=== PATIENT | male | born 1950 | race Caucasian/White ===

== ENCOUNTER 2019-06-09 22:58 | Emergency (ER) | payer MEDICARE, MEDICAID, SELFPAY ==
[2019-06-09 22:59] VITALS: BP 129/70; PULSE 90; RESP 18; TEMP 36.4; O2SAT 96; BMI 24.4
--- NOTE | 2019-06-09 23:25 | ED.VISSUMM ---
- ER Visit Summary Date of Service: 06/09/19 Chief Complaint: Blurred vision and elevated blood pressure History of Present Illness: The patient is a 68 M who presents with blurred vision and elevated blood pressure that began yesterday. Patient states that whenever his blood pressure goes up he gets blurred vision. Patient states he takes an extra dose of enalapril 20 mg whenever he gets this. Patient states he has taken a total of 6 tablets of his enalapril today. Patient states his last dose was approximately 2 hours ago. Patient states nothing seems to make the blood pressure worse. Patient states the medication seems to help his blood pressure. Patient denies any chest pain. Patient does admit to occasional shortness of breath. Patient also admits to some rhinorrhea and recent sinusitis. Physical Examination: Vital signs are stable. Patient is afebrile. Patient is in no acute distress. Oral mucosa is pink and moist. Neck is supple. Trachea is midline. There is no JVD noted. Heart was regular rate and rhythm. Lungs are clear and equal bilateral. Abdomen is soft. Bowel sounds are normal. There is no tenderness. There is no guarding noted. Skin is warm dry. Cranial nerves II through XII are intact. There are no focal motor or sensory deficits noted. The remaining physical exam is within normal limits. Test Results: EKG showed normal sinus rhythm with a rate of 84. There are no acute ST or T wave changes. This was unchanged compared to previous EKG dated 04/26/2016. CBC showed a mild leukocytosis of 12.5. Comprehensive metabolic profile showed a glucose of 64. Troponin was 0.030. PA and lateral chest x-ray does not show any acute cardiopulmonary process. Emergency Department Course and Treatment: Patient feels better on reevaluation. Patient wants to go home. I recommended that the patient stay for a delta troponin since his symptoms were within the last 6 hours. Patient does not want to stay for a delta troponin. Patient was to go home. Patient was instructed to follow-up with his primary care physician in 3 to 5 days. Patient was instructed to return if worse in any way. Patient understood and was agreeable with the plan. All questions were answered. Disposition: Discharge home Impression: Hypertension This note was generated with [employer] dictation software. It may contain incorrect words, spelling, and punctuation that were not noted in review of the chart prior to signing ED Disposition - Plan for ED Patient: Disposition: Home or Assisted Living Diagnosis: Hypertension Instructions: HYPERTENSION, Established, Out of Control Referrals: Reji De Leon MD [Primary Care Provider] - 3-5 Days
--- NOTE | 2019-06-09 23:26 | EKG12_ITS ---
Test Reason : HTN Blood Pressure : / mmHG Vent. Rate : 084 BPM Atrial Rate : 084 BPM P-R Int : 172 ms QRS Dur : 084 ms QT Int : 350 ms P-R-T Axes : 061 046 067 degrees QTc Int : 413 ms Normal sinus rhythm Normal ECG Confirmed by FREDRICK JOY, ESTHELA ([id number]), food expeditor JAYRO NEWMAN ([id number]) on 06/11/2019 1:57:33 PM Referred By: BREANNE Confirmed By:ESTHELA ALCALA MD
--- NOTE | 2019-06-09 23:26 | RAD_ITS ---
HISTORY: HX OF HIGH BLOOD PRESSURE/DIZZINESS AND BURRED VISION TONIGHT/TOOK 4 EXTRA BLOOD PRESSURE MEDICATION PILLS EXAM: XR Chest 2 Views: COMPARISON: April 26, 2016 FINDINGS: # of images incl. paperwork: 2 Atherosclerotic plaque within the aortic arch is similar. 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 No focal airspace disease is perceived Heart is not enlarged. Bones are normal. Pulmonary vascularity is distinct. No effusions. RAD/Chest PA and Lateral IMPRESSION: No acute cardiopulmonary disease perceived. at 2358 Reported and signed by: Efrain Mcmillan MD Electronically Signed: Efrain Mcmillan MD at 23:57 EDT Tel , Service support ,
[2019-06-10 00:22] LABS: ALB/GLOB Ratio 0.9 RATIO (0.9-2.4); AST(SGOT) 18 U/L (15-37); Alanine Aminotransfer ALT/SGPT 23 U/L (16-61); Albumin, Serum 3.7 g/dL (3.2-5.0); Alkaline Phosphatase 79 U/L (45-117); Anion Gap 7 (5-15); BUN 15 mg/dL (7-18); BUN/Creat Ratio 17.8 RATIO (10-20); Calcium,Total 9.1 mg/dL (8.5-10.1); Chloride 105 mmol/L (98-107); Creatinine, Serum 0.84 mg/dL (0.70-1.30); EST Glomerular Filtration Rate 97 mL/min (>60); Est Glom Filt Rate - Afr Amer 117 mL/min (>60); Estimated Creatinine Clearance 92.13 ml/min; Glucose 64 mg/dL (74-106); Potassium 4.7 mmol/L (3.5-5.1); Protein, Total 7.7 g/dL (6.4-8.2); Sodium Level 138 mmol/L (136-145)
[2019-06-10 00:26] LABS: Absolute Lymphocyte Count 2.85 X10^3/ul (0.83-4.51); Absolute Neutrophil Count 7.8 X10^3/uL (2.0-7.7); Basophil# 0.06 X10^3/uL; Basophil% 0.5 % (0-1); Eosinophil# 0.27 X10^3/uL; Eosinophils% 2.2 % (0-5); Hemoglobin 15.7 g/dl (13.0-16.5); Lymphocyte # 2.85 X10^3/ul (4.0); Lymphocyte % 22.8 % (19-41); Mean Corp Hgb Conc 33.4 g/gl (32-36); Mean Corpuscular Hgb 30.3 pg (27.0-32.0); Mean Corpuscular Volume 90.7 fL (80-94); Monocyte# 1.43 X10^3/uL; Monocyte% 11.4 % (0-10); Neutrophil # 7.84 X10^3/uL (2.7-7.7); Neutrophil % 62.7 % (47-70); Platelet Count 342 K/mm3 (150-450); RBC Distribution Width SD 49.3 fl (35.1-43.9); Red Blood Count 5.18 M/mm3 (4.6-6.2); White Blood Count 12.5 K/mm3 (4.4-11.0)
[2019-06-10 00:27] LABS: POSITIVE COUNT NO; POSITIVE DIFFERENTIAL NO; POSITIVE MORPHOLOGY NO
--- NOTE | 2019-06-10 00:36 | ED.RN ---
PT GIVEN A SANDWICH AND COKE TO EAT, SERUM GLUCOSE 64.
[2019-06-10 01:10] VITALS: BP 145/78; PULSE 96; RESP 16; O2SAT 98
== END 2019-06-10 01:11 | disposition home or self-care (01) ==
PROVIDERS: Emergency Provider Emergency Medicine; Family Provider Family Medicine; PCP Family Medicine
DX: I10 Essential (primary) hypertension (principal); E11.9 Type 2 diabetes mellitus without complications; Z86.73 Personal history of transient ischemic attack (TIA), and cerebral infarction without residual deficits; Z72.0 Tobacco use; Z79.84 Long term (current) use of oral hypoglycemic drugs; Z79.899 Other long term (current) drug therapy
CPT/HCPCS: 71046; 80053; 84484; 85025; 93005; 99284; A4216

== ENCOUNTER 2023-09-04 13:58 | Inpatient (IN) | payer MEDICARE, MEDICAID, SELFPAY ==
[2023-09-04] VITALS (7 sets, daily range): BP systolic 124–153; BP diastolic 55–110; PULSE 79–105; RESP 14–18; TEMP 36.4–37.3; O2SAT 93–98; BMI 22.9; BMI 21.5
--- NOTE | 2023-09-04 14:11 | EKG12_ITS ---
Test Reason : CP Blood Pressure : / mmHG Vent. Rate : 104 BPM Atrial Rate : 104 BPM P-R Int : 184 ms QRS Dur : 088 ms QT Int : 322 ms P-R-T Axes : 048 008 048 degrees QTc Int : 423 ms Poor data quality, interpretation may be adversely affected Sinus tachycardia Possible Left atrial enlargement Nonspecific ST abnormality Abnormal ECG Confirmed by FREDRICK JOY, ESTHELA ([id number]), communications editor JAYRO NEWMAN ([id number]) on 09/06/2023 10:43:48 AM Referred By: KYLE/DINA Confirmed By:ESTHELA ALCALA MD
--- NOTE | 2023-09-04 14:13 | EDS_ITS ---
<Statement entered by Samara Whitney MD - 09/04/23 16:59> I have personally performed a face to face assessment of the patient and have reviewed the SANDI Note. Patient presents with substernal chest pressure that started earlier today. He reports some mild shortness of breath. Patient was admitted to [facility] 3 weeks ago with pneumonia. He states the chest pain that he has now is similar to when he had pneumonia. His shortness of breath is not as severe as when he was admitted with pneumonia. Patient sitting upright in bed no acute distress. Head and neck examination unremarkable. Heart is slightly tachycardic and regular. Lung sounds are grossly clear bilaterally. Abdomen is soft and nontender. Lower extremity examination does not reveal significant calf tenderness or edema. EKG is sinus tach with no evidence of acute ischemia. Labwork significant for slightly elevated D-dimer and significant elevation of troponin. Glucose is also elevated to 600. Chest x-ray reveals chronic changes per my interpretation with no focal infiltrate. Radiology interpretation is reviewed and agrees. Patient sent for CTA of the chest which reveals emphysematous changes and no PE. Patient started on heparin drip and given insulin. Case discussed with cardiology as well as hospitalist. HPI History of Present Illness Chief Complaint: Chest Pain Narrative Narrative: Patient is a 72-year-old male with history of hypertension, hyperlipidemia, diabetes, tobacco use, greater than 1 to 1.5 packs a day who presents to the emergency department for midsternal chest pain. Patient states that he was recently admitted to the [facility] for 4 days 3 weeks ago for community-acquired pneumonia. Patient states today he woke up with chest pain and it feels similar however patient has no significant short of breath, no coughing, fever or chills. 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 Patient is no longer on antibiotics. He denies any past history of blood clots in the legs or lungs. PFSH PFSH Home Medications metformin 500 mg tablet 1,000 mg PO BIDCM DIABETES 04/26/16 [History Last Taken 09/04/23] albuterol sulfate 90 mcg/actuation aerosol inhaler 2 inh inhalation Q6H PRN shortness of breath or wheezing 09/04/23 [History Last Taken 09/04/23] diltiazem HCl 180 mg capsule,extended release 24 hr 180 mg PO DAILY BLOOD PRESSURE 09/04/23 [History Last Taken Unknown] fluticasone fur. 100 mcg-umeclid 62.5 mcg-vilant 25 mcg inhalat.powder (Trelegy Ellipta) 1 inh inhalation DAILY SHORTNESS OF BREATH 09/04/23 [History Last Taken 09/04/23] spironolactone 25 mg tablet 25 mg PO DAILY BLOOD PRESSURE 09/04/23 [History Last Taken Unknown] Allergy/AdvReac Type Severity Reaction Status Date / Time No Known Allergies Allergy Verified 06/09/19 23:32 Social History Smoking Status: Current every day smoker tobacco type: cigarettes ROS ROS ED ROS Narrative Constitutional: Negative for fever, chills, weight loss, weakness Eyes: Negative for vision loss, vision change, double vision ENT: Negative for any sore throat, ear pain, congestion Cardiovascular: Negative for any palpitations. Positive for chest pain, tightness Respiratory: Negative for any cough, sputum production, hemoptysis, dyspnea on exertion, orthopnea. Positive for dyspnea Gastrointestinal: Negative for any abdominal pain, nausea, vomiting, diarrhea, constipation, blood in stool, blood in vomit : Negative for any urinary frequency, dysuria, retention, blood in urine Muscle skeletal: Negative for any muscle joint pain, stiffness, myalgias, arthralgias, neck pain, back pain Neurological: Negative for any headache, syncope, numbness or tingling, dizziness Skin: Negative for any rashes, lumps, itching, abrasions, lacerations Psychiatric: Negative for any depression, anxiety, stress, suicidal ideation, homicidal ideation Hematologic: Negative for any easy bruising, excessive bruising, easy bleeding Allergies: Negative for any eczema, hives, rash EXAM Physical Exam Narrative Exam Narrative: Vital signs reviewed. Appears to be in no obvious distress. HEET: Head normocephalic atraumatic, TMs clear bilaterally. Posterior pharynx is clear, moist mucous membranes. Nares clear bilaterally. Neck: Supple with no lymphadenopathy or tenderness. No signs of meningismus, negative jolt sign. Cardiac: Tachycardic rate, systolic murmur, no gallops or rubs, equal peripheral pulses bilaterally. Respiratory: Lungs clear to auscultation bilaterally to bilateral bases. No chest tenderness. Abdomen: Soft, nontender, nondistended. No abdominal bruit or pulsatile masses. No hepatosplenomegaly Extremities: No peripheral edema, no signs of gross trauma or deformity. Active full range of motion of all extremities. Neuro: Cranial nerves II through XII intact, no focal neurological deficits. Skin: Clean dry and intact with no rash, purpura, petechiae, vesicles or pustules. Backs/flank: No CVA tenderness, no midline spinal tenderness, no deformity. Psych: Normal mood and affect. No SI, HI or acute psychosis. Const Vital Signs: 09/04/23 13:59 09/04/23 14:19 09/04/23 14:22 Temperature 97.6 F L Temperature Source Temporal Pulse Rate 105 H Respiratory Rate 14 Respiratory Effort Normal Respiratory Pattern Normal Blood Pressure 153/83 H Blood Pressure Mean 106 Pulse Ox 98 Oxygen Delivery Method Room Air Room Air 09/04/23 15:37 Temperature Temperature Source Pulse Rate 87 Respiratory Rate Respiratory Effort Respiratory Pattern Blood Pressure 124/55 H Blood Pressure Mean Pulse Ox Oxygen Delivery Method Positive well nourished and unkempt General Appearance ED: unkempt Psych Appearance: unkempt MDM MDM Lab Data Labs: Laboratory Results - last 24 hr 09/04/23 14:17 WBC 14.4 H RBC 5.51 Hgb 16.7 H Hct 50.6 MCV 91.8 MCH 30.3 MCHC 33.0 RDW Std Deviation 52.3 H RDW Coeff of Lauri 15.6 H Plt Count 301 MPV 10.5 Immature Gran % (Auto) 0.500 Neut % (Auto) 90.0 H Lymph % (Auto) 3.3 L Hand % (Auto) 5.7 Eos % (Auto) 0.0 Baso % (Auto) 0.5 Absolute Neuts (auto) 13.0 H Absolute Lymphs (auto) 0.48 L Nucleated RBC % 0 D-Dimer Quant (PE/DVT) 0.84 H* Sodium 126 L Potassium 5.0 Chloride 93 L Carbon Dioxide 23.0 Anion Gap 10 BUN 27 H Creatinine 1.45 H Estim Creat Clear Calc 50.06 Est GFR (MDRD) Af Amer 62 Est GFR (MDRD) Non-Af 51 L BUN/Creatinine Ratio 18.6 Glucose 654 H* Calcium 9.1 Troponin I High Sens 2606 H* B-Natriuretic Peptide 32.4 Radiography Diagnostic Testing: Clinical Impression(s) from Imaging Studies Chest X-Ray 09/04/23 14:35 IMPRESSION: No acute pulmonary finding. Electronically Signed: Sonu Fagan MD at 14:58 EDT , Chest CTA 09/04/23 15:28 IMPRESSION: No pulmonary embolism. Moderate emphysema. Partially calcified lesion of the left kidney noted. This could be further evaluated with nonemergent renal ultrasound. Electronically Signed: Sonu Fagan MD at 15:48 EDT , EKG Sinus tach: Attestation: I personally reviewed and interpreted this EKG as follows: Interpretation: Sinus Tachycardia Comments: Sinus tachycardia, rate 104 bpm, AL 184 ms, no acute ST elevation, no acute infarct noted Treatment and Re-Evaluation :: Patient appears generally well, patient peers nontoxic, vital signs are stable. Presenting to the emergency midsternal chest pain that started when he woke up this morning. Patient thinks he might have pneumonia again. Patient is physical examination is not consistent with pneumonia, patient's lung sounds were clear no advantageous lung sounds. Patient will receive a full cardiac work-up and 22 troponins. Patient will receive 324 aspirin patient will receive a D-dimer secondary to tachycardia, being unable to PERC out EKG shows no significant elevation, no signs of acute NV. Patient patient two-view chest x-ray interpreted the ER physician shows no acute pulmonary finding. Patient's laboratory values showed a leukocytosis with a white blood count of 14.4. Patient's sodium was 126, creatinine was 1.45, patient was given 1 L of normal saline. Patient's glucose was elevated at 654. Patient's initial troponin was 2606. Because of this finding, I will reach out to cardiology for cardiology consultation. Patient was given 324 baby aspirin. Patient will receive insulin. Patient remained stable, patient states his pain overall is a 3. Patient was given 1 sublingual nitro. Patient restarted on IV heparin and bolus. Patient received 15 units of subcu insulin. Patient be admitted to the hospitalist. Patient stable for admission CTA of the chest was negative for any pulmonary embolus. Patient stable for admission Discharge Plan Dx/Rx/DC Orders Clinical Impression: Acute hyperglycemia, Acute non-ST elevation myocardial infarction (NSTEMI), Chest pain Disposition Disposition: Acute Care Hospital [facility]
[2023-09-04] MEDS: 0.9% Normal Saline (1000mL) 1,000 ML 1000 ML IV (14:32)
[2023-09-04] MEDS: Aspirin 81 MG TAB.CHEW 324 MG PO (14:32)
[2023-09-04 14:34] LABS: Absolute Lymphocyte Count 0.48 X10^3/uL (0.83-4.51); Basophil# 0.07 X10^3/uL; Basophil% 0.5 % (0-1); Hematocrit 50.6 % (40-54); Hemoglobin 16.7 g/dL (13.0-16.5); Lymphocyte # 0.48 X10^3/ul (0.83-4.51); Lymphocyte % 3.3 % (19-41); Mean Corpuscular Hgb 30.3 pg (27.0-32.0); Mean Corpuscular Volume 91.8 fL (80-94); Mean Platelet Vol. 10.5 fl (6.2-12.0); Monocyte# 0.82 X10^3/uL; Monocyte% 5.7 % (0-10); NRBC Flagged by Analyzer 0 % (0-5); Neutrophil # 12.98 X10^3/uL (2.7-7.7); POSITIVE DIFFERENTIAL YES; Platelet Count 301 K/mm3 (150-450); RBC Distribution Width CV 15.6 % (11.6-14.6); RBC Distribution Width SD 52.3 fl (35.1-43.9); Red Blood Count 5.51 M/mm3 (4.6-6.2); White Blood Count 14.4 K/mm3 (4.4-11.0)
--- NOTE | 2023-09-04 14:35 | RAD_ITS ---
INDICATION: chest pain EXAMINATION/TECHNIQUE: X-RAY - XR Chest 2 Views COMPARISON: Prior study dated: 06/09/2019 FINDINGS: LINES/DEVICES: Cardiac leads overlie the chest. Spinal fusion hardware. LUNGS: The lungs are well expanded. No consolidation, edema or effusion. No pneumothorax. MEDIASTINUM AND CARDIOVASCULAR STRUCTURES: Cardiac silhouette is unchanged with a calcified aorta. Central airways and mediastinal contour are unremarkable. BONES AND SOFT TISSUES: Unremarkable. RAD/Chest PA and Lateral IMPRESSION: No acute pulmonary finding. Electronically Signed: Sonu Fagan MD at 14:58 EDT ,
[2023-09-04 14:39] LABS: Differential Indicated SCAN CRITERIA MET
[2023-09-04 14:55] LABS: Anion Gap 10 (5-15); BNP,B-Type NATRIURETIC PEPTIDE 32.4 pg/mL (0-100); BUN 27 mg/dL (7-18); BUN/Creat Ratio 18.6 RATIO (10-20); Calcium,Total 9.1 mg/dL (8.5-10.1); Chloride 93 mmol/L (98-107); Creatinine, Serum 1.45 mg/dL (0.70-1.30); EST Glomerular Filtration Rate 51 mL/min (>60); Est Glom Filt Rate - Afr Amer 62 mL/min (>60); Estimated Creatinine Clearance 50.06 ml/min; Glucose 654 mg/dL (74-106); Sodium Level 126 mmol/L (136-145); Troponin-I HS (w/2H Reflex) 2606 pg/mL (3.0-78.0)
[2023-09-04 15:08] LABS: D-Dimer Quantitative (DVT/PE) 0.84 FEU/ug/m (0.27-0.49)
--- NOTE | 2023-09-04 15:28 | CT_ITS ---
STUDY: CTA CHEST REASON FOR EXAM: Male, 72 years old. shortness of breath RADIATION DOSAGE (If Supplied By Facility): CTDIvol = ( 9.14 ) mGy, DLP = ( 290.18 ) mGycm TECHNIQUE: The examination was performed with the intravenous administration of IV 100mL Isovue-370. Post-processing of the angiographic images was performed, with multiplanar reformation and 3D reconstruction. Individualized dose optimization techniques were used for this CT. COMPARISON: No relevant prior comparison study available FINDINGS: PULMONARY ARTERIES: Normal enhancement of the main pulmonary artery and right and left pulmonary arteries. Normal enhancement of the bilateral peripheral pulmonary arteries. There is no demonstrated pulmonary embolism. AORTA: Normal thoracic aorta and visualized great vessels. There is no demonstrated aortic dissection. MEDIASTINUM: The heart is enlarged. No pericardial effusion. Diffuse coronary artery calcifications. Normal mediastinum. Normal hilar regions. LUNGS/PLEURA: Normal visualized trachea and bronchi. There is moderate centrilobular and paraseptal emphysema. No consolidation. Right lower lobe calcified granuloma. Bandlike linear scarring/atelectasis in the lingula. Normal pleura. No pneumothorax. CHEST WALL: Normal chest wall structures. UPPER ABDOMEN: No acute abnormality. Calcified granuloma in the liver and spleen. Partially calcified left renal lesion noted at the mid to lower pole. This is not fully imaged. Simple cyst of the right kidney. OSSEOUS STRUCTURES: No acute or suspicious osseous abnormality. Spinal fusion hardware at the lower thoracic spine. This bridges a T9 vertebral body compression deformity. Laminectomy at this level. CT/CTA Chest W/WO Contrast IMPRESSION: No pulmonary embolism. Moderate emphysema. Partially calcified lesion of the left kidney noted. This could be further evaluated with nonemergent renal ultrasound. Electronically Signed: Sonu Fagan MD at 15:48 EDT ,
[2023-09-04] MEDS: Nitroglycerin SL (ED/IMG/CATH) 0.4 MG TABLET SL (15:37)
[2023-09-04] MEDS: Heparin Injection (Vial) 5,000 UNIT/ML VIAL 4000 UNIT IV (16:03)
[2023-09-04] MEDS: HEPARIN/D5w 25,000 UNITS 25,000 UNITS/250 ML IV.SOLN. 9 UNITS CONT INF (16:08)
[2023-09-04 16:24] LABS: Prothrombin Time (Protime)PT. 12.9 SECONDS (11.7-14.9)
[2023-09-04 16:25] LABS: Partial Thromboplast Time 25.8 Seconds (24.1-36.2)
[2023-09-04 16:31] LABS: Reflex Troponin-HS? (from REC) Y
--- NOTE | 2023-09-04 16:41 | HP.PCM.HOS_ITS ---
HPI - General General Date of Admission: 09/04/23 HPI Narrative RAHEL NICHOLS, is a 72 M who presents to the hospital with 1 day of chest pain and shortness of breath. The pain is substernal and does not appear to radiate. He was recently hospitalized a few weeks ago in outside hospital for pneumonia, he does have a leukocytosis but chest x-ray and CTA of the chest appear normal. Initial troponin was 2600 so cardiology was consulted and recommended a heparin drip which will be continued. He states that he was not doing anything exertional today when the chest pain started and it still has not resolved though it feels a little bit better. He states that he is somewhat noncompliant with his medications due to financial reasons. He denies any lightheadedness or dizziness, and has not noticed any palpitations. Of note he is a diabetic and his blood sugars today are elevated to 654 he was given a dose of insulin in the ED. [facility] Medical History (Updated 09/04/23 @ 17:[address] Stew Edwards MD) Hypertension Home Medications metformin 500 mg tablet 1,000 mg PO BIDCM DIABETES 04/26/16 [History Last Taken 09/04/23] albuterol sulfate 90 mcg/actuation aerosol inhaler 2 inh inhalation Q6H PRN shortness of breath or wheezing 09/04/23 [History Last Taken 09/04/23] diltiazem HCl 180 mg capsule,extended release 24 hr 180 mg PO DAILY BLOOD PRESSURE 09/04/23 [History Last Taken Unknown] fluticasone fur. 100 mcg-umeclid 62.5 mcg-vilant 25 mcg inhalat.powder (Trelegy Ellipta) 1 inh inhalation DAILY SHORTNESS OF BREATH 09/04/23 [History Last Taken 09/04/23] spironolactone 25 mg tablet 25 mg PO DAILY BLOOD PRESSURE 09/04/23 [History Last Taken Unknown] Allergy/AdvReac Type Severity Reaction Status Date / Time No Known Allergies Allergy Verified 06/09/19 23:32 Family History Other Diabetes Heart disease Surgical History Status post appendectomy Social History Smoking Status: Current every day smoker tobacco type: cigarettes ROS Constitutional Constitutional: Denies chills, fatigue, fever(s) or malaise Eyes Eyes: Denies blurry vision ENT HEENT: Denies headache(s) or nasal discharge Cardiovascular Cardiovascular: Reports chest pain; Denies dyspnea on exertion or syncope Respiratory/Chest Respiratory/Chest: Reports shortness of breath at rest and shortness of breath with exertion; Denies cough Gastrointestinal Gastrointestinal: Denies constipation, diarrhea, nausea or vomiting Genitourinary Genitourinary: Denies dysuria Neurologic Neurologic: Denies focal weakness, numbness or tremor(s) Psychiatric Psychiatric: Denies anxiety or depression Vital Signs Vital Signs Vital Signs: 09/04/23 13:59 09/04/23 14:19 09/04/23 14:22 Temperature 97.6 F L Temperature Source Temporal Pulse Rate 105 H Respiratory Rate 14 Respiratory Effort Normal Respiratory Pattern Normal Blood Pressure 153/83 H Blood Pressure [BP] Blood Pressure Mean 106 Blood Pressure Mean [BP] Blood Pressure Source [BP] Blood Pressure Position [BP] Blood Pressure Location [BP] Pulse Ox 98 Oxygen Delivery Method Room Air Room Air 09/04/23 15:37 09/04/23 15:59 09/04/23 16:11 Temperature Temperature Source Pulse Rate 87 92 89 Respiratory Rate 16 18 Respiratory Effort Respiratory Pattern Blood Pressure 124/55 H 141/78 H 141/78 H Blood Pressure [BP] Blood Pressure Mean 99 99 Blood Pressure Mean [BP] Blood Pressure Source [BP] Blood Pressure Position [BP] Blood Pressure Location [BP] Pulse Ox 98 98 Oxygen Delivery Method Room Air 09/04/23 16:28 Temperature 98.0 F Temperature Source Oral Pulse Rate 89 Respiratory Rate 18 Respiratory Effort Respiratory Pattern Blood Pressure Blood Pressure [BP] 150/110 H Blood Pressure Mean Blood Pressure Mean [BP] 123 Blood Pressure Source [BP] Monitor Blood Pressure Position [BP] Supine Blood Pressure Location [BP] Left Arm Pulse Ox 94 Oxygen Delivery Method Room Air Weight Weight: 154 lb 6.4 oz Body Mass Index (BMI) 21.5 Physical Exam Narrative General: Alert, Oriented x3, Cooperative, No apparent distress HEENT: Atraumatic, PERRLA, EOMI, Normocephalic Oral: Moist Mucosa Neck: Supple, No JVD Lungs: Diminished, Normal air movement, No rhonchi, No wheeze, No rales Cardiovascular: Regular rate, Regular Rhythm, Normal S1, Normal S2, 1/6 MENDEL Abdomen: Soft, Non Tender, Non-Distended, No Hepato-splenomegaly Extremities: No edema, Capillary Refill Less than 3 Seconds Skin: No rashes, No breakdown Musculoskeletal: No Tenderness to Palpation of Joints or Extremities Neurological: Cranial nerves II-XII grossly intact, Motor Exam 5/5 strength th roughout, Sensory exam intact to light touch and pain Psych/Mental Status: Normal Affect, Appropriate Results Lab / Micro Data 09/04/23 14:17 09/04/23 14:17 Labs: Laboratory Results - last 24 hr 09/04/23 14:17: WBC 14.4 H, RBC 5.51, Hgb 16.7 H, Hct 50.6, MCV 91.8, MCH 30.3, MCHC 33.0, RDW Std Deviation 52.3 H, RDW Coeff of Lauri 15.6 H, Plt Count 301, MPV 10.5, Immature Gran % (Auto) 0.500, Neut % (Auto) 90.0 H, Lymph % (Auto) 3.3 L, Dent % (Auto) 5.7, Eos % (Auto) 0.0, Baso % (Auto) 0.5, Absolute Neuts (auto) 13.0 H, Absolute Lymphs (auto) 0.48 L, Nucleated RBC % 0, PT 12.9, INR 1.0, APTT 25.8, D-Dimer Quant (PE/DVT) 0.84 H*, Sodium 126 L, Potassium 5.0, Chloride 93 L, Carbon Dioxide 23.0, Anion Gap 10, BUN 27 H, Creatinine 1.45 H, Estim Creat Clear Calc 50.06, Est GFR (MDRD) Af Amer 62, Est GFR (MDRD) Non-Af 51 L, BUN/Creatinine Ratio 18.6, Glucose 654 H*, Calcium 9.1, Troponin I High Sens 2606 H*, B-Natriuretic Peptide 32.4 Radiology Impression Chest X-Ray 09/04/23 14:35 IMPRESSION: No acute pulmonary finding. Electronically Signed: Sonu Fagan MD at 14:58 EDT , Chest CTA 09/04/23 15:28 IMPRESSION: No pulmonary embolism. Moderate emphysema. Partially calcified lesion of the left kidney noted. This could be further evaluated with nonemergent renal ultrasound. Electronically Signed: Sonu Fagan MD at 15:48 EDT , Assessment & Plan Assessment/Plan (1) Chest pain: PLAN: Plan 1. Chest pain/HTN ? Unclear as to his other cardiac medical history as I was unable to get into [facility] there is a possible history of heart failure unknown type ? We will obtain echo, and obtain serial troponins ? Consult cardiology ? Continue with heparin drip he did receive a dose of aspirin in the ED ? We will continue with his Cardizem but will hold his Aldactone secondary to his renal function being at 1.45. Unclear as to what his baseline creatinine is at the moment ? Because he received a CTA of the chest and were planning for heart cath tomorrow we will give him IV fluids ? We will obtain a lipid panel in the morning ? If he does need to proceed with a cardiac catheterization and drug-eluting stent given his financial constraints would recommend aspirin/Plavix 2. DM 2 ? Hemoglobin is elevated unclear whether or not he is consistently taking his metformin or following a diabetic diet ? We will place him on sliding scale insulin ? Accu-Cheks ACHS ? We will make adjustments as necessary 3. COPD ? Not in exacerbation ? Can continue with his home albuterol DVT: Heparin drip 78 minutes was spent on direct patient care, including documentation as well as chart review and collaboration with colleagues Charges/Coding Visit Charges Inpatient E&M: 95520 Init Hosp L3
--- NOTE | 2023-09-04 17:05 | ECHOD_ITS ---
Reason For Study: CHF Procedure This was a 2D Doppler, Color Flow transthoracic echocardiogram. Exam performed portable in patient room. Left Ventricle Normal LV size. Moderate concentric left ventricular hypertrophy. Left ventricular systolic function is normal. The estimated ejection fraction is 60 %. Stage 1 diastolic dysfunction. No regional wall motion abnormalities noted. Right Ventricle Normal RV size. Normal systolic function. Atria Normal left atrium. Normal right atrium. Mitral Valve There is mild to moderate mitral annular calcification. Echogenic mobile structure attached to part of the papillary muscle or a possible torn mid cavitary tendon. Cannot completely exclude vegetation though unlikely. Mild-Moderate (1-2+) eccentric mitral valve insufficiency. Tricuspid Valve Normal tricuspid valve. Aortic Valve Trisinus/trileaflet aortic valve. Pulmonic Valve Normal pulmonic valve. Great Vessels Normal aortic root. The pulmonary artery is normal size. Normal inferior vena cava. Pericardium/Pleural No pericardial effusion. MMode/2D Measurements & Calculations LVIDd: 4.3 cm IVSd: 1.4 cm LVOT diam: 2.0 cm LVIDs: 3.3 cm LVPWd: 1.6 cm LVOT area: 3.3 cm2 RVDd: 2.4 cm FS: 22.6 % LAV(MOD-bp): 103.6 ml LVAd ap4: 29.2 cm2 SV(MOD-sp4): 41.6 ml LAV(MOD-bp) Indexed: 54.9 ml/m2 LVLd ap4: 7.5 cm LAV(MOD-sp2): 113.6 ml EDV(MOD-sp4): 94.0 ml LAV(MOD-sp4): 88.8 ml EDV(sp4-el): 97.1 ml LVAs ap4: 20.2 cm2 LVLs ap4: 6.6 cm ESV(MOD-sp4): 52.4 ml ESV(sp4-el): 52.7 ml EF(MOD-sp4): 44.2 % EF(sp4-el): 45.8 % SV(sp4-el): 44.5 ml LA A4 area: 27.0 cm2 LA dimension(2D): 4.4 cm RA A4 area: 15.8 cm2 TAPSE: 1.7 cm Time Measurements MV dec time: 0.38 sec Doppler Measurements & Calculations MV E max landen: 131.8 cm/sec Lat Peak E' Landen: 6.2 cm/sec Med Peak E' Landen: 3.7 cm/sec MV A max landen: 174.6 cm/sec E/E' lat: 21.3 E/E' med: 36.0 MV E/A: 0.75 MV V2 max: 202.3 cm/sec Ao V2 max: 254.3 cm/sec MV max P.4 mmHg MV dec slope: 357.5 cm/sec2 Ao max P.1 mmHg MV V2 mean: 139.8 cm/sec Ao V2 mean: 174.5 cm/sec MV mean P.3 mmHg Ao mean P.2 mmHg MV V2 VTI: 72.8 cm Ao V2 VTI: 46.4 cm AV (velocity ratio): 0.53 MVA(VTI): 1.1 cm2 NEWTON(I,D): 1.7 cm2 NEWTON(V,D): 1.7 cm2 LV V1 max: 131.3 cm/sec SV(LVOT): 79.3 ml PA V2 max: 77.9 cm/sec LV V1 max P.9 mmHg PA V2 mean: 52.7 cm/sec LV V1 mean P.9 mmHg LV V1 mean: 93.7 cm/sec LV V1 VTI: 24.4 cm ECHO/Echo Complete Interpretation Summary Echogenic mobile structure attached to part of the papillary muscle or a possib le torn mid cavitary tendon. Cannot completely exclude vegetation though unlikely. Normal LV size. Left ventricular systolic function is normal. The estimated ejection fraction is 60 %. Moderate concentric left ventricular hypertrophy. Stage 1 diastolic dysfunction. Ordering Physician: Mehran Thomason Referring Physician: ESTEFANÍA STEEN Performed By: Tila Villavicencio RCS
[2023-09-04 17:21] LABS: Troponin-I HS 6425 pg/mL (3.0-78.0)
--- NOTE | 2023-09-04 17:29 | CON.PCM.CA_ITS ---
Assessment & Plan Assessment/Plan (1) Acute non-ST elevation myocardial infarction (NSTEMI): PLAN: Patient presents with chest discomfort and is noted to have a non-ST elevation myocardial infarction. My recommendation is for us to treat him as follows: * Aspirin 81 mg daily * Toprol-XL 50 mg a day * Intravenous heparin * High intensity statin * Consider cardiac catheterization in a.m. (2) HTN (hypertension): PLAN: Patient is noted to have hypertension which is out of control at this time. I will recommend that we discontinue the diltiazem Place him on Toprol XL Add lisinopril 10 mg after hydration Follow-up with an echocardiogram Depending on the results further recommendations will be made. (3) Acute hyperglycemia: PLAN: He does have evidence of hyperglycemia and also dilutional hyponatremia due to the hyper glycemia as well as renal dysfunction. We will treat with appropriate hydration aggressively Further diabetic treatment as per hospitalist. Thank you for allowing me to participate in the care of your patient. Please don't hesitate to call if any issues arise. HPI Consult Data Date of Consult: 09/04/23 HPI Narrative HPI Narrative: RAHEL NICHOLS, is a 72 M who presents to the emergency room with complaints of midsternal chest discomfort. He says that he was recently admitted to [facility] 3 weeks ago with community-acquired pneumonia. He was worked up and also had an echocardiogram done which demonstrated preserved ejection fraction. Since then he has not felt quite well and presents with the above. He does have a history of hypertension, hyperlipidemia, diabetes mellitus but no significant family history of coronary disease. He does not follow with any embroidery assistant. He is somewhat compliant with his medications. In the emergency room he was noted to be in sinus rhythm with premature ventricular complexes and still complaining of mild chest discomfort. He was noted to have an abnormal cardiac enzyme. [facility] Medical History (Updated 09/04/23 @ 17:[address] Stew Edwards MD) Hypertension Home Medications metformin 500 mg tablet 1,000 mg PO BIDCM DIABETES 04/26/16 [History Last Taken 09/04/23] albuterol sulfate 90 mcg/actuation aerosol inhaler 2 inh inhalation Q6H PRN shortness of breath or wheezing 09/04/23 [History Last Taken 09/04/23] diltiazem HCl 180 mg capsule,extended release 24 hr 180 mg PO DAILY BLOOD PRESSURE 09/04/23 [History Last Taken Unknown] fluticasone fur. 100 mcg-umeclid 62.5 mcg-vilant 25 mcg inhalat.powder (Trelegy Ellipta) 1 inh inhalation DAILY SHORTNESS OF BREATH 09/04/23 [History Last Taken 09/04/23] spironolactone 25 mg tablet 25 mg PO DAILY BLOOD PRESSURE 09/04/23 [History Last Taken Unknown] Allergy/AdvReac Type Severity Reaction Status Date / Time No Known Allergies Allergy Verified 06/09/19 23:32 Family History Other Diabetes Heart disease Surgical History Status post appendectomy Social History Smoking Status: Current every day smoker tobacco type: cigarettes ROS Constitutional Constitutional: Denies fever(s) or weight loss Eyes Eyes: Reports systems reviewed and no addt'l complaints, except as documented ENT HEENT: Reports systems reviewed and no addt'l complaints, except as documented Cardiovascular Cardiovascular: Reports chest pain at rest and chest pain with activity; Denies dyspnea at rest, dyspnea on exertion, edema, palpitations or paroxysmal nocturnal dyspnea Respiratory/Chest Respiratory/Chest: Denies dyspnea on exertion, productive cough, shortness of breath at rest or shortness of breath with exertion Gastrointestinal Gastrointestinal: Denies change in bowel habits, nausea, vomiting or weight changes Genitourinary Genitourinary: Denies difficulty urinating Musculoskeletal Musculoskeletal: Denies joint stiffness or muscle weakness Integumentary Integumentary: Denies lesions Neurologic Neurologic: Denies dizziness or syncope Psychiatric Psychiatric: Denies anxiety Endocrine Endocrinology: Denies excessive sweating or fatigue Hematologic/Lymphatic Hematologic/Lymphatic: Denies anemia Allergic/Immunologic Allergic/Immunologic: Denies seasonal rhinorrhea Physical Exam Const alert, oriented x3 and no apparent distress General Appearance: cooperative HEENT hearing grossly normal bilaterally Head and Scalp: atraumatic Eyes EOMs intact bilaterally Neck General: normal visual inspection Chest inspection of chest normal and palpation of chest normal Resp normal respiratory effort Auscultation: clear to auscultation bilaterally Cardio regular rate, regular rhythm, S1 normal heart sound and S2 normal heart sound Jugular Venous Distention: JVD GI normal to inspection, nondistended, normoactive bowel sounds Extremity normal capillary refill and no pedal edema Peripheral Pulses: Yes pulses 2+ throughout and femoral pulses present Skin no rashes or lesions noted Neuro oriented x3 and CN's II-XII intact bilaterally Psych Appearance: grossly normal and appropriate Risk Stratification Risk Stratification Applicable: Yes Age >/= 65: Yes >/= 3 CAD Risk Factors (HTN, HLD, DM, family hx of CAD, or current smoker): Yes Aspirin Use in the Past 7 Days: Yes Severe Angina (>/= episodes in 24 hours): Yes EKG ST Changes >/= 0.5mm: No Positive Cardiac Marker: Yes ROGELIO Risk Stratification Score: 5 ROGELIO % Risk: 25% Risk Objective Data Vital Signs: Vital Signs Temp Pulse Resp BP Pulse Ox O2 Del Method 98.0 F 89 18 150/110 H 94 Room Air 09/04/23 16:28 09/04/23 16:28 09/04/23 16:28 09/04/23 16:28 09/04/23 16:28 09/04/23 16:28 Oxygen Delivery Method Room Air Weight: 154 lb 6.4 oz Body Mass Index (BMI) 21.5 Intake & Output: Intake and Output for Last 24 Hours 09/02/23 09/03/23 09/04/23 23:59 23:59 23:59 Intake Total 1000 / 1000 Balance 1000 / 1000 Lab / Micro Data 09/04/23 14:17 09/04/23 14:17 Labs: Laboratory Results - last 24 hr 09/04/23 14:17: WBC 14.4 H, RBC 5.51, Hgb 16.7 H, Hct 50.6, MCV 91.8, MCH 30.3, MCHC 33.0, RDW Std Deviation 52.3 H, RDW Coeff of Lauri 15.6 H, Plt Count 301, MPV 10.5, Immature Gran % (Auto) 0.500, Neut % (Auto) 90.0 H, Lymph % (Auto) 3.3 L, Barron % (Auto) 5.7, Eos % (Auto) 0.0, Baso % (Auto) 0.5, Absolute Neuts (auto) 13.0 H, Absolute Lymphs (auto) 0.48 L, Nucleated RBC % 0, PT 12.9, INR 1.0, APTT 25.8, D-Dimer Quant (PE/DVT) 0.84 H*, Sodium 126 L, Potassium 5.0, Chloride 93 L , Carbon Dioxide 23.0, Anion Gap 10, BUN 27 H, Creatinine 1.45 H, Estim Creat Clear Calc 50.06, Est GFR (MDRD) Af Amer 62, Est GFR (MDRD) Non-Af 51 L, BUN/Creatinine Ratio 18.6, Glucose 654 H*, Calcium 9.1, Troponin I High Sens 2606 H*, B-Natriuretic Peptide 32.4 09/04/23 16:45: Troponin I High Sens 6425 H* Cardiology Labs/Tests 09/04/23 14:17: WBC 14.4 H, RBC 5.51, Hgb 16.7 H, Hct 50.6, MCV 91.8, MCH 30.3, MCHC 33.0, Plt Count 301, MPV 10.5, Immature Gran % (Auto) 0.500, Neut % (Auto) 90.0 H, Lymph % (Auto) 3.3 L, Barron % (Auto) 5.7, Eos % (Auto) 0.0, Baso % (Auto) 0.5, Absolute Neuts (auto) 13.0 H, Nucleated RBC % 0, PT 12.9, INR 1.0, APTT 25. 8, D-Dimer Quant (PE/DVT) 0.84 H*, Sodium 126 L, Potassium 5.0, Chloride 93 L, Carbon Dioxide 23.0, Anion Gap 10, BUN 27 H, Creatinine 1.45 H, Est GFR (MDRD) Af Amer 62, Est GFR (MDRD) Non-Af 51 L, BUN/Creatinine Ratio 18.6, Glucose 654 H*, Calcium 9.1, B-Natriuretic Peptide 32.4 Rhythm: EKG: Normal sinus rhythm with premature ventricular complexes present. ECHO: Stress Test: Cardiac Cath: PCI: CT Surgery: Holter monitor: EPS: PPM: CXR: Chest CT Scan: Radiography Diagnostic Testing: Radiology Impression Chest X-Ray 09/04/23 14:35 IMPRESSION: No acute pulmonary finding. Electronically Signed: Snou Fagan MD at 14:58 EDT , Chest CTA 09/04/23 15:28 IMPRESSION: No pulmonary embolism. Moderate emphysema. Partially calcified lesion of the left kidney noted. This could be further evaluated with nonemergent renal ultrasound. Electronically Signed: Sonu Fagan MD at 15:48 EDT ,
[2023-09-04 17:36] LABS: Bedside Glucose 333 mg/dL (74-106)
[2023-09-04] MEDS: 0.9% Normal Saline (1000mL) 1,000 ML 75 ML IV (18:02)
[2023-09-04] MEDS: Metoprolol(XL)Succ 50 MG Tablet PO (18:41)
[2023-09-04 20:56] LABS: Troponin-I HS 12666 pg/mL (3.0-78.0)
[2023-09-04 22:41] LABS: Partial Thromboplast Time 56.2 Seconds (24.1-36.2)
[2023-09-04] MEDS: Atorvastatin Calcium 40 MG Tablet PO (22:43)
[2023-09-04] MEDS: Insulin Lispro 100 UNIT/ML INSULN.PEN SC (22:52)
[2023-09-04 23:02] LABS: Bedside Glucose 293 mg/dL (74-106)
[2023-09-05] VITALS (12 sets, daily range): BP systolic 101–148; BP diastolic 58–94; PULSE 68–84; RESP 15–18; TEMP 36.4–36.7; O2SAT 93–100
--- NOTE | 2023-09-05 01:47 | NURSING ---
pt complained of 5/10 chest pain, pt refused medication, asked for EKG
[2023-09-05 04:08] LABS: Absolute Lymphocyte Count 1.04 X10^3/uL (0.83-4.51); Basophil# 0.09 X10^3/uL; Basophil% 0.6 % (0-1); Eosinophil# 0.08 X10^3/uL; Eosinophils% 0.6 % (0-5); Hematocrit 46.5 % (40-54); Hemoglobin 15.2 g/dL (13.0-16.5); Lymphocyte # 1.04 X10^3/ul (0.83-4.51); Lymphocyte % 7.2 % (19-41); Mean Corp Hgb Conc 32.7 g/dL (32-36); Mean Corpuscular Volume 91.7 fL (80-94); Mean Platelet Vol. 10.4 fl (6.2-12.0); Monocyte# 1.18 X10^3/uL; Monocyte% 8.1 % (0-10); NRBC Flagged by Analyzer 0 % (0-5); Neutrophil # 12.02 X10^3/uL (2.7-7.7); Platelet Count 275 K/mm3 (150-450); RBC Distribution Width CV 15.6 % (11.6-14.6); RBC Distribution Width SD 52.7 fl (35.1-43.9); Red Blood Count 5.07 M/mm3 (4.6-6.2); White Blood Count 14.5 K/mm3 (4.4-11.0)
[2023-09-05 04:20] LABS: Partial Thromboplast Time 47.2 Seconds (24.1-36.2)
[2023-09-05 04:32] LABS: Anion Gap 6 (5-15); BUN 19 mg/dL (7-18); BUN/Creat Ratio 26.9 RATIO (10-20); Calcium,Total 8.8 mg/dL (8.5-10.1); Chloride 103 mmol/L (98-107); Cholesterol 210 mg/dL (200); Creatinine, Serum 0.71 mg/dL (0.70-1.30); EST Glomerular Filtration Rate 117 mL/min (>60); Est Glom Filt Rate - Afr Amer 141 mL/min (>60); Estimated Creatinine Clearance 68.09 ml/min; Glucose 225 mg/dL (74-106); High Density Lipoprotein 44 mg/dL; Potassium 4.4 mmol/L (3.5-5.1); Sodium Level 133 mmol/L (136-145); Triglycerides 192 mg/dL; Very Low Density Lipoprotein 38 mg/dL (5-40)
--- NOTE | 2023-09-05 05:55 | EKG12_ITS ---
Test Reason : CP Blood Pressure : / mmHG Vent. Rate : 073 BPM Atrial Rate : 073 BPM P-R Int : 186 ms QRS Dur : 102 ms QT Int : 376 ms P-R-T Axes : 055 017 042 degrees QTc Int : 414 ms Sinus rhythm with Premature atrial complexes Possible Left atrial enlargement Septal infarct , age undetermined Abnormal ECG Confirmed by GREG JOY, CASSIUS ([id number]), writer editor ANGELITO CORRALES ([id number]) on 10/09/2023 10:52:43 AM Referred By: DR CHA Confirmed By:VIANEY GARZA MD
[2023-09-05] MEDS: Lisinopril 10 MG Tablet PO (06:36)
[2023-09-05] MEDS: 0.9% Normal Saline (1000mL) 1,000 ML 75 ML IV (06:42)
[2023-09-05 07:25] LABS: Bedside Glucose 239 mg/dL (74-106)
--- NOTE | 2023-09-05 08:47 | CASEMGMT ---
Insurance review for hospitals In-network with [facility] insurance if transfer is recommended is as follows:. [facility], [facility], [facility], [facility], [facility], [facility], [facility] ([facility]), and . Erin Gonzales, Discharge Planning Asst.
--- NOTE | 2023-09-05 10:30 | PN.CARD_ITS ---
Subjective Subjective Patient seen and evaluated. Appears to be doing well. Underwent cardiac catheterization today. Objective Data Vital Signs: Vital Signs Temp Pulse Resp BP Pulse Ox O2 Del Method O2 Flow Rate 98.0 F 69 15 138/80 H 95 Nasal Cannula 2 09/05/23 06:30 09/05/23 06:30 09/05/23 06:30 09/05/23 06:30 09/05/23 07:04 09/05/23 09:00 09/05/23 09:00 Oxygen Flow Rate (L/min) 2 Oxygen Delivery Method Nasal Cannula Weight: 154 lb 6.4 oz Body Mass Index (BMI) 21.5 Intake & Output: Intake and Output for Last 24 Hours 09/03/23 09/04/23 09/05/23 23:59 23:59 23:59 Intake Total 1240 / 1390 1242.2 / 1242.2 Output Total 600 / 600 Balance 1240 / 1240 642.2 / 642.2 Lab / Micro Data 09/05/23 03:58 09/05/23 03:58 Labs: Laboratory Results - last 24 hr 09/04/23 14:17: WBC 14.4 H, RBC 5.51, Hgb 16.7 H, Hct 50.6, MCV 91.8, MCH 30.3, MCHC 33.0, RDW Std Deviation 52.3 H, RDW Coeff of Lauri 15.6 H, Plt Count 301, MPV 10.5, Immature Gran % (Auto) 0.500, Neut % (Auto) 90.0 H, Lymph % (Auto) 3.3 L, Armstrong % (Auto) 5.7, Eos % (Auto) 0.0, Baso % (Auto) 0.5, Absolute Neuts (auto) 13.0 H, Absolute Lymphs (auto) 0.48 L, Nucleated RBC % 0, PT 12.9, INR 1.0, APTT 25.8, D-Dimer Quant (PE/DVT) 0.84 H*, Sodium 126 L, Potassium 5.0, Chloride 93 L , Carbon Dioxide 23.0, Anion Gap 10, BUN 27 H, Creatinine 1.45 H, Estim Creat Clear Calc 50.06, Est GFR (MDRD) Af Amer 62, Est GFR (MDRD) Non-Af 51 L, BUN/Creatinine Ratio 18.6, Glucose 654 H*, Calcium 9.1, Troponin I High Sens 2606 H*, B-Natriuretic Peptide 32.4 09/04/23 16:45: Troponin I High Sens 6425 H* 09/04/23 17:18: POC Glucose 333 H 09/04/23 20:17: Troponin I High Sens 98289 H* 09/04/23 22:11: APTT 56.2 H 09/04/23 22:40: POC Glucose 293 H 09/05/23 03:58: WBC 14.5 H, RBC 5.07, Hgb 15.2, Hct 46.5, MCV 91.7, MCH 30.0, MCHC 32.7, RDW Std Deviation 52.7 H, RDW Coeff of Lauri 15.6 H, Plt Count 275, MPV 10.4, Immature Gran % (Auto) 0.500, Neut % (Auto) 83.0 H, Lymph % (Auto) 7.2 L, Armstrong % (Auto) 8.1, Eos % (Auto) 0.6, Baso % (Auto) 0.6, Absolute Neuts (auto) 12.0 H, Absolute Lymphs (auto) 1.04, Nucleated RBC % 0, APTT 47.2 H, Sodium 133 L, Potassium 4.4, Chloride 103, Carbon Dioxide 24.0, Anion Gap 6, BUN 19 H, Creatinine 0.71, Estim Creat Clear Calc 68.09, Est GFR (MDRD) Af Amer 141, Est GFR (MDRD) Non-Af 117, BUN/Creatinine Ratio 26.9 H, Glucose 225 H, Calcium 8.8, Triglycerides 192, Cholesterol 210 H, LDL Cholesterol 128, VLDL Cholesterol 38, HDL Cholesterol 44 09/05/23 06:41: POC Glucose 239 H Cardiology Labs/Tests 09/04/23 14:17: WBC 14.4 H, RBC 5.51, Hgb 16.7 H, Hct 50.6, MCV 91.8, MCH 30.3, MCHC 33.0, Plt Count 301, MPV 10.5, Immature Gran % (Auto) 0.500, Neut % (Auto) 90.0 H, Lymph % (Auto) 3.3 L, Armstrong % (Auto) 5.7, Eos % (Auto) 0.0, Baso % (Auto) 0.5, Absolute Neuts (auto) 13.0 H, Nucleated RBC % 0, PT 12.9, INR 1.0, APTT 25.8, D-Dimer Quant (PE/DVT) 0.84 H*, Sodium 126 L, Potassium 5.0, Chloride 93 L , Carbon Dioxide 23.0, Anion Gap 10, BUN 27 H, Creatinine 1.45 H, Est GFR (MDRD) Af Amer 62, Est GFR (MDRD) Non-Af 51 L, BUN/Creatinine Ratio 18.6, Glucose 654 H*, Calcium 9.1, B-Natriuretic Peptide 32.4 09/04/23 22:11: APTT 56.2 H 09/05/23 03:58: WBC 14.5 H, RBC 5.07, Hgb 15.2, Hct 46.5, MCV 91.7, MCH 30.0, MCHC 32.7, Plt Count 275, MPV 10.4, Immature Gran % (Auto) 0.500, Neut % (Auto) 83.0 H, Lymph % (Auto) 7.2 L, Armstrong % (Auto) 8.1, Eos % (Auto) 0.6, Baso % (Auto) 0.6, Absolute Neuts (auto) 12.0 H, Nucleated RBC % 0, APTT 47.2 H, Sodium 133 L, Potassium 4.4, Chloride 103, Carbon Dioxide 24.0, Anion Gap 6, BUN 19 H, Creatinine 0.71, Est GFR (MDRD) Af Amer 141, Est GFR (MDRD) Non-Af 117, BUN/Creatinine Ratio 26.9 H, Glucose 225 H, Calcium 8.8, Triglycerides 192, Cholesterol 210 H, LDL Cholesterol 128, VLDL Cholesterol 38, HDL Cholesterol 44 Rhythm: EKG: ECHO: Stress Test: Cardiac Cath: PCI: CT Surgery: Holter monitor: EPS: PPM: CXR: Chest CT Scan: Radiography Diagnostic Testing: Radiology Impression Chest X-Ray 09/04/23 14:35 IMPRESSION: No acute pulmonary finding. Electronically Signed: Sonu Fagan MD at 14:58 EDT Reading Location ID and State: [facility] / [place] Tel , Service support , Chest CTA 09/04/23 15:28 IMPRESSION: No pulmonary embolism. Moderate emphysema. Partially calcified lesion of the left kidney noted. This could be further evaluated with nonemergent renal ultrasound. Electronically Signed: Sonu Fagan MD at 15:48 EDT , Physical Exam Const alert, oriented x3 and no apparent distress General Appearance: cooperative HEENT hearing grossly normal bilaterally Head and Scalp: atraumatic Eyes EOMs intact bilaterally Neck General: normal visual inspection Chest inspection of chest normal and palpation of chest normal Resp normal respiratory effort Auscultation: clear to auscultation bilaterally Cardio regular rate, regular rhythm, S1 normal heart sound and S2 normal heart sound Jugular Venous Distention: JVD GI normal to inspection, nondistended, normoactive bowel sounds Extremity normal capillary refill and no pedal edema Peripheral Pulses: Yes pulses 2+ throughout and femoral pulses present Skin no rashes or lesions noted Neuro oriented x3 and CN's II-XII intact bilaterally Psych Appearance: grossly normal and appropriate Assessment & Plan Assessment/Plan (1) Acute non-ST elevation myocardial infarction (NSTEMI): PLAN: Patient presents with chest discomfort and is noted to have a non-ST elevation myocardial infarction. My recommendation is for us to treat him as follows: * Aspirin 81 mg daily * Toprol-XL 50 mg a day * * High intensity statin * Cardiac catheterization demonstrated no high-grade obstructive coronary disease. The plan to be to continue to manage him with aggressive medical therapy. (2) HTN (hypertension): PLAN: Patient is noted to have hypertension which is out of control at this ti me. I will recommend that we discontinue the diltiazem Place him on Toprol XL Add lisinopril 10 mg after hydration Cardiogram demonstrated preserved ejection fraction with mitral annular calcification. (3) Acute hyperglycemia: PLAN: He does have evidence of hyperglycemia and also dilutional hyponatremia due to the hyper glycemia as well as renal dysfunction. We will treat with appropriate hydration aggressively Further diabetic treatment as per hospitalist. Thank you for allowing me to participate in the care of your patient. Please don't hesitate to call if any issues arise.
[2023-09-05] MEDS: Insulin Lispro 100 UNIT/ML INSULN.PEN SC (10:51)
--- NOTE | 2023-09-05 11:00 | CASEMGMT ---
RN?CM?SINGLE POINTED OPERATOR?CM?to room to meet with patient for initial transition planning/care coordination?assessment.?RN?CM?introduced self and role at [facility].? Pt voices understanding and consents to?assessment?at this time.? Pt resting in bed in no distress at this time.? Pt is A/O at this time and answers all questions, but very vague in a lot of responses and HANSEL LINK had to ask very detailed questions to gather information. Care providers, pharmacy, and demographics verified/updated at this time. PCP: Dr Reji De Leon Specialists: denies Preferred Pharmacy: [facility] Retail pharmacy Insurance: [facility] Dual Prescription Benefit:?Yes Living Will/HPOA:? Pt does not currently have LW/HCPOA and interested in completing. He states he would like his son, Bay, to be his HCPOA, his dtr, Nicky, to be 1st alternative, and dtr, Natalie, to be 2nd alternative. FIELD AUDITOR CM, Becca, made aware and states she will let SW know. Pt was made aware, if SW unable to meet w/him to complete POA, that this can be done w/SW after discharge and instructed on who to call to make appt. He voices understanding. LNOK: Pt states he legally still but is . His lives in [place] and he has not seen her for about a year. He has 3 adult children: Bay, Nicky, & Natalie Living Arrangements: Lives w/his 2 dtr's in 2-story home w/2 steps to enter. FFSU. Denies difficulty with stairs. Independent w/ADL's and states he manages his medications, although he states, It does get a little confusing at times. HANSEL LINK saw documentation by physician that is somewhat compliant with his medications d/t financial reasons. HANSEL LINK inquired if he has all his medications at home, He states he does have all of his medications needed and denies having issues w/affording to buy them, stating, My insurance takes care of it. His dtr's do home mgnt tasks. CCN: Discussed CCN w/pt for assistance w/med mgnt and DM education/assistance. Pt states he is interested in this and agreeable to a referral. Order placed. Transportation:?Pt states drives self and states no transportation concerns at this time.? DME: States he has the following DME:? Pt states he has a glucometer but states it has been a couple months since checking his BS's. He states he doesn't know why he stopped, stating, I just gave up. He states he is not sure if the machine is still working since it has been a couple months since using it and he does not know if he has all the supplies needed for it. He was instructed to call his PCP if when he returns home, if he has any issues w/the glucometer or if he needs any supplies. He voices understanding. Pt states he also has oxygen at home that [facility] set up for him @ discharge a few weeks ago and states he wears it @ 2 L/M in the afternoon and then upon further questioning, pt states does use it as needed and often feels SOB in the afternoon, so that why he wears it then.. He does not remember name of DME co he gets it from. Pt states he does have a pulse ox. Pt states no need for further DME at this time.? HHC/SNF: No hx of SNF. He states he had HHC months ago but does not remember who set it up or what HHC agency it was. Pt wishes to return home and states has no concerns with going home at time of discharge.? Pt states smokes 2 PPD, does not drink ETOH, and does not use illicit drugs. CM?to follow for any increase in home oxygen needs and any further discharge planning/needs.? Pt voices no further concerns/needs at this time.? Advised pt to ask for?CM?if any further questions/concerns/needs arise.? Voices understanding. PLAN:??Home w/family support and referral to [facility] for education and medication management, Garcia BSN?RN?CM
[2023-09-05 11:11] LABS: Bedside Glucose 226 mg/dL (74-106)
--- NOTE | 2023-09-05 11:33 | DCINST_ITS ---
Discharge Instructions Diet Discharge Diet: 1800 Calorie Control Diet Activity Discharge Activity: Return to Normal Activity Weight Bearing Status: Full weight bearing Follow Up Care Test Results: Test results from this visit will be discussed in further detail at your follow- up appointment, if applicable. Discharge Plan Admission Admit Date/Time: 09/04/23 16:00 Primary Reason for Your Visit: non ST [place] Attending Provider: Manny Russ Primary Care Provider: Reji De Leon Consulting Providers: Stew Edwards; Mehran Thomason Instructions Additional Instructions / Restrictions: do not smoke Discharge Orders/Prescriptions Prescriptions: New atorvastatin 40 mg Tablet 40 mg PO QHS Qty: 30 0RF aspirin 81 mg Tablet,Delayed Release (Dr/Ec) 81 mg PO BREAKFAST Qty: 0 0RF lisinopril 10 mg Tablet 10 mg PO DAILY Qty: 30 0RF nicotine 21 mg/24 hr Patch 24 Hour 21 mg transdermal DAILY Qty: 30 0RF metoprolol succinate 50 mg capsule,sprinkle,ER 24hr 50 mg PO DAILY Qty: 30 0RF Continued metformin 500 MG tablet 1,000 mg PO BIDCM albuterol sulfate 90 mcg/actuation HFA aerosol inhaler 2 inh INHALATION Q6H PRN (Reason: shortness of breath or wheezing) Trelegy Ellipta 100-62.5-25 mcg blister with device 1 inh INHALATION DAILY spironolactone 25 mg tablet 25 mg PO DAILY Discontinued diltiazem HCl 180 mg capsule,extended release 24hr 180 mg PO DAILY Referrals / Follow Up: Stew Edwards MD [Med Staff - Active Staff] - Reji De Leon MD [Primary Care Provider] - Rd Rivers DO [Non-Staff] - Within 2 Weeks Disposition Disposition (needs filled in before D/C Order can be placed): Home, Self Care
--- NOTE | 2023-09-05 11:55 | DS.PCM_ITS ---
Providers Date of Admission: 09/04/23 Date of Discharge: 09/05/23 Primary Care Physician: Dr. Reji De Leon MD Consultations 09/04/23 17:05 Consult: Cardiology Routine Consulting Provider: Stew Edwards Reason for Consult: NSTEMI EMERGENT Consult: No MD Notified: Yes Date Notified: 09/04/23 Time Notified: 16:27 Method of Notification: ED Physician Initiated Reason For Visit: NSTEMI, HYPERGLYCEMIA, NONCOMPLIANCE Diagnosis Discharge Diagnosis (1) Acute non-ST elevation myocardial infarction (NSTEMI): Status: Acute Code(s): I21.4 - Non-ST elevation (NSTEMI) myocardial infarction (2) HTN (hypertension): Status: Chronic Code(s): I10 - Essential (primary) hypertension (3) Acute hyperglycemia: Status: Acute Code(s): R73.9 - Hyperglycemia, unspecified Plan 1. Non-STEMI #2 uncontrolled type 2 diabetes #3 essential hypertension #4 cerebrovascular disease #5 nonocclusive coronary artery disease #6 hyperlipidemia #7 chronic obstructive pulmonary disease Medications at Discharge Home Medications metformin 500 mg tablet 1,000 mg PO BIDCM DIABETES 04/26/16 albuterol sulfate 90 mcg/actuation aerosol inhaler 2 inh inhalation Q6H PRN shortness of breath or wheezing 09/04/23 fluticasone fur. 100 mcg-umeclid 62.5 mcg-vilant 25 mcg inhalat.powder (Trelegy Ellipta) 1 inh inhalation DAILY SHORTNESS OF BREATH 09/04/23 spironolactone 25 mg tablet 25 mg PO DAILY BLOOD PRESSURE 09/04/23 aspirin 81 mg tablet,delayed release 81 mg PO BREAKFAST #0 tabs 09/05/23 atorvastatin 40 mg tablet 40 mg PO QHS #30 tabs 09/05/23 lisinopril 10 mg tablet 10 mg PO DAILY #30 tabs 09/05/23 metoprolol succinate 50 mg capsule sprinkle, ext. release 24 hr 50 mg PO DAILY #30 ea 09/05/23 nicotine 21 mg/24 hr daily transdermal patch 21 mg transdermal DAILY #30 ea 09/05/23 Hospital Course Operations None Procedures 2-D Echocardiogram and Cardiac catheterization Summary of Care Provided Minutes Spent on Discharge: 32 Hospital Course: This 72-year-old white male was seen in the emergency room at [facility] with complaints of chest pain which he described as pressure-like in nature along with some mild shortness of breath that occurred earlier in the day. Patient stated he was admitted to [facility] in [facility] 3 weeks ago with a diagnosis of pneumonia. EKG was obtained that showed sinus tachycardia without evidence of acute ischemia, D-dimer was drawn and was slightly elevated, there was an elevation in the patient's glucose at 654, troponin was elevated at 2606. CTA of the chest showed no pulmonary embolism, there is moderate emphysema noted to be present. Cardiology was contacted and the patient was placed on a heparin drip, he was admitted to PCU and serial cardiac enzymes revealed elevated troponin. Patient had no chest pain however. Patient underwent a cardiac catheterization on 09/05/2023 which showed no evidence of occlusive coronary disease, patient's ejection fraction was preserved, he also had an echocardiogram which showed a preserved EF at 60%. I talked with the patient's primary care doctor( Dr. Rivers) by phone before he was discharged today and made him aware of the patient's medical course. I contacted him after the patient was discharged because I noted on the patient's medical record that he had an incompletely visualized left renal lesion that was partially calcified visualized on the patient's chest CTA during his admission here, he said he would follow-up with this, he was not sure the patient was actually seeing him any longer as he noted that the patient had seen Dr. Reji De Leon recently, but Dr. Bowman said that he would follow-up with the patient concerning this. On 09/05/2023, patient was seen and examined: On examination he appeared in good health and spirits. Vital signs as documented. Skin warm and dry and without overt rashes. Neck without JVD, neck was supple, trachea midline, thyroid was normal. Lungs clear bilaterally, normal air movement was noted. Heart exam notable for regular rhythm, normal sounds and absence of murmurs, rubs or gallops. Abdomen unremarkable and without evidence of organomegaly, masses, or abdominal aortic enlargement. Bowel sounds are present, abdomen is not distended. Extremities nonedematous, no cyanosis was noted, no clubbing was noted. Neuro: Cranial nerves II through XII are grossly intact, no focal motor deficits were noted, sensation to light touch and pinprick intact, motor exam 5/5 throughout. Psych: Patient is alert and oriented x3, he does not appear anxious or depressed, he does not appear agitated. Patient was discharged in stable condition on 09/05/2023 Weight / BMI Weight Weight: 70.035 kg Body Mass Index (BMI) 21.5 ABG / Lab / Microbiology Data 09/05/23 03:58 09/05/23 03:58 Laboratory: Laboratory Results - last 24 hr 09/04/23 14:17: WBC 14.4 H, RBC 5.51, Hgb 16.7 H, Hct 50.6, MCV 91.8, MCH 30.3, MCHC 33.0, RDW Std Deviation 52.3 H, RDW Coeff of Lauri 15.6 H, Plt Count 301, MPV 10.5, Immature Gran % (Auto) 0.500, Neut % (Auto) 90.0 H, Lymph % (Auto) 3.3 L, [place] % (Auto) 5.7, Eos % (Auto) 0.0, Baso % (Auto) 0.5, Absolute Neuts (auto) 13.0 H, Absolute Lymphs (auto) 0.48 L, Nucleated RBC % 0, PT 12.9, INR 1.0, APTT 25.8, D-Dimer Quant (PE/DVT) 0.84 H*, Sodium 126 L, Potassium 5.0, Chloride 93 L , Carbon Dioxide 23.0, Anion Gap 10, BUN 27 H, Creatinine 1.45 H, Estim Creat Clear Calc 50.06, Est GFR (MDRD) Af Amer 62, Est GFR (MDRD) Non-Af 51 L, BUN/Creatinine Ratio 18.6, Glucose 654 H*, Calcium 9.1, Troponin I High Sens 2606 H*, B-Natriuretic Peptide 32.4 09/04/23 16:45: Troponin I High Sens 6425 H* 09/04/23 17:18: POC Glucose 333 H 09/04/23 20:17: Troponin I High Sens 51697 H* 09/04/23 22:11: APTT 56.2 H 09/04/23 22:40: POC Glucose 293 H 09/05/23 03:58: WBC 14.5 H, RBC 5.07, Hgb 15.2, Hct 46.5, MCV 91.7, MCH 30.0, MCHC 32.7, RDW Std Deviation 52.7 H, RDW Coeff of Lauri 15.6 H, Plt Count 275, MPV 10.4, Immature Gran % (Auto) 0.500, Neut % (Auto) 83.0 H, Lymph % (Auto) 7.2 L, [place] % (Auto) 8.1, Eos % (Auto) 0.6, Baso % (Auto) 0.6, Absolute Neuts (auto) 12.0 H, Absolute Lymphs (auto) 1.04, Nucleated RBC % 0, APTT 47.2 H, Sodium 133 L, Potassium 4.4, Chloride 103, Carbon Dioxide 24.0, Anion Gap 6, BUN 19 H, Creatinine 0.71, Estim Creat Clear Calc 68.09, Est GFR (MDRD) Af Amer 141, Est GFR (MDRD) Non-Af 117, BUN/Creatinine Ratio 26.9 H, Glucose 225 H, Calcium 8.8, Triglycerides 192, Cholesterol 210 H, LDL Cholesterol 128, VLDL Cholesterol 38, HDL Cholesterol 44 09/05/23 06:41: POC Glucose 239 H 09/05/23 10:47: POC Glucose 226 H Radiography Diagnostic Testing: Radiology Impression Chest X-Ray 09/04/23 14:35 IMPRESSION: No acute pulmonary finding. Electronically Signed: Sonu Fagan MD at 14:58 EDT Reading Location ID and State: [address] [place] [address] Tel , Service support , Chest CTA 09/04/23 15:28 IMPRESSION: No pulmonary embolism. Moderate emphysema. Partially calcified lesion of the left kidney noted. This could be further evaluated with nonemergent renal ultrasound. Electronically Signed: Sonu Fagan MD at 15:48 EDT Reading Location ID and State: [facility] / [place] Tel , Service support , D/C Instructions Discharge Diet: 1800 Calorie Control Diet Weight Bearing Status: Full weight bearing Meaningful Use Info Meaningful Use Diagnoses (Choose all that apply): AMI AMI/Post PCI/Angioplasty Aspirin given w/in 24hrs of arrival?: Yes ASA at discharge?: Yes Antiplatelet Therapy at Discharge:: Yes Statins at discharge?: Yes Timo/ARB at discharge?: Yes Beta Katlyn at discharge?: Yes Done w/ Acute IL measure.: Yes Documented LVEF (%): 60 Discharge Plan Admission Admit Date/Time: 09/04/23 16:00 Primary Reason for Your Visit: non ST [place] Attending Provider: Manny Russ Primary Care Provider: Reji De Leon Consulting Providers: Stwe Edwards; Mehran Thomason Instructions Additional Instructions / Restrictions: do not smoke Discharge Orders/Prescriptions Prescriptions: New atorvastatin 40 mg Tablet 40 mg PO QHS Qty: 30 0RF aspirin 81 mg Tablet,Delayed Release (Dr/Ec) 81 mg PO BREAKFAST Qty: 0 0RF lisinopril 10 mg Tablet 10 mg PO DAILY Qty: 30 0RF nicotine 21 mg/24 hr Patch 24 Hour 21 mg transdermal DAILY Qty: 30 0RF metoprolol succinate 50 mg capsule,sprinkle,ER 24hr 50 mg PO DAILY Qty: 30 0RF Continued metformin 500 MG tablet 1,000 mg PO BIDCM albuterol sulfate 90 mcg/actuation HFA aerosol inhaler 2 inh INHALATION Q6H PRN (Reason: shortness of breath or wheezing) Trelegy Ellipta 100-62.5-25 mcg blister with device 1 inh INHALATION DAILY spironolactone 25 mg tablet 25 mg PO DAILY Discontinued diltiazem HCl 180 mg capsule,extended release 24hr 180 mg PO DAILY Referrals / Follow Up: Stew Edwards MD [Med Staff - Active Staff] - Reji De Leon MD [Primary Care Provider] - Rd Rivers DO [Non-Staff] - Within 2 Weeks Disposition Disposition (needs filled in before D/C Order can be placed): Home, Self Care Charges/Coding Visit Charges Inpatient E&M: 54692 Disch Hosp >30min
--- NOTE | 2023-09-05 14:06 | CCN.REFER ---
AGREEABLE TO CCN AND PATIENT LINK DEVICE. CONSENTS SIGNED.
--- NOTE | 2023-09-05 14:40 | CASEMGMT ---
Patient was discharged before SW could complete advance directives with patient. SW was also going to give patient some information on food pantries as he told the process mold technician he sometimes worries about running out of food. Graciela MAHAJAN
--- NOTE | 2023-09-05 16:41 | CL.D_ITS ---
Patient Name: RAHEL NICHOLS Study Date: 09/05/2023 Performing: Stew Edwards MD Ht: 71 inches 180.34 cm : 1950 Wt: 154.6 lbs 70.03 kg Age: 72 Gender: male BSA: 1.89 PROCEDURE(S) PERFORMED [id number])[facility] CLINICAL PROFILE AND INDICATIONS Indications: Suspected CAD Heart Failure: None Stress/Imaging Stress/Image Study Performed: No CAD Presentations: Unstable angina. CONCLUSIONS Mild diffuse CAD with no high-grade obstructive lesions noted and preserved left ventricular systolic function. RECOMMENDATIONS Medical therapy DESCRIPTION OF PROCEDURE The patient arrived to the procedure lab. The risks and benefits of the procedure as well as a full description of our services here and current unavailability of surgical backup were fully explained to the patient and/or their significant other prior to the catheterization. The Timeout was completed, verifying the correct patient and procedure. The patient's procedural site was prepped and draped in the usual fashion. Local anesthetic was given subcutaneously to right radial region with Lidocaine 2%. Using a modified Seldinger technique, arterial access was obtained via the right radial artery, a 6Fr sheath was inserted. Left Coronary Artery selective angiography was performed in multiple views using a 5 Fr. 4.0 Vina catheter. Right Coronary Artery selective angiography was then performed in multiple views using a 5 Fr. 4.0 Vina catheter.The arterial sheath was pulled and a TR Band was applied for hemostasis CORONARY ANGIOGRAPHY DOMINANCE: Right Dominant LEFT HEART ASSESSMENT Left Ventricular Ejection Fraction: by LV Gram 60 % Normal LV wall motion Normal Left Ventricular systolic function LEFT MAIN: Angiographically normal LEFT ANTERIOR DESCENDING ARTERY: Mild luminal irregularities less than 30% CIRCUMFLEX ARTERY: Mild luminal irregularities less than 30% RIGHT CORONARY ARTERY: Moderate luminal irregularities up to 50% COMPLICATIONS No Complications PROCEDURE MEDICATIONS Fentanyl 50 mcg IV Versed 1 mg IV Oxygen: 2 L/min via nasal cannula Aspirin (325mg) 1 Tabs PO @ 09/05/2023 09:45:57 Heparin given IA 09/05/2023 09:55:42 Verapamil 2.5mg, Ntg 100mcgs, 3000 units of Heparin given IA 09/05/2023 09:55:42 SUMMARY OF HEMODYNAMIC DATA Time AIR REST ECG 09:47:34 Art 107/52 (68) 10:04:45 AO 105/59 (78) SA 10:12:57 Signed By Stew Edwards MD On 09/05/2023 16:41:42 Signed By Stew Edwarsd MD On 09/05/2023 16:40:21 Stew Edwards MD
== END 2023-09-05 14:42 | disposition home or self-care (01) | DRG 282 ==
LOC: ED 15:47 → PCU 16:52
PROVIDERS: Nurse Practitioner; Admitting Provider Family Medicine; Emergency Provider Emergency Medicine; PCP Family Medicine; Visit Provider Internal Medicine
DX: I21.4 Non-ST elevation (NSTEMI) myocardial infarction (principal); E11.65 Type 2 diabetes mellitus with hyperglycemia; J43.9 Emphysema, unspecified; I25.110 Atherosclerotic heart disease of native coronary artery with unstable angina pectoris; I10 Essential (primary) hypertension; E78.5 Hyperlipidemia, unspecified; F17.210 Nicotine dependence, cigarettes, uncomplicated; I34.81 Nonrheumatic mitral (valve) annulus calcification; N28.9 Disorder of kidney and ureter, unspecified; Z91.141 Patient's other noncompliance with medication regimen due to financial hardship; Z79.51 Long term (current) use of inhaled steroids; I49.3 Ventricular premature depolarization; Z79.84 Long term (current) use of oral hypoglycemic drugs; Z79.899 Other long term (current) drug therapy
CPT/HCPCS: 36415; 71046; 71275; 80048; 80061; 82962; 83880; 84484; 85025; 85379; 85610; 85730; 93005; 93306; 93454; 99152; 99153; 99283; J7030; Q9967; A4216; C1769; C1894

== ENCOUNTER 2023-09-09 21:18 | Emergency (ER) | payer MEDICARE, MEDICAID, SELFPAY ==
[2023-09-09 21:23] VITALS: BP 147/115; PULSE 121; RESP 29; TEMP 37.1; O2SAT 95; BMI 22.2
--- NOTE | 2023-09-09 21:28 | EKG12_ITS ---
Test Reason : REPEAT Blood Pressure : / mmHG Vent. Rate : 111 BPM Atrial Rate : 111 BPM P-R Int : 156 ms QRS Dur : 084 ms QT Int : 324 ms P-R-T Axes : 057 052 027 degrees QTc Int : 440 ms Sinus tachycardia with Premature supraventricular complexes Septal infarct , age undetermined Abnormal ECG Confirmed by FREDRICK JOY, ESTHELA ([id number]), fashion editor JAYRO NEWMAN ([id number]) on 09/12/2023 7:37:26 AM Referred By: Confirmed By:ESTHELA ALCALA MD
--- NOTE | 2023-09-09 21:35 | RAD_ITS ---
INDICATION: chest pain EXAMINATION/TECHNIQUE: X-RAY - XR Chest 1 View COMPARISON: September 04, 2023. FINDINGS: Spinal fusion hardware. Cardiac silhouette stable. Interstitial markings are stable. No acute airspace disease. No pleural effusion. No pneumothorax. Degenerative changes of the shoulders are present. RAD/Chest 1 View (Portable) IMPRESSION: No acute cardiopulmonary disease identified radiographically. Electronically Signed: Terrance Tapia MD at 22:13 EDT ,
[2023-09-09 21:37] VITALS: BP 146/108; PULSE 85; RESP 21; TEMP 36.8; O2SAT 95; O2SAT 98
[2023-09-09 21:40] LABS: Absolute Lymphocyte Count 1.34 X10^3/uL (0.83-4.51); Absolute Neutrophil Count 9.9 X10^3/uL (2.0-7.7); Basophil# 0.08 X10^3/uL; Basophil% 0.6 % (0-1); Eosinophil# 0.11 X10^3/uL; Eosinophils% 0.9 % (0-5); Hematocrit 45.2 % (40-54); Hemoglobin 14.8 g/dL (13.0-16.5); Lymphocyte # 1.34 X10^3/ul (0.83-4.51); Lymphocyte % 10.7 % (19-41); Mean Corp Hgb Conc 32.7 g/dL (32-36); Mean Corpuscular Hgb 30.1 pg (27.0-32.0); Mean Corpuscular Volume 91.9 fL (80-94); Mean Platelet Vol. 10.3 fl (6.2-12.0); Monocyte% 8.8 % (0-10); NRBC Flagged by Analyzer 0 % (0-5); Neutrophil # 9.87 X10^3/uL (2.7-7.7); Neutrophil % 78.4 % (47-70); Platelet Count 299 K/mm3 (150-450); RBC Distribution Width CV 15.5 % (11.6-14.6); RBC Distribution Width SD 52.5 fl (35.1-43.9); Red Blood Count 4.92 M/mm3 (4.6-6.2); White Blood Count 12.6 K/mm3 (4.4-11.0)
[2023-09-09 22:08] LABS: Anion Gap 7 (5-15); BUN 18 mg/dL (7-18); BUN/Creat Ratio 19.8 RATIO (10-20); Calcium,Total 9.3 mg/dL (8.5-10.1); Chloride 100 mmol/L (98-107); Creatinine, Serum 0.91 mg/dL (0.70-1.30); EST Glomerular Filtration Rate 87 mL/min (>60); Est Glom Filt Rate - Afr Amer 106 mL/min (>60); Estimated Creatinine Clearance 77.35 ml/min; Glucose 303 mg/dL (74-106); Potassium 4.5 mmol/L (3.5-5.1); Sodium Level 133 mmol/L (136-145); Troponin-I HS (w/2H Reflex) 3448 pg/mL (3.0-78.0)
[2023-09-09 22:47] VITALS: BP 142/92; PULSE 110; RESP 26; O2SAT 96
--- NOTE | 2023-09-09 22:56 | EKG12_ITS ---
Test Reason : CP Blood Pressure : / mmHG Vent. Rate : 125 BPM Atrial Rate : 125 BPM P-R Int : 164 ms QRS Dur : 084 ms QT Int : 292 ms P-R-T Axes : 061 051 026 degrees QTc Int : 421 ms Sinus tachycardia with Premature atrial complexes Possible Left atrial enlargement Cannot rule out Anteroseptal infarct , age undetermined Abnormal ECG Confirmed by FREDRICK JOY, ESTHELA ([id number]), newspaper editor JAYRO NEWMAN ([id number]) on 09/12/2023 7:37:54 AM Referred By: Confirmed By:ESTHELA ALCALA MD
--- NOTE | 2023-09-09 23:11 | EX.ED.DYSGE1 ---
HPI History of Present Illness Chief Complaint: Chest Pain Informant: patient and family Narrative Narrative: Patient is a 72-year-old male with past medical history of non-STEMI and hypertension and CAD as well as smoking and history of COPD. He was seen and admitted to the hospital approximately 5 days ago secondary to chest discomfort and found to have a non-STEMI. At time he underwent a cardiac echo and heart cath. The echo displayed mild mitral valve dysfunction as well as coronary artery disease without high-grade stenosis and treatment was recommended to be medical in nature. Patient reportedly had eaten today and then had a short period where he felt short of breath. He was concerned this could be cardiac based on his recent symptoms and therefore return to the hospital for repeat evaluation. On sensation of the hospital the patient does report spontaneous improvement of symptoms [facility] Medical History (Updated 09/10/23 @ 02:[address] Maximo Steward, DO) Hypertension Home Medications metformin 500 mg tablet 1,000 mg PO BIDCM DIABETES 04/26/16 [History Last Taken 09/04/23] albuterol sulfate 90 mcg/actuation aerosol inhaler 2 inh inhalation Q6H PRN shortness of breath or wheezing 09/04/23 [History Last Taken 09/04/23] fluticasone fur. 100 mcg-umeclid 62.5 mcg-vilant 25 mcg inhalat.powder (Trelegy Ellipta) 1 inh inhalation DAILY SHORTNESS OF BREATH 09/04/23 [History Last Taken 09/04/23] spironolactone 25 mg tablet 25 mg PO DAILY BLOOD PRESSURE 09/04/23 [History Last Taken Unknown] aspirin 81 mg tablet,delayed release 81 mg PO BREAKFAST #0 tabs 09/05/23 [Rx Last Taken Unknown] atorvastatin 40 mg tablet 40 mg PO QHS #30 tabs 09/05/23 [Rx Last Taken Unknown] lisinopril 10 mg tablet 10 mg PO DAILY #30 tabs 09/05/23 [Rx Last Taken Unknown] metoprolol succinate 50 mg capsule sprinkle, ext. release 24 hr 50 mg PO DAILY #30 ea 09/05/23 [Rx Last Taken Unknown] nicotine 21 mg/24 hr daily transdermal patch 21 mg transdermal DAILY #30 ea 09/05/23 [Rx Last Taken Unknown] Allergy/AdvReac Type Severity Reaction Status Date / Time No Known Allergies Allergy Verified 06/09/19 23:32 Family History Other Diabetes Heart disease Surgical History Status post appendectomy Social History Smoking Status: Current every day smoker tobacco type: cigarettes ROS ROS ED Constitutional Constitutional ED: Denies chills or fever(s) Eyes Eyes: Denies change in vision ENT ENT ED: Denies sore throat Cardiovascular Cardiovascular: Denies chest pain Respiratory/Chest Respiratory/Chest: Reports dyspnea; Denies cough Gastrointestinal Gastrointestinal: Denies abdominal pain, diarrhea, nausea or vomiting Genitourinary Genitourinary ED: Denies dysuria Musculoskeletal Musculoskeletal: Denies myalgias Integumentary Denies rash Neurologic Neurologic: Denies headache(s) Hematologic/Lymphatic Hematologic/Lymphatic: Denies easy bleeding or easy bruising EXAM Physical Exam Const Vital Signs: 09/09/23 21:23 09/09/23 21:37 09/09/23 21:37 Temperature 98.7 F 98.3 F Temperature Source Oral Temporal Pulse Rate 121 H 85 Respiratory Rate 29 H 21 H Blood Pressure 147/115 H 146/108 H Blood Pressure Mean 125 120 Pulse Ox 95 98 95 Oxygen Delivery Method Room Air Room Air Room Air 09/09/23 22:47 09/09/23 23:17 Temperature Temperature Source Pulse Rate 110 H 110 H Respiratory Rate 26 H 16 Blood Pressure 142/92 H 142/92 H Blood Pressure Mean 108 108 Pulse Ox 96 99 Oxygen Delivery Method Room Air Positive well nourished and well developed General Appearance ED: well developed HEENT HEENT Narrative: Normocephalic atraumatic No tongue or lip swelling no oral lesions no airway edema or compromise Eyes PERRL and EOMs intact bilaterally General Eye ED: Negative for scleral icterus Neck supple and no JVD Chest Wall palpation of chest normal Resp normal respiratory effort Resp Narrative: Breath sounds are diminished throughout with scattered rhonchi and wheezes consistent with history of COPD but no signs of respiratory distress Cardio regular rhythm Rate: tachycardic and other Other Details: Tachycardic rate with regular rhythm. Occasional ectopic beat noted Radial and carotid pulses are equal and symmetric. No findings to suggest pseudoaneurysm GI normal to inspection, nondistended, normoactive bowel sounds, non-tender, non-distended and no masses GI Narrative: No voluntary guarding or rigidity. Pulsatile mass or fluid wave. Auscultation: normoactive bowel sounds Palpation: soft Extremity normal to inspection Extremity Narrative: No asymmetric edema no pitting edema negative Homans' sign bilaterally Neuro oriented x3 and CN's II-XII intact bilaterally Sensorium / Orientation: alert Psych mental status grossly normal Skin no rashes or lesions noted MDM MDM MDM Narrative Medical decision making narrative: Patient presented to the ER slightly hypertensive but has a past medical history of this as well as mildly tachycardic. He reported shortness of breath that occurred after eating and now has spontaneously resolved. Differential diagnosis is for COPD exacerbation versus bronchospasm versus pneumonia versus pneumothorax versus pleural effusion versus acute coronary syndrome versus acute blood loss anemia versus electrolyte abnormality. Basic blood work was obtained and shows a stable H&H and the patient's electrolytes revealed no clinically significant findings. Troponin is elevated approximately 3500 chart review reveals this is down from approximately 13,000 at his recent hospitalization. This indicates no active or recurrent cardiac event. The patient's echo and heart catheterization reports were reviewed indicating he has mitral insufficiency and CAD without high-grade stenosis requiring further intervention other than medical management. At this time the patient is not in a cardiac dysrhythmia vitals are stable he is not hypoxic or in respiratory distress and work-up shows that his values are downtrending distant with improvement of symptoms. Therefore at this time as the patient has had continuous resolution of symptoms laboratory studies indicate that his disease process is improving and chest x-ray reveals no acute lung pathology he is otherwise safe for discharge History & Record Review Discussion w/independent historian: Patient and Family Lab Data Attestation: I reviewed the patient's lab results. Labs: Laboratory Results - last 24 hr 09/09/23 21:30 WBC 12.6 H RBC 4.92 Hgb 14.8 Hct 45.2 MCV 91.9 MCH 30.1 MCHC 32.7 RDW Std Deviation 52.5 H RDW Coeff of Lauri 15.5 H Plt Count 299 MPV 10.3 Immature Gran % (Auto) 0.600 Neut % (Auto) 78.4 H Lymph % (Auto) 10.7 L [place] % (Auto) 8.8 Eos % (Auto) 0.9 Baso % (Auto) 0.6 Absolute Neuts (auto) 9.9 H Absolute Lymphs (auto) 1.34 Nucleated RBC % 0 Sodium 133 L Potassium 4.5 Chloride 100 Carbon Dioxide 26.0 Anion Gap 7 BUN 18 Creatinine 0.91 Estim Creat Clear Calc 77.35 Est GFR (MDRD) Af Amer 106 Est GFR (MDRD) Non-Af 87 BUN/Creatinine Ratio 19.8 Glucose 303 H Calcium 9.3 Troponin I High Sens 3448 H* Radiography Diagnostic Testing: Clinical Impression(s) from Imaging Studies Chest X-Ray 09/09/23 21:35 IMPRESSION: No acute cardiopulmonary disease identified radiographically. Electronically Signed: Terrance Tapia MD at 22:13 EDT , Chest x-ray as interpreted by the emergency medicine physician reveals no acute infiltrate pneumothorax or pleural effusion Discharge Plan Triage Chief Complaint: Chest Pain ED Provider: Maximo Steward Dx/Rx/DC Orders Clinical Impression: Nonspecific chest pain, Mitral valve insufficiency, History of CAD (coronary artery disease), HTN (hypertension) Instructions: Mitral Insufficiency, ED Heart Disease Risk Factors Prescriptions: No Action metformin 500 MG tablet 1,000 mg PO BIDCM albuterol sulfate 90 mcg/actuation HFA aerosol inhaler 2 inh INHALATION Q6H PRN (Reason: shortness of breath or wheezing) Trelegy Ellipta 100-62.5-25 mcg blister with device 1 inh INHALATION DAILY spironolactone 25 mg tablet 25 mg PO DAILY atorvastatin 40 mg Tablet 40 mg PO QHS Qty: 30 0RF aspirin 81 mg Tablet,Delayed Release (Dr/Ec) 81 mg PO BREAKFAST Qty: 0 0RF lisinopril 10 mg Tablet 10 mg PO DAILY Qty: 30 0RF nicotine 21 mg/24 hr Patch 24 Hour 21 mg transdermal DAILY Qty: 30 0RF metoprolol succinate 50 mg capsule,sprinkle,ER 24hr 50 mg PO DAILY Qty: 30 0RF Primary Care Provider: Reji De Leon Referrals: Reji De Leon MD [Primary Care Provider] - Activity Restrictions/Additional Instructions: Please continue all of your medications as directed by your doctor and return to the ER should you have any further concerns Disposition Disposition: Home, Self Care Discharge Date/Time: 09/09/23 23:19
[2023-09-09 23:17] VITALS: BP 142/92; PULSE 110; RESP 16; O2SAT 99
[2023-09-09 23:37] LABS: Reflex Troponin-HS? (from REC) Y
== END 2023-09-09 23:19 | disposition home or self-care (01) ==
PROVIDERS: Emergency Provider Emergency Medicine; PCP Family Medicine; Visit Provider Emergency Medicine
DX: R07.9 Chest pain, unspecified (principal); J44.9 Chronic obstructive pulmonary disease, unspecified; I34.0 Nonrheumatic mitral (valve) insufficiency; I10 Essential (primary) hypertension; F17.210 Nicotine dependence, cigarettes, uncomplicated; I25.10 Atherosclerotic heart disease of native coronary artery without angina pectoris
CPT/HCPCS: 71045; 80048; 84484; 85025; 93005; 99284; A4216

== ENCOUNTER 2023-10-15 17:56 | Emergency (ER) | payer MEDICARE, MEDICAID, SELFPAY ==
[2023-10-15 17:59] VITALS: BP 155/91; PULSE 118; RESP 22; TEMP 37; O2SAT 91; BMI 23.0
[2023-10-15 18:06] VITALS: BP 155/91; PULSE 116; RESP 18; TEMP 37; O2SAT 88; O2SAT 90
--- NOTE | 2023-10-15 18:19 | ED.RN ---
per patient request, attempted to call daughter, Eva, but was unable to reach at this time.
--- NOTE | 2023-10-15 18:22 | ED.VIS.DYS ---
HPI History of Present Illness Chief Complaint: Shortness of Breath Informant: patient Onset/Context/Timing Onset: Today and Hours Context: gradual Timing: Continuous Current Severity: Mild Maximum Severity: Moderate Worsened by: Nothing Relieved by: Albuterol Associated Symptoms Negative for cough Chest Pain: Positive for None Narrative Narrative: 73-year-old male history of COPD, CAD, ND, hypertension. States that today he was using the restroom when he became short of breath. Denies any significant recent cough. No chest pain. No hemoptysis. No leg pain or swelling. No pleuritic chest pain. No prior history of DVT or PE. He is not on oxygen at home. Used his inhaler and now is feeling improved but still mildly short of breath. PE Risk Factors: Negative for Cancer, OCP + Smoking + > 35, Prior DVT or PE, Recent immobilization, Recent surgery or Recent travel Prior similar symptoms: Yes Recent Illness/Hospitalization: Yes PFSH PFSH Medical History BPH (benign prostatic hyperplasia) COPD (chronic obstructive pulmonary disease) Diabetes mellitus, type 2 Hyperlipidemia Hypertension Iron deficiency Mitral valve insufficiency Nonobstructive atherosclerosis of coronary artery Tobacco use Home Medications metformin 500 mg tablet 1,000 mg PO BIDCM DIABETES 04/26/16 [History Last Taken 09/04/23] albuterol sulfate 90 mcg/actuation aerosol inhaler 2 inh inhalation Q6H PRN shortness of breath or wheezing 09/04/23 [History Last Taken 09/04/23] fluticasone fur. 100 mcg-umeclid 62.5 mcg-vilant 25 mcg inhalat.powder (Trelegy Ellipta) 1 inh inhalation DAILY SHORTNESS OF BREATH 09/04/23 [History Last Taken 09/04/23] spironolactone 25 mg tablet 25 mg PO DAILY BLOOD PRESSURE 09/04/23 [History Last Taken Unknown] aspirin 81 mg tablet,delayed release 81 mg PO BREAKFAST #0 tabs 09/05/23 [Rx Last Taken Unknown] atorvastatin 40 mg tablet 40 mg PO QHS #30 tabs 09/05/23 [Rx Last Taken Unknown] lisinopril 10 mg tablet 10 mg PO DAILY #30 tabs 09/05/23 [Rx Last Taken Unknown] metoprolol succinate 50 mg capsule sprinkle, ext. release 24 hr 50 mg PO DAILY #30 ea 09/05/23 [Rx Last Taken Unknown] nicotine 21 mg/24 hr daily transdermal patch 21 mg transdermal DAILY #30 ea 09/05/23 [Rx Last Taken Unknown] dapagliflozin propanediol 10 mg tablet (Farxiga) 10 mg PO DAILY 09/18/23 [History Last Taken Unknown] ferrous sulfate 325 mg (65 mg iron) tablet (FeroSul) 325 mg PO DAILY 09/18/23 [History Last Taken Unknown] tamsulosin 0.4 mg capsule 0.4 mg PO DAILY 09/18/23 [History Last Taken Unknown] prednisone 20 mg tablet 40 mg (2 x 20 mg) PO DAILY 7 days #14 tabs 10/15/23 [Rx Last Taken Unknown] Allergy/AdvReac Type Severity Reaction Status Date / Time No Known Allergies Allergy Verified 09/28/23 13:31 Family History Other Diabetes Heart disease Surgical History Status post appendectomy Social History Smoking Status: Current every day smoker tobacco type: cigarettes ROS ROS ED ROS Narrative Shortness of breath. No cough. No fever. No chest pain. No hemoptysis. Review of Systems ROS Unobtainable: Denies due to encephalopathy Constitutional Constitutional ED: Denies chills or fever(s) Eyes Eyes: Denies blurry vision ENT ENT ED: Denies ear pain Cardiovascular Cardiovascular: Denies chest pain or palpitations Respiratory/Chest Respiratory/Chest: Reports dyspnea; Denies cough or sputum Gastrointestinal Gastrointestinal: Denies abdominal pain Genitourinary Genitourinary ED: Denies dysuria or hematuria Musculoskeletal Musculoskeletal: Denies arthralgias, back pain or myalgias Integumentary Denies abscess or Abrasions Neurologic Neurologic: Denies headache(s) Psychiatric Psychiatric: Denies anxiety or depression Endocrine Endocrinology: Denies cold intolerance Hematologic/Lymphatic Hematologic/Lymphatic: Denies easy bleeding, easy bruising or lymphadenopathy Allergic/Immunologic Allergic/Immunologic ED: Denies mouth swelling, tongue swelling or urticaria EXAM Physical Exam Narrative Exam Narrative: 73-year-old male vital signs are stable. Pulse ox on room air is 91%. He does not look septic or toxic. No distress. HEENT exam unremarkable. Neck nontender no JVD. Lungs coarse breath sounds. Limited expiratory wheezes. No rales or rhonchi. Equal and symmetrical. Heart tachycardic rate about 150 no murmur. Chest wall nontender. No subcu air. Abdomen soft nontender. Moving all 4 extremities. Calves are nontender without edema or cords. He is awake and alert. No focal motor deficits. Const Vital Signs: 10/15/23 17:59 10/15/23 18:06 10/15/23 18:06 Temperature 98.6 F 98.6 F Temperature Source Oral Oral Pulse Rate 118 H 116 H Respiratory Rate 22 H 18 Respiratory Effort Short of Breath Respiratory Depth Normal Respiratory Pattern Normal Blood Pressure 155/91 H 155/91 H Blood Pressure Mean 112 112 Pulse Ox 91 90 Oxygen Delivery Method Room Air Room Air Room Air 10/15/23 18:23 10/15/23 18:36 Temperature Temperature Source Pulse Rate 124 H Respiratory Rate 24 H Respiratory Effort Respiratory Depth Respiratory Pattern Tachypnea Blood Pressure Blood Pressure Mean Pulse Ox 92 Oxygen Delivery Method Room Air Positive well nourished and well developed; Negative for obese, cachectic, contractures or unkempt General Appearance ED: well developed and NAD; Negative for unkempt, cachectic, contractures or pallor Nutritional Appearance: Negative for cachectic or obese HEENT Reports moist mucous membranes; Denies dry mucous membranes atraumatic; Negative for trauma or tenderness Mouth ED: No dry mucous membranes Mouth: No dry mucous membranes Eyes PERRL and EOMs intact bilaterally General Eye ED: Negative for pale conjunctiva, scleral icterus or other Neck no lymphadenopathy, supple, no meningeal signs and no JVD General: Negative for tenderness Lymph Lymphatic: Negative for other Chest Wall Chest: Negative for other Resp normal respiratory effort and clear to auscultation bilaterally Effort and Inspection: Negative for pain with movement Auscultation: Negative for rales, rhonchi or wheezes Cardio regular rhythm, S1 normal heart sound, S2 normal heart sound and no murmurs; Negative for regular rate Rate: tachycardic Rhythm: Negative for abnormal rhythm GI non-tender, non-distended and no masses Inspection: Negative for other Auscultation: normoactive bowel sounds Palpation: soft; Negative for tender or guarding Back/Spine no CVA tenderness and normal to inspection General Back: Negative for CVA tenderness or tenderness Extremity normal to inspection General Extremety ED: Negative for edema or tenderness General Extremity: Negative for edema Neuro oriented x3 and CN's II-XII intact bilaterally Sensorium / Orientation: alert, oriented to person, oriented to place and oriented to time; Negative for orientation impaired, confused, lethargic or stuporous Speech: speech normal Motor Exam: strength 5/5 throughout Psych mental status grossly normal Appearance: Negative for unkempt Attitude: No agitated Mood & Affect: Negative for depressed, anxious or tearful Thought Process: normal thought process Skin no wounds and skin turgor normal General Skin Exam: Negative for jaundice or pallor Lesions: no lesions Rashes: no rashes Trauma: Negative for abrasion or laceration MDM MDM MDM Narrative Medical decision making narrative: 73-year-old male with shortness of breath history of COPD. Clinically does not sound like pneumonia. Unlikely to be cardiac. He is never had a DVT or PE or any symptoms of that. Hounding her cardiac work-up. Being given IV Solu-Medrol and breathing treatments and reassess. Repeat exam at 7:27 PM doing well. Resting comfortably. Pulse ox 92% on room air. No distress. Wheezing resolved. Clinically states he feels much better. He is no longer short of breath. He is comfortable being discharged home. We placed on prednisone 40 mg a day for 1 week. Use his inhaler as needed. Return if worse. Follow-up with his doctor as needed. History & Record Review Discussion w/independent historian: Patient Additional record(s) reviewed:: Prior inpatient record, Prior outpatient record, Prior ED visit and Prior labs Lab Data Attestation: I reviewed the patient's lab results. Lab results narrative: CBC shows a white count 10.8. H&H 14 and 48. Platelets 294. BMP shows gap of 8. Normal BUN of 7 creatinine 0.7. Glucose 180. Troponin normal at 26. Labs: Laboratory Results - last 24 hr 10/15/23 18:10 WBC 10.8 RBC 4.99 Hgb 14.8 Hct 48.3 MCV 96.8 H MCH 29.7 MCHC 30.6 L RDW Std Deviation 57.2 H RDW Coeff of Lauri 16.1 H Plt Count 294 MPV 10.4 Immature Gran % (Auto) 0.400 Neut % (Auto) 74.2 H Lymph % (Auto) 13.0 L [place] % (Auto) 8.6 Eos % (Auto) 2.2 Baso % (Auto) 1.6 H Absolute Neuts (auto) 8.0 H Absolute Lymphs (auto) 1.40 Nucleated RBC % 0 Sodium 141 Potassium 3.9 Chloride 105 Carbon Dioxide 28.0 Anion Gap 8 BUN 7 Creatinine 0.78 Estim Creat Clear Calc 71.78 Est GFR (MDRD) Af Amer 126 Est GFR (MDRD) Non-Af 104 BUN/Creatinine Ratio 9.0 L Glucose 180 H Calcium 8.8 Troponin I High Sens 26 Radiography Chest X-Ray - ED: 1 View, Read by ED Physician, Read by Radiologist, Heart, Lungs, Mediastinum, Bony Structures, No Acute Disease and Chronic Changes Diagnostic Testing: Clinical Impression(s) from Imaging Studies Chest X-Ray 10/15/23 18:35 IMPRESSION: Poor inspiration with some bibasilar atelectasis. Electronically Signed: Willie Greenwood MD at 19:12 EST Reading Location ID and State: [facility] / [place] Tel , Service support , X-ray, portable, single view, interpreted by myself shows normal cardiac silhouette. Orthopedic thoracic spine rods. Chronic changes in his lungs. No acute pneumonia. No effusions. Normal mediastinum. Rhythm Strip Rhythm Strip: Sinus Tach Rate: 116 Ectopy: None EKG Initial EKG: Attestation: I personally reviewed and interpreted this EKG as follows: Interpretation: No Acute Injury Pattern and Sinus Tachycardia Comments: Sinus tachycardia rate of 116. No acute signs of ND or ischemia. Unchanged from prior EKG from August. Prior EKG tracings: available for review Prior: Unchanged Discharge Plan Triage Chief Complaint: Shortness of Breath ED Provider: Jean Pierre Borja Dx/Rx/DC Orders Clinical Impression: History of ND (myocardial infarction), COPD with acute exacerbation, Acute dyspnea Instructions: ED COPD Flare Prescriptions: New prednisone 20 mg tablet 40 mg PO DAILY 7 Days Qty: 14 0RF No Action metformin 500 MG tablet 1,000 mg PO BIDCM albuterol sulfate 90 mcg/actuation HFA aerosol inhaler 2 inh INHALATION Q6H PRN (Reason: shortness of breath or wheezing) Trelegy Ellipta 100-62.5-25 mcg blister with device 1 inh INHALATION DAILY spironolactone 25 mg tablet 25 mg PO DAILY atorvastatin 40 mg Tablet 40 mg PO QHS Qty: 30 0RF aspirin 81 mg Tablet,Delayed Release (Dr/Ec) 81 mg PO BREAKFAST Qty: 0 0RF lisinopril 10 mg Tablet 10 mg PO DAILY Qty: 30 0RF nicotine 21 mg/24 hr Patch 24 Hour 21 mg transdermal DAILY Qty: 30 0RF metoprolol succinate 50 mg capsule,sprinkle,ER 24hr 50 mg PO DAILY Qty: 30 0RF Farxiga 10 mg tablet 10 mg PO DAILY Patient Comments: take 1 tablet by mouth every morning tamsulosin 0.4 mg capsule 0.4 mg PO DAILY Patient Comments: take 1 capsule by mouth every morning ferrous sulfate [FeroSul] 325 mg (65 mg iron) tablet 325 mg PO DAILY Patient Comments: take 1 tablet by mouth every morning with breakfast Primary Care Provider: Reji De Leon Referrals: Reji De Leon MD [Primary Care Provider] - 3-5 Days if not improving Activity Restrictions/Additional Instructions: Use your inhaler as needed. Prednisone 40 mg a day which will help decrease your wheezing and shortness of breath. Start tomorrow. You were given a dose of steroid through the IV today. Follow-up with your doctor as needed. Return if feeling worse. Disposition Disposition: Home, Self Care
[2023-10-15 18:23] VITALS: O2SAT 92
[2023-10-15] MEDS: MethylPREDNISolone 125 MG/2 ML Vial IV (18:28)
[2023-10-15 18:30] LABS: Basophil# 0.17 X10^3/uL; Basophil% 1.6 % (0-1); Eosinophil# 0.24 X10^3/uL; Eosinophils% 2.2 % (0-5); Hematocrit 48.3 % (40-54); Hemoglobin 14.8 g/dL (13.0-16.5); Mean Corp Hgb Conc 30.6 g/dL (32-36); Mean Corpuscular Hgb 29.7 pg (27.0-32.0); Mean Corpuscular Volume 96.8 fL (80-94); Mean Platelet Vol. 10.4 fl (6.2-12.0); Monocyte# 0.93 X10^3/uL; Monocyte% 8.6 % (0-10); NRBC Flagged by Analyzer 0 % (0-5); Neutrophil # 7.99 X10^3/uL (2.7-7.7); Neutrophil % 74.2 % (47-70); Platelet Count 294 K/mm3 (150-450); RBC Distribution Width CV 16.1 % (11.6-14.6); RBC Distribution Width SD 57.2 fl (35.1-43.9); Red Blood Count 4.99 M/mm3 (4.6-6.2); White Blood Count 10.8 K/mm3 (4.4-11.0)
--- NOTE | 2023-10-15 18:35 | RAD_ITS ---
STUDY: X-RAY CHEST REASON FOR EXAM: Male, 73 years old. chest pain TECHNIQUE: Single AP portable view of the chest. COMPARISON: 09/09/2023 FINDINGS: Poor inspiration with some bibasilar atelectasis. There is no demonstrated pleural abnormality. Normal size heart. Normal mediastinum and aureliano. Normal visualized pulmonary arteries. Normal visualized aortic arch and descending thoracic aorta. Spinal rods in the lower thoracic spine. Normal visualized ribs, clavicles, and shoulders. There is no demonstrated abnormality of the visualized soft tissue structures of the upper abdomen. RAD/Chest 1 View (Portable) IMPRESSION: Poor inspiration with some bibasilar atelectasis. Electronically Signed: Willie Greenwood MD at 19:12 [facility] ,
[2023-10-15 18:36] VITALS: PULSE 124; RESP 24
[2023-10-15] MEDS: Ipratropium/Albuterol Sulfate 3 ML AMPUL.NEB INHALATION (18:36)
[2023-10-15] MEDS: Albuterol 2.5 MG/3 ML VIAL.NEB. INHALATION (18:36)
[2023-10-15 18:58] LABS: Anion Gap 8 (5-15); BUN 7 mg/dL (7-18); Calcium,Total 8.8 mg/dL (8.5-10.1); Chloride 105 mmol/L (98-107); Creatinine, Serum 0.78 mg/dL (0.70-1.30); EST Glomerular Filtration Rate 104 mL/min (>60); Est Glom Filt Rate - Afr Amer 126 mL/min (>60); Estimated Creatinine Clearance 71.78 ml/min; Glucose 180 mg/dL (74-106); Potassium 3.9 mmol/L (3.5-5.1); Sodium Level 141 mmol/L (136-145); Troponin-I HS 26 pg/mL (3.0-78.0)
--- NOTE | 2023-10-15 19:00 | CPS ---
x1 Albuterol given to pt. in ER as well
[2023-10-15 20:02] VITALS: BP 141/87; PULSE 113; RESP 22
[2023-10-15 20:03] VITALS: BP 141/87; PULSE 113; RESP 22
== END 2023-10-15 20:04 | disposition home or self-care (01) ==
PROVIDERS: Emergency Provider Emergency Medicine; PCP Family Medicine; Visit Provider Emergency Medicine
DX: J44.1 Chronic obstructive pulmonary disease with (acute) exacerbation (principal); E11.9 Type 2 diabetes mellitus without complications; F17.210 Nicotine dependence, cigarettes, uncomplicated; I10 Essential (primary) hypertension; E78.5 Hyperlipidemia, unspecified; I25.10 Atherosclerotic heart disease of native coronary artery without angina pectoris; I25.2 Old myocardial infarction
CPT/HCPCS: 71045; 80048; 84484; 85025; 93005; 94640; 96374; 99285; A4216

== ENCOUNTER 2023-10-24 00:36 | Observation (INO) | payer MEDICARE, MEDICAID, SELFPAY ==
[2023-10-24] VITALS (14 sets, daily range): BP systolic 95–141; BP diastolic 61–100; PULSE 82–133; RESP 16–33; TEMP 36.3–38.6; O2SAT 86–99; BMI 20.7
--- NOTE | 2023-10-24 00:41 | EKG12_ITS ---
Test Reason : DYSRHYTHMIA Blood Pressure : / mmHG Vent. Rate : 132 BPM Atrial Rate : 132 BPM P-R Int : 140 ms QRS Dur : 080 ms QT Int : 300 ms P-R-T Axes : 021 022 084 degrees QTc Int : 444 ms Sinus tachycardia with frequent Premature ventricular complexes Septal infarct , age undetermined Abnormal ECG Confirmed by FREDRICK JOY, ESTHELA ([id number]), publishing editor ANGELITO CORRALES ([id number]) on 10/25/2023 11:01:50 AM Referred By: Confirmed By:ESTHELA ALCALA MD
[2023-10-24] MEDS: Ipratropium/Albuterol Sulfate 3 ML AMPUL.NEB INHALATION ×3 (00:48→10:40)
[2023-10-24] MEDS: Acetaminophen 500 MG Tablet 1000 MG PO (00:53)
--- NOTE | 2023-10-24 01:07 | EDS_ITS ---
HPI History of Present Illness Chief Complaint: Shortness of Breath Informant: patient Onset/Context/Timing Onset: Days Context: gradual Narrative Narrative: Patient presents via EMS secondary to shortness of breath. Patient states he was just recently hospitalized at [facility] with pneumonia. He states he was not discharged with steroids or antibiotics. He has had progressive sh ortness of breath since discharge that worsened tonight. EMS initially noted his O2 sat was 90% on room air. After breathing treatments they did put him on 4 L nasal cannula and his O2 sat was 88%. Patient denies having any pain. PFSH PFSH Medical History BPH (benign prostatic hyperplasia) COPD (chronic obstructive pulmonary disease) Diabetes mellitus, type 2 Hyperlipidemia Hypertension Iron deficiency Mitral valve insufficiency Nonobstructive atherosclerosis of coronary artery Tobacco use Home Medications metformin 500 mg tablet 1,000 mg PO BIDCM DIABETES 04/26/16 [History Last Taken 09/04/23] albuterol sulfate 90 mcg/actuation aerosol inhaler 2 inh inhalation Q6H PRN shortness of breath or wheezing 09/04/23 [History Last Taken 09/04/23] fluticasone fur. 100 mcg-umeclid 62.5 mcg-vilant 25 mcg inhalat.powder (Trelegy Ellipta) 1 inh inhalation DAILY SHORTNESS OF BREATH 09/04/23 [History Last Taken 09/04/23] spironolactone 25 mg tablet 25 mg PO DAILY BLOOD PRESSURE 09/04/23 [History Last Taken Unknown] aspirin 81 mg tablet,delayed release 81 mg PO BREAKFAST #0 tabs 09/05/23 [Rx Last Taken Unknown] atorvastatin 40 mg tablet 40 mg PO QHS #30 tabs 09/05/23 [Rx Last Taken Unknown] lisinopril 10 mg tablet 10 mg PO DAILY #30 tabs 09/05/23 [Rx Last Taken Unknown] metoprolol succinate 50 mg capsule sprinkle, ext. release 24 hr 50 mg PO DAILY #30 ea 09/05/23 [Rx Last Taken Unknown] nicotine 21 mg/24 hr daily transdermal patch 21 mg transdermal DAILY #30 ea 09/05/23 [Rx Last Taken Unknown] dapagliflozin propanediol 10 mg tablet (Farxiga) 10 mg PO DAILY 09/18/23 [History Last Taken Unknown] ferrous sulfate 325 mg (65 mg iron) tablet (FeroSul) 325 mg PO DAILY 09/18/23 [History Last Taken Unknown] tamsulosin 0.4 mg capsule 0.4 mg PO DAILY 09/18/23 [History Last Taken Unknown] prednisone 20 mg tablet 40 mg (2 x 20 mg) PO DAILY 7 days #14 tabs 10/15/23 [Rx Last Taken Unknown] Allergy/AdvReac Type Severity Reaction Status Date / Time No Known Allergies Allergy Verified 09/28/23 13:31 Family History Other Diabetes Heart disease Surgical History Status post appendectomy Social History Smoking Status: Current every day smoker tobacco type: cigarettes ROS ROS ED Constitutional Constitutional ED: Reports chills Eyes Eyes: Denies change in vision ENT ENT ED: Denies ear pain or sore throat Cardiovascular Cardiovascular: Denies chest pain Respiratory/Chest Respiratory/Chest: Reports dyspnea Gastrointestinal Gastrointestinal: Denies abdominal pain, diarrhea or vomiting Genitourinary Genitourinary ED: Denies dysuria Musculoskeletal Musculoskeletal: Denies back pain or neck pain Neurologic Neurologic: Denies headache(s) Psychiatric Psychiatric: Denies anxiety or depression Allergic/Immunologic Allergic/Immunologic ED: Denies mouth swelling or tongue swelling EXAM Physical Exam Const Vital Signs: 10/24/23 00:39 10/24/23 00:58 10/24/23 00:48 Temperature 101.5 F H Temperature Source Oral Pulse Rate 125 H 128 H Respiratory Rate 30 H 26 H Respiratory Effort Short of Breath Respiratory Pattern Tachypnea Tachypnea Blood Pressure 137/97 H Blood Pressure Mean 110 Pulse Ox 88 Oxygen Delivery Method Room Air Room Air Positive well nourished and well developed General Appearance ED: well developed HEENT Reports moist mucous membranes Eyes EOMs intact bilaterally Resp Resp Narrative: Tachypnea with diminished air movement bilaterally. No wheezing appreciated at this time. Cardio Rate: tachycardic GI non-tender Palpation: soft Extremity Extremity Narrative: No significant lower extremity edema. Neuro oriented x3 Neuro Narrative: No focal neurologic deficits. 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 Patient was noted to be febrile here at 101.5. He is given Tylenol. Labwork obtained to evaluate for leukocytosis, anemia, and electrolyte derangement. Blood cultures obtained. Swab for COVID and influenza ordered. Chest x-ray obtained to evaluate for acute lung pathology, cardiac size, or mediastinal abnormality. EKG obtained to evaluate for cardiac arrhythmia/ischemia. I did review patient's records and [facility]. It appears he was admitted to [facility] October 17 through for pneumonia, COPD exacerbation, pulmonary edema. There is not a discharge summary available to review. History & Record Review Discussion w/independent historian: Patient Additional record(s) reviewed:: Prior inpatient record, Prior ED visit and Prior labs Lab Data Attestation: I reviewed the patient's lab results. Labs: Laboratory Results - last 24 hr 10/24/23 00:45 WBC 15.7 H RBC 5.34 Hgb 15.8 Hct 51.2 MCV 95.9 H MCH 29.6 MCHC 30.9 L RDW Std Deviation 55.4 H RDW Coeff of Lauri 15.8 H Plt Count 287 MPV 11.3 Immature Gran % (Auto) 1.500 H Neut % (Auto) 87.8 H Lymph % (Auto) 4.1 L [place] % (Auto) 5.4 Eos % (Auto) 0.9 Baso % (Auto) 0.3 Absolute Neuts (auto) 13.8 H Absolute Lymphs (auto) 0.64 L Nucleated RBC % 0 D-Dimer Quant (PE/DVT) < 0.27 L Sodium 138 Potassium 3.8 Chloride 102 Carbon Dioxide 32.0 Anion Gap 4 L BUN 20 H Creatinine 0.89 Est GFR (MDRD) Af Amer 108 Est GFR (MDRD) Non-Af 89 BUN/Creatinine Ratio 22.4 H Glucose 178 H Lactic Acid 1.8 Calcium 9.3 Troponin I High Sens 41 B-Natriuretic Peptide 200.0 H Radiography Chest X-Ray - ED: 1 View, Read by ED Physician, Chronic Changes and CHF Diagnostic Testing: Clinical Impression(s) from Imaging Studies Chest X-Ray 10/24/23 01:12 IMPRESSION: Mild subsegmental atelectasis left lower lobe. Electronically Signed: Moris Devine MD at 1:55 EST , EKG Initial EKG: Interpretation: Sinus Tachycardia (Sinus tachycardia at 132. PVCs are noted. No significant ST change.) Treatment and Re-Evaluation :: Nursing staff did review the patient's medications with him. He now states that he is taking antibiotic that was prescribed at discharge from the hospital. He does not know what the medication is. In review of outpatient pharmacy records it appears the patient had cefdinir, azithromycin, and a prednisone taper filled. CBC reveals an elevated white count of 15.7 with 87% neutrophils. Hemoglobin is normal at 15.8. Chemistry studies are unremarkable with normal renal function. His glucose is 178. His troponin is 41. His D-dimer is less than 0.27. Lactic acid is 1.8. His BNP is 200. Patient's COVID test does return positive. Influenza test is negative. EKG per my interpretation is sinus tachycardia rate of 132. PVCs are noted. No evidence of ischemia. Portable chest x-ray per my interpretation reveals some evidence of CHF and chronic changes. Radiology interpretation is reviewed and feels that he has some atelectasis. No obvious infiltrate. Patient had been given Solu-Medrol along with a DuoNeb on arrival. He was given a DuoNeb with EMS. He was given Tylenol for his fever. Patient's heart rate is currently in the 1-teens. Nursing staff did have to place him on nasal cannula for O2 sats of 86% on room air. His O2 sat is 94% on 2 L nasal cannula. He states he was not sent home on oxygen and does not have oxygen at home. I will speak with hospitalist regarding admission. Discharge Plan Triage Chief Complaint: Shortness of Breath ED Provider: Samara Whitney Dx/Rx/DC Orders Clinical Impression: COVID-19, CHF (congestive heart failure), Hypoxia, COPD (chronic obstructive pulmonary disease) Prescriptions: No Action metformin 500 MG tablet 1,000 mg PO BIDCM albuterol sulfate 90 mcg/actuation HFA aerosol inhaler 2 inh INHALATION Q6H PRN (Reason: shortness of breath or wheezing) Trelegy Ellipta 100-62.5-25 mcg blister with device 1 inh INHALATION DAILY spironolactone 25 mg tablet 25 mg PO DAILY atorvastatin 40 mg Tablet 40 mg PO QHS Qty: 30 0RF aspirin 81 mg Tablet,Delayed Release (Dr/Ec) 81 mg PO BREAKFAST Qty: 0 0RF lisinopril 10 mg Tablet 10 mg PO DAILY Qty: 30 0RF nicotine 21 mg/24 hr Patch 24 Hour 21 mg transdermal DAILY Qty: 30 0RF metoprolol succinate 50 mg capsule,sprinkle,ER 24hr 50 mg PO DAILY Qty: 30 0RF Farxiga 10 mg tablet 10 mg PO DAILY Patient Comments: take 1 tablet by mouth every morning tamsulosin 0.4 mg capsule 0.4 mg PO DAILY Patient Comments: take 1 capsule by mouth every morning ferrous sulfate [FeroSul] 325 mg (65 mg iron) tablet 325 mg PO DAILY Patient Comments: take 1 tablet by mouth every morning with breakfast prednisone 20 mg tablet 40 mg PO DAILY 7 Days Qty: 14 0RF Primary Care Provider: Reji De Leon Referrals: Reji De Leon MD [Primary Care Provider] - Disposition Disposition: Acute Care Hospital [facility]
[2023-10-24] MEDS: MethylPREDNISolone 125 MG/2 ML Vial IV (01:12)
--- NOTE | 2023-10-24 01:12 | RAD_ITS ---
EXAM: XR CHEST, 1 VIEW CLINICAL INDICATION: Dyspnea. TECHNIQUE: Frontal view of the chest. COMPARISON: 10/15/2023. FINDINGS: LUNGS AND PLEURAL SPACES: Mild subsegmental atelectasis left lower lobe. No pneumothorax. No effusion. HEART: Unremarkable. Cardiac silhouette not enlarged. MEDIASTINUM: Central airways and mediastinal contour are unremarkable. BONES/JOINTS: Posterior fusion lower thoracic spine with pedicle screw and kwasi hardware. No acute fracture. SOFT TISSUES: Unremarkable. RAD/Chest 1 View (Portable) IMPRESSION: Mild subsegmental atelectasis left lower lobe. Electronically Signed: Moris Devine MD at 1:55 EST ,
[2023-10-24 01:16] LABS: Absolute Lymphocyte Count 0.64 X10^3/uL (0.83-4.51); Absolute Neutrophil Count 13.8 X10^3/uL (2.0-7.7); Basophil# 0.05 X10^3/uL; Basophil% 0.3 % (0-1); Eosinophil# 0.14 X10^3/uL; Eosinophils% 0.9 % (0-5); Hematocrit 51.2 % (40-54); Hemoglobin 15.8 g/dL (13.0-16.5); Lymphocyte # 0.64 X10^3/ul (0.83-4.51); Lymphocyte % 4.1 % (19-41); Mean Corp Hgb Conc 30.9 g/dL (32-36); Mean Corpuscular Hgb 29.6 pg (27.0-32.0); Mean Corpuscular Volume 95.9 fL (80-94); Mean Platelet Vol. 11.3 fl (6.2-12.0); Monocyte# 0.85 X10^3/uL; Monocyte% 5.4 % (0-10); NRBC Flagged by Analyzer 0 % (0-5); Neutrophil % 87.8 % (47-70); Platelet Count 287 K/mm3 (150-450); RBC Distribution Width CV 15.8 % (11.6-14.6); RBC Distribution Width SD 55.4 fl (35.1-43.9); Red Blood Count 5.34 M/mm3 (4.6-6.2); White Blood Count 15.7 K/mm3 (4.4-11.0)
[2023-10-24 01:24] LABS: Anion Gap 4 (5-15); BUN 20 mg/dL (7-18); BUN/Creat Ratio 22.4 RATIO (10-20); Calcium,Total 9.3 mg/dL (8.5-10.1); Chloride 102 mmol/L (98-107); Creatinine, Serum 0.89 mg/dL (0.70-1.30); EST Glomerular Filtration Rate 89 mL/min (>60); Est Glom Filt Rate - Afr Amer 108 mL/min (>60); Glucose 178 mg/dL (74-106); Potassium 3.8 mmol/L (3.5-5.1); Sodium Level 138 mmol/L (136-145); Troponin-I HS 41 pg/mL (3.0-78.0)
[2023-10-24 01:25] LABS: Lactic Acid 1.8 mmol/L (0.4-1.9)
[2023-10-24 01:26] LABS: D-Dimer Quantitative (DVT/PE) < 0.27 FEU/ug/m (0.27-0.49)
--- NOTE | 2023-10-24 02:45 | PCM.HP.STD ---
[facility] - General General Date of Service: 10/24/23 Chief Complaint: Shortness of breath HPI Narrative RAHEL NICHOLS, is a 73 M who presents who became acutely ill yesterday with shortness of breath and malaise. Patient was recently discharged from [facility] with diagnosis of pneumonia and COPD exacerbation. Patient had apparently been doing well up until last evening. He presented to the hospital here and was hypoxic around 86% with respiratory rate of 33 breaths/min. Patient was placed on oxygen at 2 L/min and his respiratory status did improve. In the emergency room, his white count was elevated at 15.7 thousand, D-dimer was negative. And COVID-19 antigen was positive. Patient received DuoNebs and methylprednisolone in the emergency room. [facility] Medical History BPH (benign prostatic hyperplasia) COPD (chronic obstructive pulmonary disease) Diabetes mellitus, type 2 Hyperlipidemia Hypertension Iron deficiency Mitral valve insufficiency Nonobstructive atherosclerosis of coronary artery Tobacco use Home Medications metformin 500 mg tablet 1,000 mg PO BIDCM DIABETES 04/26/16 [History Last Taken 09/04/23] albuterol sulfate 90 mcg/actuation aerosol inhaler 2 inh inhalation Q6H PRN shortness of breath or wheezing 09/04/23 [History Last Taken 09/04/23] fluticasone fur. 100 mcg-umeclid 62.5 mcg-vilant 25 mcg inhalat.powder (Trelegy Ellipta) 1 inh inhalation DAILY SHORTNESS OF BREATH 09/04/23 [History Last Taken 09/04/23] spironolactone 25 mg tablet 25 mg PO DAILY BLOOD PRESSURE 09/04/23 [History Last Taken Unknown] aspirin 81 mg tablet,delayed release 81 mg PO BREAKFAST #0 tabs 09/05/23 [Rx Last Taken 10/23/23] atorvastatin 40 mg tablet 40 mg PO QHS #30 tabs 09/05/23 [Rx Last Taken Unknown] lisinopril 10 mg tablet 10 mg PO DAILY #30 tabs 09/05/23 [Rx Last Taken Unknown] metoprolol succinate 50 mg capsule sprinkle, ext. release 24 hr 50 mg PO DAILY #30 ea 09/05/23 [Rx Last Taken Unknown] nicotine 21 mg/24 hr daily transdermal patch 21 mg transdermal DAILY #30 ea 09/05/23 [Rx Last Taken Unknown] dapagliflozin propanediol 10 mg tablet (Farxiga) 10 mg PO DAILY 09/18/23 [History Last Taken Unknown] tamsulosin 0.4 mg capsule 0.4 mg PO DAILY 09/18/23 [History Last Taken Unknown] prednisone 20 mg tablet 40 mg (2 x 20 mg) PO DAILY 7 days #14 tabs 10/15/23 [Rx Last Taken Unknown] Allergy/AdvReac Type Severity Reaction Status Date / Time No Known Allergies Allergy Verified 09/28/23 13:31 Family History Other Diabetes Heart disease Surgical History Status post appendectomy Social History Smoking Status: Current every day smoker tobacco type: cigarettes ROS ROS Narrative Denies any sore throat or rhinitis, denies any fever or chills, no chest pain, no abdominal pain, no lower extremity edema. All review of systems were negative except as mentioned above in the history of present illness and the other review of systems. Vital Signs Vital Signs Vital Signs: 10/24/23 00:39 10/24/23 00:58 10/24/23 00:48 Temperature 38.6 C H Temperature Source Oral Pulse Rate 125 H 128 H Respiratory Rate 30 H 26 H Respiratory Effort Short of Breath Respiratory Pattern Tachypnea Tachypnea Blood Pressure 137/97 H Blood Pressure Mean 110 Pulse Ox 88 Oxygen Delivery Method Room Air Room Air Oxygen Flow Rate (L/min) 10/24/23 01:30 10/24/23 00:45 10/24/23 01:31 Temperature Temperature Source Pulse Rate 125 H 133 H Respiratory Rate 30 H 33 H Respiratory Effort Respiratory Pattern Blood Pressure 123/79 H 137/97 H Blood Pressure Mean 93 110 Pulse Ox 86 86 Oxygen Delivery Method Room Air Room Air Nasal Cannula Oxygen Flow Rate (L/min) 2 10/24/23 02:31 Temperature 36.8 C Temperature Source Oral Pulse Rate 109 H Respiratory Rate 21 H Respiratory Effort Respiratory Pattern Blood Pressure 114/80 Blood Pressure Mean 91 Pulse Ox 92 Oxygen Delivery Method Nasal Cannula Oxygen Flow Rate (L/min) 2 Physical Exam Const alert and no apparent distress Constitutional Narrative: Disgruntled when I first walked through the door saying yeah? in a confrontational manner. When patient was informed that as a physician time to take care of him and did not care for his attitude upon my arrival into the room without even saying anything to him. His demeanor did change and was more receptive to further questioning. HEENT normocephalic and head/scalp atraumatic Resp normal respiratory effort and no retractions Resp Narrative: Diminished breath sounds bilaterally. Cardio regular rate, regular rhythm, S1 normal heart sound and S2 normal heart sound Extremity normal to inspection and no clubbing, cyanosis or edema Skin Skin Narrative: No rashes or lesions Neuro oriented x3 and moves all extremities Sensorium / Orientation: awake and alert Results Lab / Micro Data Attestation: I reviewed the patient's lab results. Lab results narrative: Chest x-ray personally reviewed and shows some left lower lobe atelectasis. No other acute process identified 10/24/23 00:45 10/24/23 00:45 Labs: Laboratory Results - last 24 hr 10/24/23 00:45: WBC 15.7 H, RBC 5.34, Hgb 15.8, Hct 51.2, MCV 95.9 H, MCH 29.6, MCHC 30.9 L, RDW Std Deviation 55.4 H, RDW Coeff of Lauri 15.8 H, Plt Count 287, MPV 11.3, Immature Gran % (Auto) 1.500 H, Neut % (Auto) 87.8 H, Lymph % (Auto) 4.1 L, [place] % (Auto) 5.4, Eos % (Auto) 0.9, Baso % (Auto) 0.3, Absolute Neuts (auto) 13.8 H, Absolute Lymphs (auto) 0.64 L, Nucleated RBC % 0, D-Dimer Quant (PE/DVT) < 0.27 L, Sodium 138, Potassium 3.8, Chloride 102, Carbon Dioxide 32.0, Anion Gap 4 L, BUN 20 H, Creatinine 0.89, Est GFR (MDRD) Af Amer 108, Est GFR (MDRD) Non-Af 89, BUN/Creatinine Ratio 22.4 H, Glucose 178 H, Lactic Acid 1.8, Calcium 9.3, Troponin I High Sens 41, B-Natriuretic Peptide 200.0 H Micro: Microbiology 10/24/23 01:01 Nasal Secretion SARS-CoV-2 & FLU Antigen (Rapid) - Final SARS-CoV-2 (COVID 19) Imagaing Radiology Impression Chest X-Ray 10/24/23 01:12 IMPRESSION: Mild subsegmental atelectasis left lower lobe. Electronically Signed: Moris Devine MD at 1:55 EST , Assessment & Plan Assessment/Plan (1) Acute hypoxic respiratory failure: [facility]. Rival with a respiratory rate to the 33 breaths/min while hypoxic at 86%. I did not evaluate the patient on admission so I was not able to visualize for any respiratory distress nor any use of accessory muscles. Currently he is resting comfortably on 2 L nasal cannula. Wean oxygen as tolerated (2) COPD exacerbation: PLAN: Secondary to COVID-19 Continue with bronchodilators. Patient did receive a dose of methylprednisolone in the emergency room. Will start the patient on 6 mg of dexamethasone daily for the next 10 days starting later this morning. (3) COVID-19: PLAN: Date of onset was , which will be day 0. Patient will need to quarantine for 10 days starting the through November 02. Patient also need to quarantine during that time as well. Did discuss with the patient about using remdesivir as well as steroids to help with the COVID-19. Patient was agreeable to its usage. PLAN: Plan Renal mass: This was identified during previous hospitalization here back in August. Dr. Russ had reached out to the patient's PCP at that time for outpatient follow-up. Recent non-STEMI: Patient underwent a cardiac catheterization in August that showed nonobstructive disease with preserved ejection fraction. Patient did follow-up with cardiology on September 28. Continue with aspirin and atorvastatin Hypertension: Continue with lisinopril, spironolactone BPH: Continue tamsulosin Diabetes mellitus type 2: Continue with metformin. Add sliding scale insulin. VTE prophylaxis with low molecular weight heparin CODE STATUS: Addressed with the patient. Patient wished to be full code. Charges/Coding Visit Charges Inpatient E&M: 34775 Init Hosp L3
[2023-10-24] MEDS: Remdesivir 200 MG in 0.9% Normal Saline (250mL Bag) 210 ML 250 MG IV (04:31)
[2023-10-24] MEDS: 0.9% Normal Saline (250mL Bag) 250 ML 15 ML IV (04:32)
[2023-10-24] MEDS: Insulin Lispro 100 UNIT/ML INSULN.PEN SC (06:45)
[2023-10-24 07:05] LABS: Bedside Glucose 278 mg/dL (74-106)
[2023-10-24 07:50] LABS: Absolute Lymphocyte Count 0.26 X10^3/uL (0.83-4.51); Absolute Neutrophil Count 14.8 X10^3/uL (2.0-7.7); Basophil# 0.04 X10^3/uL; Basophil% 0.3 % (0-1); Eosinophil# 0.01 X10^3/uL; Eosinophils% 0.1 % (0-5); Hematocrit 46.2 % (40-54); Hemoglobin 14.4 g/dL (13.0-16.5); Lymphocyte # 0.26 X10^3/ul (0.83-4.51); Lymphocyte % 1.6 % (19-41); Mean Corp Hgb Conc 31.2 g/dL (32-36); Mean Corpuscular Hgb 29.6 pg (27.0-32.0); Mean Corpuscular Volume 94.9 fL (80-94); Mean Platelet Vol. 11.4 fl (6.2-12.0); Monocyte# 0.53 X10^3/uL; Monocyte% 3.3 % (0-10); NRBC Flagged by Analyzer 0 % (0-5); Neutrophil # 14.82 X10^3/uL (2.7-7.7); Neutrophil % 93.5 % (47-70); POSITIVE DIFFERENTIAL YES; Platelet Count 261 K/mm3 (150-450); RBC Distribution Width CV 15.7 % (11.6-14.6); RBC Distribution Width SD 54.8 fl (35.1-43.9); Red Blood Count 4.87 M/mm3 (4.6-6.2); White Blood Count 15.9 K/mm3 (4.4-11.0)
[2023-10-24 07:51] LABS: Differential Indicated SCAN CRITERIA MET
[2023-10-24 08:17] LABS: ALB/GLOB Ratio 0.9 RATIO (0.9-2.4); AST(SGOT) 9 U/L (15-37); Alanine Aminotransfer ALT/SGPT 23 U/L (16-61); Alkaline Phosphatase 70 U/L (45-117); Anion Gap 6 (5-15); BUN 21 mg/dL (7-18); BUN/Creat Ratio 28.1 RATIO (10-20); Calcium,Total 8.8 mg/dL (8.5-10.1); Chloride 103 mmol/L (98-107); Creatinine, Serum 0.75 mg/dL (0.70-1.30); EST Glomerular Filtration Rate 109 mL/min (>60); Est Glom Filt Rate - Afr Amer 132 mL/min (>60); Estimated Creatinine Clearance 64.59 ml/min; Globulin 3.2 g/dL (2.2-4.2); Glucose 311 mg/dL (74-106); Potassium 4.4 mmol/L (3.5-5.1); Protein, Total 6.2 g/dL (6.4-8.2); Sodium Level 136 mmol/L (136-145)
[2023-10-24 08:57] LABS: Differential Comment SCANNED
[2023-10-24] MEDS: Spironolactone 25 MG Tablet PO (09:24)
[2023-10-24] MEDS: Enoxaparin 40 MG/0.4 ML Syringe SC (09:24)
[2023-10-24] MEDS: Tamsulosin HCl 0.4 MG Capsule PO (09:25)
[2023-10-24] MEDS: Empagliflozin 25 MG Tablet PO (09:25)
[2023-10-24] MEDS: Metoprolol(XL)Succ 50 MG Tablet PO (09:25)
[2023-10-24] MEDS: Aspirin E.C. 81 MG Tablet PO (09:25)
[2023-10-24] MEDS: dexAMETHasone 4 MG Tablet 6 MG PO (09:25)
[2023-10-24] MEDS: metFORMIN HCl 1,000 MG Tablet 1000 MG PO (09:25)
[2023-10-24] MEDS: Ferrous Sulfate 325 MG Tablet PO (09:25)
[2023-10-24] MEDS: Lisinopril 10 MG Tablet PO (09:25)
[2023-10-24] MEDS: Insulin Lispro 100 UNIT/ML INSULN.PEN 20 UNIT SC (11:38)
[2023-10-24 11:56] LABS: Bedside Glucose > 500 mg/dL (74-106)
--- NOTE | 2023-10-24 13:01 | CASEMGMT ---
Inpatient order reviewed against Medicare medical necessity requirements. Current documentation does not support an inpatient status. Case submitted to physician advisor for review who states observation is appropriate. Dr. Aguilera notified of patient being appropriate for outpatient status and is agreeable.
--- NOTE | 2023-10-24 13:05 | PCM.HOSP.N ---
Hospitalist Note Additional note: After reviewing the case with our UM committee and at the recommendation of our physician advisor I agree that the patient met criteria for outpatient status for the procedure performed.
--- NOTE | 2023-10-24 13:06 | PCM.DC ---
Discharge Instructions Diet Discharge Diet: 1800 Calorie Control Diet Activity Discharge Activity: Return to Normal Activity Weight Bearing Status: Full weight bearing Follow Up Care Test Results: Test results from this visit will be discussed in further detail at your follow-up appointment, if applicable. Discharge Plan Admission Admit Date/Time: 10/24/23 02:38 Primary Reason for Your Visit: covid 19 infection Attending Provider: Manny Russ Primary Care Provider: Reji De Leon Consulting Providers: Avelino Capps Instructions Additional Instructions / Restrictions: Do not smoke Use your albuterol inhaler 2 puffs 4 times a day for the next 5 days, then you may use it 2 puffs every 6 hours as needed afterwards Quarantine for 7 days total from 10/23/23 Discharge Orders/Prescriptions Prescriptions: New ferrous sulfate [FeroSul] 325 mg (65 mg iron) Tablet 325 mg PO DAILYCM Qty: 0 0RF Continued metformin 500 MG tablet 1,000 mg PO BIDCM albuterol sulfate 90 mcg/actuation HFA aerosol inhaler 2 inh INHALATION Q6H PRN (Reason: shortness of breath or wheezing) Trelegy Ellipta 100-62.5-25 mcg blister with device 1 inh INHALATION DAILY spironolactone 25 mg tablet 25 mg PO DAILY atorvastatin 40 mg Tablet 40 mg PO QHS Qty: 30 0RF Patient Comments: not taking; noncompliance aspirin 81 mg Tablet,Delayed Release (Dr/Ec) 81 mg PO BREAKFAST Qty: 0 0RF Patient Comments: not taking lisinopril 10 mg Tablet 10 mg PO DAILY Qty: 30 0RF nicotine 21 mg/24 hr Patch 24 Hour 21 mg transdermal DAILY Qty: 30 0RF metoprolol succinate 50 mg capsule,sprinkle,ER 24hr 50 mg PO DAILY Qty: 30 0RF Farxiga 10 mg tablet 10 mg PO DAILY Patient Comments: take 1 tablet by mouth every morning tamsulosin 0.4 mg capsule 0.4 mg PO DAILY Patient Comments: take 1 capsule by mouth every morning Discontinued prednisone 20 mg tablet 40 mg PO DAILY 7 Days Qty: 14 0RF Referrals / Follow Up: Reji De Leon MD [Primary Care Provider] - Disposition Disposition (needs filled in before D/C Order can be placed): Home Health Service
--- NOTE | 2023-10-24 13:21 | PCM.DC.SUM ---
Providers Date of Admission: 10/24/23 Date of Discharge: 10/24/23 Primary Care Physician: Dr. Reji De Leon MD Reason For Visit: RESPIRATORY FAILURE. COPD. COVID 19 Diagnosis Discharge Diagnosis (1) Acute hypoxic respiratory failure: Status: Acute Code(s): J96.01 - Acute respiratory failure with hypoxia (2) COPD exacerbation: Status: Chronic Code(s): J44.1 - Chronic obstructive pulmonary disease with (acute) exacerbation (3) COVID-19: Status: Acute Code(s): U07.1 - COVID-19 Plan 1. COVID-19 infection without pneumonia #2 hypoxia secondary to COPD #3 acute debility secondary to COVID-19 infection with hypoxia #4 chronic obstructive pulmonary disease Patient was not felt to have had an exacerbation of COPD Medications at Discharge Home Medications metformin 500 mg tablet 1,000 mg PO BIDCM DIABETES 04/26/16 albuterol sulfate 90 mcg/actuation aerosol inhaler 2 inh inhalation Q6H PRN shortness of breath or wheezing 09/04/23 fluticasone fur. 100 mcg-umeclid 62.5 mcg-vilant 25 mcg inhalat.powder (Trelegy Ellipta) 1 inh inhalation DAILY SHORTNESS OF BREATH 09/04/23 spironolactone 25 mg tablet 25 mg PO DAILY BLOOD PRESSURE 09/04/23 aspirin 81 mg tablet,delayed release 81 mg PO BREAKFAST #0 tabs 09/05/23 atorvastatin 40 mg tablet 40 mg PO QHS #30 tabs 09/05/23 lisinopril 10 mg tablet 10 mg PO DAILY #30 tabs 09/05/23 metoprolol succinate 50 mg capsule sprinkle, ext. release 24 hr 50 mg PO DAILY #30 ea 09/05/23 nicotine 21 mg/24 hr daily transdermal patch 21 mg transdermal DAILY #30 ea 09/05/23 dapagliflozin propanediol 10 mg tablet (Farxiga) 10 mg PO DAILY HEART FAILURE 09/18/23 tamsulosin 0.4 mg capsule 0.4 mg PO DAILY 09/18/23 ferrous sulfate 325 mg (65 mg iron) tablet (FeroSul) 325 mg PO DAILYCM #0 tabs 10/24/23 Hospital Course Operations None Procedures None Summary of Care Provided Minutes Spent on Discharge: 70 Hospital Course: 73-year-old white male was seen in the emergency room at [facility] after being transported in by EMS secondary to shortness of breath, patient related to recent hospitalization of [facility] in [facility] for pneumonia, he stated he had progressive shortness of breath since discharge from the hospital that worsened the night he was brought to the emergency room here. EMS initially noted his oxygen saturation was 90% on room air. Work-up in the emergency room included labs which showed an elevated white blood cell count at 15.7, chemistry profile was remarkable for a glucose of 178, beta natruretic peptide was elevated at 200. Chest x-ray showed an area of atelectasis at the left lower lobe, there is no evidence of pneumonia. Patient's COVID 19 test was positive, patient was given Solu-Medrol and DuoNeb in the ER, his O2 saturation was noted to be 86% on room air in the ER. Patient was initially admitted to PCU, placed on corticosteroids and aerosol treatments, given IV remdesivir, and then reevaluated later that day. At approximately 11:30 AM, patient requested discharge home if possible, at that time he had minimal wheezing in the right lung, his blood sugars had elevated due to corticosteroid administration, and the patient was taken off oxygen and he did not require oxygen either at rest or during ambulation. I talked with him about the use of prednisone at home and stated that I would rather the patient stay on his home inhalers which were Trelegy and albuterol and not use oral steroids-the patient was okay with this due to his elevated blood sugars. On 10/24/2023, patient was seen and examined: On examination he appeared in good health and spirits. Vital signs as documented. Skin warm and dry and without overt rashes. Neck without JVD, neck was supple, trachea midline, thyroid was normal. Lungs scattered expiratory wheezes were noted over the right lung field, normal air movement was noted. Heart exam notable for regular rhythm, normal sounds and absence of murmurs, rubs or gallops. Abdomen unremarkable and without evidence of organomegaly, masses, or abdominal aortic enlargement. Bowel sounds are present, abdomen is not distended. Extremities nonedematous, no cyanosis was noted, no clubbing was noted. Neuro: Cranial nerves II through XII are grossly intact, no focal motor deficits were noted, sensation to light touch and pinprick intact, motor exam 5/5 throughout. Psych: Patient is alert and oriented x3, he does not appear anxious or depressed, he does not appear agitated. Patient was felt to be stable for discharge home on 10/24/2023 Weight / BMI Weight Weight: 67.4 kg Body Mass Index (BMI) 20.7 ABG / Lab / Microbiology Data 10/24/23 07:35 10/24/23 07:35 Laboratory: Laboratory Results - last 24 hr 10/24/23 00:45: WBC 15.7 H, RBC 5.34, Hgb 15.8, Hct 51.2, MCV 95.9 H, MCH 29.6, MCHC 30.9 L, RDW Std Deviation 55.4 H, RDW Coeff of Lauri 15.8 H, Plt Count 287, MPV 11.3, Immature Gran % (Auto) 1.500 H, Neut % (Auto) 87.8 H, Lymph % (Auto) 4.1 L, [place] % (Auto) 5.4, Eos % (Auto) 0.9, Baso % (Auto) 0.3, Absolute Neuts (auto) 13.8 H, Absolute Lymphs (auto) 0.64 L, Nucleated RBC % 0, D-Dimer Quant (PE/DVT) < 0.27 L, Sodium 138, Potassium 3.8, Chloride 102, Carbon Dioxide 32.0, Anion Gap 4 L, BUN 20 H, Creatinine 0.89, Est GFR (MDRD) Af Amer 108, Est GFR (MDRD) Non-Af 89, BUN/Creatinine Ratio 22.4 H, Glucose 178 H, Lactic Acid 1.8, Calcium 9.3, Troponin I High Sens 41, B-Natriuretic Peptide 200.0 H 10/24/23 06:43: POC Glucose 278 H 10/24/23 07:35: WBC 15.9 H, RBC 4.87, Hgb 14.4, Hct 46.2, MCV 94.9 H, MCH 29.6, MCHC 31.2 L, RDW Std Deviation 54.8 H, RDW Coeff of Lauri 15.7 H, Plt Count 261, MPV 11.4, Immature Gran % (Auto) 1.200 H, Neut % (Auto) 93.5 H, Lymph % (Auto) 1.6 L, [place] % (Auto) 3.3, Eos % (Auto) 0.1, Baso % (Auto) 0.3, Absolute Neuts (auto) 14.8 H, Absolute Lymphs (auto) 0.26 L, Nucleated RBC % 0, Differential Comment SCANNED, Sodium 136, Potassium 4.4, Chloride 103, Carbon Dioxide 27.0, Anion Gap 6, BUN 21 H, Creatinine 0.75, Estim Creat Clear Calc 64.59, Est GFR (MDRD) Af Amer 132, Est GFR (MDRD) Non-Af 109, BUN/Creatinine Ratio 28.1 H, Glucose 311 H, Calcium 8.8, Total Bilirubin 0.40, AST 9 L, ALT 23, Alkaline Phosphatase Cancelled 10/24/23 07:35: Alkaline Phosphatase 70, Total Protein 6.2 L, Albumin 3.0 L, Globulin 3.2, Albumin/Globulin Ratio 0.9 10/24/23 11:22: POC Glucose > 500 H* Microbiology: Microbiology 10/24/23 01:01 Nasal Secretion SARS-CoV-2 & FLU Antigen (Rapid) - Final SARS-CoV-2 (COVID 19) Radiography Diagnostic Testing: Radiology Impression Chest X-Ray 10/24/23 01:12 IMPRESSION: Mild subsegmental atelectasis left lower lobe. Electronically Signed: Moris Devine MD at 1:55 EST , D/C Instructions Discharge Diet: 1800 Calorie Control Diet Weight Bearing Status: Full weight bearing Meaningful Use Info Meaningful Use Diagnoses (Choose all that apply): None applicable Discharge Plan Admission Admit Date/Time: 10/24/23 02:38 Primary Reason for Your Visit: covid 19 infection Attending Provider: Manny Russ Primary Care Provider: Reji De Leon Consulting Providers: Avelino Capps Instructions Additional Instructions / Restrictions: Do not smoke Use your albuterol inhaler 2 puffs 4 times a day for the next 5 days, then you may use it 2 puffs every 6 hours as needed afterwards Quarantine for 7 days total from 10/23/23 Discharge Orders/Prescriptions Prescriptions: New ferrous sulfate [FeroSul] 325 mg (65 mg iron) Tablet 325 mg PO DAILYCM Qty: 0 0RF Continued metformin 500 MG tablet 1,000 mg PO BIDCM albuterol sulfate 90 mcg/actuation HFA aerosol inhaler 2 inh INHALATION Q6H PRN (Reason: shortness of breath or wheezing) Trelegy Ellipta 100-62.5-25 mcg blister with device 1 inh INHALATION DAILY spironolactone 25 mg tablet 25 mg PO DAILY atorvastatin 40 mg Tablet 40 mg PO QHS Qty: 30 0RF Patient Comments: not taking; noncompliance aspirin 81 mg Tablet,Delayed Release (Dr/Ec) 81 mg PO BREAKFAST Qty: 0 0RF Patient Comments: not taking lisinopril 10 mg Tablet 10 mg PO DAILY Qty: 30 0RF nicotine 21 mg/24 hr Patch 24 Hour 21 mg transdermal DAILY Qty: 30 0RF metoprolol succinate 50 mg capsule,sprinkle,ER 24hr 50 mg PO DAILY Qty: 30 0RF Farxiga 10 mg tablet 10 mg PO DAILY Patient Comments: take 1 tablet by mouth every morning tamsulosin 0.4 mg capsule 0.4 mg PO DAILY Patient Comments: take 1 capsule by mouth every morning Discontinued prednisone 20 mg tablet 40 mg PO DAILY 7 Days Qty: 14 0RF Referrals / Follow Up: Reji De Leon MD [Primary Care Provider] - Disposition Disposition (needs filled in before D/C Order can be placed): Home Health Service Charges/Coding Visit Charges OBSV E&M: 06515 Observ/hosp same date L2
--- NOTE | 2023-10-24 13:32 | PHA.DC.MR.R ---
Pharmacy MD Med Reconciliation Pharmacy Service has performed discharge medication reconciliation for this patient. The patient's discharge medication list was reviewed for discrepancies and discrepancies were resolved. Medications at Discharge Home Medications metformin 500 mg tablet 1,000 mg PO BIDCM DIABETES 04/26/16 albuterol sulfate 90 mcg/actuation aerosol inhaler 2 inh inhalation Q6H PRN shortness of breath or wheezing 09/04/23 fluticasone fur. 100 mcg-umeclid 62.5 mcg-vilant 25 mcg inhalat.powder (Trelegy Ellipta) 1 inh inhalation DAILY SHORTNESS OF BREATH 09/04/23 spironolactone 25 mg tablet 25 mg PO DAILY BLOOD PRESSURE 09/04/23 aspirin 81 mg tablet,delayed release 81 mg PO BREAKFAST #0 tabs 09/05/23 atorvastatin 40 mg tablet 40 mg PO QHS #30 tabs 09/05/23 lisinopril 10 mg tablet 10 mg PO DAILY #30 tabs 09/05/23 metoprolol succinate 50 mg capsule sprinkle, ext. release 24 hr 50 mg PO DAILY #30 ea 09/05/23 nicotine 21 mg/24 hr daily transdermal patch 21 mg transdermal DAILY #30 ea 09/05/23 dapagliflozin propanediol 10 mg tablet (Farxiga) 10 mg PO DAILY HEART FAILURE 09/18/23 tamsulosin 0.4 mg capsule 0.4 mg PO DAILY 09/18/23 ferrous sulfate 325 mg (65 mg iron) tablet (FeroSul) 325 mg PO DAILYCM #0 tabs 10/24/23
--- NOTE | 2023-10-24 14:05 | CASEMGMT ---
Discharge Planning A list of HH providers including quality and resource use data and consistent with the patient's preferred geographic region, medical needs, and insurance network was created in [employer] Guide.? This list was provided to the RN FARIBA. Erin Gonzales, Discharge Planning Asst.
--- NOTE | 2023-10-24 14:13 | CASEMGMT ---
Addendum entered by Jess Graf 10/24/23 15:51: Call placed to pt's daughter, Nicky, and she was notified that [facility] has accepted him. She asks that [facility] contact her to schedule appts, as pt does not answer his phone often. Call back to Jaden and he was made aware of above and verified that he has correct contact # for Nicky. Addendum entered by Jess Graf 10/24/23 15:47: Pt accepted by [facility] per message in [email or web address]. Call placed to [facility] and spoke w/Jaden. He was made aware pt was active w/CCN, but they are on hold until pt out of COVID precautions. He states he will pass this information along for them to contact [facility] once [facility] discharges pt. Addendum entered by Jess Graf 10/24/23 14:49: Pt and daughter, Nicky, notified of status change from inpatient to outpatient. CHRISTIAN form provided and signed by daughter and patient aware. They were provided a copy and copy also placed in pt?s chart. Original Note: RN?CM?RESEARCH ENVIRONMENTAL SCIENTIST?CM?to room to meet with patient for initial transition planning/care coordination?assessment.?RN?CM?introduced self and role at [facility].? Pt voices understanding and consents to?assessment?at this time.? Pt sitting up in chair in room in no distress at this time.? Dtr, Nicky, @ bedside and pt agreeable to her being present during assessment. Pt is A/O at this time and answers all questions appropriately. Care providers, pharmacy, and demographics verified/updated at this time. PCP: Dr Reji De Leon Specialists: dedra Preferred Pharmacy: [facility] Retail pharmacy Insurance: [facility] Dual Prescription Benefit:?Yes Living Will/HPOA:? Pt states he has completed POA and that Nicky is his HCPOA. LNOK: Pt is legally still but is . His lives in [place] and he has not seen her for about a year. He has 3 adult children: Bay, Nicky, & Natalie. As stated above, pt states he has completed HCPOA, and his dtr, Nicky, is POA Living Arrangements: Lives w/his 2 dtr's in 2-story home w/2 steps to enter. FFSU. Independent w/ADL's. His dtr's do home mgnt tasks. CCN/HHC: Pt IS active w/CCN and per Nick she has been setting up pt's weekly medications and pt has been 100% compliant w/them. Nick aware of pt's admission to [facility] and +COVID. She states [facility] will not be able to see pt until he is out of COVID precautions. Pt and Nicky made aware. Discussed HHC and they both would like HH for SN. They were provided w/HHC list that was prepared by retail associate manager bilingualErin. They state they do not have a preference of HHC agency and state to send out referrals and they will be okay w/whatever agency is able to accept him. Pt is ready for discharge. Nicky asked for RN FARIBA to call her cell # for f/u on what [facility] is able to accept him. Medications: Pt states he does have all of his medications needed. Transportation:?Pt states drives self and states no transportation concerns at this time.? DME: Pt has the following DME:?functioning glucometer w/supplies, pulse ox, BP machine. Pt did have an O2 concentrator in the home, but he states the company just picked it up this past week. Pt states no need for further DME at this time.? HHC/SNF: No hx of SNF. Pt has had HHC in the past. Pt wishes to return home and states has no concerns with going home at time of discharge.? Pt and dtr voice no further concerns/needs at this time.? PLAN:??Home w/family support and HHC, pending acceptance. [facility]N to follow with pt once he is out of COVID precautions. Garcia BSN?RN?CM
--- NOTE | 2023-10-24 14:16 | CASEMGMT ---
Discharge Planning HH referral sent via [facility] to Anirudh , Abiel Menon, [facility], Jonathan , DEXTER, Morena/Patrick, Silvio, [facility], [facility], [facility], [facility], [facility], and [facility] . Erin Gonzalse, Discharge Planning Asst.
== END 2023-10-24 13:20 | disposition home health service (06) ==
LOC: ED 02:28 → PCU 06:55
PROVIDERS: Emergency Provider Emergency Medicine; PCP Family Medicine; Visit Provider Internal Medicine
DX: U07.1 COVID-19 (principal); J44.1 Chronic obstructive pulmonary disease with (acute) exacerbation; I11.0 Hypertensive heart disease with heart failure; I50.9 Heart failure, unspecified; J96.01 Acute respiratory failure with hypoxia; E11.9 Type 2 diabetes mellitus without complications; E78.5 Hyperlipidemia, unspecified; I25.10 Atherosclerotic heart disease of native coronary artery without angina pectoris; F17.210 Nicotine dependence, cigarettes, uncomplicated; J98.11 Atelectasis; Z79.899 Other long term (current) drug therapy; Z79.82 Long term (current) use of aspirin; Z79.84 Long term (current) use of oral hypoglycemic drugs; N40.0 Benign prostatic hyperplasia without lower urinary tract symptoms; N28.89 Other specified disorders of kidney and ureter
CPT/HCPCS: 71045; 80048; 80053; 82962; 83605; 83880; 84484; 85025; 85379; 87040; 87428; 93005; 94640; 96372; 96374; 99221; 99285; J7050; A4216; G0378; J0248

== ENCOUNTER 2023-10-25 09:10 | Observation (INO) | payer MEDICARE, MEDICAID, SELFPAY ==
[2023-10-25] VITALS (13 sets, daily range): BP systolic 107–123; BP diastolic 63–84; PULSE 66–117; RESP 16–22; TEMP 36.1–36.6; O2SAT 86–97; BMI 20.9
--- NOTE | 2023-10-25 09:28 | EKG12_ITS ---
Test Reason : COVID POS Blood Pressure : / mmHG Vent. Rate : 111 BPM Atrial Rate : 111 BPM P-R Int : 148 ms QRS Dur : 080 ms QT Int : 328 ms P-R-T Axes : 034 013 084 degrees QTc Int : 446 ms Sinus tachycardia with Premature atrial complexes Possible Left atrial enlargement Septal infarct , age undetermined Abnormal ECG Confirmed by FREDRICK JOY, ESTHELA ([id number]), assignment desk editor ANGELITO CORRALES ([id number]) on 10/26/2023 10:46:27 AM Referred By: PRIYA Confirmed By:ESTHELA ALCALA MD
--- NOTE | 2023-10-25 09:28 | EX.ED.DYSGE1 ---
HPI History of Present Illness Chief Complaint: Weakness Informant: patient Narrative Narrative: Presents by EMS from home due to weakness and fall. No injuries. Patient very poor historian. He states recent diagnosis of COVID he states he was hospitalized here discharged yesterday. He states he is going to the bathroom he felt weak going to the ground. Was on the ground for 20 minutes. Could not get up his daughter called EMS. He does not walk with a cane or a walker. He states mild cough that is improving. No headache. No vomiting or diarrhea. No urinary symptoms. Reports decreased p.o. intake. Denies being on oxygen. PFSH PFS Medical History BPH (benign prostatic hyperplasia) COPD (chronic obstructive pulmonary disease) Diabetes mellitus, type 2 Hyperlipidemia Hypertension Iron deficiency Mitral valve insufficiency Nonobstructive atherosclerosis of coronary artery Tobacco use Home Medications metformin 500 mg tablet 1,000 mg PO BIDCM DIABETES 04/26/16 [History Last Taken 09/04/23] albuterol sulfate 90 mcg/actuation aerosol inhaler 2 inh inhalation Q6H PRN shortness of breath or wheezing 09/04/23 [History Last Taken 09/04/23] fluticasone fur. 100 mcg-umeclid 62.5 mcg-vilant 25 mcg inhalat.powder (Trelegy Ellipta) 1 inh inhalation DAILY SHORTNESS OF BREATH 09/04/23 [History Last Taken 09/04/23] spironolactone 25 mg tablet 25 mg PO DAILY BLOOD PRESSURE 09/04/23 [History Last Taken Unknown] aspirin 81 mg tablet,delayed release 81 mg PO BREAKFAST #0 tabs 09/05/23 [Rx Last Taken 10/23/23] atorvastatin 40 mg tablet 40 mg PO QHS #30 tabs 09/05/23 [Rx Last Taken Unknown] lisinopril 10 mg tablet 10 mg PO DAILY #30 tabs 09/05/23 [Rx Last Taken Unknown] metoprolol succinate 50 mg capsule sprinkle, ext. release 24 hr 50 mg PO DAILY #30 ea 09/05/23 [Rx Last Taken Unknown] nicotine 21 mg/24 hr daily transdermal patch 21 mg transdermal DAILY #30 ea 09/05/23 [Rx Last Taken Unknown] dapagliflozin propanediol 10 mg tablet (Farxiga) 10 mg PO DAILY HEART FAILURE 09/18/23 [History Last Taken Unknown] tamsulosin 0.4 mg capsule 0.4 mg PO DAILY 09/18/23 [History Last Taken Unknown] ferrous sulfate 325 mg (65 mg iron) tablet (FeroSul) 325 mg PO DAILYCM #0 tabs 10/24/23 [Rx Last Taken Unknown] azithromycin 500 mg tablet mg 10/25/23 [History Last Taken Unknown] cefdinir 300 mg capsule mg 10/25/23 [History Last Taken Unknown] prednisone 10 mg tablet mg 10/25/23 [History Last Taken Unknown] Allergy/AdvReac Type Severity Reaction Status Date / Time No Known Allergies Allergy Verified 10/25/23 09:19 Family History Other Diabetes Heart disease Surgical History Status post appendectomy Social History Smoking Status: Current every day smoker tobacco type: cigarettes ROS ROS ED Constitutional Constitutional ED: Denies chills, fever(s) or sweats Eyes Eyes: Denies change in vision ENT ENT ED: Denies dysphagia or sore throat Cardiovascular Cardiovascular: Denies chest pain, leg edema, palpitations or racing heartbeat Respiratory/Chest Respiratory/Chest: Reports cough; Denies dyspnea or dyspnea on exertion Gastrointestinal Gastrointestinal: Denies abdominal pain, diarrhea, nausea or vomiting Genitourinary Genitourinary ED: Denies dysuria, hematuria or urinary frequency Musculoskeletal Musculoskeletal: Denies back pain, extremity pain or neck pain Integumentary Denies rash or wounds Neurologic Neurologic: Reports weakness; Denies headache(s) or paresthesias EXAM Physical Exam Const Vital Signs: 10/25/23 09:14 10/25/23 09:21 10/25/23 09:19 Temperature 97.9 F 97.9 F Temperature Source Temporal Temporal Pulse Rate 117 H 117 H Respiratory Rate 22 H 22 H Respiratory Effort Short of Breath Respiratory Pattern Tachypnea Blood Pressure 107/66 107/66 Blood Pressure Mean 79 79 Pulse Ox 97 97 Oxygen Delivery Method Room Air Room Air Oxygen Flow Rate (L/min) 10/25/23 09:51 10/25/23 10:38 10/25/23 10:35 Temperature 97.7 F L Temperature Source Temporal Pulse Rate 100 Respiratory Rate 19 H Respiratory Effort Respiratory Pattern Blood Pressure 114/68 Blood Pressure Mean 83 Pulse Ox 86 96 96 Oxygen Delivery Method Room Air Nasal Cannula Nasal Cannula Oxygen Flow Rate (L/min) 1.5 10/25/23 10:35 10/25/23 12:00 10/25/23 13:48 Temperature 97.7 F L 98 F Temperature Source Temporal Temporal Pulse Rate 91 89 82 Respiratory Rate 20 H 21 H 16 Respiratory Effort Respiratory Pattern Tachypnea Blood Pressure 111/72 113/75 Blood Pressure Mean 85 87 Pulse Ox 93 95 Oxygen Delivery Method Room Air Oxygen Flow Rate (L/min) Positive well nourished and well developed General Appearance ED: well developed and NAD HEENT Reports dry mucous membranes normocephalic and atraumatic Mouth ED: Yes dry mucous membranes Mouth: dry mucous membranes Eyes PERRL, EOMs intact bilaterally and conjunctivae normal General Eye ED: Yes normal appearance of both eyes Neck no lymphadenopathy and supple General: Negative for tenderness Chest Wall Chest: Negative for tenderness Resp normal respiratory effort and normal air movement Effort and Inspection: symmetric chest movement; Negative for respiratory distress Cardio regular rhythm and no murmurs Rate: tachycardic Peripheral Pulses: pulses 2+ throughout GI normal to inspection, nondistended, normoactive bowel sounds and non-tender Palpation: Negative for guarding or rebound tenderness present Back/Spine no CVA tenderness and no thoracic nor lumbar tenderness Extremity normal to inspection General Extremety ED: Negative for edema or tenderness General Extremity: Negative for edema Neuro oriented x3 and no sensory deficits noted Sensorium / Orientation: awake and alert Skin no rashes or lesions noted and no wounds MDM MDM MDM Narrative Medical decision making narrative: Interventions / MDM: Differential diagnosis: COVID-19 infection, COPD. Diagnosis considered but do not suspect: Pneumonia however x-ray negative. My EKG interpretation: Sinus rate of 111, no ST changes, isolated T wave version aVL. Imaging independently reviewed and interpreted by myself: 2 view chest x-ray: Atelectasis lower lobes also read by radiology. Patient External documents reviewed: Reviewing records COVID diagnosis evening of the with admitted early childhood associate on the . He was 86% on room air requiring oxygen at that time. Inpatient notes reviewed he requested to go home and did not require oxygen with ambulation. Discharged yesterday afternoon. Test considered but not ordered:N/A ED course: Patient very poor historian on his recent hospitalization. He states COVID-positive however not on oxygen. Afebrile he had dry mucosal membranes and tachycardic. IV will be established for IV fluids. Will check basic labs chest x-ray and urine. EKG ordered. EKG normal labs slight leukocytosis 14 recently on steroids. Yesterday white count 15. Chest x-ray and urine negative. Per nursing attempted ambulation he needed 2 person assist to stand bedside. Due to weakness, discussed with hospitalist Dr. Russ who knows the patient well for admission. He was ordered for aerosol treatments and steroids in the ED for his COPD history. Re-evaluation: stable Disposition discussed with patient/family/significant other: Patient Case discussed with consulting clinician: Hospitalist This note was generated with [employer] dictation software. It may contain incorrect words, spelling, and punctuation that were not noted in checking the note before signing. Lab Data Attestation: I reviewed the patient's lab results. Labs: Laboratory Results - last 24 hr 10/25/23 10/25/23 09:35 10:43 WBC 14.2 H RBC 5.19 Hgb 15.2 Hct 48.4 MCV 93.3 MCH 29.3 MCHC 31.4 L RDW Std Deviation 54.1 H RDW Coeff of Lauri 15.8 H Plt Count 263 MPV 11.5 Immature Gran % (Auto) 1.000 H Neut % (Auto) 88.9 H Lymph % (Auto) 3.9 L Elliott % (Auto) 6.0 Eos % (Auto) 0.1 Baso % (Auto) 0.1 Absolute Neuts (auto) 12.6 H Absolute Lymphs (auto) 0.55 L Nucleated RBC % 0 Differential Comment SCANNED Sodium 134 L Potassium 4.0 Chloride 101 Carbon Dioxide 28.0 Anion Gap 5 BUN 27 H Creatinine 0.90 Estim Creat Clear Calc 72.73 Est GFR (MDRD) Af Amer 107 Est GFR (MDRD) Non-Af 88 BUN/Creatinine Ratio 29.9 H Glucose 195 H Calcium 9.1 Urine Color Yellow Urine Clarity Sl. Cloudy Urine pH 6.0 Ur Specific [place] 1.015 Urine Protein 100 H Urine Glucose (UA) 1000 H Urine Ketones Negative Urine Occult Blood 10 H Urine Nitrite Negative Urine Bilirubin Negative Urine Urobilinogen Normal Ur Leukocyte Esterase Negative Urine RBC 0-5 SEEN Urine WBC 0 SEEN Ur Squamous Epith Cells 0 SEEN Urine Bacteria 0 SEEN Urine Mucus 0 SEEN Radiography Diagnostic Testing: Clinical Impression(s) from Imaging Studies Chest X-Ray 10/25/23 10:05 IMPRESSION: Mild residual increased linear markings at the left lung base suggestive of atelectasis. This has improved. Electronically Signed: Trent Cannon MD at 10:19 EST , Discharge Plan Dx/Rx/DC Orders Clinical Impression: COVID-19, Hypoxia, COPD (chronic obstructive pulmonary disease), Weakness Disposition Disposition: Acute Care Hospital [facility]
--- NOTE | 2023-10-25 09:30 | ED.RN ---
THIS RN SPOKE WITH DAUGHTER BLANCA TO NOTIFY HER THAT PT IS IN THE ED. DAUGHTER STATES SHE IS THE ONE THAT CALLED THE [facility]. PT FELL TWICE AT HOME. AFTER THE SECOND TIME HER AND HER SISTER WERE UNABLE TO GET THE PT BACK UP
[2023-10-25] MEDS: 0.9% Normal Saline (500mL Bag) 500 ML 1000 ML IV (09:49)
[2023-10-25 10:02] LABS: Anion Gap 5 (5-15); BUN 27 mg/dL (7-18); BUN/Creat Ratio 29.9 RATIO (10-20); Calcium,Total 9.1 mg/dL (8.5-10.1); Chloride 101 mmol/L (98-107); EST Glomerular Filtration Rate 88 mL/min (>60); Est Glom Filt Rate - Afr Amer 107 mL/min (>60); Estimated Creatinine Clearance 72.73 ml/min; Glucose 195 mg/dL (74-106); Sodium Level 134 mmol/L (136-145)
--- NOTE | 2023-10-25 10:05 | RAD_ITS ---
STUDY: X-RAY CHEST REASON FOR EXAM: Male, 73 years old. Cough TECHNIQUE: Single AP portable view of the chest. COMPARISON: Comparison is made with prior study dated October 24, 2023. FINDINGS: EKG electrodes are seen. Mild persistent increased linear markings at the left lung base suggestive of atelectasis. This has improved. There is no demonstrated pleural abnormality. Normal size heart. Normal mediastinum and aureliano. Normal visualized pulmonary arteries. There is atherosclerotic calcification of the aortic arch with tortuosity. Prior fusion of the mid and lower dorsal spine. Normal visualized ribs, clavicles, and shoulders. There is no demonstrated abnormality of the visualized soft tissue structures of the upper abdomen. RAD/Chest 1 View (Portable) IMPRESSION: Mild residual increased linear markings at the left lung base suggestive of atelectasis. This has improved. Electronically Signed: Trent Cannon MD at 10:19 [facility] ,
[2023-10-25 10:09] LABS: Absolute Lymphocyte Count 0.55 X10^3/uL (0.83-4.51); Absolute Neutrophil Count 12.6 X10^3/uL (2.0-7.7); Basophil# 0.02 X10^3/uL; Basophil% 0.1 % (0-1); Eosinophil# 0.01 X10^3/uL; Eosinophils% 0.1 % (0-5); Hematocrit 48.4 % (40-54); Hemoglobin 15.2 g/dL (13.0-16.5); Lymphocyte # 0.55 X10^3/ul (0.83-4.51); Lymphocyte % 3.9 % (19-41); Mean Corp Hgb Conc 31.4 g/dL (32-36); Mean Corpuscular Hgb 29.3 pg (27.0-32.0); Mean Corpuscular Volume 93.3 fL (80-94); Mean Platelet Vol. 11.5 fl (6.2-12.0); Monocyte# 0.85 X10^3/uL; NRBC Flagged by Analyzer 0 % (0-5); Neutrophil # 12.58 X10^3/uL (2.7-7.7); Neutrophil % 88.9 % (47-70); POSITIVE DIFFERENTIAL YES; Platelet Count 263 K/mm3 (150-450); RBC Distribution Width CV 15.8 % (11.6-14.6); RBC Distribution Width SD 54.1 fl (35.1-43.9); Red Blood Count 5.19 M/mm3 (4.6-6.2); White Blood Count 14.2 K/mm3 (4.4-11.0)
[2023-10-25 10:13] LABS: Differential Indicated SCAN CRITERIA MET
[2023-10-25] MEDS: Ipratropium/Albuterol Sulfate 3 ML AMPUL.NEB INHALATION ×2 (10:34→20:33)
[2023-10-25] MEDS: dexAMETHasone 10 MG/ML Vial 6 MG IV (10:37)
[2023-10-25 10:47] LABS: Bacteria 0 SEEN /hpf (None Seen); Mucous, Urine 0 SEEN /hpf (<or=2+); Squamous Epithelial Cells - UA 0 SEEN /hpf (0-5); White Blood Cells 0 SEEN /hpf (0-5)
[2023-10-25 10:47] LABS: Differential Comment SCANNED
[2023-10-25 10:50] LABS: Color, Urine Yellow (Yellow); Glucose, Dipstick 1000 mg/dl (Normal); Ketone-Dipstick Negative (Negative); Leukocyte Esterase-Dipstick Negative /ul (Negative); Nitrite-Dipstick Negative (Negative); Occult Blood-Urine 10 /ul (Negative); Protein-Dipstick 100 mg/dl (Negative); Specific Gravity, Urine 1.015 (1.002-1.030); Urine Bilirubin Dipstick Negative (Negative); Urine Clarity Sl. Cloudy (Clear); Urine Urobilinogen Normal (Normal)
[2023-10-25 11:09] LABS: Red Blood Cells-Urine 0-5 SEEN /hpf (0-5)
--- NOTE | 2023-10-25 11:49 | NURSING ---
MED SURG TERELETSKY COPD,
--- NOTE | 2023-10-25 13:06 | NURSING ---
MED SURG OBS TERELETSKY COPD, WEAKNESS
--- NOTE | 2023-10-25 18:29 | PCM.HP.STD ---
HPI - General General Date of Admission: 10/25/23 Date of Service: 10/25/23 Chief Complaint: Generalized weakness HPI Narrative RAHEL NICHOLS, is a 73 M who presents to the emergency room at [facility] with generalized weakness, he had been discharged from the hospital yesterday at his request, at the time he was discharged he required no supplemental oxygen and was able to ambulate. Work-up in the emergency room today revealed a white blood cell count of 14.2, hemoglobin was normal, urinalysis was unremarkable, chemistry profile was abnormal for a BUN of 27 and sodium of 134. Patient's chest x-ray was unremarkable except for linear markings at the left base suggestive of atelectasis. It had improved over the patient's prior x-ray done 2 days ago. Patient required 2 L of oxygen to maintain his pulse ox above 90%, his pulse ox on room air was 86%. Nursing attempted to ambulate the patient in the emergency room but he required assistance of 2 nurses to ambulate him. Patient will be placed in observation status for generalized debility, the etiology of the stability is not recognized at this time. I have made the decision to treat the patient with IV remdesivir and corticosteroids due to his positive COVID test 2 days ago, I am unable to determine when the patient first had symptoms of COVID, it was stated in his medical record during the last admission that he had been at [facility] for several days for treatment of pneumonia, I talked with his daughter by phone today and she states she does not feel they did a COVID test on him during that hospital stay. I have requested records from [facility] concerning his hospital stay but as of the time of this dictation I have not received the records. PFSH Medical History Anxiety BPH (benign prostatic hyperplasia) COPD (chronic obstructive pulmonary disease) Depression Diabetes Diabetes mellitus, type 2 Hyperlipidemia Hypertension Iron deficiency Kidney disease Kidney stones Mitral valve insufficiency Nonobstructive atherosclerosis of coronary artery Smoker Stroke/cerebrovascular accident Tobacco use Home Medications metformin 500 mg tablet 1,000 mg PO BIDCM DIABETES 04/26/16 [History Last Taken 09/04/23] albuterol sulfate 90 mcg/actuation aerosol inhaler 2 inh inhalation Q6H PRN shortness of breath or wheezing 09/04/23 [History Last Taken 09/04/23] fluticasone fur. 100 mcg-umeclid 62.5 mcg-vilant 25 mcg inhalat.powder (Trelegy Ellipta) 1 inh inhalation DAILY SHORTNESS OF BREATH 09/04/23 [History Last Taken 09/04/23] spironolactone 25 mg tablet 25 mg PO DAILY BLOOD PRESSURE 09/04/23 [History Last Taken Unknown] aspirin 81 mg tablet,delayed release 81 mg PO BREAKFAST #0 tabs 09/05/23 [Rx Last Taken 10/23/23] atorvastatin 40 mg tablet 40 mg PO QHS #30 tabs 09/05/23 [Rx Last Taken Unknown] lisinopril 10 mg tablet 10 mg PO DAILY #30 tabs 09/05/23 [Rx Last Taken Unknown] metoprolol succinate 50 mg capsule sprinkle, ext. release 24 hr 50 mg PO DAILY #30 ea 09/05/23 [Rx Last Taken Unknown] nicotine 21 mg/24 hr daily transdermal patch 21 mg transdermal DAILY #30 ea 09/05/23 [Rx Last Taken Unknown] dapagliflozin propanediol 10 mg tablet (Farxiga) 10 mg PO DAILY HEART FAILURE 09/18/23 [History Last Taken Unknown] tamsulosin 0.4 mg capsule 0.4 mg PO DAILY 09/18/23 [History Last Taken Unknown] ferrous sulfate 325 mg (65 mg iron) tablet (FeroSul) 325 mg PO DAILYCM #0 tabs 10/24/23 [Rx Last Taken Unknown] azithromycin 500 mg tablet mg 10/25/23 [History Last Taken Unknown] cefdinir 300 mg capsule mg 10/25/23 [History Last Taken Unknown] prednisone 10 mg tablet mg 10/25/23 [History Last Taken Unknown] Allergy/AdvReac Type Severity Reaction Status Date / Time No Known Allergies Allergy Verified 10/25/23 09:19 Family History Other Diabetes Heart disease Surgical History (Updated 10/25/23 @ 17:21 by Estefany Goodman) History of appendectomy Status post appendectomy Social History Smoking Status: Current every day smoker tobacco type: cigarettes ROS Constitutional Constitutional: Reports fatigue and weakness; Denies anorexia, change in weight, fever(s) or night sweats Eyes Eyes: Denies blurry vision, change in vision, discharge from eye(s) or eye pain Cardiovascular Cardiovascular: Denies chest pain, claudication, dyspnea on exertion, edema, lightheadedness or palpitations Respiratory/Chest Respiratory/Chest: Reports cough; Denies hemoptysis, shortness of breath at rest or shortness of breath with exertion Gastrointestinal Gastrointestinal: Denies abdominal pain, constipation, diarrhea, hematemesis, hematochezia, melena, nausea or vomiting Genitourinary Genitourinary: Denies dysuria, hematuria, urinary frequency, urinary hesitancy, urinary incontinence or urinary urgency Musculoskeletal Musculoskeletal: Denies back pain, joint pain, joint stiffness, joint swelling, myalgias or neck pain Neurologic Neurologic: Denies abnormal gait, abnormal speech, dizziness, focal weakness, headache(s), loss of vision, numbness, other visual disturbances, paresthesias, syncope or tingling Psychiatric Psychiatric: Denies anxiety, cognitive impairment, depression, irritability, mood swings or suicidal ideation Endocrine Endocrinology: Denies change in body appearance, cold intolerance, excessive sweating, heat intolerance, polydipsia or polyuria Hematologic/Lymphatic Hematologic/Lymphatic: Denies none, anemia, easy bleeding, easy bruising or lymphadenopathy Allergic/Immunologic Allergic/Immunologic: Denies rhinitis, urticaria, eczemia or asthma Vital Signs Vital Signs Vital Signs: 10/25/23 09:14 10/25/23 09:21 10/25/23 09:19 Temperature 97.9 F 97.9 F Temperature Source Temporal Temporal Pulse Rate 117 H 117 H Respiratory Rate 22 H 22 H Respiratory Effort Short of Breath Respiratory Pattern Tachypnea Blood Pressure 107/66 107/66 Blood Pressure Mean 79 79 Pulse Ox 97 97 Oxygen Delivery Method Room Air Room Air Oxygen Flow Rate (L/min) 10/25/23 09:51 10/25/23 10:38 10/25/23 10:35 Temperature 97.7 F L Temperature Source Temporal Pulse Rate 100 Respiratory Rate 19 H Respiratory Effort Respiratory Pattern Blood Pressure 114/68 Blood Pressure Mean 83 Pulse Ox 86 96 96 Oxygen Delivery Method Room Air Nasal Cannula Nasal Cannula Oxygen Flow Rate (L/min) 1.5 10/25/23 10:35 10/25/23 12:00 10/25/23 13:48 Temperature 97.7 F L 98 F Temperature Source Temporal Temporal Pulse Rate 91 89 82 Respiratory Rate 20 H 21 H 16 Respiratory Effort Respiratory Pattern Tachypnea Blood Pressure 111/72 113/75 Blood Pressure Mean 85 87 Pulse Ox 93 95 Oxygen Delivery Method Room Air Oxygen Flow Rate (L/min) 10/25/23 16:38 Temperature Temperature Source Pulse Rate 68 Respiratory Rate 18 Respiratory Effort Respiratory Pattern Blood Pressure 123/84 H Blood Pressure Mean 97 Pulse Ox 93 Oxygen Delivery Method Oxygen Flow Rate (L/min) Weight Weight: 67.9 kg Body Mass Index (BMI) 6.0 Physical Exam Const alert, oriented x3 and no apparent distress General Appearance: cooperative, well kempt and well developed Orientation / Consciousness: awake, oriented to person and oriented to place HEENT normocephalic, head/scalp atraumatic, hearing grossly normal bilaterally and moist oral mucous membranes Eyes PERRL, EOMs intact bilaterally and conjunctivae normal Neck supple, no JVD, thyroid normal and no carotid bruits General: trachea midline Resp normal respiratory effort, no retractions, no use of accessory muscles and clear to auscultation bilaterally Auscultation: Negative for rales, rhonchi or wheezes Cardio regular rate, regular rhythm, S1 normal heart sound, S2 normal heart sound, no murmurs, no rub and no gallops GI normal to inspection, nondistended, normoactive bowel sounds, soft to palpation, non-tender and non-distended Extremity no clubbing, cyanosis or edema Skin no rashes or lesions noted General Skin Exam: no breakdown Neuro CN's II-XII intact bilaterally, moves all extremities, no focal motor deficits and no sensory deficits noted Sensorium / Orientation: awake, alert, oriented to person and oriented to place Speech: speech normal Psych affect normal Results Lab / Micro Data 10/25/23 09:35 10/25/23 09:35 Labs: Laboratory Results - last 24 hr 10/25/23 09:35: WBC 14.2 H, RBC 5.19, Hgb 15.2, Hct 48.4, MCV 93.3, MCH 29.3, MCHC 31.4 L, RDW Std Deviation 54.1 H, RDW Coeff of Lauri 15.8 H, Plt Count 263, MPV 11.5, Immature Gran % (Auto) 1.000 H, Neut % (Auto) 88.9 H, Lymph % (Auto) 3.9 L, Ross % (Auto) 6.0, Eos % (Auto) 0.1, Baso % (Auto) 0.1, Absolute Neuts (auto) 12.6 H, Absolute Lymphs (auto) 0.55 L, Nucleated RBC % 0, Differential Comment SCANNED, Sodium 134 L, Potassium 4.0, Chloride 101, Carbon Dioxide 28.0, Anion Gap 5, BUN 27 H, Creatinine 0.90, Estim Creat Clear Calc 72.73, Est GFR (MDRD) Af Amer 107, Est GFR (MDRD) Non-Af 88, BUN/Creatinine Ratio 29.9 H, Glucose 195 H, Calcium 9.1 10/25/23 10:43: Urine Color Yellow, Urine Clarity Sl. Cloudy, Urine pH 6.0, Ur Specific [place] 1.015, Urine Protein 100 H, Urine Glucose (UA) 1000 H, Urine Ketones Negative, Urine Occult Blood 10 H, Urine Nitrite Negative, Urine Bilirubin Negative, Urine Urobilinogen Normal, Ur Leukocyte Esterase Negative, Urine RBC 0-5 SEEN, Urine WBC 0 SEEN, Ur Squamous Epith Cells 0 SEEN, Urine Bacteria 0 SEEN, Urine Mucus 0 SEEN Imagaing Radiology Impression Chest X-Ray 10/25/23 10:05 IMPRESSION: Mild residual increased linear markings at the left lung base suggestive of atelectasis. This has improved. Electronically Signed: Trent Cannon MD at 10:19 EST , Assessment & Plan Assessment/Plan (1) Weakness: PLAN: Plan 1. Generalized debility-etiology unclear, patient will be placed in observation status on [facility], he will be seen by PT and OT, he may need temporary placement in a care home facility if his strength is not improved. #2 hypoxia-I think this is secondary to his underlying COPD, patient will be given aerosol treatments, he was placed on dexamethasone due to his positive COVID test, pulse ox will be monitored #3 COVID-19 infection without pneumonia-patient will be given remdesivir and dexamethasone #4 Central hypertension-patient will remain on his present medications, blood pressure will be monitored #5 chronic obstructive pulmonary disease-patient will be given aerosol treatments, he will receive dexamethasone Total clinical time spent by myself addressing the patient's medical issues, reviewing all of his data, and collaborating with patient's care team: 55 minutes Charges/Coding Visit Charges Inpatient E&M: 04034 Init Hosp L2
[2023-10-25] MEDS: 0.9% Normal Saline (1000mL) 1,000 ML 100 ML IV (18:34)
[2023-10-25] MEDS: Remdesivir 100 MG in 0.9% Normal Saline (250mL Bag) 230 ML 250 MG IV (18:35)
[2023-10-25] MEDS: dexAMETHasone 4 MG Tablet 6 MG PO (18:36)
[2023-10-25] MEDS: Insulin Lispro 100 UNIT/ML INSULN.PEN SC ×2 (18:47→22:16)
[2023-10-25] MEDS: Heparin Injection (Vial) 5,000 UNIT/ML VIAL 5000 UNIT SC (22:12)
[2023-10-25] MEDS: Atorvastatin Calcium 40 MG Tablet PO (22:12)
[2023-10-25 22:41] LABS: Bedside Glucose 288 mg/dL (74-106)
[2023-10-25 22:41] LABS: Bedside Glucose 206 mg/dL (74-106)
[2023-10-26] VITALS (9 sets, daily range): BP systolic 105–118; BP diastolic 63–68; PULSE 65–84; RESP 16–18; TEMP 36.4–37.1; O2SAT 91–96; BMI 20.8
[2023-10-26] MEDS: 0.9% Normal Saline (1000mL) 1,000 ML 100 ML IV ×2 (04:24→15:27)
[2023-10-26] MEDS: Heparin Injection (Vial) 5,000 UNIT/ML VIAL 5000 UNIT SC ×3 (05:58→22:40)
[2023-10-26 06:27] LABS: Bedside Glucose 144 mg/dL (74-106)
[2023-10-26 06:57] LABS: ALB/GLOB Ratio 0.7 RATIO (0.9-2.4); AST(SGOT) 14 U/L (15-37); Alanine Aminotransfer ALT/SGPT 23 U/L (16-61); Albumin, Serum 2.6 g/dL (3.2-5.0); Alkaline Phosphatase 60 U/L (45-117); Anion Gap 6 (5-15); BUN 34 mg/dL (7-18); BUN/Creat Ratio 43.8 RATIO (10-20); Calcium,Total 8.3 mg/dL (8.5-10.1); Chloride 106 mmol/L (98-107); Creatinine, Serum 0.78 mg/dL (0.70-1.30); EST Glomerular Filtration Rate 105 mL/min (>60); Est Glom Filt Rate - Afr Amer 127 mL/min (>60); Estimated Creatinine Clearance 65.07 ml/min; Globulin 3.5 g/dL (2.2-4.2); Glucose 163 mg/dL (74-106); Potassium 4.8 mmol/L (3.5-5.1); Protein, Total 6.1 g/dL (6.4-8.2); Sodium Level 137 mmol/L (136-145)
[2023-10-26] MEDS: Remdesivir 100 MG in 0.9% Normal Saline (250mL Bag) 230 ML 250 MG IV (10:21)
[2023-10-26] MEDS: Lisinopril 10 MG Tablet PO (10:30)
[2023-10-26] MEDS: Metoprolol(XL)Succ 50 MG Tablet PO (10:30)
[2023-10-26] MEDS: Aspirin E.C. 81 MG Tablet PO (10:30)
[2023-10-26] MEDS: Tamsulosin HCl 0.4 MG Capsule PO (10:30)
[2023-10-26] MEDS: Spironolactone 25 MG Tablet PO (10:32)
[2023-10-26] MEDS: dexAMETHasone 4 MG Tablet 6 MG PO (12:10)
--- NOTE | 2023-10-26 13:23 | PCM.PN.HOSP ---
Reason for Visit Reason for Visit: Diagnoses Weakness (10/25/23) Subjective Subjective Patient was seen and examined today, he still requires supplemental oxygen at 2 to 3 L. I talked him briefly about going to an extended care facility for short-term inpatient skilled services, he acted as though I had not mentioned it to him before-I talked with him about this yesterday in the emergency room. Patient denies any fevers or chills, he denies any dyspnea at rest. Objective Data Objective Data Vital Signs: Vital Signs Temp Pulse Resp BP Pulse Ox O2 Del Method O2 Flow Rate 97.8 F 77 18 106/63 95 Nasal Cannula 3 10/26/23 10:25 10/26/23 10:30 10/26/23 10:25 10/26/23 10:30 10/26/23 10:25 10/26/23 10:25 10/26/23 12:02 Oxygen Flow Rate (L/min) 3 Oxygen Delivery Method Nasal Cannula Weight: 67.9 kg Body Mass Index (BMI) 6.0 Intake & Output: Intake and Output for Last 24 Hours 10/24/23 10/25/23 10/26/23 23:59 23:59 23:59 Intake Total 850 / 850 1203.33 / 1203.33 Output Total 200 / 200 500 / 500 Balance 650 / 650 703.33 / 703.33 Lab / Micro Data 10/25/23 09:35 10/26/23 06:15 Labs: Laboratory Results - last 24 hr 10/25/23 18:22: POC Glucose 288 H 10/25/23 22:15: POC Glucose 206 H 10/26/23 05:51: POC Glucose 144 H 10/26/23 06:15: Sodium 137, Potassium 4.8, Chloride 106, Carbon Dioxide 25.0, Anion Gap 6, BUN 34 H, Creatinine 0.78, Estim Creat Clear Calc 65.07, Est GFR (MDRD) Af Amer 127, Est GFR (MDRD) Non-Af 105, BUN/Creatinine Ratio 43.8 H, Glucose 163 H, Calcium 8.3 L, Total Bilirubin 0.50, AST 14 L, ALT 23, Alkaline Phosphatase 60, Total Protein 6.1 L, Albumin 2.6 L, Globulin 3.5, Albumin/Globulin Ratio 0.7 L Physical Exam Const alert, no apparent distress, average body habitus and healthy appearing General Appearance: cooperative, well kempt and well developed Orientation / Consciousness: awake, oriented to person and oriented to place HEENT normocephalic, head/scalp atraumatic and moist oral mucous membranes Eyes PERRL, EOMs intact bilaterally and conjunctivae normal Neck supple, no JVD, thyroid normal and no carotid bruits General: trachea midline Resp normal respiratory effort, no retractions, no use of accessory muscles and clear to auscultation bilaterally Auscultation: Negative for rales, rhonchi or wheezes Cardio regular rate, regular rhythm, S1 normal heart sound, S2 normal heart sound, no murmurs, no rub and no gallops GI normal to inspection, nondistended, normoactive bowel sounds, soft to palpation, non-tender and non-distended Extremity no clubbing, cyanosis or edema Skin no rashes or lesions noted General Skin Exam: no breakdown Neuro CN's II-XII intact bilaterally, no focal motor deficits and no sensory deficits noted Sensorium / Orientation: awake, alert, oriented to person and oriented to place Speech: speech normal Psych affect normal Assessment & Plan Assessment/Plan (1) Weakness: PLAN: Plan 1. Generalized debility-etiology unclear, patient will continue to see PT and OT, he tells this examiner he does not want to go to a skilled care facility. #2 hypoxia-I think this is secondary to his underlying COPD, patient will be given aerosol treatments, he was placed on dexamethasone due to his positive COVID test, pulse ox will be monitored #3 COVID-19 infection without pneumonia-patient will be given remdesivir and dexamethasone #4 Central hypertension-patient will remain on his present medications, blood pressure will be monitored #5 chronic obstructive pulmonary disease-patient will be given aerosol treatments as needed, he has been refusing to take aerosol treatments from respiratory therapy and they requested that I make the aerosol treatments as needed Total clinical time spent by myself addressing the patient's medical issues, reviewing all of his data, and collaborating with patient's care team: 35 minutes Charges/Coding Visit Charges Inpatient E&M: 60625 Subs Hosp L2
--- NOTE | 2023-10-26 15:21 | CASEMGMT ---
Discharge Planning Referral sent to [facility] via [facility]. Erin Gonzales, Discharge Planning Asst.
--- NOTE | 2023-10-26 15:22 | CASEMGMT ---
Met with patient to complete CHRISTIAN form. CHRISTIAN form explained to patient who voiced understanding and signed form. Original form placed in pt?s chart and copy provided to?patient. Erin Gonzales, Discharge Planning Asst
[2023-10-26] MEDS: Insulin Lispro 100 UNIT/ML INSULN.PEN SC ×2 (17:20→22:36)
[2023-10-26] MEDS: Atorvastatin Calcium 40 MG Tablet PO (22:43)
[2023-10-27] VITALS (7 sets, daily range): BP systolic 109–128; BP diastolic 59–62; PULSE 65–95; RESP 16–24; TEMP 36.5–36.8; O2SAT 93–95
[2023-10-27 00:37] LABS: Bedside Glucose 300 mg/dL (74-106)
[2023-10-27 00:37] LABS: Bedside Glucose 199 mg/dL (74-106)
[2023-10-27 00:37] LABS: Bedside Glucose 184 mg/dL (74-106)
[2023-10-27] MEDS: 0.9% Normal Saline (1000mL) 1,000 ML 100 ML IV (02:10)
[2023-10-27] MEDS: Albuterol 2.5 MG/3 ML VIAL.NEB. INHALATION ×2 (03:35→07:41)
[2023-10-27] MEDS: Heparin Injection (Vial) 5,000 UNIT/ML VIAL 5000 UNIT SC (06:38)
[2023-10-27 07:05] LABS: Bedside Glucose 81 mg/dL (74-106)
[2023-10-27] MEDS: Lisinopril 10 MG Tablet PO (09:12)
[2023-10-27] MEDS: Metoprolol(XL)Succ 50 MG Tablet PO (09:12)
[2023-10-27] MEDS: Tamsulosin HCl 0.4 MG Capsule PO (09:12)
[2023-10-27] MEDS: Aspirin E.C. 81 MG Tablet PO (09:12)
[2023-10-27] MEDS: Spironolactone 25 MG Tablet PO (09:12)
[2023-10-27] MEDS: Remdesivir 100 MG in 0.9% Normal Saline (250mL Bag) 230 ML 250 MG IV (09:13)
[2023-10-27] MEDS: dexAMETHasone 4 MG Tablet 6 MG PO (09:13)
[2023-10-27] MEDS: Insulin Lispro 100 UNIT/ML INSULN.PEN SC (11:14)
[2023-10-27 11:35] LABS: Bedside Glucose 191 mg/dL (74-106)
--- NOTE | 2023-10-27 11:37 | DS.PCM_ITS ---
Providers Date of Admission: 10/25/23 Date of Discharge: 10/27/23 Primary Care Physician: Dr. Reji De Leon MD Reason For Visit: HYPOXIA, WEAKNESS Diagnosis Discharge Diagnosis (1) Weakness: Status: Acute Code(s): R53.1 - Weakness Medications at Discharge Home Medications metformin 500 mg tablet 1,000 mg PO BIDCM DIABETES 04/26/16 albuterol sulfate 90 mcg/actuation aerosol inhaler 2 inh inhalation Q6H PRN shortness of breath or wheezing 09/04/23 fluticasone fur. 100 mcg-umeclid 62.5 mcg-vilant 25 mcg inhalat.powder (Trelegy Ellipta) 1 inh inhalation DAILY SHORTNESS OF BREATH 09/04/23 spironolactone 25 mg tablet 25 mg PO DAILY BLOOD PRESSURE 09/04/23 aspirin 81 mg tablet,delayed release 81 mg PO BREAKFAST #0 tabs 09/05/23 atorvastatin 40 mg tablet 40 mg PO QHS #30 tabs 09/05/23 lisinopril 10 mg tablet 10 mg PO DAILY #30 tabs 09/05/23 metoprolol succinate 50 mg capsule sprinkle, ext. release 24 hr 50 mg PO DAILY #30 ea 09/05/23 nicotine 21 mg/24 hr daily transdermal patch 21 mg transdermal DAILY #30 ea 09/05/23 dapagliflozin propanediol 10 mg tablet (Farxiga) 10 mg PO DAILY HEART FAILURE 09/18/23 tamsulosin 0.4 mg capsule 0.4 mg PO DAILY 09/18/23 ferrous sulfate 325 mg (65 mg iron) tablet (FeroSul) 325 mg PO DAILYCM #0 tabs 10/24/23 dexamethasone 4 mg tablet 6 mg (1.5 x 4 mg) PO DAILY #9 tabs 10/27/23 Hospital Course Operations None Procedures EKG and - (Chest x-ray) Summary of Care Provided Minutes Spent on Discharge: 36 Hospital Course: Mr. Velasquez is a 73-year-old white male who presents emergency department at [facility] on 10/25/2023 complaining of generalized weakness. He had been discharged from the hospital the day prior after having a 24-hour hospitalization at which time he was diagnosed with COVID-19 infection. His hospitalization was overall unremarkable and his chest x-ray at the time of representation actually looked improved from what it did 2 days prior. He was hypoxic on room air with an oxygen saturation of 86% and required 2 L of supplemental oxygen. He evidently attempted to ambulate in the emergency department and required the assistance of 2 nurses. He was admitted under observation status for generalized debility and started on IV remdesivir on and restarted Decadron. He was not discharged on this the day prior. Clinically he did very well during his hospitalization. By the a.m. of 10/27/2023 the patient was anxious to go home and stated he was feeling much better and close to his baseline. Home health was already set up at discharge and he was adamant that he was not going to a fdc facility at the time of discharge. Ambulatory pulse ox was performed and patient walked 150 feet without requiring any supplemental oxygen maintaining oxygen saturations at 95%. On exam his wheezing had resolved. I did discharge him with Decadron for 6 more days. He is to continue this and I did make him aware that his blood sugars would run a little bit higher during this time. And should return back to normal once his steroids have been discontinued. I have asked him to seclude himself through tomorrow which will be 5 days from symptom onset and then utilize a mask for 5 days following this in order to achieve the 10 days postinfection to avoid spread of the disease. Patient voiced understanding. He will be discharged home in stable condition with a prescription for Decadron. He has follow-up ointment with his primary care physician on 11/07/2023. Discharge diagnoses: Acute hypoxia secondary to acute exacerbation of COPD Acute COVID-19 infection Tobacco abuse CAD HTN HPL DM-2 BPH History of iron deficiency History of mitral valve insufficiency History of stroke Depression Physical Exam Narrative Patient states he is feeling much better. Was able to walk 120 feet without any difficulty. Oxygen saturations are stable on room air. Const alert, oriented x3, no apparent distress, average body habitus, no limitations, healthy appearing and well nourished Constitutional Narrative: Very pleasant, older, white male, sitting up in bed watching television and appears comfortable, nontoxic General Appearance: cooperative, comfortable, well kempt and well developed HEENT normocephalic, head/scalp atraumatic and moist oral mucous membranes; Negative for hearing grossly normal bilaterally HEENT Narrative: Marked hearing loss, Mallampati 2, no thrush Eyes PERRL, EOMs intact bilaterally and conjunctivae normal Eyes Narrative: No scleral icterus Neck no lymphadenopathy and supple Neck Narrative: Trachea midline, no thyroid enlargement Resp normal respiratory effort, no retractions, no use of accessory muscles and clear to auscultation bilaterally Resp Narrative: Diffusely diminished but clear with resolution of wheezing Auscultation: Negative for rales, rhonchi or wheezes Cardio regular rate, regular rhythm, S1 normal heart sound, S2 normal heart sound, no murmurs, no rub, no gallops and no clicks GI normal to inspection, nondistended, normoactive bowel sounds, soft to palpation and non-tender Extremity no clubbing, cyanosis or edema Extremity Narrative: Pedal pulses are 2+ Skin no rashes or lesions noted, no wounds, skin turgor normal and no jaundice Neuro oriented x3, moves all extremities and no focal motor deficits Neuro Narrative: Mild generalized weakness noted Speech: speech normal Psych affect normal Psych Narrative: Very pleasant, interacts appropriately Weight / BMI Weight Weight: 67.9 kg Body Mass Index (BMI) 20.8 ABG / Lab / Microbiology Data 10/25/23 09:35 10/26/23 06:15 Laboratory: Laboratory Results - last 24 hr 10/26/23 12:08: POC Glucose 199 H 10/26/23 17:19: POC Glucose 300 H 10/26/23 22:35: POC Glucose 184 H 10/27/23 06:35: POC Glucose 81 10/27/23 11:13: POC Glucose 191 H D/C Instructions Discharge Diet: Low fat / Low cholesterol and 1800 Calorie Control Diet Discharge Activity: Return to Normal Activity Return to work on: 11/02/23 Meaningful Use Info Meaningful Use Diagnoses (Choose all that apply): None applicable Discharge Plan Admission Admit Date/Time: 10/25/23 12:44 Primary Reason for Your Visit: Generalized weakness Attending Provider: Thao Jauregui Primary Care Provider: Reji De Leon Consulting Providers: Manny Russ Additional Instructions / Restrictions: 1. Please avoid contact with people and isolate yourself through 10/28/2023 and then after that date please wear a mask in public setting for 5 days until 11/02/2023. 2. Your blood sugars will run high while on Decadron. Please keep hydrated and expect increased thirst and urination during that time. Sugars should return back to normal once you stop your Decadron Discharge Orders/Prescriptions Prescriptions: New dexamethasone 4 mg Tablet 6 mg PO DAILY Qty: 9 0RF Continued metformin 500 MG tablet 1,000 mg PO BIDCM albuterol sulfate 90 mcg/actuation HFA aerosol inhaler 2 inh INHALATION Q6H PRN (Reason: shortness of breath or wheezing) Trelegy Ellipta 100-62.5-25 mcg blister with device 1 inh INHALATION DAILY spironolactone 25 mg tablet 25 mg PO DAILY atorvastatin 40 mg Tablet 40 mg PO QHS Qty: 30 0RF Patient Comments: not taking; noncompliance aspirin 81 mg Tablet,Delayed Release (Dr/Ec) 81 mg PO BREAKFAST Qty: 0 0RF Patient Comments: not taking lisinopril 10 mg Tablet 10 mg PO DAILY Qty: 30 0RF nicotine 21 mg/24 hr Patch 24 Hour 21 mg transdermal DAILY Qty: 30 0RF metoprolol succinate 50 mg capsule,sprinkle,ER 24hr 50 mg PO DAILY Qty: 30 0RF Farxiga 10 mg tablet 10 mg PO DAILY Patient Comments: take 1 tablet by mouth every morning tamsulosin 0.4 mg capsule 0.4 mg PO DAILY Patient Comments: take 1 capsule by mouth every morning ferrous sulfate [FeroSul] 325 mg (65 mg iron) Tablet 325 mg PO DAILYCM Qty: 0 0RF Referrals / Follow Up: Reji De Leon MD [Primary Care Provider] - 11/07/23 10:40 am Disposition Disposition (needs filled in before D/C Order can be placed): Home Health Servi ce Charges/Coding Visit Charges Inpatient E&M: 87061 Disch Hosp >30min
--- NOTE | 2023-10-27 11:50 | PHA.DC_ITS ---
Pharmacy [facility] has performed discharge medication reconciliation and counseling for this patient. The patient's discharge medication list was reviewed for discrepancies and discrepancies were resolved. The patient was counseled on the following discharge medications and changes in medications for homegoing were reviewed. The Reason for Use, instructions for use, and potential side effects were reviewed for all new medications. The patient's questions regarding all of their medications were answered. 1. Dexamethasone 6 mg PO daily x 6 days. The patient was able to verbally demonstrate an understanding of their discharge medications. Medications at Discharge Home Medications metformin 500 mg tablet 1,000 mg PO BIDCM DIABETES 04/26/16 albuterol sulfate 90 mcg/actuation aerosol inhaler 2 inh inhalation Q6H PRN shortness of breath or wheezing 09/04/23 fluticasone fur. 100 mcg-umeclid 62.5 mcg-vilant 25 mcg inhalat.powder (Trelegy Ellipta) 1 inh inhalation DAILY SHORTNESS OF BREATH 09/04/23 spironolactone 25 mg tablet 25 mg PO DAILY BLOOD PRESSURE 09/04/23 aspirin 81 mg tablet,delayed release 81 mg PO BREAKFAST #0 tabs 09/05/23 atorvastatin 40 mg tablet 40 mg PO QHS #30 tabs 09/05/23 lisinopril 10 mg tablet 10 mg PO DAILY #30 tabs 09/05/23 metoprolol succinate 50 mg capsule sprinkle, ext. release 24 hr 50 mg PO DAILY #30 ea 09/05/23 nicotine 21 mg/24 hr daily transdermal patch 21 mg transdermal DAILY #30 ea 09/05/23 dapagliflozin propanediol 10 mg tablet (Farxiga) 10 mg PO DAILY HEART FAILURE 09/18/23 tamsulosin 0.4 mg capsule 0.4 mg PO DAILY 09/18/23 ferrous sulfate 325 mg (65 mg iron) tablet (FeroSul) 325 mg PO DAILYCM #0 tabs 10/24/23 dexamethasone 4 mg tablet 6 mg (1.5 x 4 mg) PO DAILY #9 tabs 10/27/23
--- NOTE | 2023-10-27 11:57 | CASEMGMT ---
Patient has order for discharge and did not qualify for home oxygen. HANSEL LINK spoke with patient regarding needs at discharge. Patient states he would like to return home with [facility] as setup at prior admission. Patient states he will use his walker at home. Patient denied further questions or concerns. HANSEL LINK called daughter to confirm discharge plan. Daughter had no further questions or concerns. Discharge senior planning manager to send updated to [facility].
--- NOTE | 2023-10-27 12:35 | CASEMGMT ---
Discharge Planning order and discharge summary sent to [facility] via [facility]. Erin Gonzales, Discharge Planning Asst.
--- NOTE | 2023-10-27 15:59 | CASEMGMT ---
Discharge Planning Updated HH order sent to [facility] via [facility]. Erin Gonzales, Discharge Planning Asst.
== END 2023-10-27 11:43 | disposition home health service (06) ==
LOC: ED 12:23 → PCU 16:38
PROVIDERS: Admitting Provider Internal Medicine; Emergency Provider Emergency Medicine; PCP Family Medicine; Visit Provider Internal Medicine
DX: U07.1 COVID-19 (principal); J44.1 Chronic obstructive pulmonary disease with (acute) exacerbation; E11.9 Type 2 diabetes mellitus without complications; F17.210 Nicotine dependence, cigarettes, uncomplicated; E78.5 Hyperlipidemia, unspecified; N40.0 Benign prostatic hyperplasia without lower urinary tract symptoms; I25.10 Atherosclerotic heart disease of native coronary artery without angina pectoris; I10 Essential (primary) hypertension; Z79.899 Other long term (current) drug therapy; Z79.84 Long term (current) use of oral hypoglycemic drugs; Z79.82 Long term (current) use of aspirin
CPT/HCPCS: 36415; 71045; 80048; 80053; 81001; 82962; 85025; 93005; 94640; 96361; 96372; 96374; 97162; 97166; 99221; 99252; 99285; J7030; J7040; J7050; A4216; G0378; G0463; J0248

== ENCOUNTER 2023-11-14 23:02 | Emergency (ER) | payer MEDICARE, MEDICAID, SELFPAY ==
[2023-11-14 23:06] VITALS: BP 123/77; PULSE 102; RESP 19; TEMP 36.3; O2SAT 93
--- NOTE | 2023-11-14 23:17 | EKG12_ITS ---
Test Reason : Blood Pressure : / mmHG Vent. Rate : 096 BPM Atrial Rate : 096 BPM P-R Int : 158 ms QRS Dur : 080 ms QT Int : 342 ms P-R-T Axes : 065 049 080 degrees QTc Int : 432 ms Normal sinus rhythm Possible Left atrial enlargement Septal infarct (cited on or before 05-SEP-2023) Abnormal ECG Confirmed by FREDRICK JOY, ESTHELA ([id number]), field map editor ROSALIO ALVAREZ ([id number]) on 11/16/2023 10:30:33 AM Referred By: Confirmed By:ESTHELA ALCALA MD
--- NOTE | 2023-11-14 23:17 | CT_ITS ---
EXAM: CT HEAD WITHOUT INTRAVENOUS CONTRAST CLINICAL INDICATION: Trauma TECHNIQUE: Multiple axial images were obtained of the head without intravenous contrast. This CT exam was performed using one or more of the following dose reduction techniques: automated exposure control, adjustment of the mA and/or kV according to patient size, and/or use of iterative reconstruction technique. RADIATION DOSE: Total DLP: 880.47 mGy-cm. COMPARISON: No relevant prior studies available. FINDINGS: BRAIN AND EXTRA-AXIAL SPACES: Mild/moderate atrophy is present prominence of the cortical sulci, basal cisterns, sylvian fissures and ventricles. Extensive patchy chronic small vessel ischemic changes are noted within the deep white matter tracts. Old lacunar infarctions noted within the inferior right cerebellum. Encephalomalacia from old infarctions noted within the left occipital lobe, inferior left frontal lobe, left frazier radiata and right caudate head. No intra- or extra-axial hemorrhage. BONES/JOINTS: Unremarkable. No discrete lytic or blastic abnormalities. No linear or depressed skull fracture. SOFT TISSUES: Unremarkable. No scalp hematoma. VASCULATURE: Atherosclerotic vascular calcification is present. The middle cerebral arteries are not hyperdense. SINUSES: Moderate mucosal thickening and retained secretions noted within the right maxillary antrum; there is associated thickening and sclerosis of the sinus wall indicating chronic sinusitis. No paranasal sinus air-fluid levels. MASTOID AIR CELLS: Unremarkable. Clear. ORBITS: Previous cataract surgery. CT/Brain/Head without Contrast IMPRESSION: No skull fracture or acute intracranial hemorrhage. Atrophy with chronic small vessel ischemic changes. 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 Electronically Signed: Eric Martinez MD at 23:58 EST ,
--- NOTE | 2023-11-14 23:17 | CT_ITS ---
EXAM: CT CERVICAL SPINE WITHOUT INTRAVENOUS CONTRAST CLINICAL INDICATION: Trauma fell and hit head. TECHNIQUE: Helically acquired images were obtained of the cervical spine without intravenous contrast. 2D reformatted images were reviewed. This CT exam was performed using one or more of the following dose reduction techniques: automated exposure control, adjustment of the mA and/or kV according to patient size, and/or use of iterative reconstruction technique. RADIATION DOSE: Total DLP: 410.36 mGy-cm. COMPARISON: No relevant prior studies available. FINDINGS: VERTEBRAE: Cervical vertebrae demonstrate normal curvature and alignment except for slight degenerative posterior subluxation of C5 on C6. No compression fracture, posterior element fracture or facet dislocation. The odontoid is intact. DISCS/SPINAL CANAL/NEURAL FORAMINA: Moderately severe degenerative disc space narrowing noted at the C5/6 and C6/7 levels with endplate sclerosis, marginal osteophytes and uncinate hypertrophy. Cervical facet arthritis is present, greater on the left at C2/3. Uncinate hypertrophy causes minimal left-sided neural foraminal encroachment at C6/7. No thecal sac stenosis. SOFT TISSUES: No prevertebral soft tissue swelling. VASCULATURE: Atherosclerotic vascular calcification is present within the neck including bilateral carotid calcified plaques. LUNG APICES: Pulmonary emphysema noted at the lung apices. No apical pneumothorax. Visualized upper ribs are intact. OTHER: Visualized mastoid air cells are clear. Mucosal thickening again noted within the right maxillary antrum. CT/Spine Cervical without Contras IMPRESSION: Lower cervical degenerative disc disease. No acute fracture identified. Electronically Signed: Eric Martinez MD at 0:03 EST ,
--- NOTE | 2023-11-14 23:19 | EDS_ITS ---
HPI HPI - Fall History of Present Illness Chief Complaint: Fall Informant: patient and EMS Narrative Narrative: Patient presents after a fall at home with head injury. Patient states he had been watching TV. He got up. He tripped on a board causing him to fall hit the back of his head. He thinks it was on the edge of the fireplace. He states he either lost consciousness or was just a little bit dazed for a moment. But the problem is he could not get up afterwards. He does have generalized weakness. He states this would not be that uncommon for him. He was also just in the hospital had pneumonia and COVID. He states he has been doing well at home for about 2 to 3 weeks and is getting stronger but it is slow. He is eating and drinking okay. His breathing is okay. He states the only thing that hurts is the back of his head. He is on aspirin but no other blood thinners. His fall was not syncope. It was evidently a mechanical trip and fall. PFSH PFSH Medical History Acute hypoxic respiratory failure Anxiety BPH (benign prostatic hyperplasia) CHF (congestive heart failure) COPD (chronic obstructive pulmonary disease) COVID-19 Depression Diabetes mellitus, type 2 Hyperlipidemia Hypertension Iron deficiency Kidney disease Kidney stones Mitral valve insufficiency Nonobstructive atherosclerosis of coronary artery Smoker Stroke/cerebrovascular accident Tobacco use Home Medications metformin 500 mg tablet 1,000 mg PO BIDCM DIABETES 04/26/16 [History Last Taken 09/04/23] albuterol sulfate 90 mcg/actuation aerosol inhaler 2 inh inhalation Q6H PRN shortness of breath or wheezing 09/04/23 [History Last Taken 09/04/23] fluticasone fur. 100 mcg-umeclid 62.5 mcg-vilant 25 mcg inhalat.powder (Trelegy Ellipta) 1 inh inhalation DAILY SHORTNESS OF BREATH 09/04/23 [History Last Taken 09/04/23] spironolactone 25 mg tablet 25 mg PO DAILY BLOOD PRESSURE 09/04/23 [History Last Taken Unknown] aspirin 81 mg tablet,delayed release 81 mg PO BREAKFAST #0 tabs 09/05/23 [Rx Last Taken 10/23/23] atorvastatin 40 mg tablet 40 mg PO QHS #30 tabs 09/05/23 [Rx Last Taken Unknown] lisinopril 10 mg tablet 10 mg PO DAILY #30 tabs 09/05/23 [Rx Last Taken Unknown] metoprolol succinate 50 mg capsule sprinkle, ext. release 24 hr 50 mg PO DAILY #30 ea 09/05/23 [Rx Last Taken Unknown] nicotine 21 mg/24 hr daily transdermal patch 21 mg transdermal DAILY #30 ea 09/05/23 [Rx Last Taken Unknown] dapagliflozin propanediol 10 mg tablet (Farxiga) 10 mg PO DAILY HEART FAILURE 09/18/23 [History Last Taken Unknown] tamsulosin 0.4 mg capsule 0.4 mg PO DAILY 09/18/23 [History Last Taken Unknown] ferrous sulfate 325 mg (65 mg iron) tablet (FeroSul) 325 mg PO DAILYCM #0 tabs 10/24/23 [Rx Last Taken Unknown] dexamethasone 4 mg tablet 6 mg (1.5 x 4 mg) PO DAILY #9 tabs 10/27/23 [Rx Last Taken Unknown] Allergy/AdvReac Type Severity Reaction Status Date / Time No Known Allergies Allergy Verified 11/14/23 23:05 Family History Other Diabetes Heart disease Surgical History History of appendectomy Status post appendectomy Social History Smoking Status: Current every day smoker tobacco type: cigarettes ROS ROS ED Constitutional Constitutional ED: Denies chills, fever(s) or weight loss Eyes Eyes: Denies change in vision ENT ENT ED: Denies rhinorrhea Cardiovascular Cardiovascular: Denies chest pain, palpitations or racing heartbeat Respiratory/Chest Respiratory/Chest: Denies cough or dyspnea Gastrointestinal Gastrointestinal: Denies abdominal pain, diarrhea, nausea or vomiting Genitourinary Genitourinary ED: Denies hematuria Musculoskeletal Musculoskeletal: Denies arthralgias, back pain or neck pain Integumentary Reports other Details: Presume laceration back of. Neurologic Neurologic: Reports headache(s) Hematologic/Lymphatic Hematologic/Lymphatic: Denies easy bleeding, easy bruising or lymphadenopathy Allergic/Immunologic Allergic/Immunologic ED: Denies urticaria EXAM Physical Exam Narrative Exam Narrative: General: Patient is actually awake alert very responsive. Pretty good informant for recent and current events. He is very consistent in his story. HEENT: No facial tenderness upfront. He does have a gauze wrapping on his scalp. It is not bleeding through and no bleeding at this time. Per reports, he evidently has a laceration posterior scalp though. This was not unwrapped as I would like to get a CAT scan before putting julia in this area if that is needed. Neck: C-collar is on. He was explained the need to keep this on. There is no obvious tenderness though. Chest is clear. He does have an increased AP diameter which is chronic. But no tenderness crepitance subcu air. His saturations are normal at 93% on room air showing no hypoxia even while he is laying flat on his back. Heart is regular. Rate about 90. Peripheral pulses are equal. Abdomen is soft and nontender. No back tenderness. Extremities show no tenderness around the pelvis. I can move his hips and press and move all the joints of his upper and lower extremities without any pain or discomfort. I see no deformities. Neurologically he is awake alert responsive oriented x 3. Const Vital Signs: 11/14/23 23:06 11/14/23 23:18 Temperature 97.4 F L Temperature Source Temporal Pulse Rate 102 H Respiratory Rate 19 H Respiratory Effort Normal Respiratory Depth Normal Respiratory Pattern Normal Blood Pressure 123/77 H Blood Pressure Mean 92 Pulse Ox 93 Oxygen Delivery Method Room Air Room Air MDM MDM MDM Narrative Medical decision making narrative: My independent interpretation of the patient's CT scan of the head shows prior infarcts but no acute bleeding. I see no fracture. There is soft tissue changes in the posterior left aspect. Final reading is similar. My independent interpretation of the patient's CT scan of the cervical spine shows no acute fracture. Final reading is pending. Patient's basic metabolic panel shows elevated glucose but this is not uncommon. Otherwise normal. Patient CBC shows nonspecific elevation of white count but normal hemoglobin and platelet Procedure: Staple of laceration on scalp. We looked through the posterior scalp. Did find a laceration with a slight Y shaped laceration. Total length was 3 cm. The area was scrubbed and cleaned. Is irrigated. Pulled the hair to the side. It was anesthetized with 2 cc of 1% lidocaine with epinephrine locally. Good anesthesia was achieved. It was closed with 4 julia with good cosmesis hemostasis and he tolerated it well. We then started to clean and scrub the rest of the area looking for signs of any other lacerations. None were found. We will get the patient up moving. As long as he feels stable comfortable and can walk well we will get him home. Certainly if there are further issues that develop, new areas of pain, those will be addressed. Lab Data Attestation: I reviewed the patient's lab results. Labs: Laboratory Results - last 24 hr 11/14/23 23:45 WBC 11.8 H RBC 4.85 Hgb 14.7 Hct 45.9 MCV 94.6 H MCH 30.3 MCHC 32.0 RDW Std Deviation 56.3 H RDW Coeff of Lauri 16.3 H Plt Count 294 MPV 10.4 Immature Gran % (Auto) 3.900 H Neut % (Auto) 80.8 H Lymph % (Auto) 6.9 L [place] % (Auto) 6.8 Eos % (Auto) 1.0 Baso % (Auto) 0.6 Absolute Neuts (auto) 9.5 H Absolute Lymphs (auto) 0.81 L Nucleated RBC % 0.2 Sodium 139 Potassium 4.2 Chloride 105 Carbon Dioxide 30.0 Anion Gap 4 L BUN 21 H Creatinine 0.86 Estim Creat Clear Calc 78.85 Est GFR (MDRD) Af Amer 113 Est GFR (MDRD) Non-Af 93 BUN/Creatinine Ratio 24.4 H Glucose 270 H Calcium 9.0 Radiography Diagnostic Testing: Clinical Impression(s) from Imaging Studies Brain CT 11/14/23 23:17 IMPRESSION: No skull fracture or acute intracranial hemorrhage. Atrophy with chronic small vessel ischemic changes. 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 Electronically Signed: Eric Martinez MD at 23:58 EST , Cervical Spine CT 11/14/23 23:17 IMPRESSION: Lower cervical degenerative disc disease. No acute fracture identified. Electronically Signed: Eric Martinez MD at 0:03 EST , EKG Initial EKG: Comments: My independent interpretation of the patient's EKG shows a sinus rhythm with overall rate of 96. No ectopy. No indication of acute infarct. CA interval, QRS duration and QTc are normal. Procedures Lacerations Posterior left scalp: Depth: Sub Q Shape: Stellate Prep: Shure-Clens Laceration repair: Irrigated, Lidocaine with epi and Wound explored Number of Sutures/Julia: 4 Suture Information: - (Julia) Comment: See MDM. Discharge Plan Triage Chief Complaint: Fall Other Complaint: Head Injury ED Provider: Julio C Marie Dx/Rx/DC Orders Clinical Impression: Stapled skin wound, Fall at home, Closed head injury, Hyperglycemia, Laceration of occipital scalp Instructions: ED Head Injury (Adult), ED Laceration Scalp Stitches or Julia Prescriptions: No Action metformin 500 MG tablet 1,000 mg PO BIDCM albuterol sulfate 90 mcg/actuation HFA aerosol inhaler 2 inh INHALATION Q6H PRN (Reason: shortness of breath or wheezing) Trelegy Ellipta 100-62.5-25 mcg blister with device 1 inh INHALATION DAILY spironolactone 25 mg tablet 25 mg PO DAILY atorvastatin 40 mg Tablet 40 mg PO QHS Qty: 30 0RF Patient Comments: not taking; noncompliance aspirin 81 mg Tablet,Delayed Release (Dr/Ec) 81 mg PO BREAKFAST Qty: 0 0RF Patient Comments: not taking lisinopril 10 mg Tablet 10 mg PO DAILY Qty: 30 0RF nicotine 21 mg/24 hr Patch 24 Hour 21 mg transdermal DAILY Qty: 30 0RF metoprolol succinate 50 mg capsule,sprinkle,ER 24hr 50 mg PO DAILY Qty: 30 0RF Farxiga 10 mg tablet 10 mg PO DAILY Patient Comments: take 1 tablet by mouth every morning tamsulosin 0.4 mg capsule 0.4 mg PO DAILY Patient Comments: take 1 capsule by mouth every morning ferrous sulfate [FeroSul] 325 mg (65 mg iron) Tablet 325 mg PO DAILYCM Qty: 0 0RF dexamethasone 4 mg Tablet 6 mg PO DAILY Qty: 9 0RF Primary Care Provider: Ishaan Higuera Referrals: Reji De Leon MD [Non-Staff] - 5 Days for suture removal Disposition Disposition: Home, Self Care
[2023-11-14 23:52] VITALS: BMI 21.7
[2023-11-15 00:07] LABS: Anion Gap 4 (5-15); BUN 21 mg/dL (7-18); BUN/Creat Ratio 24.4 RATIO (10-20); Chloride 105 mmol/L (98-107); Creatinine, Serum 0.86 mg/dL (0.70-1.30); EST Glomerular Filtration Rate 93 mL/min (>60); Est Glom Filt Rate - Afr Amer 113 mL/min (>60); Estimated Creatinine Clearance 78.85 ml/min; Glucose 270 mg/dL (74-106); Potassium 4.2 mmol/L (3.5-5.1); Sodium Level 139 mmol/L (136-145)
[2023-11-15 00:10] LABS: Absolute Lymphocyte Count 0.81 X10^3/uL (0.83-4.51); Absolute Neutrophil Count 9.5 X10^3/uL (2.0-7.7); Basophil# 0.07 X10^3/uL; Basophil% 0.6 % (0-1); Eosinophil# 0.12 X10^3/uL; Hematocrit 45.9 % (40-54); Hemoglobin 14.7 g/dL (13.0-16.5); Lymphocyte # 0.81 X10^3/ul (0.83-4.51); Lymphocyte % 6.9 % (19-41); Mean Corpuscular Hgb 30.3 pg (27.0-32.0); Mean Corpuscular Volume 94.6 fL (80-94); Mean Platelet Vol. 10.4 fl (6.2-12.0); Monocyte% 6.8 % (0-10); NRBC Flagged by Analyzer 0.2 % (0-5); Neutrophil # 9.51 X10^3/uL (2.7-7.7); Neutrophil % 80.8 % (47-70); Platelet Count 294 K/mm3 (150-450); RBC Distribution Width CV 16.3 % (11.6-14.6); RBC Distribution Width SD 56.3 fl (35.1-43.9); Red Blood Count 4.85 M/mm3 (4.6-6.2); White Blood Count 11.8 K/mm3 (4.4-11.0)
[2023-11-15] MEDS: Lidocaine 1% /Epi 1:100 (20ml) 20 ML Vial INFILT (01:00)
[2023-11-15 01:26] VITALS: BP 120/83; PULSE 104; RESP 22; O2SAT 95
[2023-11-15 01:27] VITALS: BP 143/76; PULSE 101; RESP 24; O2SAT 95
== END 2023-11-15 02:10 | disposition home or self-care (01) ==
PROVIDERS: Emergency Provider Emergency Medicine; Visit Provider Emergency Medicine
DX: S01.01XA Laceration without foreign body of scalp, initial encounter (principal); J44.9 Chronic obstructive pulmonary disease, unspecified; I50.9 Heart failure, unspecified; I11.0 Hypertensive heart disease with heart failure; E11.65 Type 2 diabetes mellitus with hyperglycemia; F17.210 Nicotine dependence, cigarettes, uncomplicated; E78.5 Hyperlipidemia, unspecified; I25.10 Atherosclerotic heart disease of native coronary artery without angina pectoris; Z79.82 Long term (current) use of aspirin; R51.9 Headache, unspecified; W01.198A Fall on same level from slipping, tripping and stumbling with subsequent striking against other object, initial encounter
CPT/HCPCS: 12002; 70450; 72125; 80048; 85025; 93005; 99284; J7030; A4216

== ENCOUNTER 2023-12-30 01:03 | Inpatient (IN) | payer MEDICARE, MEDICAID, SELFPAY ==
[2023-12-30] VITALS (14 sets, daily range): BP systolic 115–133; BP diastolic 73–84; PULSE 80–129; RESP 14–25; TEMP 36.1–36.9; O2SAT 88–99; BMI 21.9; BMI 21.4
--- NOTE | 2023-12-30 01:42 | RAD_ITS ---
STUDY: X-RAY CHEST REASON FOR EXAM: Male, 73 years old. dyspnea TECHNIQUE: Single AP portable view of the chest. COMPARISON: 10/25/2023. FINDINGS: Fullness of the central vascularity suggestive of mild vascular congestion. Focal opacity within the right lower lobe suggestive of superimposed pneumonia. There is no demonstrated pleural abnormality. There is mild cardiac enlargement. Normal mediastinum and aureliano. There is atherosclerotic calcification of the aortic arch with tortuosity. Status post posterior fusion of the mid lower thoracic spine. There is degenerative osteoarthritis of the bilateral shoulders. There is no demonstrated abnormality of the visualized soft tissue structures of the upper abdomen. RAD/Chest 1 View (Portable) IMPRESSION: Possible mild vascular congestion with superimposed right lower lobe pneumonia. Clinical correlation recommended. Electronically Signed: Bobbi Persaud MD at 1:52 EST ,
[2023-12-30 01:46] LABS: Absolute Lymphocyte Count 0.84 X10^3/uL (0.83-4.51); Absolute Neutrophil Count 14.7 X10^3/uL (2.0-7.7); Basophil# 0.18 X10^3/uL; Eosinophil# 0.15 X10^3/uL; Eosinophils% 0.9 % (0-5); Hematocrit 45.8 % (40-54); Hemoglobin 14.2 g/dL (13.0-16.5); Lymphocyte # 0.84 X10^3/ul (0.83-4.51); Lymphocyte % 4.9 % (19-41); Mean Corpuscular Hgb 30.5 pg (27.0-32.0); Mean Corpuscular Volume 98.3 fL (80-94); Mean Platelet Vol. 10.6 fl (6.2-12.0); Monocyte# 1.27 X10^3/uL; Monocyte% 7.4 % (0-10); NRBC Flagged by Analyzer 0 % (0-5); Neutrophil # 14.66 X10^3/uL (2.7-7.7); Neutrophil % 85.2 % (47-70); Platelet Count 328 K/mm3 (150-450); RBC Distribution Width CV 15.9 % (11.6-14.6); RBC Distribution Width SD 57.5 fl (35.1-43.9); Red Blood Count 4.66 M/mm3 (4.6-6.2); White Blood Count 17.2 K/mm3 (4.4-11.0)
[2023-12-30 02:03] LABS: D-Dimer Quantitative (DVT/PE) 1.36 FEU/ug/m (0.27-0.49)
[2023-12-30 02:18] LABS: Anion Gap 3 (5-15); BUN 13 mg/dL (7-18); BUN/Creat Ratio 13.7 RATIO (10-20); Chloride 109 mmol/L (98-107); Creatinine, Serum 0.95 mg/dL (0.70-1.30); EST Glomerular Filtration Rate 83 mL/min (>60); Est Glom Filt Rate - Afr Amer 100 mL/min (>60); Estimated Creatinine Clearance 72.13 ml/min; Glucose 237 mg/dL (74-106); Potassium 4.1 mmol/L (3.5-5.1); Sodium Level 141 mmol/L (136-145); Thyroid Stim Hormone (TSH) 2.63 uIU/mL (0.358-3.74); Troponin-I HS 156 pg/mL (3.0-78.0)
[2023-12-30] MEDS: Ceftriaxone 1 GM/50 ML BAG IV (02:25)
--- NOTE | 2023-12-30 02:25 | CT_ITS ---
EXAM: CT ANGIOGRAPHY CHEST WITHOUT AND WITH INTRAVENOUS CONTRAST CLINICAL INDICATION: pulmonary embolism TECHNIQUE: Helically acquired angiography images were obtained of the chest as per pulmonary angiogram protocol without and with intravenous contrast. This CT exam was performed using one or more of the following dose reduction techniques: automated exposure control, adjustment of the mA and/or kV according to patient size, and/or use of iterative reconstruction technique. MIP reconstructed images were created and reviewed. CONTRAST: IV 100mL [id number] RADIATION DOSE: Total DLP: 459.90 mGy-cm. COMPARISON: Chest radiograph of this same date. CTA chest of 09/04/2023. FINDINGS: PULMONARY ARTERIES: Right main pulmonary artery measures 3.2 cm in diameter while the left measures 3.3 cm in transverse diameter; this slight pulmonary artery dilatation suggests minimal pulmonary arterial hypertension secondary to the pulmonary emphysema. No pulmonary embolism. AORTA: The thoracic aorta is calcific and is normal in caliber. No aneurysm or intimal flap. GREAT VESSELS OF AORTIC ARCH: Unremarkable. Normal in caliber. No evidence of dissection. LUNGS AND PLEURAL SPACES: Pulmonary emphysema is present. Peribronchial cuffing is present indicating bronchial wall inflammation/bronchitis. 3 mm circumscribed noncalcified subpleural nodule noted anteriorly within the left upper lobe, consistent with a noncalcified granuloma which requires no follow-up. Minimal groundglass opacities noted within the right middle lobe. More extensive groundglass opacities noted within the right lower lobe, with patchy peripheral airspace disease within the RLL, and with a minimal right pleural effusion. Left lower lobe shows minimal dependent atelectasis and a trace of pleural fluid. Dependent atelectasis also noted within the left upper lobe. Within the medial aspect of the right upper lobe at the level of the azygous vein is a lobulated noncalcified pleural-based density which shows slightly irregular margins, unchanged as compared with CT of 09/04/2023, and most likely due to pleural-parenchymal scarring but continued follow-up may be of benefit. HEART: Heavy coronary artery calcification is present. No significant pericardial effusion. Left ventricular hypertrophy is noted. MEDIASTINUM: Scattered normal-sized mediastinal lymph nodes. No adenopathy. Esophagus is unremarkable. No hiatal hernia. THYROID: Unremarkable. No thyroid lesions. BONES/JOINTS: No acute osseous abnormality. Old compression fracture at T9 with longitudinal rods and screws extending from T7 to T11. Upper lumbar degenerative disc disease is present. No suspicious lytic or blastic abnormality. LIVER: Visualized portions of the liver, pancreas, spleen, adrenal glands are unremarkable. Renal vascular calcification is present. 2.5 mm nonobstructing stone noted within the left renal lower pole collecting system. Punctate parenchymal calcifications are seen within the left kidney. A curvilinear capsular calcification is seen along the posterior aspect of left kidney. KIDNEYS AND URETERS: A benign 6 mm hyperdense nodule is seen within the upper pole cortex of the left kidney, consistent with hemorrhagic/proteinaceous cyst, demonstrating CT attenuation of 100. Benign simple cyst noted within the cortex of the right kidney laterally. INTRAPERITONEAL SPACE: Gallbladder is normal in size. A solitary calcified stone is seen within the gallbladder neck. No wall thickening or pericholecystic stranding. No biliary ductal dilatation is seen. No pneumoperitoneum. Scattered diverticula project from the colon. No findings of diverticulitis are seen affecting the visualized portions of the colon. CT/CTA Chest W/WO Contrast IMPRESSION: Negative for PE. Findings of pulmonary emphysema. Peribronchial cuffing indicating bronchial wall inflammation/bronchitis, most severe in the right lower lobe. Asymmetric groundglass opacities in the right middle lobe and right lower lobe; interstitial thickening and patchy airspace disease within the periphery of the right lower lobe. These asymmetric infiltrates on the right are most likely due to pneumonia, with asymmetric pulmonary edema felt less likely. Minimal associated right pleural effusion. Electronically Signed: Eric Martinez MD at 3:47 EST ,
[2023-12-30 02:40] LABS: Lactic Acid 1.6 mmol/L (0.4-1.9)
[2023-12-30] MEDS: Azithromycin 500 MG in Dextrose 5%-Water (250mL Bag) 250 ML 250 MG IV ×2 (03:10→22:09)
[2023-12-30] MEDS: Aspirin 325 MG Tablet PO (04:10)
--- NOTE | 2023-12-30 04:16 | ED.VIS.DYS ---
HPI History of Present Illness Chief Complaint: Shortness of Breath Informant: patient and EMS Narrative Narrative: 73-year-old male presenting to the emergency room with shortness of breath. Patient states that he was sleeping and woke suddenly feeling short of breath. He states it is improved now but still not back to normal. The patient provides very minimal information. He states he does not know anything about his health. He tells me that he has had this before about a month ago. I asked him if he went to the hospital for it he tells me now. He then tells me what to go read about his last hospitalization a month ago for shortness of breath. I asked him why he told me that he did go to the hospital a month ago and he tells me that I should know that information because it is in the computer. Patient is upset that I asked him if he smokes. He is upset that I asked him if he wears home oxygen. As I continue to ask questions to get a better understanding of what is going on he eventually closes his eyes and stops talking. Therefore the history is very unclear and potentially inaccurate. PFSH PFSH Medical History Acute hypoxic respiratory failure Anxiety BPH (benign prostatic hyperplasia) CHF (congestive heart failure) COPD (chronic obstructive pulmonary disease) COVID-19 Depression Diabetes mellitus, type 2 Hyperlipidemia Hypertension Iron deficiency Kidney disease Kidney stones Mitral valve insufficiency Nonobstructive atherosclerosis of coronary artery Smoker Stroke/cerebrovascular accident Tobacco use Home Medications metformin 500 mg tablet 1,000 mg PO BIDCM DIABETES 04/26/16 [History Last Taken 09/04/23] albuterol sulfate 90 mcg/actuation aerosol inhaler 2 inh inhalation Q6H PRN shortness of breath or wheezing 09/04/23 [History Last Taken 09/04/23] fluticasone fur. 100 mcg-umeclid 62.5 mcg-vilant 25 mcg inhalat.powder (Trelegy Ellipta) 1 inh inhalation DAILY SHORTNESS OF BREATH 09/04/23 [History Last Taken 09/04/23] spironolactone 25 mg tablet 25 mg PO DAILY BLOOD PRESSURE 09/04/23 [History Last Taken Unknown] aspirin 81 mg tablet,delayed release 81 mg PO BREAKFAST #0 tabs 09/05/23 [Rx Last Taken 10/23/23] atorvastatin 40 mg tablet 40 mg PO QHS #30 tabs 09/05/23 [Rx Last Taken Unknown] lisinopril 10 mg tablet 10 mg PO DAILY #30 tabs 09/05/23 [Rx Last Taken Unknown] metoprolol succinate 50 mg capsule sprinkle, ext. release 24 hr 50 mg PO DAILY #30 ea 09/05/23 [Rx Last Taken Unknown] nicotine 21 mg/24 hr daily transdermal patch 21 mg transdermal DAILY #30 ea 09/05/23 [Rx Last Taken Unknown] dapagliflozin propanediol 10 mg tablet (Farxiga) 10 mg PO DAILY HEART FAILURE 09/18/23 [History Last Taken Unknown] ferrous sulfate 325 mg (65 mg iron) tablet (FeroSul) 325 mg PO DAILYCM #0 tabs 10/24/23 [Rx Last Taken Unknown] pantoprazole 40 mg tablet,delayed release 40 mg PO DAILY 12/30/23 [History Last Taken Unknown] Allergy/AdvReac Type Severity Reaction Status Date / Time No Known Allergies Allergy Verified 12/30/23 01:11 Family History Other Diabetes Heart disease Surgical History History of appendectomy Status post appendectomy Social History Smoking Status: Current every day smoker tobacco type: cigarettes ROS ROS ED Review of Systems ROS Unobtainable: due to mental condition Constitutional Constitutional ED: Denies chills, fever(s) or sweats Cardiovascular Cardiovascular: Reports racing heartbeat; Denies chest pain Respiratory/Chest Respiratory/Chest: Reports cough, dyspnea and dyspnea on exertion Gastrointestinal Gastrointestinal: Denies diarrhea, nausea or vomiting Integumentary Denies rash Neurologic Neurologic: Denies headache(s) EXAM Physical Exam Const Vital Signs: 12/30/23 01:04 12/30/23 01:09 12/30/23 01:09 Temperature 98.5 F 98.5 F Temperature Source Oral Oral Pulse Rate 129 H 115 H Respiratory Rate 24 H 25 H Respiratory Effort Short of Breath Respiratory Depth Normal Respiratory Pattern Tachypnea Blood Pressure 128/73 H 127/77 H Blood Pressure Mean 91 93 Pulse Ox 91 89 Oxygen Delivery Method Room Air Room Air Nasal Cannula Oxygen Flow Rate (L/min) 2 12/30/23 01:40 12/30/23 02:28 12/30/23 03:21 Temperature 97.7 F L 96.9 F L Temperature Source Oral Temporal Pulse Rate 103 H 111 H Respiratory Rate 18 14 Respiratory Effort Respiratory Depth Respiratory Pattern Blood Pressure 121/76 H 115/79 Blood Pressure Mean 91 91 Pulse Ox 91 96 Oxygen Delivery Method Nasal Cannula Nasal Cannula Nasal Cannula Oxygen Flow Rate (L/min) 2 2 2 12/30/23 03:21 12/30/23 04:11 Temperature 96.9 F L 97.7 F L Temperature Source Temporal Oral Pulse Rate 106 H 107 H Respiratory Rate 20 H 24 H Respiratory Effort Respiratory Depth Respiratory Pattern Blood Pressure 115/79 123/84 H Blood Pressure Mean 91 97 Pulse Ox 96 97 Oxygen Delivery Method Nasal Cannula Nasal Cannula Oxygen Flow Rate (L/min) 2 2 Positive well nourished and well developed General Appearance ED: well developed HEENT Reports normocephalic, head/scalp atraumatic and moist mucous membranes Eyes PERRL and EOMs intact bilaterally Neck no lymphadenopathy, supple and no JVD Resp normal respiratory effort Auscultation: rhonchi and wheezes expiratory wheezes (Faint) Cardio regular rate, regular rhythm and no murmurs Rate: tachycardic GI normal to inspection, nondistended, normoactive bowel sounds and non-tender Palpation: soft Back/Spine no CVA tenderness and normal ROM Extremity normal to inspection General Extremety ED: Negative for edema General Extremity: Negative for edema Neuro CN's II-XII intact bilaterally Sensorium / Orientation: alert Motor Exam: strength 5/5 throughout Psych Psych Narrative: Patient with a very angry disposition Mood & Affect: Negative for depressed or tearful Skin no rashes or lesions noted and no wounds MDM MDM MDM Narrative Medical decision making narrative: Patient placed on the monitor shows tachycardia with frequent PACs. White count elevated 17.2 D-dimer elevated 1.36. Lactic acid 1.6 glucose 237 TSH 2.63 magnesium 2 troponin 156. Given the nonischemic EKG elevation in the troponin I think this is most likely type II demand ischemia. My independent interpretation of the chest x-ray is right lower lobe infiltrate. Because of the tachycardia the reported dyspnea the chest x-ray findings and the elevated D-dimer a CTA of the chest was obtained. Negative for pulmonary embolism. Please see the radiologist read for their details but in short I believe this represents a pneumonia. This would make sense with his dyspnea cough chronic respiratory problems chest x-ray findings and a 17,000 leukocytosis. Patient received Rocephin azithromycin as well as aspirin. I will speak with the hospitalist regarding admission History & Record Review Discussion w/independent historian: Patient Additional record(s) reviewed:: Prior outpatient record and Prior labs Lab Data Attestation: I reviewed the patient's lab results. Labs: Laboratory Results - last 24 hr 12/30/23 12/30/23 01:30 02:09 WBC 17.2 H RBC 4.66 Hgb 14.2 Hct 45.8 MCV 98.3 H MCH 30.5 MCHC 31.0 L RDW Std Deviation 57.5 H RDW Coeff of Lauri 15.9 H Plt Count 328 MPV 10.6 Immature Gran % (Auto) 0.600 Neut % (Auto) 85.2 H Lymph % (Auto) 4.9 L [place] % (Auto) 7.4 Eos % (Auto) 0.9 Baso % (Auto) 1.0 Absolute Neuts (auto) 14.7 H Absolute Lymphs (auto) 0.84 Nucleated RBC % 0 D-Dimer Quant (PE/DVT) 1.36 H* Sodium 141 Potassium 4.1 Chloride 109 H Carbon Dioxide 29.0 Anion Gap 3 L BUN 13 Creatinine 0.95 Estim Creat Clear Calc 72.13 Est GFR (MDRD) Af Amer 100 Est GFR (MDRD) Non-Af 83 BUN/Creatinine Ratio 13.7 Glucose 237 H Lactic Acid 1.6 Calcium 9.0 Magnesium 2.0 Troponin I High Sens 156 H* TSH 2.63 Radiography Diagnostic Testing: Clinical Impression(s) from Imaging Studies Chest X-Ray 12/30/23 01:42 IMPRESSION: Possible mild vascular congestion with superimposed right lower lobe pneumonia. Clinical correlation recommended. Electronically Signed: Bobbi Persaud MD at 1:52 EST , Chest CTA 12/30/23 02:25 IMPRESSION: Negative for PE. Findings of pulmonary emphysema. Peribronchial cuffing indicating bronchial wall inflammation/bronchitis, most severe in the right lower lobe. Asymmetric groundglass opacities in the right middle lobe and right lower lobe; interstitial thickening and patchy airspace disease within the periphery of the right lower lobe. These asymmetric infiltrates on the right are most likely due to pneumonia, with asymmetric pulmonary edema felt less likely. Minimal associated right pleural effusion. Electronically Signed: Eric Martinez MD at 3:47 EST Reading Location ID and State: [facility] / [place] Tel , Service support , EKG Initial EKG: Attestation: I personally reviewed and interpreted this EKG as follows: Comments: Sinus tachycardia ventricular rate of 126 bpm. PACs noted. Differential Diagnosis Chest pain/SOB: pulmonary embolism, ACS, pneumothorax, pneumonia, aortic dissection, CHF and COPD Discharge Plan Triage Chief Complaint: Shortness of Breath ED Provider: Jonathan Mendenhall Dx/Rx/DC Orders Prescriptions: No Action metformin 500 MG tablet 1,000 mg PO BIDCM albuterol sulfate 90 mcg/actuation HFA aerosol inhaler 2 inh INHALATION Q6H PRN (Reason: shortness of breath or wheezing) Trelegy Ellipta 100-62.5-25 mcg blister with device 1 inh INHALATION DAILY spironolactone 25 mg tablet 25 mg PO DAILY atorvastatin 40 mg Tablet 40 mg PO QHS Qty: 30 0RF Patient Comments: not taking; noncompliance aspirin 81 mg Tablet,Delayed Release (Dr/Ec) 81 mg PO BREAKFAST Qty: 0 0RF Patient Comments: not taking lisinopril 10 mg Tablet 10 mg PO DAILY Qty: 30 0RF nicotine 21 mg/24 hr Patch 24 Hour 21 mg transdermal DAILY Qty: 30 0RF metoprolol succinate 50 mg capsule,sprinkle,ER 24hr 50 mg PO DAILY Qty: 30 0RF dapagliflozin propanediol [Farxiga] 10 mg tablet 10 mg PO DAILY Patient Comments: take 1 tablet by mouth every morning ferrous sulfate [FeroSul] 325 mg (65 mg iron) Tablet 325 mg PO DAILYCM Qty: 0 0RF pantoprazole 40 mg tablet,delayed release (DR/EC) 40 mg PO DAILY Patient Comments: TAKE 1 TABLET BY MOUTH TWICE DAILY Primary Care Provider: Rd Rivers Referrals: Rd Rivers DO [Primary Care Provider] -
--- NOTE | 2023-12-30 04:42 | HP.PCM.HOS_ITS ---
HPI - General General Date of Admission: 12/30/23 Date of Service: 12/30/23 Chief Complaint: Shortness of breath HPI Narrative RAHEL NICHOLS, is a 73 M who presented to the emergency department at [facility] on 12/30/2023 complaining of shortness of breath. The patient has known COPD but is not oxygen dependent at baseline. Patient states he awoke suddenly and was feeling short of breath but reported he was back to normal at the time of presentation. His oxygen saturations were noted to be in the 80s on room air and he was placed on 2 L supplemental nasal cannula. The patient was not all that willing to participate in giving me a good history but did deny any fever or chills or cough however he was coughing at the time of my evaluation. Denies any sputum production. Denied any nausea, vomiting, or abdominal pain. Denies any chest pain. Vital signs on presentation showed temperature of 98.5, heart rate was 129, blood pressure was 120/73, respiratory rate was 24 and oxygen saturations were 91% on room air and dropped to 89%. CBC shows a marked leukocytosis with a white count of 17.2 and a left shift showing an 85.2% neutrophilia but was otherwise unremarkable. Chemistry panel was overall unremarkable other than an elevated glucose at 237. His lactic acid was normal at 1.6. Troponin was noted to be elevated at 156. A D-dimer was obtained and was 1.36. Chest x-ray showed a right lower lobe infiltrate and given his D-dimer elevation a CTA of the chest was performed and was negative for PE or dissection but showed finding consistent with pulmonary emphysema, chronic bronchitis and right lower lobe bronchitis and infiltrate. There is minimal effusion on the right. EKG showed sinus tachycardia with intermittent PACs and no ST-T wave changes concerning for acute ischemia. He was given breathing treatment prior to arrival into the emergency department, 125 mg of methylprednisolone, aspirin 325 mg x 1 dose and started on ceftriaxone and azithromycin Blood cultures were obtained prior to antibiotics being initiated. [facility] Medical History Acute hypoxic respiratory failure Anxiety BPH (benign prostatic hyperplasia) CHF (congestive heart failure) COPD (chronic obstructive pulmonary disease) COVID-19 Depression Diabetes mellitus, type 2 Hyperlipidemia Hypertension Iron deficiency Kidney disease Kidney stones Mitral valve insufficiency Nonobstructive atherosclerosis of coronary artery Smoker Stroke/cerebrovascular accident Tobacco use Home Medications metformin 500 mg tablet 1,000 mg PO BIDCM DIABETES 04/26/16 [History Last Taken 09/04/23] albuterol sulfate 90 mcg/actuation aerosol inhaler 2 inh inhalation Q6H PRN shortness of breath or wheezing 09/04/23 [History Last Taken 09/04/23] fluticasone fur. 100 mcg-umeclid 62.5 mcg-vilant 25 mcg inhalat.powder (Trelegy Ellipta) 1 inh inhalation DAILY SHORTNESS OF BREATH 09/04/23 [History Last Taken 09/04/23] spironolactone 25 mg tablet 25 mg PO DAILY BLOOD PRESSURE 09/04/23 [History Last Taken Unknown] aspirin 81 mg tablet,delayed release 81 mg PO BREAKFAST #0 tabs 09/05/23 [Rx Last Taken 10/23/23] atorvastatin 40 mg tablet 40 mg PO QHS #30 tabs 09/05/23 [Rx Last Taken Unknown] lisinopril 10 mg tablet 10 mg PO DAILY #30 tabs 09/05/23 [Rx Last Taken Unknown] metoprolol succinate 50 mg capsule sprinkle, ext. release 24 hr 50 mg PO DAILY #30 ea 09/05/23 [Rx Last Taken Unknown] nicotine 21 mg/24 hr daily transdermal patch 21 mg transdermal DAILY #30 ea 09/05/23 [Rx Last Taken Unknown] dapagliflozin propanediol 10 mg tablet (Farxiga) 10 mg PO DAILY HEART FAILURE 09/18/23 [History Last Taken Unknown] ferrous sulfate 325 mg (65 mg iron) tablet (FeroSul) 325 mg PO DAILYCM #0 tabs 10/24/23 [Rx Last Taken Unknown] pantoprazole 40 mg tablet,delayed release 40 mg PO DAILY 12/30/23 [History Last Taken Unknown] Allergy/AdvReac Type Severity Reaction Status Date / Time No Known Allergies Allergy Verified 12/30/23 01:11 Family History Other Diabetes Heart disease Surgical History History of appendectomy Status post appendectomy Social History (Updated 12/30/23 @ 05:[address] Thao Jauregui DO) Smoking Status: Current every day smoker tobacco type: cigarettes alcohol intake: current alcohol intake frequency: holidays/special occasions only substance use type: does not use ROS Constitutional Constitutional: Reports fatigue, malaise and weakness; Denies anorexia, change in weight, chills, fever(s), night sweats or other Eyes Eyes: Denies blurry vision, change in eye color, change in vision, discharge from eye(s), double vision, erythema, eye pain, loss of vision or other ENT HEENT: Reports abnormal hearing and hearing loss; Denies dysphagia, ear pain, ep istaxis, headache(s), nasal congestion, nasal discharge, post nasal drip, sinus pressure, sore throat or other Cardiovascular Cardiovascular: Denies chest pain, claudication, dyspnea on exertion, edema, lightheadedness, orthopnea, palpitations, paroxysmal nocturnal dyspnea, rapid heart rate, syncope or other Respiratory/Chest Respiratory/Chest: Reports dyspnea, shortness of breath at rest, shortness of breath with exertion and wheezing; Denies cough, excessive phlegm production, hemoptysis, productive cough or other Gastrointestinal Gastrointestinal: Denies abdominal pain, coffee ground emesis, constipation, diarrhea, dyspepsia, hematemesis, hematochezia, loose stools, melena, nausea, vomiting or other Genitourinary Genitourinary: Reports difficulty urinating, urinary frequency and urinary hes itancy; Denies burning urination, dysuria, hematuria, nocturia, urinary incontinence, urinary urgency or other Musculoskeletal Musculoskeletal: Denies arthralgias, back pain, joint pain, joint stiffness, joint swelling, myalgias, neck pain or other Neurologic Neurologic: Denies abnormal gait, abnormal speech, confusion, disequilibrium, dizziness, focal weakness, headache(s), numbness, paresthesias, seizure-like activity, seizures, syncope, tingling, tremor(s) or other Psychiatric Psychiatric: Denies anxiety, depression, homicidal ideation, suicidal ideation or other Endocrine Endocrinology: Denies change in body appearance, cold intolerance, excessive sweating, heat intolerance, polydipsia, polyuria or other Hematologic/Lymphatic Hematologic/Lymphatic: Denies anemia, easy bleeding, easy bruising, lymphadenopathy or other Allergic/Immunologic Allergic/Immunologic: Denies rhinitis, hives, eczemia, asthma or other Vital Signs Vital Signs Vital Signs: 12/30/23 01:04 12/30/23 01:09 12/30/23 01:09 Temperature 98.5 F 98.5 F Temperature Source Oral Oral Pulse Rate 129 H 115 H Respiratory Rate 24 H 25 H Respiratory Effort Short of Breath Respiratory Depth Normal Respiratory Pattern Tachypnea Blood Pressure 128/73 H 127/77 H Blood Pressure Mean 91 93 Pulse Ox 91 89 Oxygen Delivery Method Room Air Room Air Nasal Cannula Oxygen Flow Rate (L/min) 2 12/30/23 01:40 12/30/23 02:28 12/30/23 03:21 Temperature 97.7 F L 96.9 F L Temperature Source Oral Temporal Pulse Rate 103 H 111 H Respiratory Rate 18 14 Respiratory Effort Respiratory Depth Respiratory Pattern Blood Pressure 121/76 H 115/79 Blood Pressure Mean 91 91 Pulse Ox 91 96 Oxygen Delivery Method Nasal Cannula Nasal Cannula Nasal Cannula Oxygen Flow Rate (L/min) 2 2 2 12/30/23 03:21 12/30/23 04:11 12/30/23 04:14 Temperature 96.9 F L 97.7 F L 97.7 F L Temperature Source Temporal Oral Pulse Rate 106 H 107 H 109 H Respiratory Rate 20 H 24 H 20 H Respiratory Effort Respiratory Depth Respiratory Pattern Blood Pressure 115/79 123/84 H 120/80 Blood Pressure Mean 91 97 93 Pulse Ox 96 97 96 Oxygen Delivery Method Nasal Cannula Nasal Cannula Oxygen Flow Rate (L/min) 2 2 Weight Weight: 71.5 kg Body Mass Index (BMI) 21.9 Physical Exam Const alert, oriented x3, no apparent distress, average body habitus and well nourished; Negative for healthy appearing Constitutional Narrative: Older, white male, lying in bed sleeping, awakens easily but fairly tired and falls back to sleep quickly, appropriate when awake, appears ill but not toxic, currently comfortable, patient is somewhat cooperative with interview but reluctant to talk HEENT normocephalic, head/scalp atraumatic and moist oral mucous membranes HEENT Narrative: Mild to moderate hearing loss, Mallampati is 2, no thrush, dentition is fair for age Eyes PERRL, EOMs intact bilaterally and conjunctivae normal Eyes Narrative: No scleral icterus Neck no lymphadenopathy and supple Neck Narrative: Trachea midline, no thyroid enlargement Resp normal respiratory effort, no retractions, no use of accessory muscles and No clear to auscultation bilaterally Resp Narrative: Scattered bilateral rhonchi, scattered end expiratory wheeze, no rales, oxygen stable on 2 L with no signs of respiratory distress Auscultation: rhonchi and wheezes; Negative for rales Cardio regular rhythm, S1 normal heart sound, S2 normal heart sound, no murmurs, no rub, no gallops and no clicks Cardio Narrative: Sinus tachycardia, intermittent ectopy GI normal to inspection, nondistended, normoactive bowel sounds, soft to palpation and non-tender Extremity no clubbing, cyanosis or edema Extremity Narrative: Pedal pulses are 2+ Skin No no rashes or lesions noted, no wounds, skin turgor normal, no jaundice, no petechiae and no mottling Skin Narrative: Scattered ecchymosis Neuro oriented x3, moves all extremities and no focal motor deficits Neuro Narrative: Appears weak Speech: speech normal Psych Psych Narrative: Patient is somewhat agitated Results Lab / Micro Data Attestation: I reviewed the patient's lab results. 12/30/23 01:30 12/30/23 01:30 Labs: Laboratory Results - last 24 hr 12/30/23 01:30: WBC 17.2 H, RBC 4.66, Hgb 14.2, Hct 45.8, MCV 98.3 H, MCH 30.5, MCHC 31.0 L, RDW Std Deviation 57.5 H, RDW Coeff of Lauri 15.9 H, Plt Count 328, MPV 10.6, Immature Gran % (Auto) 0.600, Neut % (Auto) 85.2 H, Lymph % (Auto) 4.9 L, [place] % (Auto) 7.4, Eos % (Auto) 0.9, Baso % (Auto) 1.0, Absolute Neuts (auto) 14.7 H, Absolute Lymphs (auto) 0.84, Nucleated RBC % 0, D-Dimer Quant (PE/DVT) 1.36 H*, Sodium 141, Potassium 4.1, Chloride 109 H, Carbon Dioxide 29.0, Anion Gap 3 L, BUN 13, Creatinine 0.95, Estim Creat Clear Calc 72.13, Est GFR (MDRD) Af Amer 100, Est GFR (MDRD) Non-Af 83, BUN/Creatinine Ratio 13.7, Glucose 237 H, Calcium 9.0, Magnesium 2.0, Troponin I High Sens 156 H*, TSH 2.63 12/30/23 02:09: Lactic Acid 1.6 Imaging Radiology Impression Chest X-Ray 12/30/23 01:42 IMPRESSION: Possible mild vascular congestion with superimposed right lower lobe pneumonia. Clinical correlation recommended. Electronically Signed: Bobbi Persaud MD at 1:52 EST , Chest CTA 12/30/23 02:25 IMPRESSION: Negative for PE. Findings of pulmonary emphysema. Peribronchial cuffing indicating bronchial wall inflammation/bronchitis, most severe in the right lower lobe. Asymmetric groundglass opacities in the right middle lobe and right lower lobe; interstitial thickening and patchy airspace disease within the periphery of the right lower lobe. These asymmetric infiltrates on the right are most likely due to pneumonia, with asymmetric pulmonary edema felt less likely. Minimal associated right pleural effusion. Electronically Signed: Eric Martinez MD at 3:47 EST , Assessment & Plan Assessment/Plan (1) Elevated troponin: (2) Tachycardia: (3) Pneumonia: (4) Weakness: (5) Leukocytosis: (6) D-dimer, elevated: (7) Hyperglycemia: (8) Hypoxemia: PLAN: Plan Acute hypoxemia secondary to CAP and acute exacerbation of COPD -Chest x-ray and CT show right lower lobe infiltrate -As needed Tessalon Perles -Ceftriaxone azithromycin to continue -Check strep pneumo and Legionella antigens -Check respiratory viral panel -Check sputum culture patient able to produce -Mucinex 1200 twice daily -Scheduled DuoNebs -As needed albuterol -Prednisone 40 mg every 8 -I-S -Acapella 10 times every 2 hours while awake -Continue supplemental oxygen at 2 L and wean as able Troponin elevation -Suspect demand ischemia related to hypoxia and pneumonia -Check echocardiogram -Cycle cardiac enzymes -Continue home aspirin -Had cardiac catheterization on 09/05/2023 that showed mild diffuse CAD with no high-grade obstructive lesions -Most recent echocardiogram was 09/05/2023 and showed an EF of 60% with moderate concentric LVH and stage I diastolic dysfunction with a possible torn papillary muscle or torn mild cavitary tendon Leukocytosis -As noted above -Blood cultures are pending -Obtain sputum culture if able -Antibiotics Elevated D-dimer -CT of the chest was done and was unremarkable Tachycardia -Suspect reactive -Is sinus tach with PACs -Continue home metoprolol Generalized weakness -Likely related to acute infection -PT/OT consultation -Case management/social work consultation DM-2 -Patient hyperglycemic on presentation and likely related to acute infection -Hold home metformin -Continue home Farxiga -SSI -Carb controlled diet -Accu-Cheks as ordered CAD/mitral valve insufficiency/HTN/HPL/HFpEF secondary to diastolic dysfunction -Continue aspirin 81 mg daily -Continue atorvastatin 40 mg nightly -Continue lisinopril 10 mg daily -Continue metoprolol 50 mg daily -Patient was on Aldactone previously however it is noted it is currently on hold GERD -Continue home PPI History of stroke -Continue ongoing risk factor modification -Continue home aspirin History of nephrolithiasis -No current issues Tobacco abuse -Patient has ongoing tobacco abuse and smokes about 1 pack of cigarettes per day -Nicotine patch available -Recommend cessation BPH -Patient is not on any medication for obstruction DVT prophylaxis -Lovenox subcu daily CODE STATUS -Full code Charges/Coding Visit Charges Inpatient E&M: 79920 Init Hosp L2
[2023-12-30] MEDS: Ipratropium/Albuterol Sulfate 3 ML AMPUL.NEB INHALATION (05:42)
[2023-12-30] MEDS: MethylPREDNISolone 125 MG/2 ML Vial IV (05:46)
[2023-12-30] MEDS: Insulin Lispro 100 UNIT/ML INSULN.PEN SC ×4 (06:45→23:31)
[2023-12-30 06:57] LABS: Bedside Glucose 171 mg/dL (74-106)
--- NOTE | 2023-12-30 07:39 | NURSING ---
Pt. arrived on floor and refused to answer admission questions- only able to obtain minimal information d/t pt. refusing to answer questions/ falling asleep.
--- NOTE | 2023-12-30 07:58 | PN.HOSP_ITS ---
Subjective Subjective Still feels short of breath. Objective Data Objective Data Vital Signs: Vital Signs Temp Pulse Resp BP Pulse Ox O2 Del Method O2 Flow Rate 36.1 C L 87 18 123/78 H 97 Nasal Cannula 2 12/30/23 06:40 12/30/23 06:40 12/30/23 06:40 12/30/23 06:40 12/30/23 06:40 12/30/23 06:40 12/30/23 06:40 Oxygen Flow Rate (L/min) 2 Oxygen Delivery Method Nasal Cannula Weight: 69.8 kg Body Mass Index (BMI) 21.4 Intake & Output: Intake and Output for Last 24 Hours 12/28/23 12/29/23 12/30/23 23:59 23:59 23:59 Intake Total 605 / 605 Balance 605 / 605 Lab / Micro Data 12/30/23 01:30 12/30/23 01:30 Labs: Laboratory Results - last 24 hr 12/30/23 01:30: WBC 17.2 H, RBC 4.66, Hgb 14.2, Hct 45.8, MCV 98.3 H, MCH 30.5, MCHC 31.0 L, RDW Std Deviation 57.5 H, RDW Coeff of Lauri 15.9 H, Plt Count 328, MPV 10.6, Immature Gran % (Auto) 0.600, Neut % (Auto) 85.2 H, Lymph % (Auto) 4.9 L, Pershing % (Auto) 7.4, Eos % (Auto) 0.9, Baso % (Auto) 1.0, Absolute Neuts (auto) 14.7 H, Absolute Lymphs (auto) 0.84, Nucleated RBC % 0, D-Dimer Quant (PE/DVT) 1.36 H*, Sodium 141, Potassium 4.1, Chloride 109 H, Carbon Dioxide 29.0, Anion Gap 3 L, BUN 13, Creatinine 0.95, Estim Creat Clear Calc 72.13, Est GFR (MDRD) Af Amer 100, Est GFR (MDRD) Non-Af 83, BUN/Creatinine Ratio 13.7, Glucose 237 H, Calcium 9.0, Magnesium 2.0, Troponin I High Sens 156 H*, TSH 2.63 12/30/23 02:09: Lactic Acid 1.6 12/30/23 06:35: POC Glucose 171 H Radiography Diagnostic Testing: Radiology Impression Chest X-Ray 12/30/23 01:42 IMPRESSION: Possible mild vascular congestion with superimposed right lower lobe pneumonia. Clinical correlation recommended. Electronically Signed: Bobbi Persaud MD at 1:52 EST , Chest CTA 12/30/23 02:25 IMPRESSION: Negative for PE. Findings of pulmonary emphysema. Peribronchial cuffing indicating bronchial wall inflammation/bronchitis, most severe in the right lower lobe. Asymmetric groundglass opacities in the right middle lobe and right lower lobe; interstitial thickening and patchy airspace disease within the periphery of the right lower lobe. These asymmetric infiltrates on the right are most likely due to pneumonia, with asymmetric pulmonary edema felt less likely. Minimal associated right pleural effusion. Electronically Signed: Eric Martinez MD at 3:47 EST , Physical Exam Const Constitutional Narrative: Awake. Alert. Flat affect. Resp Resp Narrative: Bilateral crackles. Cardio regular rate, regular rhythm and S1 normal heart sound Neuro Sensorium / Orientation: awake and alert Assessment & Plan Assessment/Plan (1) Elevated troponin: PLAN: Plan Pneumonia * unclear type * consolidation in RLL, however, GGO noted throughout * Abx for bacterial pneumonia * Given GGO, check for COVID, influenza, RSV and resp panel * Check strep and legionella antigen. Elevated troponin * 156 * suspect NSTEMI type II (demand ischemia) given pneumonia/pneumonitis and hypoxia * Had cardiac catheterization on 09/05/2023 that showed mild diffuse CAD with no high-grade obstructive lesions * Most recent echocardiogram was 09/05/2023 and showed an EF of 60% with moderate concentric LVH and stage I diastolic dysfunction with a possible torn papillary muscle or torn mild cavitary tendon * Patient declined echocardiogram * continue ASA, atorvastatin, lisinopril, metoprolol Generalized weakness * Likely related to acute infection * PT/OT consultation * Case management/social work consultation Chronic conditions: * RD-3-Dywmhid hyperglycemic on presentation and likely related to acute infection-Hold home metformin-Continue home Farxiga-SSI * CAD/mitral valve insufficiency/HTN/HPL/HFpEF secondary to diastolic dysfunction-Continue aspirin 81 mg daily-Continue atorvastatin 40 mg nightly- Continue lisinopril 10 mg daily-Continue metoprolol 50 mg daily-Patient was on Aldactone previously however it is noted it is currently on hold * GERD-Continue home PPI * History of stroke-Continue ongoing risk factor modification-Continue home aspirin * History of nephrolithiasis-No current issues * Tobacco abuse-Patient has ongoing tobacco abuse and smokes about 1 pack of cigarettes per day-Nicotine patch available-Recommend cessation * BPH-Patient is not on any medication for obstruction DVT prophylaxis-Lovenox subcu daily CODE STATUS -Full code Charges/Coding Visit Charges Inpatient E&M: 37952 Subs Hosp L2
[2023-12-30 09:02] LABS: Troponin-I HS 290 pg/mL (3.0-78.0)
--- NOTE | 2023-12-30 09:27 | CASEMGMT ---
HANSEL LINK Assessment: Face to Face with pt for initial transition planning/care coordination assessment. RN FARIBA introduced self and role at [facility], pt voices understanding and consents to assessment. Pt is A&O x4 and answers all questions appropriately at this time. Pt sitting up on edge of bed with oxygen on in no distress. Care providers, pharmacy, and demographics verified/updated. Admitting Dx: RLL pna/troponin elevation PCP:Tita Specialists:Denies Preferred Pharmacy:[facility] Insurance: [facility] Dual Complete/LETI Prescription Benefit: yes LNOK: Bay Velasquez, son; Nicky Velasquez, dtr Living Arrangements: Pt lives in home with dtr, he lives downstairs and she lives upstairs. Pt reports two steps to enter the home. Pt reports he is I in ADL's and denies concerns at home. Transportation: Pt drives self and denies concerns with transportation. DME:[facility] HHC/SNF: Pt has had [facility] before. He states he would like a nurse to come back and see him from there. He denies need for list of other options of agencies. Pt states also he was seen by [facility] but states they are not visiting any longer. Pt denies hx of SNF. Pt states no concerns with going home at time of dc. Pt states no further concerns/needs. CM to follow. Advised pt to ask CM if any further question/concerns/needs arise, voices understanding. Pt Goal: Home with [facility] for SN Plan: Home, referral sent to [facility] for SN via careport at this time; follow oxygen
[2023-12-30 09:49] LABS: Troponin-I HS 268 pg/mL (3.0-78.0)
[2023-12-30] MEDS: Lisinopril 10 MG Tablet PO (09:53)
[2023-12-30] MEDS: Pantoprazole Sodium 40 MG Tablet PO (09:54)
[2023-12-30] MEDS: guaiFENesin 1,200 MG Tablet 1200 MG PO ×2 (09:54→20:50)
[2023-12-30] MEDS: Empagliflozin 25 MG Tablet PO (09:54)
[2023-12-30] MEDS: Metoprolol(XL)Succ 50 MG Tablet PO (09:54)
[2023-12-30] MEDS: Ferrous Sulfate 325 MG Tablet PO (09:54)
[2023-12-30] MEDS: Aspirin E.C. 81 MG Tablet PO (09:54)
[2023-12-30] MEDS: Enoxaparin 40 MG/0.4 ML Syringe SC (09:56)
--- NOTE | 2023-12-30 12:17 | CPS ---
p{T WAS INSTRUCTED TO USE SMI AND PEP ON OWN POST EATING LUNCH
[2023-12-30 12:35] LABS: Glucose 300 mg/dL (74-106)
[2023-12-30 13:47] LABS: Troponin-I HS 211 pg/mL (3.0-78.0)
[2023-12-30] MEDS: 0.9% Saline Lock 10 ML Syringe IV (14:46)
[2023-12-30] MEDS: Glucerna Shake 120 ML LIQUID PO (16:34)
[2023-12-30 16:55] LABS: Bedside Glucose 298 mg/dL (74-106)
[2023-12-30 17:11] LABS: Bedside Glucose 467 mg/dL (74-106)
[2023-12-30 17:11] LABS: Bedside Glucose 296 mg/dL (74-106)
[2023-12-30] MEDS: Ceftriaxone 2 GM in 0.9% Normal Saline (50mL MB+) 50 ML IV (20:48)
[2023-12-30] MEDS: Acetaminophen 325 MG Tablet 650 MG PO (20:49)
[2023-12-30] MEDS: Atorvastatin Calcium 40 MG Tablet PO (20:50)
[2023-12-30] MEDS: MELATONIN 3 MG TABLET PO (20:51)
[2023-12-30] MEDS: Potassium Chloride Oral Tablet 20 MEQ PO (23:22)
[2023-12-30] MEDS: Morphine 2 MG/ML Syringe IV (23:22)
[2023-12-30] MEDS: Insulin Glargine-YFGN 100 UNIT/ML Pen 20 UNIT SC (23:30)
[2023-12-31 00:06] LABS: Bedside Glucose 401 mg/dL (74-106)
[2023-12-31 00:07] LABS: Bedside Glucose 370 mg/dL (74-106)
[2023-12-31 03:40] VITALS: BP 94/52; PULSE 74; RESP 18; TEMP 36.3; O2SAT 93
[2023-12-31 06:20] VITALS: BP 118/84; PULSE 79; RESP 18; TEMP 36.2; O2SAT 93
[2023-12-31] MEDS: Insulin Lispro 100 UNIT/ML INSULN.PEN SC ×2 (06:21→11:05)
[2023-12-31 06:42] LABS: Bedside Glucose 156 mg/dL (74-106)
[2023-12-31 06:45] LABS: Absolute Lymphocyte Count 0.61 X10^3/uL (0.83-4.51); Absolute Neutrophil Count 12.2 X10^3/uL (2.0-7.7); Basophil# 0.03 X10^3/uL; Basophil% 0.2 % (0-1); Hematocrit 38.8 % (40-54); Hemoglobin 12.2 g/dL (13.0-16.5); Lymphocyte # 0.61 X10^3/ul (0.83-4.51); Lymphocyte % 4.4 % (19-41); Mean Corp Hgb Conc 31.4 g/dL (32-36); Mean Corpuscular Hgb 30.4 pg (27.0-32.0); Mean Corpuscular Volume 96.8 fL (80-94); Mean Platelet Vol. 10.8 fl (6.2-12.0); Monocyte# 0.83 X10^3/uL; NRBC Flagged by Analyzer 0 % (0-5); Neutrophil # 12.24 X10^3/uL (2.7-7.7); Neutrophil % 88.8 % (47-70); Platelet Count 336 K/mm3 (150-450); RBC Distribution Width CV 15.8 % (11.6-14.6); RBC Distribution Width SD 56.4 fl (35.1-43.9); Red Blood Count 4.01 M/mm3 (4.6-6.2); White Blood Count 13.8 K/mm3 (4.4-11.0)
--- NOTE | 2023-12-31 07:25 | PN.HOSP_ITS ---
Subjective Subjective Breathing well. Anxious to go home. Objective Data Objective Data Vital Signs: Vital Signs Temp Pulse Resp BP Pulse Ox O2 Del Method O2 Flow Rate 36.2 C L 79 18 118/84 H 93 Room Air 2 12/31/23 06:20 12/31/23 06:20 12/31/23 06:20 12/31/23 06:20 12/31/23 06:20 12/31/23 06:20 12/30/23 15:49 Oxygen Flow Rate (L/min) 2 Oxygen Delivery Method Room Air Weight: 69.8 kg Body Mass Index (BMI) 21.4 Intake & Output: Intake and Output for Last 24 Hours 12/29/23 12/30/23 12/31/23 23:59 23:59 23:59 Intake Total 1710 / 1710 Output Total 1300 / 1300 400 / 400 Balance 410 / 410 -400 / -400 Lab / Micro Data 12/31/23 05:39 12/31/23 05:39 Labs: Laboratory Results - last 24 hr 12/30/23 07:38: Troponin I High Sens 290 H* 12/30/23 09:13: Troponin I High Sens 268 H* 12/30/23 11:37: POC Glucose 467 H* 12/30/23 11:41: POC Glucose 296 H 12/30/23 11:54: Glucose 300 H 12/30/23 13:09: Troponin I High Sens 211 H* 12/30/23 16:33: POC Glucose 298 H 12/30/23 20:58: POC Glucose 370 H 12/30/23 23:28: POC Glucose 401 H 12/31/23 05:39: WBC 13.8 H, RBC 4.01 L, Hgb 12.2 L, Hct 38.8 L, MCV 96.8 H, MCH 30.4, MCHC 31.4 L, RDW Std Deviation 56.4 H, RDW Coeff of Lauri 15.8 H, Plt Count 336, MPV 10.8, Immature Gran % (Auto) 0.600, Neut % (Auto) 88.8 H, Lymph % (Auto) 4.4 L, Collier % (Auto) 6.0, Eos % (Auto) 0.0, Baso % (Auto) 0.2, Absolute Neuts (auto) 12.2 H, Absolute Lymphs (auto) 0.61 L, Nucleated RBC % 0 12/31/23 06:16: POC Glucose 156 H Micro: Microbiology 12/30/23 12:50 Mucosa - Nasopharyngeal SARS-CoV-2, Influenza & RSV (PCR) - Final 12/30/23 08:09 Mucosa - Nose Respiratory Panel (PCR) - Final 12/30/23 09:51 Urine, Clean Catch Legionella Antigen - Final 12/30/23 09:51 Urine, Clean Catch Streptococcus pneumoniae Antigen (M - Final Physical Exam Const alert HEENT head/scalp atraumatic and moist oral mucous membranes Resp normal respiratory effort, no retractions, no use of accessory muscles and clear to auscultation bilaterally Cardio regular rate, regular rhythm, S1 normal heart sound and S2 normal heart sound GI normal to inspection, nondistended, normoactive bowel sounds and soft to palpation Assessment & Plan Assessment/Plan (1) Elevated troponin: PLAN: Plan Pneumonia * unclear type * consolidation in RLL, however, GGO noted throughout * Abx for bacterial pneumonia * COVID, influenza, RSV and resp panel negative. * Strep and legionella antigen negative. * Patient with hypoxia secondary to pneumonia. Patient was 90% on room air at rest but drops down to 86% on room air with activity and, with 2 L, went up to 91%. Patient require oxygen with activity. Patient is ambulatory in home and in the community and requires home oxygen with portability. * Patient has been treated with azithromycin and ceftriaxone in the emergency r oom. Will discharge with 5 more days of levofloxacin. Elevated troponin * Feel chronic elevation possibly slightly bumped with his hypoxia and pneumonia. Given his negative prior workup, I do not feel any additional workup is necessary at this time. * suspect NSTEMI type II (demand ischemia) given pneumonia/pneumonitis and hypoxia * Had cardiac catheterization on 09/05/2023 that showed mild diffuse CAD with no high-grade obstructive lesions * Most recent echocardiogram was 09/05/2023 and showed an EF of 60% with moderate concentric LVH and stage I diastolic dysfunction with a possible torn papillary muscle or torn mild cavitary tendon * Patient declined echocardiogram * continue ASA, atorvastatin, lisinopril, metoprolol Generalized weakness * Likely related to acute infection * PT/OT consultation * Case management/social work consultation saw pt and he declined needs. Chronic conditions: * FF-5-Shotcsq hyperglycemic on presentation and likely related to acute infection-Hold home metformin-Continue home Farxiga-SSI * CAD/mitral valve insufficiency/HTN/HPL/HFpEF secondary to diastolic dysf unction-Continue aspirin 81 mg daily-Continue atorvastatin 40 mg nightly- Continue lisinopril 10 mg daily-Continue metoprolol 50 mg daily-Patient was on Aldactone previously however it is noted it is currently on hold * GERD-Continue home PPI * History of stroke-Continue ongoing risk factor modification-Continue home aspirin * History of nephrolithiasis-No current issues * Tobacco abuse-Patient has ongoing tobacco abuse and smokes about 1 pack of cigarettes per day-Nicotine patch available-Recommend cessation * BPH-Patient is not on any medication for obstruction DVT prophylaxis-Lovenox subcu daily CODE STATUS-Full code
[2023-12-31 07:49] LABS: AST(SGOT) 10 U/L (15-37); Alanine Aminotransfer ALT/SGPT 17 U/L (16-61); Alkaline Phosphatase 71 U/L (45-117); Anion Gap 2 (5-15); BUN 26 mg/dL (7-18); BUN/Creat Ratio 40.5 RATIO (10-20); Calcium,Total 9.3 mg/dL (8.5-10.1); Chloride 111 mmol/L (98-107); Creatinine, Serum 0.64 mg/dL (0.70-1.30); EST Glomerular Filtration Rate 131 mL/min (>60); Est Glom Filt Rate - Afr Amer 158 mL/min (>60); Estimated Creatinine Clearance 83.61 ml/min; Globulin 3.1 g/dL (2.2-4.2); Glucose 159 mg/dL (74-106); Magnesium 2.4 mg/dL (1.6-2.6); Potassium 4.2 mmol/L (3.5-5.1); Protein, Total 6.1 g/dL (6.4-8.2); Sodium Level 141 mmol/L (136-145)
[2023-12-31 08:30] VITALS: O2SAT 86; O2SAT 90; O2SAT 91
[2023-12-31 08:31] VITALS: O2SAT 93
[2023-12-31 09:20] VITALS: BP 136/80; PULSE 75; RESP 18; TEMP 36.2; O2SAT 93
[2023-12-31 09:22] VITALS: PULSE 79
[2023-12-31] MEDS: Lisinopril 10 MG Tablet PO (09:22)
[2023-12-31] MEDS: Pantoprazole Sodium 40 MG Tablet PO (09:22)
[2023-12-31] MEDS: Glucerna Shake 120 ML LIQUID PO ×2 (09:22→11:05)
[2023-12-31] MEDS: Metoprolol(XL)Succ 50 MG Tablet PO (09:22)
[2023-12-31] MEDS: Ferrous Sulfate 325 MG Tablet PO (09:22)
[2023-12-31] MEDS: guaiFENesin 1,200 MG Tablet 1200 MG PO (09:22)
[2023-12-31] MEDS: Empagliflozin 25 MG Tablet PO (09:23)
[2023-12-31] MEDS: Aspirin E.C. 81 MG Tablet PO (09:23)
--- NOTE | 2023-12-31 10:54 | CPS ---
D/C IS due to patient refusing multiple times
--- NOTE | 2023-12-31 11:18 | DS.PCM_ITS ---
Providers Date of Admission: 12/30/23 Primary Care Physician: Dr. Rd Rivers, DO Reason For Visit: RLL PNA/TROPONIN ELEVATION Diagnosis Discharge Diagnosis (1) Elevated troponin: Status: Acute Code(s): R79.89 - Other specified abnormal findings of blood chemistry Plan Pneumonia * unclear type * consolidation in RLL, however, GGO noted throughout * Abx for bacterial pneumonia * COVID, influenza, RSV and resp panel negative. * Strep and legionella antigen negative. * Patient with hypoxia secondary to pneumonia. Patient was 90% on room air at rest but drops down to 86% on room air with activity and, with 2 L, went up to 91%. Patient require oxygen with activity. Patient is ambulatory in home and in the community and requires home oxygen with portability. * Patient has been treated with azithromycin and ceftriaxone in the emergency room. Will discharge with 5 more days of levofloxacin. Elevated troponin * Feel chronic elevation possibly slightly bumped with his hypoxia and pneumonia. Given his negative prior workup, I do not feel any additional workup is necessary at this time. * suspect NSTEMI type II (demand ischemia) given pneumonia/pneumonitis and hypoxia * Had cardiac catheterization on 09/05/2023 that showed mild diffuse CAD with no high-grade obstructive lesions * Most recent echocardiogram was 09/05/2023 and showed an EF of 60% with moderate concentric LVH and stage I diastolic dysfunction with a possible torn papillary muscle or torn mild cavitary tendon * Patient declined echocardiogram * continue ASA, atorvastatin, lisinopril, metoprolol Generalized weakness * Likely related to acute infection * PT/OT consultation * Case management/social work consultation saw pt and he declined needs. Chronic conditions: * LW-1-Waryuaq hyperglycemic on presentation and likely related to acute infection-Hold home metformin-Continue home Farxiga-SSI * CAD/mitral valve insufficiency/HTN/HPL/HFpEF secondary to diastolic dysfunction-Continue aspirin 81 mg daily-Continue atorvastatin 40 mg nightly- Continue lisinopril 10 mg daily-Continue metoprolol 50 mg daily-Patient was on Aldactone previously however it is noted it is currently on hold * GERD-Continue home PPI * History of stroke-Continue ongoing risk factor modification-Continue home aspirin * History of nephrolithiasis-No current issues * Tobacco abuse-Patient has ongoing tobacco abuse and smokes about 1 pack of cigarettes per day-Nicotine patch available-Recommend cessation * BPH-Patient is not on any medication for obstruction DVT prophylaxis-Lovenox subcu daily CODE STATUS-Full code Medications at Discharge Home Medications metformin 500 mg tablet 1,000 mg PO BIDCM DIABETES 04/26/16 albuterol sulfate 90 mcg/actuation aerosol inhaler 2 inh inhalation Q6H PRN shortness of breath or wheezing 09/04/23 fluticasone fur. 100 mcg-umeclid 62.5 mcg-vilant 25 mcg inhalat.powder (Trelegy Ellipta) 1 inh inhalation DAILY SHORTNESS OF BREATH 09/04/23 spironolactone 25 mg tablet 25 mg PO DAILY BLOOD PRESSURE 09/04/23 aspirin 81 mg tablet,delayed release 81 mg PO BREAKFAST #0 tabs 09/05/23 atorvastatin 40 mg tablet 40 mg PO QHS #30 tabs 09/05/23 lisinopril 10 mg tablet 10 mg PO DAILY #30 tabs 09/05/23 metoprolol succinate 50 mg capsule sprinkle, ext. release 24 hr 50 mg PO DAILY #30 ea 09/05/23 nicotine 21 mg/24 hr daily transdermal patch 21 mg transdermal DAILY #30 ea dapagliflozin propanediol 10 mg tablet (Farxiga) 10 mg PO DAILY HEART FAILURE 09/18/23 ferrous sulfate 325 mg (65 mg iron) tablet (FeroSul) 325 mg PO DAILYCM #0 tabs 10/24/23 pantoprazole 40 mg tablet,delayed release 40 mg PO DAILY 12/30/23 guaifenesin 600 mg tablet, extended release 12 hr 600 mg PO BID #10 tabs 12/31/23 levofloxacin 750 mg tablet 750 mg PO DAILY #5 tabs 12/31/23 Hospital Course Operations None Procedures None Summary of Care Provided Minutes Spent on Discharge: 32 Hospital Course: Patient presents with shortness of breath hypoxia. Patient was found to have pneumonia. CAT scan was more like pneumonitis but respiratory panel, including COVID-19, influenza and RSV were all negative. Patient did previously have COVID-19 back in September but did improve after that. Also patient was treated with for bacterial pneumonia with ceftriaxone azithromycin. Patient did not improve. Patient will require oxygen at home, however. Patient required a 2 L nasal cannula with activity. Patient is ambulatory in home and in the community and requires home oxygen with portability. Patient will be discharged in stable condition with levofloxacin. Weight / BMI Weight Weight: 69.8 kg Body Mass Index (BMI) 21.4 ABG / Lab / Microbiology Data 12/31/23 05:39 12/31/23 05:39 Laboratory: Laboratory Results - last 24 hr 12/30/23 11:37: POC Glucose 467 H* 12/30/23 11:41: POC Glucose 296 H 12/30/23 11:54: Glucose 300 H 12/30/23 13:09: Troponin I High Sens 211 H* 12/30/23 16:33: POC Glucose 298 H 12/30/23 20:58: POC Glucose 370 H 12/30/23 23:28: POC Glucose 401 H 12/31/23 05:39: WBC 13.8 H, RBC 4.01 L, Hgb 12.2 L, Hct 38.8 L, MCV 96.8 H, MCH 30.4, MCHC 31.4 L, RDW Std Deviation 56.4 H, RDW Coeff of Lauri 15.8 H, Plt Count 336, MPV 10.8, Immature Gran % (Auto) 0.600, Neut % (Auto) 88.8 H, Lymph % (Auto) 4.4 L, Wheeler % (Auto) 6.0, Eos % (Auto) 0.0, Baso % (Auto) 0.2, Absolute Neuts (auto) 12.2 H, Absolute Lymphs (auto) 0.61 L, Nucleated RBC % 0, Sodium 141, Potassium 4.2, Chloride 111 H, Carbon Dioxide 28.0, Anion Gap 2 L, BUN 26 H , Creatinine 0.64 L, Estim Creat Clear Calc 83.61, Est GFR (MDRD) Af Amer 158, Est GFR (MDRD) Non-Af 131, BUN/Creatinine Ratio 40.5 H, Glucose 159 H, Calcium 9.3, Phosphorus 4.0, Magnesium 2.4, Total Bilirubin 0.30, AST 10 L, ALT 17, Mehnaz line Phosphatase 71, Total Protein 6.1 L, Albumin 3.0 L, Globulin 3.1, Albumin/Globulin Ratio 1.0 12/31/23 06:16: POC Glucose 156 H Microbiology: Microbiology 12/30/23 12:50 Mucosa - Nasopharyngeal SARS-CoV-2, Influenza & RSV (PCR) - Final 02/03/24 08:09 Mucosa - Nose Respiratory Panel (PCR) - Final 12/30/23 09:51 Urine, Clean Catch Legionella Antigen - Final 12/30/23 09:51 Urine, Clean Catch Streptococcus pneumoniae Antigen (M - Final D/C Instructions Discharge Diet: Low fat / Low cholesterol Meaningful Use Info Meaningful Use Diagnoses (Choose all that apply): None applicable Discharge Plan Admission Admit Date/Time: 12/30/23 04:34 Primary Reason for Your Visit: Pneumonia Attending Provider: Avelino Capps Primary Care Provider: Rd Rivers Consulting Providers: Thao Jauregui Instructions Additional Instructions / Restrictions: You had pneumonia. She responded well with antibiotics. You have antibiotics for discharge. Please take antibiotics as instructed. You do require oxygen with activity. Anticipate that to improve as your pneumonia improves. It was determined how long he will need to remain on oxygen with activity. Please follow your primary care doctor, in about a month a month and a half, he should have a follow-up chest x-ray to see if the changes from the pneumonia resolved. Discharge Orders/Prescriptions Prescriptions: New guaifenesin 600 mg tablet extended release 12hr 600 mg PO BID Qty: 10 0RF levofloxacin 750 mg tablet 750 mg PO DAILY Qty: 5 0RF Continued albuterol sulfate 90 mcg/actuation HFA aerosol inhaler 2 inh INHALATION Q6H PRN (Reason: shortness of breath or wheezing) Trelegy Ellipta 100-62.5-25 mcg blister with device 1 inh INHALATION DAILY spironolactone 25 mg tablet 25 mg PO DAILY atorvastatin 40 mg Tablet 40 mg PO QHS Qty: 30 0RF Patient Comments: not taking; noncompliance aspirin 81 mg Tablet,Delayed Release (Dr/Ec) 81 mg PO BREAKFAST Qty: 0 0RF Patient Comments: not taking lisinopril 10 mg Tablet 10 mg PO DAILY Qty: 30 0RF nicotine 21 mg/24 hr Patch 24 Hour 21 mg transdermal DAILY Qty: 30 0RF metoprolol succinate 50 mg capsule,sprinkle,ER 24hr 50 mg PO DAILY Qty: 30 0RF dapagliflozin propanediol [Farxiga] 10 mg tablet 10 mg PO DAILY Patient Comments: take 1 tablet by mouth every morning ferrous sulfate [FeroSul] 325 mg (65 mg iron) Tablet 325 mg PO DAILYCM Qty: 0 0RF pantoprazole 40 mg tablet,delayed release (DR/EC) 40 mg PO DAILY Patient Comments: TAKE 1 TABLET BY MOUTH TWICE DAILY Held metformin 500 MG tablet 1,000 mg PO BIDCM Hold Instructions: Resume on 01/03/24. Referrals / Follow Up: Rd Rivers DO [Primary Care Provider] - Within 2 Weeks Disposition Disposition (needs filled in before D/C Order can be placed): Home, Self Care Charges/Coding Visit Charges Inpatient E&M: 44433 Disch Hosp >30min
[2023-12-31 11:43] LABS: Bedside Glucose 312 mg/dL (74-106)
== END 2023-12-31 14:37 | disposition home or self-care (01) | DRG 193 ==
LOC: ED 04:22 → PCU 05:21
PROVIDERS: Admitting Provider Internal Medicine; Emergency Provider Emergency Medicine; PCP Family Medicine
DX: J15.9 Unspecified bacterial pneumonia (principal); I21.A1 Myocardial infarction type 2; I50.32 Chronic diastolic (congestive) heart failure; I11.0 Hypertensive heart disease with heart failure; E11.65 Type 2 diabetes mellitus with hyperglycemia; J43.9 Emphysema, unspecified; I34.0 Nonrheumatic mitral (valve) insufficiency; I25.10 Atherosclerotic heart disease of native coronary artery without angina pectoris; K21.9 Gastro-esophageal reflux disease without esophagitis; E78.5 Hyperlipidemia, unspecified; F17.210 Nicotine dependence, cigarettes, uncomplicated; N40.0 Benign prostatic hyperplasia without lower urinary tract symptoms; Z11.52 Encounter for screening for COVID-19; R09.02 Hypoxemia; Z79.82 Long term (current) use of aspirin; Z79.84 Long term (current) use of oral hypoglycemic drugs; Z79.899 Other long term (current) drug therapy; Z86.73 Personal history of transient ischemic attack (TIA), and cerebral infarction without residual deficits; R00.0 Tachycardia, unspecified
CPT/HCPCS: 36415; 71045; 71275; 80048; 80053; 82947; 82962; 83605; 83735; 84100; 84443; 84484; 85025; 85379; 87040; 87449; 87631; 87633; 93005; 94640; 94668; 97161; 97165; 99252; 99285; J7040; J7050; Q9967; A4216; G0463

== ENCOUNTER 2023-12-31 17:56 | Inpatient (IN) | payer MEDICARE, MEDICAID, SELFPAY ==
[2023-12-31] VITALS (21 sets, daily range): BP systolic 83–151; BP diastolic 60–99; PULSE 70–135; RESP 14–33; TEMP 36.1–37.4; O2SAT 85–100; BMI 23.6; BMI 22.8
[2023-12-31] MEDS: Etomidate 20 MG/10 ML Vial 30 MG IV (18:04)
[2023-12-31] MEDS: Succinylcholine Chloride 200 MG/10 ML SYRINGE 100 MG IV (18:04)
[2023-12-31] MEDS: Propofol 10MG/Ml 1,000 MG/100 ML Bottle 4.59999999999999964 MG CONT INF (18:09)
--- NOTE | 2023-12-31 18:10 | CT_ITS ---
STUDY: CT BRAIN WITHOUT CONTRAST REASON FOR EXAM: Male, 73 years old. AMS, found down Individualized dose optimization techniques were used for this CT. TECHNIQUE: Transaxial CT imaging of the brain was performed without administration of intravenous contrast material. COMPARISON: CT head 11/14/2023 images are not available FINDINGS: There are calcifications noted in the distal vertebral arteries. There are calcifications noted in the cavernous carotid arteries. This is consistent for atherosclerotic disease. Normal calvarium. Normal soft tissues. Old left temporal lobe infarct. Old left frontal lobe infarct. There is mild cerebral atrophy with widening of the extra-axial spaces and ventricular dilatation. There are areas of decreased attenuation within the white matter tracts of the supratentorial brain, consistent with microvascular disease changes. Normal basal ganglia and thalami. Normal brainstem. There is mild cerebellar atrophy. There is no intracranial hemorrhage. There are no findings of an acute ischemic infarction. There is sinus disease. ASPECTS Score for Acute Strokes: 09/05 CT/Brain/Head without Contrast IMPRESSION: There are no acute findings. Electronically Signed: Killian Louis MD at 20:45 EST ,
--- NOTE | 2023-12-31 18:11 | CT_ITS ---
EXAM: CT SPINE - CERVICAL WITHOUT IV REASON FOR EXAM: Male, 73 years old. NECK PAIN fall, found down HISTORY: NECK PAIN fall, found down Individualized dose optimization techniques were used for this CT. TECHNIQUE: Multiplanar images were obtained of the cervical spine. IV contrast was not utilized. COMPARISON: None. FINDINGS: The vertebral bodies do maintain their height. The odontoid process is intact. No pre-vertebral soft tissue swelling is seen. The intravertebral disc height is lost. There are scattered lymph nodes in the neck. There are degenerative changes of the osseous structures. There is bilateral facet arthropathy. There are scattered levels of foraminal stenosis. There are vascular calcifications. ET tube and NG tube in place. There are scattered blebs and bullae. This can be seen in pulmonary emphysema. CT/Spine Cervical without Contras IMPRESSION: Degenerative changes of the cervical spine. There are no acute findings. Electronically Signed: Killian Louis MD at 20:46 EST ,
--- NOTE | 2023-12-31 18:14 | EDS_ITS ---
HPI History of Present Illness Chief Complaint: Shortness of Breath PFSH PFSH Medical History Acute hypoxic respiratory failure Anxiety BPH (benign prostatic hyperplasia) CHF (congestive heart failure) COPD (chronic obstructive pulmonary disease) COVID-19 Depression Diabetes mellitus, type 2 Hyperlipidemia Hypertension Iron deficiency Kidney disease Kidney stones Mitral valve insufficiency Nonobstructive atherosclerosis of coronary artery Smoker Stroke/cerebrovascular accident Tobacco use Home Medications metformin 500 mg tablet 1,000 mg PO BIDCM DIABETES 04/26/16 [History Last Taken 09/04/23] albuterol sulfate 90 mcg/actuation aerosol inhaler 2 inh inhalation Q6H PRN shortness of breath or wheezing 09/04/23 [History Last Taken 09/04/23] fluticasone fur. 100 mcg-umeclid 62.5 mcg-vilant 25 mcg inhalat.powder (Trelegy Ellipta) 1 inh inhalation DAILY SHORTNESS OF BREATH 09/04/23 [History Last Taken 09/04/23] spironolactone 25 mg tablet 25 mg PO DAILY BLOOD PRESSURE 09/04/23 [History Last Taken Unknown] aspirin 81 mg tablet,delayed release 81 mg PO BREAKFAST #0 tabs 09/05/23 [Rx Last Taken 10/23/23] atorvastatin 40 mg tablet 40 mg PO QHS #30 tabs 09/05/23 [Rx Last Taken Unknown] lisinopril 10 mg tablet 10 mg PO DAILY #30 tabs 09/05/23 [Rx Last Taken Unknown] metoprolol succinate 50 mg capsule sprinkle, ext. release 24 hr 50 mg PO DAILY #30 ea 09/05/23 [Rx Last Taken Unknown] nicotine 21 mg/24 hr daily transdermal patch 21 mg transdermal DAILY #30 ea 09/05/23 [Rx Last Taken Unknown] dapagliflozin propanediol 10 mg tablet (Farxiga) 10 mg PO DAILY HEART FAILURE 09/18/23 [History Last Taken Unknown] ferrous sulfate 325 mg (65 mg iron) tablet (FeroSul) 325 mg PO DAILYCM #0 tabs 10/24/23 [Rx Last Taken Unknown] pantoprazole 40 mg tablet,delayed release 40 mg PO DAILY 12/30/23 [History Last Taken Unknown] guaifenesin 600 mg tablet, extended release 12 hr 600 mg PO BID #10 tabs 12/31/23 [Rx Last Taken Unknown] levofloxacin 750 mg tablet 750 mg PO DAILY #5 tabs 12/31/23 [Rx Last Taken Unknown] Allergy/AdvReac Type Severity Reaction Status Date / Time No Known Allergies Allergy Verified 12/31/23 17:57 Family History Other Diabetes Heart disease Surgical History History of appendectomy Status post appendectomy Social History (Updated 12/30/23 @ 05:[address] Thao Jauregui DO) Smoking Status: Current every day smoker tobacco type: cigarettes alcohol intake: current alcohol intake frequency: holidays/special occasions only substance use type: does not use EXAM Physical Exam Const Vital Signs: 12/31/23 17:58 12/31/23 18:04 12/31/23 18:08 Temperature 99.4 F H Temperature Source Temporal Pulse Rate 135 H 122 H Respiratory Rate 33 H 15 Respiratory Effort Short of Breath Labored Accessory Muscle Use Retracting Respiratory Depth Respiratory Pattern Blood Pressure 151/99 H Blood Pressure Mean 116 Blood Pressure Source Blood Pressure Position Blood Pressure Location Pulse Ox 85 94 98 Oxygen Delivery Method CPAP CPAP Mechanical Ventilator Fraction of Inspired Oxygen (FIO2) 12/31/23 18:05 12/31/23 18:28 12/31/23 18:30 Temperature Temperature Source Pulse Rate 122 H 117 H Respiratory Rate 14 23 H Respiratory Effort Respiratory Depth Respiratory Pattern Blood Pressure 124/90 H Blood Pressure Mean 101 Blood Pressure Source Blood Pressure Position Blood Pressure Location Pulse Ox 100 98 Oxygen Delivery Method Room Air Mechanical Ventilator Fraction of Inspired Oxygen (FIO2) 100 12/31/23 18:35 12/31/23 19:02 12/31/23 19:30 Temperature 98.1 F Temperature Source Core Pulse Rate 115 H 108 H Respiratory Rate 20 H Respiratory Effort Labored Accessory Muscle Use Respiratory Depth Shallow Respiratory Pattern Irregular Blood Pressure 140/97 H 96/65 Blood Pressure Mean 111 75 Blood Pressure Source Blood Pressure Position Blood Pressure Location Pulse Ox 99 Oxygen Delivery Method Mechanical Ventilator Nasal Cannula Fraction of Inspired Oxygen (FIO2) 12/31/23 19:05 12/31/23 19:20 12/31/23 19:30 Temperature Temperature Source Pulse Rate 115 H 115 H 115 H Respiratory Rate 24 H 24 H 23 H Respiratory Effort Respiratory Depth Respiratory Pattern Normal Blood Pressure 94/72 Blood Pressure Mean 79 Blood Pressure Source Blood Pressure Position Blood Pressure Location Pulse Ox 99 94 Oxygen Delivery Method Mechanical Ventilator Fraction of Inspired Oxygen (FIO2) 40 12/31/23 19:59 12/31/23 20:00 12/31/23 20:06 Temperature Temperature Source Pulse Rate 101 H 99 Respiratory Rate 21 H Respiratory Effort Respiratory Depth Respiratory Pattern Blood Pressure 102/65 92/62 83/60 L Blood Pressure Mean 77 72 67 Blood Pressure Source Monitor Monitor Blood Pressure Position Supine Supine Blood Pressure Location Right Arm Right Arm Pulse Ox 96 Oxygen Delivery Method Mechanical Ventilator Fraction of Inspired Oxygen (FIO2) [facility] [place] MDM MDM Narrative Medical decision making narrative: HISTORY OF PRESENT ILLNESS: 73-year-old male presents with being found down at home. Per EMS patient has a long history of COPD and is a frequent visitor to multiple area ED's for frequent COPD exacerbations. They are unable to get initial set of vitals secondary to extremis of condition however they did start him on CPAP. Patient is unable to provide reliable history review of systems given extremis of condi tion. Per EMS patient did receive Narcan prior to arrival. REVIEW OF SYSTEMS: Unable to obtain review of systems secondary to acuity of condition PHYSICAL EXAM: Nursing triage notes reviewed, Vital signs reviewed Constitutional: please see mdm HENT: MMM, dentures in place Eyes: 3 mm equal reactive pupils bilaterally Neck: Positive JVD Lungs: Tight minimal air movement, bilateral crackles/rales/wheezes, increased work of breathing, belly breathing, severe respiratory distress Heart: Fast rate, 2+ distal pulses (radial, femoral, posterior tibial) in all extremities Abdomen: Soft, : Normal appearing genitalia Extremities: No edema Neuro: somnolent, minimally responsive, responds to painful stimuli,. To move all 4 extremities, appear to have sensation all 4 extremities Skin: No rash or lesions noted MEDICAL DECISION MAKING: Chief Complaint: Shortness of breath, altered mental status External records reviewed: Patient discharged today for right lower lobe pneumonia and elevated troponin. CTA chest from 12/30 negative for PE. Factors affecting care: COPD, BPH, CAD, CHF, CVA Social determinants of health: Tobacco abuse History obtained from others: EMS Consults: Hospitalist (Dr. Aguilar) discussed, critical care (Dr. Blanchard) MDM Narrative: Patient was initially an extremis, severe respiratory distress, had increased work of breathing, he was minimally responsive to painful stimuli but appeared to move all 4 extremities. Given severe respiratory distress the decision was made to intubate the patient immediately. He is kept on CPAP for preoxygenation. IVs were established. Etomidate and socks were given. He was intubated without issue. Please see below procedure note. After this a broad lab and imaging workup was obtained to further elucidate the etiology of the patient complaint specifically ruling out signs of CHF, signs of respiratory acidosis, signs of pneumonia, signs of COVID RSV or flu signs of PE. I will lower specimen for acute PE as patient had a negative CTA of the chest in the last 24 hours. ALL IMAGES (IF OBTAINED) HAVE BEEN PERSONALLY REVIEWED AND INTERPRETED BY MYSELF. ABG with respiratory acidosis, CO2 85, this appears acute is consistent with likely COPD exacerbation CBC with leukocytosis suggestive of systemic remission, no anemia, no thrombocytopenia BMP with hyperkalemia, noted hyperglycemia, no anion gap, Initial troponin elevated consistent myocardial ischemia Initial BNP elevated consistent with volume overload Chest x-ray read reviewed myself shows evidence of right lower lobe infiltrate EKG with sinus tachycardia, normal axis, no intervals, no STEMI THe Synthesis of the patient's history, physical exam, labs images suggest this COPD exacerbation secondary to bacterial pneumonia. Given signs of systemic inflammation, elevated lactate patient was given 1 L of LR and broad-spectrum antibiotics. Given his respiratory failure and ventilatory state patient will need admission to the intensive care unit. Discussed with our hospitalist Dr. Hackett. Discussed with critical care doctor as well. Discussed bicarb drip with the hospitalist. He agreed with [facility]b [facility] The patient and/or family, caregivers express understanding. The patient and/or family, caregivers agrees with the plan. Shared decision making: I will have a discussion with the patient and or visitors regarding risk/benefits of further testing or admission. They will be made aware of of the risk/benefits inherent in this decision they will be given the opportunity to voice understanding. Total critical care time today provided was at least 60 minutes. This excludes separately billable procedures. Critical care time (if documented) is secondary to the patient having high probability of clinically significant/life threatening deterioration in the patient's condition which required my urgent intervention. Impression: 1. Acute hypercapnic, hypoxic respiratory failure 2. COPD exacerbation 3. Hyperkalemia 4. CAP Dispo: admit to ICU This note was generated with [employer] software. It may contain incorrect words, spelling, and punctuation that were not noted in review of the chart prior to signing. Lab Data Labs: Laboratory Results - last 24 hr 12/31/23 18:10 WBC 25.8 H RBC 4.63 Hgb 14.1 Hct 46.6 MCV 100.6 H MCH 30.5 MCHC 30.3 L RDW Std Deviation 61.0 H RDW Coeff of Lauri 16.2 H Plt Count 436 MPV 10.9 Immature Gran % (Auto) 0.800 Neut % (Auto) 87.5 H Lymph % (Auto) 5.5 L Gooding % (Auto) 6.0 Eos % (Auto) 0.0 Baso % (Auto) 0.2 Absolute Neuts (auto) 22.6 H Absolute Lymphs (auto) 1.43 Nucleated RBC % 0 Differential Comment SCANNED Diff Path Review May foll Sodium 141 Potassium 5.2 H Chloride 107 Carbon Dioxide 28.0 Anion Gap 6 BUN 34 H Creatinine 0.97 Estim Creat Clear Calc 74.39 Est GFR (MDRD) Af Amer 98 Est GFR (MDRD) Non-Af 81 BUN/Creatinine Ratio 35.1 H Glucose 338 H Lactic Acid 3.5 H* Calcium 9.4 Total Creatine Kinase 86 Troponin I High Sens 121 H* B-Natriuretic Peptide 914.6 H Triglycerides 135 ABG Data ABG results: ABG 12/31/23 18:52 Specimen Type ART Sample Site R Radial pH 7.07 L* Bicarbonate Actual 25.0 Total CO2 28 Base Excess -5 L O2 Saturation 100 H O2 % 100.0 ABG pCO2 85.7 H* ABG pO2 427 H* Tito Test Positive Respiration Rate 14 O2 Delivery Device ET Tube Vent Mode AC Tidal Volume 450.0 POC PEEP 5 Crit Call To/Read Back Yes Blood Gas Notified Time 18:53:56 Radiography Diagnostic Testing: Clinical Impression(s) from Imaging Studies Chest X-Ray 12/31/23 18:15 IMPRESSION: There has been no change in the appearance of the chest since the prior study. Electronically Signed: Killian Louis MD at 18:43 EST Reading Location ID and State: [facility] / [place] , Service support , Discharge Plan Triage Chief Complaint: Shortness of Breath ED Provider: Pablo Munoz Dx/Rx/DC Orders Prescriptions: No Action metformin 500 MG tablet 1,000 mg PO BIDCM Hold Instructions: Resume on 01/03/24. albuterol sulfate 90 mcg/actuation HFA aerosol inhaler 2 inh INHALATION Q6H PRN (Reason: shortness of breath or wheezing) Trelegy Ellipta 100-62.5-25 mcg blister with device 1 inh INHALATION DAILY spironolactone 25 mg tablet 25 mg PO DAILY atorvastatin 40 mg Tablet 40 mg PO QHS Qty: 30 0RF Patient Comments: not taking; noncompliance aspirin 81 mg Tablet,Delayed Release (Dr/Ec) 81 mg PO BREAKFAST Qty: 0 0RF Patient Comments: not taking lisinopril 10 mg Tablet 10 mg PO DAILY Qty: 30 0RF nicotine 21 mg/24 hr Patch 24 Hour 21 mg transdermal DAILY Qty: 30 0RF metoprolol succinate 50 mg capsule,sprinkle,ER 24hr 50 mg PO DAILY Qty: 30 0RF dapagliflozin propanediol [Farxiga] 10 mg tablet 10 mg PO DAILY Patient Comments: take 1 tablet by mouth every morning ferrous sulfate [FeroSul] 325 mg (65 mg iron) Tablet 325 mg PO DAILYCM Qty: 0 0RF pantoprazole 40 mg tablet,delayed release (DR/EC) 40 mg PO DAILY Patient Comments: TAKE 1 TABLET BY MOUTH TWICE DAILY guaifenesin 600 mg tablet extended release 12hr 600 mg PO BID Qty: 10 0RF levofloxacin 750 mg tablet 750 mg PO DAILY Qty: 5 0RF Primary Care Provider: Rd Rivers Referrals: Rd Rivers DO [Primary Care Provider] -
--- NOTE | 2023-12-31 18:15 | RAD_ITS ---
STUDY: XR Chest 1 View 12/31/2023 6:14 PM REASON FOR EXAM: Male, 73 years old. SOB COMPARISON: Study done yesterday TECHNIQUE: XR Chest 1 View FINDINGS: Spinal fixation hardware noted. ET tube in good position. There is a feeding tube/ nasogastric tube noted. The tip is in the region of the stomach. Diffuse stable patchy bilateral infiltrates. Normal heart size. Normal mediastinum. Normal aureliano. Prominent appearing increased interstitial lung markings. Normal visualized pulmonary arteries. There is atherosclerotic calcification of the aortic arch with tortuosity. There are diffuse degenerative changes of the visualized thoracic spine. There is degenerative osteoarthritis of the bilateral shoulders. There are no acute findings of the upper abdomen. RAD/Chest 1 View (Portable) IMPRESSION: There has been no change in the appearance of the chest since the prior study. Electronically Signed: Killian Louis MD at 18:43 EST ,
[2023-12-31 18:25] LABS: Absolute Lymphocyte Count 1.43 X10^3/uL (0.83-4.51); Absolute Neutrophil Count 22.6 X10^3/uL (2.0-7.7); Basophil# 0.04 X10^3/uL; Basophil% 0.2 % (0-1); Hematocrit 46.6 % (40-54); Hemoglobin 14.1 g/dL (13.0-16.5); Lymphocyte # 1.43 X10^3/ul (0.83-4.51); Lymphocyte % 5.5 % (19-41); Mean Corp Hgb Conc 30.3 g/dL (32-36); Mean Corpuscular Hgb 30.5 pg (27.0-32.0); Mean Corpuscular Volume 100.6 fL (80-94); Mean Platelet Vol. 10.9 fl (6.2-12.0); Monocyte# 1.54 X10^3/uL; NRBC Flagged by Analyzer 0 % (0-5); Neutrophil # 22.55 X10^3/uL (2.7-7.7); Neutrophil % 87.5 % (47-70); POSITIVE DIFFERENTIAL YES; Platelet Count 436 K/mm3 (150-450); RBC Distribution Width CV 16.2 % (11.6-14.6); Red Blood Count 4.63 M/mm3 (4.6-6.2); White Blood Count 25.8 K/mm3 (4.4-11.0)
[2023-12-31 18:33] LABS: Differential Indicated SCAN CRITERIA MET
[2023-12-31] MEDS: MethylPREDNISolone 125 MG/2 ML Vial IV (18:34)
[2023-12-31] MEDS: fentaNYL 100 MCG/2 ML Ampul IV (18:34)
[2023-12-31 18:38] LABS: CPK Total, Creatine Kinase 86 U/L (39-308); Triglycerides 135 mg/dL
[2023-12-31 18:48] LABS: BNP,B-Type NATRIURETIC PEPTIDE 914.6 pg/mL (0-100)
--- NOTE | 2023-12-31 18:56 | CPS ---
Critical ABG values, Dr. Tammy delgado.
[2023-12-31 18:57] LABS: Allen Test Positive; Base Excess -5 mmol/L (-2 to +2); Blood Gas Specimen Type ART; Mode AC; O2 Delivery Device ET Tube; PEEP 5; PO2 427 mmHG (75-100); RR 14; SITE R Radial; SO2 100 % (95-99); Time Given 18:53:56; Total Carbon Dioxide 28 mmol/L; pCO2 85.7 mmHg (35-45); pH 7.07 (7.35-7.45)
[2023-12-31 19:08] LABS: Differential Comment SCANNED
[2023-12-31 19:13] LABS: Anion Gap 6 (5-15); BUN 34 mg/dL (7-18); BUN/Creat Ratio 35.1 RATIO (10-20); Calcium,Total 9.4 mg/dL (8.5-10.1); Chloride 107 mmol/L (98-107); Creatinine, Serum 0.97 mg/dL (0.70-1.30); EST Glomerular Filtration Rate 81 mL/min (>60); Est Glom Filt Rate - Afr Amer 98 mL/min (>60); Estimated Creatinine Clearance 74.39 ml/min; Glucose 338 mg/dL (74-106); Lactic Acid 3.5 mmol/L (0.4-1.9); Potassium 5.2 mmol/L (3.5-5.1); Sodium Level 141 mmol/L (136-145); Troponin-I HS 121 pg/mL (3.0-78.0)
[2023-12-31] MEDS: Ipratropium/Albuterol Sulfate 3 ML AMPUL.NEB INHALATION (19:20)
[2023-12-31] MEDS: Cefepime HCl 1 GM in 0.9% Normal Saline (50mL MB+) 50 ML IV (19:38)
[2023-12-31] MEDS: Lactated Ringers 1,000 ML 999 ML IV ×2 (19:42→22:15)
[2023-12-31] MEDS: fentaNYL drip 100 ML 5 MCG CONT INF (19:52)
--- NOTE | 2023-12-31 20:03 | HP.PCM.HOS_ITS ---
[facility] - General General Date of Admission: 12/31/23 Date of Service: 12/31/23 Chief Complaint: AMS and SOB. [facility] Narrative RAHEL NICHOLS, is a 73 M with a past medical history of essential hypertension, hyperlipidemia, DM-2; of unknown control, history of tobacco abuse; with subsequent COPD, CAD; s/p NSTEMI, history of mitral valve insuffi ciency, history of chronic diastolic CHF; with preserved LVEF with a possible torn papillary muscle or turn cavitary tendon, history of CVA, history of COVID- 19, history of appendectomy, history of renal calculi, LEIGH ANN, GERD, OA and recent admission here from December 30, 2023 to December 31, 2023 for treatment of RLL Pneumonia; treated with IV Rocephin and IV Azithromycin, AE COPD and NSTEMI type-II attributed to demand ischemia along with clinical evidence of acute hypoxic respiratory insufficiency who presents to [facility] ER complaining of altered mental status and SOB. Mr. Nichols was intubated shortly after arrival to the ER so information was gathered from chart, medical staff and computer. According to the records the patient was discharged from here earlier this morning around 11:00 AM on oral Levaquin after declining and echocardiogram. He apparently went home and became increasingly confused, somnolent and SOB with patient then found down at home causing EMS to be called who then treated him with Narcan without improvement. In the ER he was diagnosed with CXR evidence of Bibasilar (likely nosocomial/HCAP) Pneumonia with clinical evidence of AE COPD complicated by severe acute hypoxic/hypercapnic respiratory requiring emergent intubation with leukocytosis of 25.8 with Lactic Acidosis of 3.5 mmol/L present on admission and a pH of 7.07/ PCO2 85.7/ PO2 427/ HCO3 25 on vent AC / RR-14 / TV-450 mL / 5 PEEP compounded by Hyperkalemia of 5.2 mmol/L present on admission concerning for sepsis and he was then admitted to the ICU for ongoing care for a stay that ius expected to be greater than 48 hours. PFSH Medical History Acute hypoxic respiratory failure Anxiety BPH (benign prostatic hyperplasia) CHF (congestive heart failure) COPD (chronic obstructive pulmonary disease) COVID-19 Depression Diabetes mellitus, type 2 Hyperlipidemia Hypertension Iron deficiency Kidney disease Kidney stones Mitral valve insufficiency Nonobstructive atherosclerosis of coronary artery Smoker Stroke/cerebrovascular accident Tobacco use Home Medications metformin 500 mg tablet 1,000 mg PO BIDCM DIABETES 04/26/16 [History Last Taken 09/04/23] albuterol sulfate 90 mcg/actuation aerosol inhaler 2 inh inhalation Q6H PRN shortness of breath or wheezing 09/04/23 [History Last Taken 09/04/23] fluticasone fur. 100 mcg-umeclid 62.5 mcg-vilant 25 mcg inhalat.powder (Trelegy Ellipta) 1 inh inhalation DAILY SHORTNESS OF BREATH 09/04/23 [History Last Taken 09/04/23] spironolactone 25 mg tablet 25 mg PO DAILY BLOOD PRESSURE 09/04/23 [History Last Taken Unknown] aspirin 81 mg tablet,delayed release 81 mg PO BREAKFAST #0 tabs 09/05/23 [Rx Last Taken 10/23/23] atorvastatin 40 mg tablet 40 mg PO QHS #30 tabs 09/05/23 [Rx Last Taken Unknown] lisinopril 10 mg tablet 10 mg PO DAILY #30 tabs 09/05/23 [Rx Last Taken Unknown] metoprolol succinate 50 mg capsule sprinkle, ext. release 24 hr 50 mg PO DAILY #30 ea 09/05/23 [Rx Last Taken Unknown] nicotine 21 mg/24 hr daily transdermal patch 21 mg transdermal DAILY #30 ea 09/05/23 [Rx Last Taken Unknown] dapagliflozin propanediol 10 mg tablet (Farxiga) 10 mg PO DAILY HEART FAILURE 09/18/23 [History Last Taken Unknown] ferrous sulfate 325 mg (65 mg iron) tablet (FeroSul) 325 mg PO DAILYCM #0 tabs 10/24/23 [Rx Last Taken Unknown] pantoprazole 40 mg tablet,delayed release 40 mg PO DAILY 12/30/23 [History Last Taken Unknown] guaifenesin 600 mg tablet, extended release 12 hr 600 mg PO BID #10 tabs 12/31/23 [Rx Last Taken Unknown] levofloxacin 750 mg tablet 750 mg PO DAILY #5 tabs 12/31/23 [Rx Last Taken Unknown] Allergy/AdvReac Type Severity Reaction Status Date / Time No Known Allergies Allergy Verified 12/31/23 17:57 Family History Other Diabetes Heart disease Surgical History History of appendectomy Status post appendectomy Social History Smoking Status: Current every day smoker tobacco type: cigarettes alcohol intake: current alcohol intake frequency: holidays/special occasions only substance use type: does not use ROS ROS Narrative Patient is intubated and sedated and cannot complete a review of systems at this time. Review of Systems ROS Unobtainable: due to encephalopathy Vital Signs Vital Signs Vital Signs: 12/31/23 17:58 12/31/23 18:04 12/31/23 18:08 Temperature 99.4 F H Temperature Source Temporal Pulse Rate 135 H 122 H Respiratory Rate 33 H 15 Respiratory Effort Short of Breath Labored Accessory Muscle Use Retracting Respiratory Depth Respiratory Pattern Blood Pressure 151/99 H Blood Pressure Mean 116 Blood Pressure Source Blood Pressure Position Blood Pressure Location Pulse Ox 85 94 98 Oxygen Delivery Method CPAP CPAP Mechanical Ventilator Fraction of Inspired Oxygen (FIO2) 12/31/23 18:05 12/31/23 18:28 12/31/23 18:30 Temperature Temperature Source Pulse Rate 122 H 117 H Respiratory Rate 14 23 H Respiratory Effort Respiratory Depth Respiratory Pattern Blood Pressure 124/90 H Blood Pressure Mean 101 Blood Pressure Source Blood Pressure Position Blood Pressure Location Pulse Ox 100 98 Oxygen Delivery Method Room Air Mechanical Ventilator Fraction of Inspired Oxygen (FIO2) 100 12/31/23 18:35 12/31/23 19:02 12/31/23 19:30 Temperature 98.1 F Temperature Source Core Pulse Rate 115 H 108 H Respiratory Rate 20 H Respiratory Effort Labored Accessory Muscle Use Respiratory Depth Shallow Respiratory Pattern Irregular Blood Pressure 140/97 H 96/65 Blood Pressure Mean 111 75 Blood Pressure Source Blood Pressure Position Blood Pressure Location Pulse Ox 99 Oxygen Delivery Method Mechanical Ventilator Nasal Cannula Fraction of Inspired Oxygen (FIO2) 12/31/23 19:05 12/31/23 19:20 12/31/23 19:30 Temperature Temperature Source Pulse Rate 115 H 115 H 115 H Respiratory Rate 24 H 24 H 23 H Respiratory Effort Respiratory Depth Respiratory Pattern Normal Blood Pressure 94/72 Blood Pressure Mean 79 Blood Pressure Source Blood Pressure Position Blood Pressure Location Pulse Ox 99 94 Oxygen Delivery Method Mechanical Ventilator Fraction of Inspired Oxygen (FIO2) 40 12/31/23 19:59 12/31/23 20:00 Temperature Temperature Source Pulse Rate 101 H 99 Respiratory Rate 21 H Respiratory Effort Respiratory Depth Respiratory Pattern Blood Pressure 102/65 92/62 Blood Pressure Mean 77 72 Blood Pressure Source Monitor Blood Pressure Position Supine Blood Pressure Location Right Arm Pulse Ox 96 Oxygen Delivery Method Mechanical Ventilator Fraction of Inspired Oxygen (FIO2) Weight Weight: 169 lb 1.513 oz Body Mass Index (BMI) 23.6 Physical Exam Const Constitutional Narrative: Patient is intubated and sedated on ventilator. HEENT normocephalic and head/scalp atraumatic Eyes conjunctivae normal Neck no lymphadenopathy and supple Resp Resp Narrative: Diminished breath sounds throughout. Cardio Cardio Narrative: Tachycardia at approximately 110 bpm noted. GI normal to inspection, nondistended, normoactive bowel sounds, soft to palpation, non-tender and non-distended Extremity normal to inspection Skin Skin Narrative: Patient has no evidence of rash at this time. Neuro Neuro Narrative: Patient is intubated and sedated on ventilator. Psych Psych Narrative: Patient is intubated and sedated on ventilator. Results Medical Records Data Attestation: I reviewed the patient's medical records Lab / Micro Data Attestation: I reviewed the patient's lab results. 01/01/24 04:07 01/01/24 04:07 Labs: Laboratory Results - last 24 hr 12/31/23 18:10: WBC 25.8 H, RBC 4.63, Hgb 14.1, Hct 46.6, MCV 100.6 H, MCH 30.5, MCHC 30.3 L, RDW Std Deviation 61.0 H, RDW Coeff of Lauri 16.2 H, Plt Count 436, MPV 10.9, Immature Gran % (Auto) 0.800, Neut % (Auto) 87.5 H, Lymph % (Auto) 5.5 L, O'Brien % (Auto) 6.0, Eos % (Auto) 0.0, Baso % (Auto) 0.2, Absolute Neuts (auto) 22.6 H, Absolute Lymphs (auto) 1.43, Nucleated RBC % 0, Differential Comment SCANNED, Diff Path Review March, Sodium 141, Potassium 5.2 H, Chloride 107, Carbon Dioxide 28.0, Anion Gap 6, BUN 34 H, Creatinine 0.97, Estim Creat Clear C alc 74.39, Est GFR (MDRD) Af Amer 98, Est GFR (MDRD) Non-Af 81, BUN/Creatinine Ratio 35.1 H, Glucose 338 H, Lactic Acid 3.5 H*, Calcium 9.4, Total Creatine Kinase 86, Troponin I High Sens 121 H*, B-Natriuretic Peptide 914.6 H, Triglycerides 135 ABG Data ABG results: ABG 12/31/23 18:52 Specimen Type ART Sample Site R Radial pH 7.07 L* Bicarbonate Actual 25.0 Total CO2 28 Base Excess -5 L O2 Saturation 100 H O2 % 100.0 ABG pCO2 85.7 H* ABG pO2 427 H* Tito Test Positive Respiration Rate 14 O2 Delivery Device ET Tube Vent Mode AC Tidal Volume 450.0 POC PEEP 5 Crit Call To/Read Back Yes Blood Gas Notified Time 18:53:56 Attestation: I personally reviewed and interpreted this ABG as follows: Interpretation: Patient has severe respiratory acidosis with acute hypoxic and hypercapnic respiratory failure. Imaging Radiology Impression Chest X-Ray 12/31/23 18:15 IMPRESSION: There has been no change in the appearance of the chest since the prior study. Electronically Signed: Killian Louis MD at 18:43 EST Reading Location ID and State: [facility] [place] / [place] , Service support , [facility] Imaging Services [address] [place] [address] Chest 1 View (Portable) MR#: [id number] Acct: [id number] Name: RAHEL NICHOLS Rep #: [id number] : 1950 M 73 From: Killian Louis MD PCP: Dr. Rd Rivers DO Status: REG ER Study: Chest 1 View (Portable) Date of Exam: 12/31/23 Exam# [id number] Ordering Dr: Pablo Munoz DO STUDY: XR Chest 1 View 12/31/2023 6:14 PM REASON FOR EXAM: Male, 73 years old. SOB COMPARISON: Study done yesterday TECHNIQUE: XR Chest 1 View FINDINGS: Spinal fixation hardware noted. ET tube in good position. There is a feeding tube/ nasogastric tube noted. The tip is in the region of the stomach. Diffuse stable patchy bilateral infiltrates. Normal heart size. Normal mediastinum. Normal aureliano. Prominent appearing increased interstitial lung markings. Normal visualized pulmonary arteries. There is atherosclerotic calcification of the aortic arch with tortuosity. There are diffuse degenerative changes of the visualized thoracic spine. There is degenerative osteoarthritis of the bilateral shoulders. There are no acute findings of the upper abdomen. RAD/Chest 1 View (Portable) IMPRESSION: There has been no change in the appearance of the chest since the prior study. Electronically Signed: Killian Louis MD at 18:43 EST Reading Location ID and State: [facility] / [place] , Service support , CC: Dr. Rd Rivers, DO; Dr. Pablo Munoz DO ~ Pipe Testing Technician: Signed Assessment & Plan Assessment/Plan (1) Pneumonia: QUALIFIERS: Laterality: bilateral Lung location: unspecified part of lung Pneumonia type: due to unspecified organism Qualified Code(s): J18.9 - Pneumonia, unspecified organism (2) COPD (chronic obstructive pulmonary disease): QUALIFIERS: COPD type: unspecified COPD Qualified Code(s): J44.9 - Chronic obstructive pulmonary disease, unspecified (3) Elevated troponin: (4) Hyperkalemia: PLAN: Plan 1. Bibasilar (likely nosocomial/HCAP) Pneumonia with leukocytosis of 25.8 with Lactic Acidosis of 3.5 mmol/L present on admission concerning for sepsis - Admit to ICU for treatment under the sepsis protocol. Serialize lactates and check daily CBC to ensure positive response to treatment. Give Tylenol prn for pain or fever. Finally, we will consult the loss prevention/safety district manager on-call to see this patient on-rounds in the AM for further recommendations with help appreciated in advance. 2. AE COPD complicated by severe acute hypoxic/hypercapnic respiratory failure with severe CO2 narcosis of 85.7 present on admission requiring emergent intubation arising from #1 - Continue antibiotics, steroids, nebulizers and wean ventilator as tolerated. 3. Elevated troponin of 121 pg/mL present on admission due to suspected NSTEMI- II with elevated BNP of 916 pg/mL present on admission due to #1 & #2 in the setting of known CAD; s/p NSTEMI, history of mitral valve insufficiency, history of chronic diastolic CHF; with preserved LVEF with elevated BNP of 914.6 pg/mL present on admission with a possible torn papillary muscle or turn cavitary tendon - Noted. We will obtain echocardiogram and consult cardiology to see this patient this admission given his recent discharge and readmission with help appreciated in advance. 4. Hyperkalemia of 5.2 mmol/L present on admission - Give IVF's and then rechec k BMP in the AM to ensure normalization. 5. Recent admission here from December 30, 2023 to December 31, 2023 for treatment of RLL Pneumonia; treated with IV Rocephin and IV Azithromycin, AE COPD and NSTEMI type-II attributed to demand ischemia along with clinical evidence of acute hypoxic respiratory insufficiency - Noted with patient documented having refused echocardiogram and without evidence of formal cardiology input last admission. 6. Essential hypertension - Hold scheduled antihypertensives in light of #1. 7. Hyperlipidemia - Resume statin and check lipid profile in light of #3. 8. DM-2; of unknown control - NPO. FSBS q. 6 hours plus lowest intensity SSI. 9. History of CVA - Noted. Head CT done on admission. 10. History of COVID-19 - Noted. 11. History of appendectomy - Noted. 12. History of renal calculi - Noted with no evidence of recurrence. 13. LEIGH ANN - Stable. 14. GERD - Continue PPI IV. 15. OA - Stable. 16. DVT prophylaxis - Patient on IV Heparin for #3. Total time: Approximately 95 minutes. Update: Patient was rechecked approximately 4 hours after admission was noted to have an improving lactate that dropped from 3.5 mmol/L present on admission down to 0.7 mmol/L now. Also his follow-up ABG revealed pH 7.26/pCO2 52.7/pO2 89/bicarbonate 23.4 at 95% saturation on ventilator mode AC/respiratory rate 16/tidal volume 500 mL/5 of PEEP. His vital signs have improved and there are no new issues noted at this time. DIET TECHNICIAN REGISTERED was updated with plan. Sepsis Attestation Sepsis Alert: Yes Sepsis Attestation: Agree w/Sepsis Date exam was performed: 12/31/23 Time exam was performed: 21:00 Possible Source of Sepsis: Pulmonary Sepsis Organ Dysfunction Criteria Present: Acute Respiratory Failure (New need for BiPAP/CPAP or MV), Lactic Acid > 2 mmol/L and New/Unexplained change in mental status Fluid Resuscitation Fluid resuscitation indicated?: Yes Fluid Resuscitation ordered: 30 ml/kg fluid bolus ordered Amount of fluid ordered: 3 Sepsis Note Date exam was performed: 01/01/24 Time exam was performed: 01:00 Sepsis Attestation: Sepsis re-evaluation was performed Response to fluids: Fluid responsive hypotension Charges/Coding Visit Charges Inpatient E&M: 94954 Init Hosp L3
[2023-12-31] MEDS: Sodium Bicarbonate 150 MEQ in Dextrose 5%-Water (1000mL Bag) 1,000 ML IV (20:38)
[2023-12-31] MEDS: Vancomycin HCl 1,250 MG in 0.9% Normal Saline (250mL Bag) 250 ML 167 MG IV (20:39)
[2023-12-31 20:49] LABS: Allen Test Positive; Base Excess -4 mmol/L (-2 to +2); Bicarbonate 23.4 mmol/L (22-26); Blood Gas Specimen Type ART; Mode AC; O2 Delivery Device ET Tube; PEEP 5; PO2 89 mmHG (75-100); RR 16; SITE R Radial; SO2 95 % (95-99); Total Carbon Dioxide 25 mmol/L; pCO2 52.7 mmHg (35-45); pH 7.26 (7.35-7.45)
[2023-12-31] MEDS: Ketamine HCl 500 MG/5 ML Vial 100 MG IV (21:40)
--- NOTE | 2023-12-31 21:45 | ED.RN ---
VERIFIED W/ DR. SAUCEDO DOSING OF KETAMINE IS HIGH FOR SEDATION VS INDUCTION. CONFIRMED W/ [facility] IN PHARMACY DOSING IS W/IN PARAMETERS.
[2023-12-31 22:18] LABS: Reflex Lactate? Y
--- NOTE | 2023-12-31 22:31 | ED.RN ---
bilat wrist restraints applied at 2100 for tube line security. pt was attempting to pull at [place] and ET tube. order obtained from dr rudd. daughter Nicky made aware of need for bilat soft wrist restraints. voiced no concerns at this time.
[2023-12-31 22:58] LABS: Lactic Acid 0.7 mmol/L (0.4-1.9)
[2023-12-31] MEDS: Propofol 10MG/Ml 1,000 MG/100 ML Bottle 9.19999999999999929 MG CONT INF (23:20)
--- NOTE | 2023-12-31 23:22 | PCMCONS.TICU ---
HPI Consult Data Date of Consult: 01/01/24 HPI Narrative HPI Narrative: This is a 73-year-old male admitted to the ICU for acute respiratory failure requiring intubation in the ER. He has past medical history of COPD on 2 L nasal cannula, CHF, diabetes, hypertension, stroke. He was admitted December 30 at which time he was treated for pneumonia and COPD exacerbation. He was discharged earlier today with 5 days of Levaquin this evening he came back to the ED via EMS with respiratory distress requiring NIV support on arrival he was somnolent with acute respiratory acidosis and was intubated. Labs significant for WBC 25 (13 earlier today) initial ABG 7.07/85/427, potassium 5.2, lactate 3.5-> 0.7, troponin 121, BNP 914. Chest x-ray with right lower lobe infiltrate. PFSH Medical History Acute hypoxic respiratory failure Anxiety BPH (benign prostatic hyperplasia) CHF (congestive heart failure) COPD (chronic obstructive pulmonary disease) COVID-19 Depression Diabetes mellitus, type 2 Hyperlipidemia Hypertension Iron deficiency Kidney disease Kidney stones Mitral valve insufficiency Nonobstructive atherosclerosis of coronary artery Smoker Stroke/cerebrovascular accident Tobacco use Home Medications metformin 500 mg tablet 1,000 mg PO BIDCM DIABETES 04/26/16 [History Last Taken 09/04/23] albuterol sulfate 90 mcg/actuation aerosol inhaler 2 inh inhalation Q6H PRN shortness of breath or wheezing 09/04/23 [History Last Taken 09/04/23] fluticasone fur. 100 mcg-umeclid 62.5 mcg-vilant 25 mcg inhalat.powder (Trelegy Ellipta) 1 inh inhalation DAILY SHORTNESS OF BREATH 09/04/23 [History Last Taken 09/04/23] spironolactone 25 mg tablet 25 mg PO DAILY BLOOD PRESSURE 09/04/23 [History Last Taken Unknown] aspirin 81 mg tablet,delayed release 81 mg PO BREAKFAST #0 tabs 09/05/23 [Rx Last Taken 10/23/23] atorvastatin 40 mg tablet 40 mg PO QHS #30 tabs 09/05/23 [Rx Last Taken Unknown] lisinopril 10 mg tablet 10 mg PO DAILY #30 tabs 09/05/23 [Rx Last Taken Unknown] metoprolol succinate 50 mg capsule sprinkle, ext. release 24 hr 50 mg PO DAILY #30 ea 09/05/23 [Rx Last Taken Unknown] nicotine 21 mg/24 hr daily transdermal patch 21 mg transdermal DAILY #30 ea 09/05/23 [Rx Last Taken Unknown] dapagliflozin propanediol 10 mg tablet (Farxiga) 10 mg PO DAILY HEART FAILURE 09/18/23 [History Last Taken Unknown] ferrous sulfate 325 mg (65 mg iron) tablet (FeroSul) 325 mg PO DAILYCM #0 tabs 10/24/23 [Rx Last Taken Unknown] pantoprazole 40 mg tablet,delayed release 40 mg PO DAILY 12/30/23 [History Last Taken Unknown] guaifenesin 600 mg tablet, extended release 12 hr 600 mg PO BID #10 tabs 12/31/23 [Rx Last Taken Unknown] levofloxacin 750 mg tablet 750 mg PO DAILY #5 tabs 12/31/23 [Rx Last Taken Unknown] Allergy/AdvReac Type Severity Reaction Status Date / Time No Known Allergies Allergy Verified 12/31/23 17:57 Family History Other Diabetes Heart disease Surgical History History of appendectomy Status post appendectomy Social History Smoking Status: Current every day smoker tobacco type: cigarettes alcohol intake: current alcohol intake frequency: holidays/special occasions only substance use type: does not use ROS Review of Systems ROS Unobtainable: due to endotracheal tube and other Objective Data Objective Data Vital Signs: Vital Signs Last response Temperature 36.2 C L 12/31/23 22:21 Temperature Source Core 12/31/23 22:20 Pulse Rate 89 12/31/23 22:21 Respiratory Rate 16 12/31/23 22:21 Respiratory Effort Labored, Accessory Muscle Use 12/31/23 18:35 Respiratory Depth Shallow 12/31/23 18:35 Respiratory Pattern Normal 12/31/23 19:20 Blood Pressure 104/62 12/31/23 22:21 Blood Pressure Mean 76 12/31/23 22:21 Blood Pressure Source Monitor 12/31/23 21:45 Blood Pressure Position Supine 12/31/23 21:45 Blood Pressure Location Right Arm 12/31/23 21:45 Pulse Ox 98 12/31/23 22:21 Oxygen Delivery Method Mechanical Ventilator 12/31/23 22:20 Fraction of Inspired Oxygen (FIO2) 40 12/31/23 19:05 I&O: I&O Last 24 Hours 12/30/23 12/31/23 12/31/23 23:59 11:59 23:59 Intake Total 1142.51 / 1142.51 Balance 1142.51 / 1142.51 I&O: Total Stay 12/31/23 17:56 thru 12/31/23 22:16 Intake Total 1142.51 Balance 1142.51 Current Meds Ordered / Administered: Current meds ordered / Administered Generic Name Dose Route Start Last Admin Trade Name Freq PRN Reason Stop Dose Admin Aspirin 81 mg 01/01/24 08:00 Aspirin E.C. 81 Mg Tablet PO BREAKFAST [facility] Atorvastatin Calcium 40 mg 12/31/23 23:16 Atorvastatin Calcium 40 Mg Tablet PO QHS [facility] Clopidogrel Bisulfate 75 mg 12/31/23 23:16 Clopidogrel Bisulfate 75 Mg Tablet PO DAILY [facility] Guaifenesin 600 mg 12/31/23 23:16 Guaifenesin 600 Mg Tablet PO BID [facility] Propofol 1,000 mg in 100 mls @ 4.602 mls/hr 12/31/23 18:10 12/31/23 21:45 Diprivan CONT INF Infused .Q12H [facility] Titration Protocol 10 MCG/KG/MIN Fentanyl 100 mls @ 5 mls/hr 12/31/23 19:10 12/31/23 22:16 CONT INF 200 mcg/hr UD MISHA 20 mls/hr Titration Protocol 50 MCG/HR Sodium Bicarbonate 150 meq/ 1,150 mls @ 150 mls/hr 12/31/23 20:10 12/31/23 20:38 Dextrose IV 150 mls/hr .Q7H40M MISHA Administration Sodium Chloride 1,000 mls @ 999 mls/hr 12/31/23 23:16 IV 01/01/24 01:16 .Q1H1M MISHA Protocol Piperacillin Sod/Tazobactam 50 mls @ 12.5 mls/hr 12/31/23 23:16 Sod 3.375 gm/ Sodium Chloride IV Q8 MISHA Vancomycin IV-PHARMACY TO DOSE 500 mls @ 250 mls/hr 12/31/23 23:16 1 each/ Sodium Chloride IV X1 PRN Rx to Dose Protocol Heparin Sodium/Dextrose 25,000 units in 250 mls @ 0 mls/hr 12/31/23 23:16 CONT INF .Q0M [facility] Protocol As Directed Sodium Chloride 250 mls @ 15 mls/hr 12/31/23 23:19 IV .[id number] PRN Additional IVPB Infusion Sodium Chloride 250 mls @ 15 mls/hr 12/31/23 23:19 IV .[id number] PRN Saline Flush Lactobacillus Acidophilus 2 tablet 12/31/23 23:16 Lactobacillus Acidophilus PO BID MISHA Methylprednisolone 60 mg 12/31/23 23:16 Methylprednisolone 125 Mg/2 Ml Vial IV BID MISHA Nicotine 21 mg 01/01/24 10:00 Nicotine 21 Mg Patch TD DAILY [facility] Non-Formulary Medication 1 inh 01/01/24 10:00 Seglszldbus-Flshgvrut-Wluwflew [Trelegy Ellipta] INHALATION DAILY [facility] Pantoprazole Sodium 40 mg 01/01/24 10:00 Pantoprazole Sodium 40 Mg Tablet PO DAILY [facility] Sodium Chloride 10 - 40 ml 12/31/23 23:19 0.9% Saline Lock 10 Ml Syringe IV UD PRN SALINE FLUSH Physical Exam Narrative Gen: Intubated, sedated Eyes: PERRL ENT: MMM CV: S1S2 Pulm: CTAB no w/c/r, synced with vent on 40% Abd: Soft/nt/nd Extrem: No c/c/e Lab / Micro Data 12/31/23 18:10 12/31/23 18:10 Labs: Laboratory Results - last 24 hr 12/31/23 18:10: WBC 25.8 H, RBC 4.63, Hgb 14.1, Hct 46.6, MCV 100.6 H, MCH 30.5, MCHC 30.3 L, RDW Std Deviation 61.0 H, RDW Coeff of Lauri 16.2 H, Plt Count 436, MPV 10.9, Immature Gran % (Auto) 0.800, Neut % (Auto) 87.5 H, Lymph % (Auto) 5.5 L, [place] % (Auto) 6.0, Eos % (Auto) 0.0, Baso % (Auto) 0.2, Absolute Neuts (auto) 22.6 H, Absolute Lymphs (auto) 1.43, Nucleated RBC % 0, Differential Comment SCANNED, Diff Path Review May foll, Sodium 141, Potassium 5.2 H, Chloride 107, Carbon Dioxide 28.0, Anion Gap 6, BUN 34 H, Creatinine 0.97, Estim Creat Clear Calc 74.39, Est GFR (MDRD) Af Amer 98, Est GFR (MDRD) Non-Af 81, BUN/Creatinine Ratio 35.1 H, Glucose 338 H, Lactic Acid 3.5 H*, Calcium 9.4, Total Creatine Kinase 86, Troponin I High Sens 121 H*, B-Natriuretic Peptide 914.6 H, Triglycerides 135 12/31/23 22:10: Lactic Acid 0.7 Micro: Microbiology 12/31/23 19:22 Mucosa - Nose SARS-CoV-2, Influenza & RSV (PCR) - Final ABG Data ABG results: ABG 12/31/23 12/31/23 18:52 20:44 Specimen Type ART ART Sample Site R Radial R Radial pH 7.07 L* 7.26 L Bicarbonate Actual 25.0 23.4 Total CO2 28 25 Base Excess -5 L -4 L O2 Saturation 100 H 95 O2 % 100.0 30.0 ABG pCO2 85.7 H* 52.7 H ABG pO2 427 H* 89 Tito Test Positive Positive Respiration Rate 14 16 O2 Delivery Device ET Tube ET Tube Vent Mode AC AC Tidal Volume 450.0 500.0 POC PEEP 5 5 Crit Call To/Read Back Yes Blood Gas Notified Time 18:53:56 Imaging Radiology Impression Brain CT 12/31/23 18:10 IMPRESSION: There are no acute findings. Electronically Signed: Killian Louis MD at 20:45 EST , Cervical Spine CT 12/31/23 18:11 IMPRESSION: Degenerative changes of the cervical spine. There are no acute findings. Electronically Signed: Killian Louis MD at 20:46 EST , Chest X-Ray 12/31/23 18:15 IMPRESSION: There has been no change in the appearance of the chest since the prior study. Electronically Signed: Kililan Louis MD at 18:43 EST , Assessment and Plan . Assessment and plan: ASSESSMENT # Acute hypoxemic and hypercapnic respiratory failure # Acute COPD exacerbation # Pneumonia # Acute metabolic encephalopathy # History of diabetes # History of hypertension # History of diastolic dysfunction. Last EF 60% with moderate LVH. PLAN -Vent reviewed and adjusted -Solumedrol, Duonebs -Vanc, Zosyn, Doxycyline -Fentnayl, Propofol for sedation -Follow cultures -SSI -SAT/SBT in AM PPX: Heparin, Pepecid Entire encounter performed via telemedicine Critical care time 60 min
--- NOTE | 2023-12-31 23:23 | NURSING ---
New bottle of propofol needed at 2320, this RN scanned new bottle. Last bottle of propofol hung in ER and looks infused at 2100, propofol running when this RN received pt from ER @ 20mcg/kg/min
[2023-12-31] MEDS: 0.9% Normal Saline (1000mL) 1,000 ML 999 ML IV (23:54)
[2024-01-01] VITALS (49 sets, daily range): BP systolic 73–136; BP diastolic 46–86; PULSE 64–97; RESP 16–17; TEMP 35.8–37.2; O2SAT 89–100; BMI 22.8
[2024-01-01] MEDS: HEPARIN/D5w 25,000 UNITS 25,000 UNITS/250 ML IV.SOLN. 11 UNITS CONT INF (00:01)
[2024-01-01] MEDS: CHLORHEXIDINE GLUC 2% CLOTH 1 EACH TOWELETTE TOPICAL (00:02)
[2024-01-01] MEDS: Chlorhexidine 15 ML PO ×3 (00:02→20:26)
[2024-01-01] MEDS: Atorvastatin Calcium 40 MG Tablet PO (00:08)
[2024-01-01] MEDS: Clopidogrel Bisulfate 75 MG Tablet PO (00:08)
[2024-01-01] MEDS: guaiFENesin 600 MG Tablet PO ×3 (00:08→20:25)
[2024-01-01] MEDS: Piperacil/Tazobactam 3.375 GM in 0.9% Normal Saline (50mL MB+) 50 ML IV ×4 (00:09→22:00)
[2024-01-01] MEDS: 0.9% Normal Saline (1000mL) 1,000 ML 999 ML IV (00:38)
[2024-01-01 01:09] LABS: Partial Thromboplast Time 49.2 Seconds (24.1-36.2)
--- NOTE | 2024-01-01 01:17 | PCM.RX.CS ---
Consult Antibiotic Management Pharmacy has been consulted to manage selected antibiotic: Vancomycin Type of Intervention Type of Consult: New start Suspected Infection Suspected Infection: Sepsis and Pneumonia Labs Labs: Sodium 141 mmol/L (136-145) 12/31/23 18:10 Potassium 5.2 mmol/L (3.5-5.1) H 12/31/23 18:10 Chloride 107 mmol/L (98-107) 12/31/23 18:10 Carbon Dioxide 28.0 mmol/L (21.0-32.0) 12/31/23 18:10 Anion Gap 6 (5-15) 12/31/23 18:10 BUN 34 mg/dL (7-18) H 12/31/23 18:10 Creatinine 0.97 mg/dL (0.70-1.30) 12/31/23 18:10 Est GFR (MDRD) Af Amer 98 mL/min (>60) 12/31/23 18:10 Est GFR (MDRD) Non-Af 81 mL/min (>60) 12/31/23 18:10 BUN/Creatinine Ratio 35.1 RATIO (10-20) H 12/31/23 18:10 Glucose 338 mg/dL (74-106) H 12/31/23 18:10 Microbiology Microbiology: Microbiology 12/31/23 19:22 Mucosa - Nose SARS-CoV-2, Influenza & RSV (PCR) - Final Dosing Weight Weight used for dosin kg Estimated Creatinine Clearance Estimated Creatinine Clearance: 74 Goal Trough Goal Trough: 15-20 mcg/mL Pharmacy Plan for Drug Dosing Pharmacy Plan for Drug Dosing: Pharmacy Service will continue to monitor and adjust dosing as required. Follow-Up Labs Follow-Up Labs: Trough: Vancomycin Date/Time Labs Ordered Labs to be done on [date and time ordered]: 01/02/24 @0800
[2024-01-01] MEDS: fentaNYL drip 100 ML 17.5 MCG CONT INF ×5 (01:29→23:55)
[2024-01-01] MEDS: Heparin Injection (Vial) 5,000 UNIT/ML VIAL 5000 UNIT IV (01:30)
[2024-01-01] MEDS: Insulin Lispro 100 UNIT/ML INSULN.PEN SC ×5 (01:35→21:57)
[2024-01-01 01:48] LABS: Bedside Glucose 213 mg/dL (74-106)
[2024-01-01] MEDS: Ipratropium/Albuterol Sulfate 3 ML AMPUL.NEB INHALATION ×6 (02:18→23:00)
[2024-01-01 04:14] LABS: Absolute Lymphocyte Count 0.56 X10^3/uL (0.83-4.51); Absolute Neutrophil Count 19.2 X10^3/uL (2.0-7.7); Basophil# 0.03 X10^3/uL; Basophil% 0.1 % (0-1); Hematocrit 34.2 % (40-54); Hemoglobin 10.4 g/dL (13.0-16.5); Lymphocyte # 0.56 X10^3/ul (0.83-4.51); Lymphocyte % 2.6 % (19-41); Mean Corp Hgb Conc 30.4 g/dL (32-36); Mean Corpuscular Hgb 30.1 pg (27.0-32.0); Mean Corpuscular Volume 99.1 fL (80-94); Mean Platelet Vol. 10.7 fl (6.2-12.0); Monocyte# 1.24 X10^3/uL; Monocyte% 5.9 % (0-10); NRBC Flagged by Analyzer 0 % (0-5); Neutrophil # 19.21 X10^3/uL (2.7-7.7); Neutrophil % 90.7 % (47-70); POSITIVE DIFFERENTIAL YES; Platelet Count 288 K/mm3 (150-450); RBC Distribution Width CV 16.2 % (11.6-14.6); RBC Distribution Width SD 58.6 fl (35.1-43.9); Red Blood Count 3.45 M/mm3 (4.6-6.2); White Blood Count 21.2 K/mm3 (4.4-11.0)
[2024-01-01] MEDS: 0.9% Saline Lock 10 ML Syringe IV ×3 (04:27→21:57)
[2024-01-01 04:37] LABS: Anion Gap 2 (5-15); BUN 30 mg/dL (7-18); BUN/Creat Ratio 41.7 RATIO (10-20); Calcium,Total 7.7 mg/dL (8.5-10.1); Chloride 113 mmol/L (98-107); Creatinine, Serum 0.72 mg/dL (0.70-1.30); EST Glomerular Filtration Rate 114 mL/min (>60); Est Glom Filt Rate - Afr Amer 138 mL/min (>60); Estimated Creatinine Clearance 87.45 ml/min; Glucose 215 mg/dL (74-106); Magnesium 1.8 mg/dL (1.6-2.6); Phosphorus 3.6 mg/dL (2.5-4.9); Potassium 3.8 mmol/L (3.5-5.1); Sodium Level 141 mmol/L (136-145)
[2024-01-01] MEDS: Norepinephrine 8 MG in 0.9% Normal Saline (250mL Bag) 242 ML 9.40000000000000036 MG CONT INF (04:37)
[2024-01-01 04:38] LABS: BNP,B-Type NATRIURETIC PEPTIDE 595.4 pg/mL (0-100)
[2024-01-01 05:23] LABS: Base Excess -2 mmol/L (-2 to +2); Bicarbonate 23.5 mmol/L (22-26); Blood Gas Specimen Type ART; Mode AC; O2 Delivery Device Adult Vent; PEEP 5; PO2 73 mmHG (75-100); RR 16; SITE L Radial; SO2 94 % (95-99); Total Carbon Dioxide 25 mmol/L; pH 7.35 (7.35-7.45)
--- NOTE | 2024-01-01 05:55 | RAD_ITS ---
EXAM: XR CHEST, 1 VIEW CLINICAL INDICATION: PNA with AE COPD TECHNIQUE: Frontal view of the chest. COMPARISON: December 31, 2023. FINDINGS: LUNGS AND PLEURAL SPACES: Increased hazy opacity in the right mid to lower lung field and decreased lung base volumes. Mild vascular crowding and mild airway thickening in the left lung base. Mildly prominent perihilar vessels and similar mild increased interstitial markings in the upper-mid lung velázquez. No pneumothorax. No effusion. HEART: Unremarkable. Cardiac silhouette not enlarged. MEDIASTINUM: Central airways and mediastinal contour are unremarkable. BONES/JOINTS: Postoperative changes of the thoracic spine are again noted. No acute fracture. SOFT TISSUES: Unremarkable. TUBES, LINES AND DEVICES: Enteric tube tip is at least slightly within the stomach, not fully included. Endotracheal tube tip roughly 3.1 cm superior to the cyril bifurcation, adequately positioned. OTHER FINDINGS: The patient is mildly rotated to the right, reportedly upright exam but likely incompletely upright. RAD/Chest 1 View (Portable) IMPRESSION: Decreased lung volumes and patient rotation. Mild increased apparent hazy opacities in the right infrahilar-lower lung velázquez. Otherwise stable chest. Electronically Signed: Tere Mcgovern MD at 7:38 EST ,
[2024-01-01 06:36] LABS: Bedside Glucose 191 mg/dL (74-106)
--- NOTE | 2024-01-01 06:42 | PN.CC_ITS ---
Assessment & Plan Assessment/Plan (1) COPD (chronic obstructive pulmonary disease): QUALIFIERS: COPD type: unspecified COPD Qualified Code(s): J44.9 - Chronic obstructive pulmonary disease, unspecified PLAN: Plan RECOMMENDATIONS: 1. Continue assist-control mode of mechanical ventilation. Wean FiO2 for saturations greater than 90%. 2. Continue Levophed to maintain a mean arterial pressure at or above 65 mmHg. 3. Continue empiric broad-spectrum antimicrobials. 4. Continue bronchodilators and steroids. 5. Obtain echocardiogram. 6. Continue heparin infusion. However, if okay from cardiology standpoint, medication can be discontinued. 7. Continue nicotine replacement therapy as ordered. 8. Continue appropriate ICU prophylaxis. IMPRESSIONS: 1. Acute on chronic combined respiratory failure The patient has an apparent history of COPD with a baseline 2 L/min oxygen requirement. He presented to the emergency department with shortness of breath and was subsequently intubated. The patient was just recently discharged from the hospital after having been admitted with a COPD exacerbation secondary to pneumonia. He was ultimately treated with Levaquin. Chest imaging continues to demonstrate patchy bilateral infiltrates. Rapid COVID, influenza and RSV were negative. Cultures are pending. At this time, I agree with continuing empiric broad-spectrum antimicrobials. Plan to continue scheduled bronchodilators and steroids. The patient will remain on assist-control mode of mechanical ventilation. Plan for daily paired spontaneous awakening and breathing trials beginning tomorrow. 2. Elevated troponin Most likely secondary to demand ischemia in the setting #1. Cardiology is currently following. Plan to obtain echocardiogram. 3. History of congestive heart failure/diabetes mellitus/hypertension/CVA/tobacco dependency/recent hospitalization for COPD Complicates care, management, recovery and prognosis. Continue supportive care as noted above. TIME: 42 minutes of critical care time, independent of procedures, was spent addre ssing the patient's acute on chronic combined respiratory failure, troponin elevation, review of all data and collaboration with the care team. Subjective Subjective The patient was seen and examined at the bedside this morning. Events from the last 24 hours have been reviewed. The patient is currently afebrile. He paulie ins on Levophed at 5 mcg/min to maintain hemodynamic stability. The patient is sedated on a combination of propofol and fentanyl. FiO2 requirement is stable 35%. The patient is documented to be overall net +4.4 L for the hospitalization. White blood cell count is elevated at 21,000. BNP is incr eased to 595. Objective Data Objective Data The patient's most recent lab work, culture data and imaging studies have all be en personally reviewed. Surface echocardiogram completed in August 2023 demonstrated moderate concentric LVH with an ejection fraction of 60% and stage I diastolic dysfunction. There was noted at that time of an echogenic mobile structure as part of the papillary muscle or a possible torn mid cavitary tendon. Vital Signs: Vital Signs Temp Pulse Resp BP Pulse Ox O2 Del Method FiO2 97.8 F 66 16 91/54 L 97 Mechanical Ventilator 35 01/01/24 05:00 01/01/24 06:00 01/01/24 06:00 01/01/24 06:00 01/01/24 06:00 01/01/24 06:00 01/01/24 06:00 Oxygen Delivery Method Mechanical Ventilator Weight: 163 lb 2.273 oz Body Mass Index (BMI) 22.8 Intake & Output: Intake and Output for Last 24 Hours 12/30/23 12/31/23 01/01/24 23:59 23:59 23:59 Intake Total 2924.68 / 3000.81 2087.81 / 2087.81 Output Total 730 / 730 Balance 2924.68 / 2700.81 1357.81 / 1357.81 Lab / Micro Data Attestation: I reviewed the patient's lab results. 01/01/24 04:07 01/01/24 04:07 Labs: Laboratory Results - last 24 hr 12/31/23 18:10: WBC 25.8 H, RBC 4.63, Hgb 14.1, Hct 46.6, MCV 100.6 H, MCH 30.5, MCHC 30.3 L, RDW Std Deviation 61.0 H, RDW Coeff of Lauri 16.2 H, Plt Count 436, MPV 10.9, Immature Gran % (Auto) 0.800, Neut % (Auto) 87.5 H, Lymph % (Auto) 5.5 L, [place] % (Auto) 6.0, Eos % (Auto) 0.0, Baso % (Auto) 0.2, Absolute Neuts (auto) 22.6 H, Absolute Lymphs (auto) 1.43, Nucleated RBC % 0, Differential Comment SCANNED, Diff Path Review March, Sodium 141, Potassium 5.2 H, Chloride 107, Carbon Dioxide 28.0, Anion Gap 6, BUN 34 H, Creatinine 0.97, Estim Creat Clear Calc 74.39, Est GFR (MDRD) Af Amer 98, Est GFR (MDRD) Non-Af 81, BUN/Creatinine Ratio 35.1 H, Glucose 338 H, Lactic Acid 3.5 H*, Calcium 9.4, Total Creatine Kinase 86, Troponin I High Sens 121 H*, B-Natriuretic Peptide 914.6 H, Triglycerides 135 12/31/23 22:10: Lactic Acid 0.7 01/01/24 00:55: APTT 49.2 H 01/01/24 01:27: POC Glucose 213 H 01/01/24 04:07: WBC 21.2 H, RBC 3.45 L, Hgb 10.4 L, Hct 34.2 L, MCV 99.1 H, MCH 30.1, MCHC 30.4 L, RDW Std Deviation 58.6 H, RDW Coeff of Lauri 16.2 H, Plt Count 288, MPV 10.7, Immature Gran % (Auto) 0.700, Neut % (Auto) 90.7 H, Lymph % (Auto) 2.6 L, [place] % (Auto) 5.9, Eos % (Auto) 0.0, Baso % (Auto) 0.1, Absolute Neuts (auto) 19.2 H, Absolute Lymphs (auto) 0.56 L, Nucleated RBC % 0, Sodium 141, Potassium 3.8, Chloride 113 H, Carbon Dioxide 26.0, Anion Gap 2 L, BUN 30 H , Creatinine 0.72, Estim Creat Clear Calc 87.45, Est GFR (MDRD) Af Amer 138, Est GFR (MDRD) Non-Af 114, BUN/Creatinine Ratio 41.7 H, Glucose 215 H, Calcium 7.7 L , Phosphorus 3.6, Magnesium 1.8, B-Natriuretic Peptide 595.4 H 01/01/24 05:42: POC Glucose 191 H Micro: Microbiology 12/31/23 19:22 Mucosa - Nose SARS-CoV-2, Influenza & RSV (PCR) - Final ABG Data ABG results: ABG 12/31/23 12/31/23 01/01/24 18:52 20:44 05:18 Specimen Type ART ART ART Sample Site R Radial R Radial L Radial pH 7.07 L* 7.26 L 7.35 Bicarbonate Actual 25.0 23.4 23.5 Total CO2 28 25 25 Base Excess -5 L -4 L -2 O2 Saturation 100 H 95 94 L O2 % 100.0 30.0 35.0 ABG pCO2 85.7 H* 52.7 H 43.0 ABG pO2 427 H* 89 73 L Tito Test Positive Positive N/A Respiration Rate 14 16 16 O2 Delivery Device ET Tube ET Tube Adult Vent Vent Mode AC AC AC Tidal Volume 450.0 500.0 500.0 POC PEEP 5 5 5 Crit Call To/Read Back Yes Blood Gas Notified Time 18:53:56 Radiography Diagnostic Testing: Radiology Impression Brain CT 12/31/23 18:10 IMPRESSION: There are no acute findings. Electronically Signed: Killian Louis MD at 20:45 EST , Cervical Spine CT 12/31/23 18:11 IMPRESSION: Degenerative changes of the cervical spine. There are no acute findings. Electronically Signed: Killian Louis MD at 20:46 EST , Chest X-Ray 12/31/23 18:15 IMPRESSION: There has been no change in the appearance of the chest since the prior study. Electronically Signed: Killian Louis MD at 18:43 EST , Physical Exam Const Constitutional Narrative: Intubated, sedated and mechanically ventilated. No ventilator dyssynchrony noted. HEENT normocephalic and head/scalp atraumatic Mouth: endotracheal tube in place and OG tube in place Eyes PERRL, EOMs intact bilaterally and conjunctivae normal Neck supple General: trachea midline Chest inspection of chest normal Resp Auscultation: diminished lung sounds Cardio regular rate and regular rhythm GI normal to inspection, nondistended, normoactive bowel sounds Extremity no clubbing, cyanosis or edema Skin no rashes or lesions noted Neuro Sensorium / Orientation: sedated on vent Charges/Coding Procedures Hospitalists Procedures: [id number] Critical Care 1st Hr
--- NOTE | 2024-01-01 07:34 | PCM.PN.HOSP ---
Reason for Visit Reason for Visit: Diagnoses Hyperkalemia (12/31/23) Pneumonia, unspecified organism (12/31/23) Chronic obstructive pulmonary disease, unspecified (12/31/23) Other specified abnormal findings of blood chemistry (12/31/23) Subjective Subjective Patient is a 73-year-old gentleman admitted with progressive shortness of breath. An assessment of acute hypoxic and hypercapnic respiratory failure with metabolic encephalopathy made. Patient was intubated and admitted to the ICU Objective Data Objective Data Vital Signs: Vital Signs Temp Pulse Resp BP Pulse Ox O2 Del Method FiO2 98.6 F 67 16 89/58 L 98 Mechanical Ventilator 35 01/01/24 07:00 01/01/24 07:00 01/01/24 07:00 01/01/24 07:00 01/01/24 07:00 01/01/24 07:00 01/01/24 07:00 Oxygen Delivery Method Mechanical Ventilator Weight: 74 kg Body Mass Index (BMI) 22.8 Intake & Output: Intake and Output for Last 24 Hours 12/30/23 12/31/23 01/01/24 23:59 23:59 23:59 Intake Total 2924.68 / 3000.81 2124.19 / 2124.19 Output Total 730 / 730 Balance 2924.68 / 2700.81 1394.19 / 1394.19 Lab / Micro Data 01/01/24 04:07 01/01/24 04:07 Labs: Laboratory Results - last 24 hr 12/31/23 18:10: WBC 25.8 H, RBC 4.63, Hgb 14.1, Hct 46.6, MCV 100.6 H, MCH 30.5, MCHC 30.3 L, RDW Std Deviation 61.0 H, RDW Coeff of Lauri 16.2 H, Plt Count 436, MPV 10.9, Immature Gran % (Auto) 0.800, Neut % (Auto) 87.5 H, Lymph % (Auto) 5.5 L, [place] % (Auto) 6.0, Eos % (Auto) 0.0, Baso % (Auto) 0.2, Absolute Neuts (auto) 22.6 H, Absolute Lymphs (auto) 1.43, Nucleated RBC % 0, Differential Comment SCANNED, Diff Path Review March, Sodium 141, Potassium 5.2 H, Chloride 107, Carbon Dioxide 28.0, Anion Gap 6, BUN 34 H, Creatinine 0.97, Estim Creat Clear Calc 74.39, Est GFR (MDRD) Af Amer 98, Est GFR (MDRD) Non-Af 81, BUN/Creatinine Ratio 35.1 H, Glucose 338 H, Lactic Acid 3.5 H*, Calcium 9.4, Total Creatine Kinase 86, Troponin I High Sens 121 H*, B-Natriuretic Peptide 914.6 H, Triglycerides 135 12/31/23 22:10: Lactic Acid 0.7 01/01/24 00:55: APTT 49.2 H 01/01/24 01:27: POC Glucose 213 H 01/01/24 04:07: WBC 21.2 H, RBC 3.45 L, Hgb 10.4 L, Hct 34.2 L, MCV 99.1 H, MCH 30.1, MCHC 30.4 L, RDW Std Deviation 58.6 H, RDW Coeff of Lauri 16.2 H, Plt Count 288, MPV 10.7, Immature Gran % (Auto) 0.700, Neut % (Auto) 90.7 H, Lymph % (Auto) 2.6 L, [place] % (Auto) 5.9, Eos % (Auto) 0.0, Baso % (Auto) 0.1, Absolute Neuts (auto) 19.2 H, Absolute Lymphs (auto) 0.56 L, Nucleated RBC % 0, Sodium 141, Potassium 3.8, Chloride 113 H, Carbon Dioxide 26.0, Anion Gap 2 L, BUN 30 H, Creatinine 0.72, Estim Creat Clear Calc 87.45, Est GFR (MDRD) Af Amer 138, Est GFR (MDRD) Non-Af 114, BUN/Creatinine Ratio 41.7 H, Glucose 215 H, Calcium 7.7 L, Phosphorus 3.6, Magnesium 1.8, B-Natriuretic Peptide 595.4 H 01/01/24 05:42: POC Glucose 191 H Micro: Microbiology 12/31/23 19:22 Mucosa - Nose SARS-CoV-2, Influenza & RSV (PCR) - Final ABG Data ABG results: ABG 12/31/23 12/31/23 01/01/24 18:52 20:44 05:18 Specimen Type ART ART ART Sample Site R Radial R Radial L Radial pH 7.07 L* 7.26 L 7.35 Bicarbonate Actual 25.0 23.4 23.5 Total CO2 28 25 25 Base Excess -5 L -4 L -2 O2 Saturation 100 H 95 94 L O2 % 100.0 30.0 35.0 ABG pCO2 85.7 H* 52.7 H 43.0 ABG pO2 427 H* 89 73 L Tito Test Positive Positive N/A Respiration Rate 14 16 16 O2 Delivery Device ET Tube ET Tube Adult Vent Vent Mode AC AC AC Tidal Volume 450.0 500.0 500.0 POC PEEP 5 5 5 Crit Call To/Read Back Yes Blood Gas Notified Time 18:53:56 Radiography Diagnostic Testing: Radiology Impression Brain CT 12/31/23 18:10 IMPRESSION: There are no acute findings. Electronically Signed: Killian Louis MD at 20:45 EST , Cervical Spine CT 12/31/23 18:11 IMPRESSION: Degenerative changes of the cervical spine. There are no acute findings. Electronically Signed: Killian Louis MD at 20:46 EST , Chest X-Ray 12/31/23 18:15 IMPRESSION: There has been no change in the appearance of the chest since the prior study. Electronically Signed: Killian Louis MD at 18:43 EST , Physical Exam Narrative GENERAL: Sedated on the vent HEENT: Atraumatic; normocephalic EYES; Anicteric, Normal Conjunctiva NECK; supple, normal thyroid, RESPIRATORY: Diminished to auscultation CARDIOVASCULAR: Regular S1 S2, GI: soft, normoactive bowel sounds, : No Renal angle tenderness; EXTREMITIES: No edema, no clubbing, MUSCULOSKELETAL: no muscle wasting NEURO: Sedated on the vent SKIN: No Rash Assessment & Plan Assessment/Plan (1) Pneumonia: QUALIFIERS: Laterality: bilateral Lung location: unspecified part of lung Pneumonia type: due to unspecified organism Qualified Code(s): J18.9 - Pneumonia, unspecified organism (2) COPD (chronic obstructive pulmonary disease): QUALIFIERS: COPD type: unspecified COPD Qualified Code(s): J44.9 - Chronic obstructive pulmonary disease, unspecified (3) Elevated troponin: (4) Hyperkalemia: PLAN: Plan Patient is a 73-year-old gentleman admitted with progressive shortness of breath. An assessment of acute hypoxic and hypercapnic respiratory failure with metabolic encephalopathy made. Patient was intubated and admitted to the intensive care unit 1. Acute hypoxic and hypercapnic respiratory failure ? Secondary to pneumonia with suspected multidrug-resistant organisms. Patient was intubated admitted to the intensive care unit with consultation placed to pulmonary/intensive care for ICU management 2. Septic shock ? Secondary to pneumonia with suspected multidrug resistant organisms patient treated per protocol with broad-spectrum antibiotic therapy fluids as well as cultures been sent. Patient currently on pressors with Levophed 3. COPD with acute exacerbation ? Patient was found to have severe CO2 narcosis with pCO2 of 85.7 on admission contributing to patient respiratory failure management as discussed above in addition to systemic steroid 4. Acute metabolic encephalopathy ? Secondary to hypoxia and hypercapnia patient was intubated 5. Elevated troponin ? Suspected to be secondary to myocardial injury monitoring with serial cardiac enzymes 6. Diabetes mellitus type II -patient's oral hypoglycemics held. Placed on long acting insulin, Accu-Cheks every 6. and covered with sliding scale insulin 7. Essential hypertension ? Patient antihypertensives held 8. Mild hyperkalemia ?Resolved 9. Dyslipidemia -Patient is on statin therapy, continued at home dose 10. GERD ? On PPI 11. 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 Anemia - Secondary to chronic disorder monitoring H&H and transfuse if patient becomes symptomatic or hemoglobin falls below 7 13. DVT prophylaxis ? On heparin Time spent in the patient's overall evaluation,decision-making process, review of diagnostic data, adjustment of management, discussion with other providers, nursing nursing and ancillary staff involved in patient's care documentation, 50 minutes Charges/Coding Visit Charges Inpatient E&M: [id number] [place] [id number]
--- NOTE | 2024-01-01 08:20 | ECHOD_ITS ---
Reason For Study: Murmur Procedure This was a 2D Doppler, Color Flow transthoracic echocardiogram. Exam performed portable in ICU/CCU. Left Ventricle Normal LV size. Mild concentric left ventricular hypertrophy. The left ventricular ejection fraction is 60 %. Right Ventricle Normal right ventricle. Atria The left atrium is severely enlarged. The right atrium is mildly enlarged. Mitral Valve Severe mitral annular calcification. Consider severed mitral valve cord mid left ventricular cavity. Unchanged from the study on 09/05/2023. Recommend transesophageal echocardiogram for further evaluation if clinically indicated. Mild mitral valve stenosis. Moderate to severe eccentric mitral regurgitation noted. Tricuspid Valve Mild tricuspid valve insufficiency. Right ventricular systolic pressure estimated to be 42 mmHg. Aortic Valve Mild diffuse aortic valve calcification. Mild aortic stenosis. Pulmonic Valve The pulmonic valve is not well visualized. Great Vessels Normal sized aortic root. Pericardium/Pleural No pericardial effusion. MMode/2D Measurements & Calculations LVIDd: 4.7 cm IVSd: 1.2 cm LVOT diam: 2.2 cm LVIDs: 2.5 cm LVPWd: 1.2 cm LVOT area: 3.8 cm2 RVDd: 3.5 cm FS: 47.0 % Ao root diam: 3.3 cm LAV(MOD-bp): 111.0 ml LVAd ap4: 32.6 cm2 LAV(MOD-bp) Indexed: 58.0 ml/m2 LVLd ap4: 8.2 cm LAV(MOD-sp2): 124.9 ml EDV(MOD-sp4): 106.8 ml LAV(MOD-sp4): 86.6 ml EDV(sp4-el): 110.2 ml LVAs ap4: 19.6 cm2 LVLs ap4: 6.9 cm ESV(MOD-sp4): 45.9 ml ESV(sp4-el): 46.8 ml EF(MOD-sp4): 57.1 % EF(sp4-el): 57.5 % LVAd ap2: 32.9 cm2 SV(MOD-sp4): 60.9 ml SV(MOD-sp2): 63.0 ml LVLd ap2: 7.9 cm EDV(MOD-sp2): 114.3 ml EDV(sp2-el): 116.1 ml LVAs ap2: 20.8 cm2 LVLs ap2: 7.1 cm ESV(MOD-sp2): 51.2 ml ESV(sp2-el): 52.0 ml EF(MOD-sp2): 55.2 % SV(sp4-el): 63.3 ml LA dimension(2D): 4.7 cm LA A4 area: 28.0 cm2 RA A4 area: 18.4 cm2 TAPSE: 2.0 cm Doppler Measurements & Calculations MV E max landen: 183.8 cm/sec Lat Peak E' Landen: 5.1 cm/sec Med Peak E' Landen: 4.6 cm/sec MV A max landen: 138.9 cm/sec E/E' lat: 36.2 E/E' med: 40.2 MV E/A: 1.3 MV V2 max: 201.6 cm/sec MV P1/2t max landen: 196.1 cm/sec Ao V2 max: 278.6 cm/sec MV max P.3 mmHg MV P1/2t: 96.7 msec Ao max P.1 mmHg MV V2 mean: 118.6 cm/sec MV dec slope: 594.0 cm/sec2 Ao V2 mean: 185.9 cm/sec MV mean P.3 mmHg Ao mean P.8 mmHg MV V2 VTI: 57.9 cm MVA(P1/2t): 2.3 cm2 Ao V2 VTI: 53.3 cm MVA(VTI): 1.5 cm2 AV (velocity ratio): 0.42 NEWTON(I,D): 1.6 cm2 NEWTON(V,D): 1.7 cm2 LV V1 max: 123.4 cm/sec SV(LVOT): 84.4 ml PA V2 max: 94.1 cm/sec LV V1 max P.1 mmHg LV V1 mean P.9 mmHg LV V1 mean: 78.2 cm/sec LV V1 VTI: 22.2 cm TR max landen: 263.2 cm/sec TR max P.7 mmHg ECHO/Echo Complete Interpretation Summary Mild concentric left ventricular hypertrophy. The left ventricular ejection fraction is 60 %. The left atrium is severely enlarged. The right atrium is mildly enlarged. Severe mitral annular calcification. Mild mitral valve stenosis. Moderate to severe eccentric mitral regurgitation noted Consider severed mitral valve cord mid left ventricular cavity. Unchanged from the study on 09/05/2023. Recommend transesophageal echocardiogram for further evaluation if clinically indicated. Mild tricuspid valve insufficiency. Right ventricular systolic pressure estimated to be 42 mmHg. Mild aortic stenosis. Ordering Physician: Moris Holm Referring Physician: Rd Rivers Performed By: Sandra Rosa, BEA
--- NOTE | 2024-01-01 08:25 | PCM.CONS.C ---
Assessment & Plan Assessment/Plan (1) Elevated troponin: PLAN: The troponins are trending down from his previous admission December 30, 2023. He has mild coronary disease by left heart catheterization in August 2023. From a cardiovascular standpoint is unlikely that IV full dose heparin is indicated at this time. Further anticoagulation will be deferred to the ICU team. (2) Pneumonia: QUALIFIERS: Pneumonia type: due to unspecified organism Laterality: bilateral Lung location: unspecified part of lung Qualified Code(s): J18.9 - Pneumonia, unspecified organism PLAN: Continue current medical therapy per the ICU team. (3) Hypoxemia: PLAN: The patient is currently mechanically ventilated he is sedated. Further treatment and ventilatory management will be per the ICU team. (4) Mitral valve insufficiency: QUALIFIERS: Cardiac valve disease etiology: nonrheumatic Qualified Code(s): I34.0 - Nonrheumatic mitral (valve) insufficiency PLAN: The patient's last echocardiogram August 2023 revealed 1-2+ MR. There is a murmur consistent with mitral regurgitation at the apex that radiates toward the left axilla. There was a question of a partially torn or torn chordae tendon this will be reevaluated with 2D echocardiography. PLAN: Plan 1. Continue current aggressive medical management per the ICU team. 2. 2D echocardiogram to evaluate the valvular heart disease. HPI Consult Data Date of Consult: 01/01/24 HPI Narrative Reason for Consultation: Elevated Troponins HPI Narrative: RAHEL NICHOLS, is a 73 M who presents to the emergency department with COPD exacerbation and a right lower lobe pneumonia. The patient presented hypercapnic and hypoxic. He is was recently discharged on 12/31/2023 and returned within several hours. The initial admission the patient was treated for right lower lobe pneumonia he had troponins that are now continue to trend downward. These troponins were felt to be related to demand type ischemic burden. The patient does have a history of mitral valve regurgitation related to a presumed torn chordae. The patient's BNP is also elevated at 900. The patient had a left heart catheterization August 2023 which showed mild coronary disease and normal LV systolic function. An echocardiogram done September 18 showed a mobile mass that appeared to be along the chordae that appeared to be a ruptured chordae. There was 1-2+ mitral regurgitation noted. This was not felt to be a vegetation. The patient is currently intubated and sedated. The current information was obtained from the nursing staff and reviewing the chart. [facility] Medical History Acute hypoxic respiratory failure Anxiety BPH (benign prostatic hyperplasia) CHF (congestive heart failure) COPD (chronic obstructive pulmonary disease) COVID-19 Depression Diabetes mellitus, type 2 Hyperlipidemia Hypertension Iron deficiency Kidney disease Kidney stones Mitral valve insufficiency Nonobstructive atherosclerosis of coronary artery Smoker Stroke/cerebrovascular accident Tobacco use Home Medications metformin 500 mg tablet 1,000 mg PO BIDCM DIABETES 04/26/16 [History Last Taken 09/04/23] albuterol sulfate 90 mcg/actuation aerosol inhaler 2 inh inhalation Q6H PRN shortness of breath or wheezing 09/04/23 [History Last Taken 09/04/23] fluticasone fur. 100 mcg-umeclid 62.5 mcg-vilant 25 mcg inhalat.powder (Trelegy Ellipta) 1 inh inhalation DAILY SHORTNESS OF BREATH 09/04/23 [History Last Taken 09/04/23] spironolactone 25 mg tablet 25 mg PO DAILY BLOOD PRESSURE 09/04/23 [History Last Taken Unknown] aspirin 81 mg tablet,delayed release 81 mg PO BREAKFAST #0 tabs 09/05/23 [Rx Last Taken 10/23/23] atorvastatin 40 mg tablet 40 mg PO QHS #30 tabs 09/05/23 [Rx Last Taken Unknown] lisinopril 10 mg tablet 10 mg PO DAILY #30 tabs 09/05/23 [Rx Last Taken Unknown] metoprolol succinate 50 mg capsule sprinkle, ext. release 24 hr 50 mg PO DAILY #30 ea 09/05/23 [Rx Last Taken Unknown] nicotine 21 mg/24 hr daily transdermal patch 21 mg transdermal DAILY #30 ea 09/05/23 [Rx Last Taken Unknown] dapagliflozin propanediol 10 mg tablet (Farxiga) 10 mg PO DAILY HEART FAILURE 09/18/23 [History Last Taken Unknown] ferrous sulfate 325 mg (65 mg iron) tablet (FeroSul) 325 mg PO DAILYCM #0 tabs 10/24/23 [Rx Last Taken Unknown] pantoprazole 40 mg tablet,delayed release 40 mg PO DAILY 12/30/23 [History Last Taken Unknown] guaifenesin 600 mg tablet, extended release 12 hr 600 mg PO BID #10 tabs 12/31/23 [Rx Last Taken Unknown] levofloxacin 750 mg tablet 750 mg PO DAILY #5 tabs 12/31/23 [Rx Last Taken Unknown] Allergy/AdvReac Type Severity Reaction Status Date / Time No Known Allergies Allergy Verified 12/31/23 17:57 Family History Other Diabetes Heart disease Surgical History History of appendectomy Status post appendectomy Social History Smoking Status: Current every day smoker tobacco type: cigarettes alcohol intake: current alcohol intake frequency: holidays/special occasions only substance use type: does not use Prior Cardiac Testing/Procedures Prior Cardiac Testing/Procedures: Echocardiogram and Cardiac Angiogram ROS Review of Systems ROS Unobtainable: due to endotracheal tube Physical Exam Narrative The patient is intubated and sedated. Const General Appearance: other The patient is restrained with soft restraints and endotracheal tube is in place. HEENT normocephalic Neck no carotid bruits Chest inspection of chest normal Resp Auscultation: rhonchi throughout Cardio regular rate, regular rhythm, S1 normal heart sound, S2 normal heart sound, no rub and no gallops Heart Sounds: murmur systolic II/ harsh apex GI normal to inspection, nondistended, normoactive bowel sounds Extremity no pedal edema Skin General Skin Exam: ecchymosis Neuro Neuro Narrative: Sedated Psych Psych Narrative: Sedated Risk Stratification Risk Stratification Applicable: No Charges/Coding Visit Charges Inpatient E&M: 57511 Init Hosp L3 Objective Data Vital Signs: Vital Signs Temp Pulse Resp BP Pulse Ox O2 Del Method FiO2 98.6 F 71 16 89/58 L 95 Mechanical Ventilator 30 01/01/24 07:00 01/01/24 07:45 01/01/24 07:45 01/01/24 07:00 01/01/24 07:45 01/01/24 07:00 01/01/24 07:45 Oxygen Delivery Method Mechanical Ventilator Weight: 163 lb 2.273 oz Body Mass Index (BMI) 22.8 Intake & Output: Intake and Output for Last 24 Hours 12/30/23 12/31/23 01/01/24 23:59 23:59 23:59 Intake Total 2924.68 / 3000.81 2124.19 / 2124.19 Output Total 730 / 730 Balance 2924.68 / 2700.81 1394.19 / 1394.19 Lab / Micro Data Attestation: I reviewed the patient's lab results. 01/01/24 04:07 01/01/24 04:07 Labs: Laboratory Results - last 24 hr 12/31/23 18:10: WBC 25.8 H, RBC 4.63, Hgb 14.1, Hct 46.6, MCV 100.6 H, MCH 30.5, MCHC 30.3 L, RDW Std Deviation 61.0 H, RDW Coeff of Lauri 16.2 H, Plt Count 436, MPV 10.9, Immature Gran % (Auto) 0.800, Neut % (Auto) 87.5 H, Lymph % (Auto) 5.5 L, [place] % (Auto) 6.0, Eos % (Auto) 0.0, Baso % (Auto) 0.2, Absolute Neuts (auto) 22.6 H, Absolute Lymphs (auto) 1.43, Nucleated RBC % 0, Differential Comment SCANNED, Diff Path Review March, Sodium 141, Potassium 5.2 H, Chloride 107, Carbon Dioxide 28.0, Anion Gap 6, BUN 34 H, Creatinine 0.97, Estim Creat Clear Calc 74.39, Est GFR (MDRD) Af Amer 98, Est GFR (MDRD) Non-Af 81, BUN/Creatinine Ratio 35.1 H, Glucose 338 H, Lactic Acid 3.5 H*, Calcium 9.4, Total Creatine Kinase 86, Troponin I High Sens 121 H*, B-Natriuretic Peptide 914.6 H, Triglycerides 135 12/31/23 22:10: Lactic Acid 0.7 01/01/24 00:55: APTT 49.2 H 01/01/24 01:27: POC Glucose 213 H 01/01/24 04:07: WBC 21.2 H, RBC 3.45 L, Hgb 10.4 L, Hct 34.2 L, MCV 99.1 H, MCH 30.1, MCHC 30.4 L, RDW Std Deviation 58.6 H, RDW Coeff of Lauri 16.2 H, Plt Count 288, MPV 10.7, Immature Gran % (Auto) 0.700, Neut % (Auto) 90.7 H, Lymph % (Auto) 2.6 L, [place] % (Auto) 5.9, Eos % (Auto) 0.0, Baso % (Auto) 0.1, Absolute Neuts (auto) 19.2 H, Absolute Lymphs (auto) 0.56 L, Nucleated RBC % 0, Sodium 141, Potassium 3.8, Chloride 113 H, Carbon Dioxide 26.0, Anion Gap 2 L, BUN 30 H, Creatinine 0.72, Estim Creat Clear Calc 87.45, Est GFR (MDRD) Af Amer 138, Est GFR (MDRD) Non-Af 114, BUN/Creatinine Ratio 41.7 H, Glucose 215 H, Calcium 7.7 L, Phosphorus 3.6, Magnesium 1.8, B-Natriuretic Peptide 595.4 H 01/01/24 05:42: POC Glucose 191 H Micro: Microbiology 12/31/23 19:22 Mucosa - Nose SARS-CoV-2, Influenza & RSV (PCR) - Final ABG Data ABG results: ABG 12/31/23 12/31/23 01/01/24 18:52 20:44 05:18 Specimen Type ART ART ART Sample Site R Radial R Radial L Radial pH 7.07 L* 7.26 L 7.35 Bicarbonate Actual 25.0 23.4 23.5 Total CO2 28 25 25 Base Excess -5 L -4 L -2 O2 Saturation 100 H 95 94 L O2 % 100.0 30.0 35.0 ABG pCO2 85.7 H* 52.7 H 43.0 ABG pO2 427 H* 89 73 L Tito Test Positive Positive N/A Respiration Rate 14 16 16 O2 Delivery Device ET Tube ET Tube Adult Vent Vent Mode AC AC AC Tidal Volume 450.0 500.0 500.0 POC PEEP 5 5 5 Crit Call To/Read Back Yes Blood Gas Notified Time 18:53:56 Cardiology Labs/Tests 12/31/23 18:10: WBC 25.8 H, RBC 4.63, Hgb 14.1, Hct 46.6, MCV 100.6 H, MCH 30.5, MCHC 30.3 L, Plt Count 436, MPV 10.9, Immature Gran % (Auto) 0.800, Neut % (Auto) 87.5 H, Lymph % (Auto) 5.5 L, [place] % (Auto) 6.0, Eos % (Auto) 0.0, Baso % (Auto) 0.2, Absolute Neuts (auto) 22.6 H, Nucleated RBC % 0, Sodium 141, Potassium 5.2 H, Chloride 107, Carbon Dioxide 28.0, Anion Gap 6, BUN 34 H, Creatinine 0.97, Est GFR (MDRD) Af Amer 98, Est GFR (MDRD) Non-Af 81, BUN/Creatinine Ratio 35.1 H, Glucose 338 H, Lactic Acid 3.5 H*, Calcium 9.4, B-Natriuretic Peptide 914.6 H, Triglycerides 135 12/31/23 18:52: pH 7.07 L*, Bicarbonate Actual 25.0, Base Excess -5 L, O2 Saturation 100 H, ABG pCO2 85.7 H*, ABG pO2 427 H*, Tito Test Positive 12/31/23 20:44: pH 7.26 L, Bicarbonate Actual 23.4, Base Excess -4 L, O2 Saturation 95, ABG pCO2 52.7 H, ABG pO2 89, Tito Test Positive 12/31/23 22:10: Lactic Acid 0.7 01/01/24 00:55: APTT 49.2 H 01/01/24 04:07: WBC 21.2 H, RBC 3.45 L, Hgb 10.4 L, Hct 34.2 L, MCV 99.1 H, MCH 30.1, MCHC 30.4 L, Plt Count 288, MPV 10.7, Immature Gran % (Auto) 0.700, Neut % (Auto) 90.7 H, Lymph % (Auto) 2.6 L, [place] % (Auto) 5.9, Eos % (Auto) 0.0, Baso % (Auto) 0.1, Absolute Neuts (auto) 19.2 H, Nucleated RBC % 0, Sodium 141, Potassium 3.8, Chloride 113 H, Carbon Dioxide 26.0, Anion Gap 2 L, BUN 30 H, Creatinine 0.72, Est GFR (MDRD) Af Amer 138, Est GFR (MDRD) Non-Af 114, BUN/Creatinine Ratio 41.7 H, Glucose 215 H, Calcium 7.7 L, Phosphorus 3.6, Magnesium 1.8, B-Natriuretic Peptide 595.4 H 01/01/24 05:18: pH 7.35, Bicarbonate Actual 23.5, Base Excess -2, O2 Saturation 94 L, ABG pCO2 43.0, ABG pO2 73 L, Tito Test N/A Rhythm: EKG: ECHO: Stress Test: Cardiac Cath: PCI: CT Surgery: Holter monitor: EPS: PPM: CXR: Chest CT Scan: Radiography Diagnostic Testing: Radiology Impression Brain CT 12/31/23 18:10 IMPRESSION: There are no acute findings. Electronically Signed: Killian Louis MD at 20:45 EST , Cervical Spine CT 12/31/23 18:11 IMPRESSION: Degenerative changes of the cervical spine. There are no acute findings. Electronically Signed: Killian Louis MD at 20:46 EST , Chest X-Ray 12/31/23 18:15 IMPRESSION: There has been no change in the appearance of the chest since the prior study. Electronically Signed: Killian Louis MD at 18:43 EST , Chest X-Ray 01/01/24 05:55 IMPRESSION: Decreased lung volumes and patient rotation. Mild increased apparent hazy opacities in the right infrahilar-lower lung velázquez. Otherwise stable chest. Electronically Signed: Tere Mcgovern MD at 7:38 EST ,
[2024-01-01] MEDS: MethylPREDNISolone 125 MG/2 ML Vial 60 MG IV ×2 (08:27→20:26)
[2024-01-01 08:28] LABS: Partial Thromboplast Time 81.2 Seconds (24.1-36.2)
[2024-01-01] MEDS: Propofol 10MG/Ml 1,000 MG/100 ML Bottle 8.90000000000000036 MG CONT INF ×2 (08:48→17:43)
[2024-01-01] MEDS: Vancomycin IV 1,000 MG/200 ML BAG 200 MG IV ×2 (10:11→20:35)
[2024-01-01] MEDS: Famotidine 200 MG/20 ML MDV 20 MG in 0.9% Normal Saline (Pres. free 8 ML 300 MG IV ×2 (10:14→20:25)
[2024-01-01 10:16] LABS: Bedside Glucose 202 mg/dL (74-106)
[2024-01-01] MEDS: Clopidogrel Bisulfate 75 MG Tablet GT (10:18)
[2024-01-01] MEDS: Doxycycline 100 MG in Dextrose 5%-Water (250mL Bag) 250 ML 250 MG IV ×2 (11:25→20:37)
--- NOTE | 2024-01-01 14:35 | CASEMGMT ---
[facility] Readmission Assessment Index Admission Dates: 12/30/23-12/31/23 Index Admission Diagnosis: RLL PNA, troponin elevated Index Disposition: Home with oxygen set up, HH to be followed up on Monday as referral sent on Monday. Current Admission: 12/31/23 Current Diagnosis: PNA, Sepsis and AE COPD Pt admitted with RLL PNA and elevated troponins, pt declined echo. Pt was dc'd home with oral antibiotics and qualified for 2L of oxygen with activity. [place] [facility] [place] TC to [facility], spoke with Erica, she states pt was set up with portable tank to go home on and a portable concentrator to use until the set up was completed on Monday01/01/24. She is aware pt is hospitalized. Pt presented back to ER same day as dc with PNA, sepsis and AE COPD. Pt is currently vented at 30% with planned SBT to start tomorrow. [facility] to continue to follow pt for dc needs. DC Plan: TBD
[2024-01-01 14:45] LABS: Bedside Glucose 236 mg/dL (74-106)
[2024-01-01 15:00] LABS: Partial Thromboplast Time 56.5 Seconds (24.1-36.2)
--- NOTE | 2024-01-01 17:16 | NURSING ---
daughter here took home xochilt,kathy london & heidi
[2024-01-01 18:29] LABS: Bedside Glucose 151 mg/dL (74-106)
[2024-01-01] MEDS: Atorvastatin Calcium 40 MG Tablet GT (20:25)
[2024-01-01 22:22] LABS: Bedside Glucose 220 mg/dL (74-106)
[2024-01-01] MEDS: HEPARIN/D5w 25,000 UNITS 25,000 UNITS/250 ML IV.SOLN. 10 UNITS CONT INF (23:56)
[2024-01-02] VITALS (39 sets, daily range): BP systolic 95–170; BP diastolic 46–111; PULSE 68–144; RESP 12–20; TEMP 36.6–38.2; O2SAT 81–100; BMI 23.6
[2024-01-02] MEDS: Propofol 10MG/Ml 1,000 MG/100 ML Bottle 13.3000000000000007 MG CONT INF (00:03)
[2024-01-02] MEDS: Insulin Lispro 100 UNIT/ML INSULN.PEN SC ×5 (02:30→23:39)
[2024-01-02] MEDS: Ipratropium/Albuterol Sulfate 3 ML AMPUL.NEB INHALATION ×5 (03:02→23:00)
[2024-01-02 03:37] LABS: Absolute Lymphocyte Count 0.42 X10^3/uL (0.83-4.51); Absolute Neutrophil Count 15.5 X10^3/uL (2.0-7.7); Basophil# 0.01 X10^3/uL; Basophil% 0.1 % (0-1); Hematocrit 34.9 % (40-54); Hemoglobin 10.7 g/dL (13.0-16.5); Lymphocyte # 0.42 X10^3/ul (0.83-4.51); Lymphocyte % 2.5 % (19-41); Mean Corp Hgb Conc 30.7 g/dL (32-36); Mean Corpuscular Volume 97.8 fL (80-94); Mean Platelet Vol. 10.9 fl (6.2-12.0); Monocyte# 0.91 X10^3/uL; Monocyte% 5.4 % (0-10); NRBC Flagged by Analyzer 0 % (0-5); Neutrophil % 91.5 % (47-70); POSITIVE DIFFERENTIAL YES; Platelet Count 287 K/mm3 (150-450); RBC Distribution Width CV 16.4 % (11.6-14.6); RBC Distribution Width SD 59.6 fl (35.1-43.9); Red Blood Count 3.57 M/mm3 (4.6-6.2); White Blood Count 16.9 K/mm3 (4.4-11.0)
[2024-01-02 03:48] LABS: Partial Thromboplast Time 58.2 Seconds (24.1-36.2)
[2024-01-02 03:53] LABS: Anion Gap 4 (5-15); BUN 30 mg/dL (7-18); BUN/Creat Ratio 42.3 RATIO (10-20); Calcium,Total 8.3 mg/dL (8.5-10.1); Chloride 110 mmol/L (98-107); Creatinine, Serum 0.71 mg/dL (0.70-1.30); EST Glomerular Filtration Rate 116 mL/min (>60); Est Glom Filt Rate - Afr Amer 141 mL/min (>60); Estimated Creatinine Clearance 87.45 ml/min; Glucose 186 mg/dL (74-106); Magnesium 2.1 mg/dL (1.6-2.6); Potassium 3.7 mmol/L (3.5-5.1); Sodium Level 140 mmol/L (136-145)
[2024-01-02] MEDS: Piperacil/Tazobactam 3.375 GM in 0.9% Normal Saline (50mL MB+) 50 ML IV ×3 (06:01→20:52)
[2024-01-02] MEDS: 0.9% Saline Lock 10 ML Syringe IV ×2 (06:02→20:54)
[2024-01-02 06:17] LABS: Bedside Glucose 171 mg/dL (74-106)
[2024-01-02 06:18] LABS: Bedside Glucose 170 mg/dL (74-106)
--- NOTE | 2024-01-02 06:58 | PN.CC_ITS ---
Assessment & Plan Assessment/Plan (1) COPD (chronic obstructive pulmonary disease): QUALIFIERS: COPD type: unspecified COPD Qualified Code(s): J44.9 - Chronic obstructive pulmonary disease, unspecified PLAN: Plan RECOMMENDATIONS: 1. Continue assist-control mode of mechanical ventilation. Wean FiO2 for saturations greater than 90%. 2. Continue empiric broad-spectrum antimicrobials. 3. Continue bronchodilators and steroids. 4. Check MRSA screen and discontinue vancomycin, if negative. 5. Transition from propofol to Precedex to facilitate weaning from mechanical ventilation. 6. Continue nicotine replacement therapy as ordered. 7. Initiate tube feeding today. 8. Continue appropriate ICU prophylaxis. IMPRESSIONS: 1. Acute on chronic combined respiratory failure The patient has an apparent history of COPD with a baseline 2 L/min oxygen requirement. He presented to the emergency department with shortness of breath and was subsequently intubated. The patient was just recently discharged from the hospital after having been admitted with a COPD exacerbation secondary to pneumonia. He was ultimately treated with Levaquin. Chest imaging continues to demonstrate patchy bilateral infiltrates. Rapid COVID, influenza and RSV were negative. Cultures are pending. At this time, I agree with continuing empiric broad-spectrum antimicrobials. Plan to continue scheduled bronchodilators and steroids. The patient will remain on assist-control mode of mechanical ventilation. Plan for daily paired spontaneous awakening and breathing trials. 2. Elevated troponin Most likely secondary to demand ischemia in the setting #1. Cardiology is currently following to assist with medical management. 3. History of congestive heart failure/diabetes mellitus/hypertension/CVA/tobacco dependency/recent hospitalization for COPD Complicates care, management, recovery and prognosis. Continue supportive care as noted above. TIME: 33 minutes of critical care time, independent of procedures, was spent addressing the patient's acute on chronic combined respiratory failure, troponin elevation, review of all data and collaboration with the care team. Subjective Subjective The patient was seen and examined at the bedside this morning. Events from the last 24 hours have been reviewed. The patient is currently afebrile, hemodynamically stable and maintaining appropriate oxygen saturations on assist- control mode mechanical ventilation with an FiO2 requirement of 30% and PEEP of 5. The patient failed his spontaneous breathing trial this morning on account of significant tachycardia. He is currently documented to be overall net +4.4 L for the hospitalization. White count has improved to 17,000. Objective Data Objective Data The patient's most recent lab work, culture data and imaging studies have all been personally reviewed. Surface echocardiogram completed in August 2023 demonstrated moderate concentric LVH with an ejection fraction of 60% and stage I diastolic dysfunction. There was noted at that time of an echogenic mobile structure as part of the papillary muscle or a possible torn mid cavitary tendon. Repeat surface echocardiogram from January 01 demonstrated a severely enlarged left atrium with severe mitral annular calcification and a right ventricular systolic pressure of 42 mmHg. Vital Signs: Vital Signs Temp Pulse Resp BP Pulse Ox O2 Del Method FiO2 98.2 F 68 16 102/67 98 Mechanical Ventilator 30 01/02/24 06:00 01/02/24 06:55 01/02/24 06:55 01/02/24 06:30 01/02/24 06:00 01/02/24 06:00 01/02/24 06:00 Oxygen Delivery Method Mechanical Ventilator Weight: 168 lb 13.985 oz Body Mass Index (BMI) 23.6 Intake & Output: Intake and Output for Last 24 Hours 12/31/23 01/01/24 01/02/24 23:59 23:59 23:59 Intake Total 2924.68 / 3000.81 4038.65 / 4055.31 199.97 / 199.97 Output Total 2420 / 2420 330 / 330 Balance 2924.68 / 2700.81 1618.65 / 1635.31 -130.03 / -130.03 Lab / Micro Data Attestation: I reviewed the patient's lab results. 01/02/24 03:30 01/02/24 03:30 Labs: Laboratory Results - last 24 hr 01/01/24 08:00: APTT 81.2 H 01/01/24 09:50: POC Glucose 202 H 01/01/24 14:16: POC Glucose 236 H 01/01/24 14:25: APTT 56.5 H 01/01/24 18:11: POC Glucose 151 H 01/01/24 21:53: POC Glucose 220 H 01/01/24 21:56: APTT 67.0 H 01/02/24 02:28: POC Glucose 171 H 01/02/24 03:30: WBC 16.9 H, RBC 3.57 L, Hgb 10.7 L, Hct 34.9 L, MCV 97.8 H, MCH 30.0, MCHC 30.7 L, RDW Std Deviation 59.6 H, RDW Coeff of Lauri 16.4 H, Plt Count 287, MPV 10.9, Immature Gran % (Auto) 0.500, Neut % (Auto) 91.5 H, Lymph % (Auto) 2.5 L, [place] % (Auto) 5.4, Eos % (Auto) 0.0, Baso % (Auto) 0.1, Absolute Neuts (auto) 15.5 H, Absolute Lymphs (auto) 0.42 L, Nucleated RBC % 0, APTT 58.2 H, Sodium 140, Potassium 3.7, Chloride 110 H, Carbon Dioxide 26.0, Anion Gap 4 L , BUN 30 H, Creatinine 0.71, Estim Creat Clear Calc 87.45, Est GFR (MDRD) Af Amer 141, Est GFR (MDRD) Non-Af 116, BUN/Creatinine Ratio 42.3 H, Glucose 186 H, Calcium 8.3 L, Phosphorus 3.0, Magnesium 2.1 01/02/24 05:59: POC Glucose 170 H Micro: Microbiology 12/31/23 18:15 Urine Catheter - Price Legionella Antigen - Final 12/31/23 18:15 Urine Catheter - Price Streptococcus pneumoniae Antigen (M - Final 12/31/23 19:22 Mucosa - Nose SARS-CoV-2, Influenza & RSV (PCR) - Final ABG Data ABG results: ABG 12/31/23 12/31/23 01/01/24 18:52 20:44 05:18 Specimen Type ART ART ART Sample Site R Radial R Radial L Radial pH 7.07 L* 7.26 L 7.35 Bicarbonate Actual 25.0 23.4 23.5 Total CO2 28 25 25 Base Excess -5 L -4 L -2 O2 Saturation 100 H 95 94 L O2 % 100.0 30.0 35.0 ABG pCO2 85.7 H* 52.7 H 43.0 ABG pO2 427 H* 89 73 L Tito Test Positive Positive N/A Respiration Rate 14 16 16 O2 Delivery Device ET Tube ET Tube Adult Vent Vent Mode AC AC AC Tidal Volume 450.0 500.0 500.0 POC PEEP 5 5 5 Crit Call To/Read Back Yes Blood Gas Notified Time 18:53:56 Radiography Diagnostic Testing: Radiology Impression Chest X-Ray 01/01/24 05:55 IMPRESSION: Decreased lung volumes and patient rotation. Mild increased apparent hazy opacities in the right infrahilar-lower lung velázquez. Otherwise stable chest. Electronically Signed: Tere Mcgovern MD at 7:38 EST , Echocardiogram 01/01/24 08:20 Interpretation Summary Mild concentric left ventricular hypertrophy. The left ventricular ejection fraction is 60 %. The left atrium is severely enlarged. The right atrium is mildly enlarged. Severe mitral annular calcification. Mild mitral valve stenosis. Moderate to severe eccentric mitral regurgitation noted Consider severed mitral valve cord mid left ventricular cavity. Unchanged from the study on 09/05/2023. Recommend transesophageal echocardiogram for further evaluation if clinically indicated. Mild tricuspid valve insufficiency. Right ventricular systolic pressure estimated to be 42 mmHg. Mild aortic stenosis. Ordering Physician: Moris Holm Referring Physician: Rd Rivers Performed By: Sandra Rosa RDCS Physical Exam Const Constitutional Narrative: Intubated, sedated and mechanically ventilated. No ventilator dyssynchrony noted. HEENT normocephalic and head/scalp atraumatic Mouth: endotracheal tube in place and OG tube in place Eyes PERRL, EOMs intact bilaterally and conjunctivae normal Neck supple General: trachea midline Chest inspection of chest normal Resp normal respiratory effort Auscultation: diminished lung sounds Cardio regular rate and regular rhythm Heart Sounds: murmur GI normal to inspection, nondistended, normoactive bowel sounds Extremity no clubbing, cyanosis or edema Skin no rashes or lesions noted Neuro Sensorium / Orientation: sedated on vent Charges/Coding Procedures Hospitalists Procedures: 25164 Critical Care 1st Hr
[2024-01-02] MEDS: fentaNYL drip 100 ML 12.5 MCG CONT INF ×3 (07:09→23:44)
[2024-01-02] MEDS: Propofol 10MG/Ml 1,000 MG/100 ML Bottle 6.90000000000000036 MG CONT INF (07:09)
--- NOTE | 2024-01-02 07:40 | PCM.PN.HOSP ---
Reason for Visit Reason for Visit: Diagnoses Hyperkalemia (12/31/23) Nonrheumatic mitral (valve) insufficiency (12/31/23) Pneumonia, unspecified organism (12/31/23) Chronic obstructive pulmonary disease, unspecified (12/31/23) Hypoxemia (12/31/23) Other specified abnormal findings of blood chemistry (12/31/23) Subjective Subjective Patient seen remains awake on the vent. Did fail his weaning trial this a.m. Objective Data Objective Data Vital Signs: Vital Signs Temp Pulse Resp BP Pulse Ox O2 Del Method FiO2 98.1 F 73 16 125/81 H 98 Mechanical Ventilator 30 01/02/24 07:00 01/02/24 07:00 01/02/24 07:00 01/02/24 07:00 01/02/24 07:00 01/02/24 07:00 01/02/24 07:00 Oxygen Delivery Method Mechanical Ventilator Weight: 76.6 kg Body Mass Index (BMI) 23.6 Intake & Output: Intake and Output for Last 24 Hours 12/31/23 01/01/24 01/02/24 23:59 23:59 23:59 Intake Total 2924.68 / 3000.81 4038.65 / 4055.31 222.09 / 222.09 Output Total 2420 / 2420 330 / 330 Balance 2924.68 / 2700.81 1618.65 / 1635.31 -107.91 / -107.91 Lab / Micro Data 01/02/24 03:30 01/02/24 03:30 Labs: Laboratory Results - last 24 hr 01/01/24 08:00: APTT 81.2 H 01/01/24 09:50: POC Glucose 202 H 01/01/24 14:16: POC Glucose 236 H 01/01/24 14:25: APTT 56.5 H 01/01/24 18:11: POC Glucose 151 H 01/01/24 21:53: POC Glucose 220 H 01/01/24 21:56: APTT 67.0 H 01/02/24 02:28: POC Glucose 171 H 01/02/24 03:30: WBC 16.9 H, RBC 3.57 L, Hgb 10.7 L, Hct 34.9 L, MCV 97.8 H, MCH 30.0, MCHC 30.7 L, RDW Std Deviation 59.6 H, RDW Coeff of Lauri 16.4 H, Plt Count 287, MPV 10.9, Immature Gran % (Auto) 0.500, Neut % (Auto) 91.5 H, Lymph % (Auto) 2.5 L, [place] % (Auto) 5.4, Eos % (Auto) 0.0, Baso % (Auto) 0.1, Absolute Neuts (auto) 15.5 H, Absolute Lymphs (auto) 0.42 L, Nucleated RBC % 0, APTT 58.2 H, Sodium 140, Potassium 3.7, Chloride 110 H, Carbon Dioxide 26.0, Anion Gap 4 L, BUN 30 H, Creatinine 0.71, Estim Creat Clear Calc 87.45, Est GFR (MDRD) Af Amer 141, Est GFR (MDRD) Non-Af 116, BUN/Creatinine Ratio 42.3 H, Glucose 186 H, Calcium 8.3 L, Phosphorus 3.0, Magnesium 2.1 01/02/24 05:59: POC Glucose 170 H Micro: Microbiology 12/31/23 18:15 Urine Catheter - Price Legionella Antigen - Final 12/31/23 18:15 Urine Catheter - Price Streptococcus pneumoniae Antigen (M - Final 12/31/23 19:22 Mucosa - Nose SARS-CoV-2, Influenza & RSV (PCR) - Final Radiography Diagnostic Testing: Radiology Impression Echocardiogram 01/01/24 08:20 Interpretation Summary Mild concentric left ventricular hypertrophy. The left ventricular ejection fraction is 60 %. The left atrium is severely enlarged. The right atrium is mildly enlarged. Severe mitral annular calcification. Mild mitral valve stenosis. Moderate to severe eccentric mitral regurgitation noted Consider severed mitral valve cord mid left ventricular cavity. Unchanged from the study on 09/05/2023. Recommend transesophageal echocardiogram for further evaluation if clinically indicated. Mild tricuspid valve insufficiency. Right ventricular systolic pressure estimated to be 42 mmHg. Mild aortic stenosis. Ordering Physician: Moris Holm Referring Physician: Rd Rivers Performed By: Sandra Rosa RDCS Physical Exam Narrative GENERAL: Awake on the vent HEENT: Atraumatic; normocephalic EYES; Anicteric, Normal Conjunctiva NECK; supple, normal thyroid, RESPIRATORY: Diminished to auscultation CARDIOVASCULAR: Regular S1 S2, GI: soft, normoactive bowel sounds, : No Renal angle tenderness; EXTREMITIES: No edema, no clubbing, MUSCULOSKELETAL: no muscle wasting NEURO: Awake on the vent SKIN: No Rash Assessment & Plan Assessment/Plan (1) Pneumonia: QUALIFIERS: Laterality: bilateral Lung location: unspecified part of lung Pneumonia type: due to unspecified organism Qualified Code(s): J18.9 - Pneumonia, unspecified organism (2) COPD (chronic obstructive pulmonary disease): QUALIFIERS: COPD type: unspecified COPD Qualified Code(s): J44.9 - Chronic obstructive pulmonary disease, unspecified (3) Elevated troponin: (4) Hyperkalemia: PLAN: Plan Patient is a 73-year-old gentleman admitted with progressive shortness of breath. An assessment of acute hypoxic and hypercapnic respiratory failure with metabolic encephalopathy made. Patient was intubated and admitted to the intensive care unit 1. Acute hypoxic and hypercapnic respiratory failure ? Secondary to pneumonia with suspected multidrug-resistant organisms. Patient was intubated admitted to the intensive care unit with consultation placed to pulmonary/intensive care for ICU management ? 01/02/2024atient seen remains awake on the vent. Did fail his weaning trial this a.m. 2. Septic shock ? Secondary to pneumonia with suspected multidrug resistant organisms patient treated per protocol with broad-spectrum antibiotic therapy fluids as well as cultures been sent. Patient currently on pressors with Levophed ? 01/02/2024;Patient WBC count trending down. 3. COPD with acute exacerbation ? Patient was found to have severe CO2 narcosis with pCO2 of 85.7 on admission contributing to patient respiratory failure management as discussed above in addition to systemic steroid 4. Acute metabolic encephalopathy ? Secondary to hypoxia and hypercapnia patient was intubated 5. Elevated troponin ? Suspected to be secondary to myocardial injury monitoring with serial cardiac enzymes 6. Diabetes mellitus type II -patient's oral hypoglycemics held. Placed on long acting insulin, Accu-Cheks every 6. and covered with sliding scale insulin 7. Essential hypertension ? Patient antihypertensives held 8. Mild hyperkalemia ?Resolved 9. Dyslipidemia -Patient is on statin therapy, continued at home dose 10. GERD ? On PPI 11. Tobacco dependence -Plan is to student financial services counselor patient on cessation 12. Anemia - Secondary to chronic disorder monitoring H&H and transfuse if patient becomes symptomatic or hemoglobin falls below 7 13. DVT prophylaxis ? On heparin Time spent in the patient's overall evaluation,decision-making process, review of diagnostic data, adjustment of management, discussion with other providers, nursing nursing and ancillary staff involved in patient's care documentation, 50 minutes Charges/Coding Visit Charges Inpatient E&M: 86699 Subs Hosp L3
[2024-01-02] MEDS: Chlorhexidine 15 ML PO ×2 (08:08→20:54)
[2024-01-02] MEDS: Aspirin 81 MG TAB.CHEW GT (08:09)
[2024-01-02] MEDS: Clopidogrel Bisulfate 75 MG Tablet GT (08:10)
[2024-01-02] MEDS: guaiFENesin 600 MG Tablet PO ×2 (08:10→20:53)
[2024-01-02] MEDS: Famotidine 200 MG/20 ML MDV 20 MG in 0.9% Normal Saline (Pres. free 8 ML 100 MG IV (08:16)
[2024-01-02] MEDS: MethylPREDNISolone 125 MG/2 ML Vial 60 MG IV ×2 (08:17→20:53)
[2024-01-02] MEDS: Doxycycline 100 MG in Dextrose 5%-Water (250mL Bag) 250 ML 250 MG IV (08:45)
--- NOTE | 2024-01-02 09:27 | PCM.PN.CARD ---
Subjective Subjective The patient remains intubated and sedated he is able to open his eyes to verbal command. And seems to nod that he is pain-free. He had an episode of supraventricular tachycardia that looks like of the AV river reentrant tachycardia was turning lasted about 30-40 beats and resolved spontaneously. Underlying rhythm is sinus tachycardia 100 205 bpm. His echocardiogram yesterday showed an EF of 60% with left atrial enlargement which was significant and mild right atrial enlargement there is moderate to severe mitral regurgitation mild mitral stenosis he had mild aortic stenosis with a peak gradient of 31 mean gradient of 16 and right ventricular systolic pressure of 42. The patient is continue to be treated for his sepsis. Objective Data Vital Signs: Vital Signs Temp Pulse Resp BP Pulse Ox O2 Del Method FiO2 98.1 F 73 16 125/81 H 98 Mechanical Ventilator 30 01/02/24 07:00 01/02/24 07:00 01/02/24 07:00 01/02/24 07:00 01/02/24 07:00 01/02/24 07:00 01/02/24 07:00 Oxygen Delivery Method Mechanical Ventilator Weight: 168 lb 13.985 oz Body Mass Index (BMI) 23.6 Intake & Output: Intake and Output for Last 24 Hours 12/31/23 01/01/24 01/02/24 23:59 23:59 23:59 Intake Total 2924.68 / 3000.81 4038.65 / 4055.31 232.09 / 232.09 Output Total 2420 / 2420 330 / 330 Balance 2924.68 / 2700.81 1618.65 / 1635.31 -97.91 / -97.91 Lab / Micro Data Attestation: I reviewed the patient's lab results. 01/02/24 03:30 01/02/24 03:30 Labs: Laboratory Results - last 24 hr 01/01/24 09:50: POC Glucose 202 H 01/01/24 14:16: POC Glucose 236 H 01/01/24 14:25: APTT 56.5 H 01/01/24 18:11: POC Glucose 151 H 01/01/24 21:53: POC Glucose 220 H 01/01/24 21:56: APTT 67.0 H 01/02/24 02:28: POC Glucose 171 H 01/02/24 03:30: WBC 16.9 H, RBC 3.57 L, Hgb 10.7 L, Hct 34.9 L, MCV 97.8 H, MCH 30.0, MCHC 30.7 L, RDW Std Deviation 59.6 H, RDW Coeff of Lauri 16.4 H, Plt Count 287, MPV 10.9, Immature Gran % (Auto) 0.500, Neut % (Auto) 91.5 H, Lymph % (Auto) 2.5 L, [place] % (Auto) 5.4, Eos % (Auto) 0.0, Baso % (Auto) 0.1, Absolute Neuts (auto) 15.5 H, Absolute Lymphs (auto) 0.42 L, Nucleated RBC % 0, APTT 58.2 H, Sodium 140, Potassium 3.7, Chloride 110 H, Carbon Dioxide 26.0, Anion Gap 4 L, BUN 30 H, Creatinine 0.71, Estim Creat Clear Calc 87.45, Est GFR (MDRD) Af Amer 141, Est GFR (MDRD) Non-Af 116, BUN/Creatinine Ratio 42.3 H, Glucose 186 H, Calcium 8.3 L, Phosphorus 3.0, Magnesium 2.1 01/02/24 05:59: POC Glucose 170 H Micro: Microbiology 12/31/23 18:15 Urine Catheter - Price Legionella Antigen - Final 12/31/23 18:15 Urine Catheter - Price Streptococcus pneumoniae Antigen (M - Final Rhythm Strip Rhythm Strip: Sinus Tach Rate: 104 Ectopy: PAC(s) (Short burst of SVT) Cardiology Labs/Tests 01/01/24 14:25: APTT 56.5 H 01/01/24 21:56: APTT 67.0 H 01/02/24 03:30: WBC 16.9 H, RBC 3.57 L, Hgb 10.7 L, Hct 34.9 L, MCV 97.8 H, MCH 30.0, MCHC 30.7 L, Plt Count 287, MPV 10.9, Immature Gran % (Auto) 0.500, Neut % (Auto) 91.5 H, Lymph % (Auto) 2.5 L, [place] % (Auto) 5.4, Eos % (Auto) 0.0, Baso % (Auto) 0.1, Absolute Neuts (auto) 15.5 H, Nucleated RBC % 0, APTT 58.2 H, Sodium 140, Potassium 3.7, Chloride 110 H, Carbon Dioxide 26.0, Anion Gap 4 L, BUN 30 H, Creatinine 0.71, Est GFR (MDRD) Af Amer 141, Est GFR (MDRD) Non-Af 116, BUN/Creatinine Ratio 42.3 H, Glucose 186 H, Calcium 8.3 L, Phosphorus 3.0, Magnesium 2.1 Rhythm: EKG: ECHO: Stress Test: Cardiac Cath: PCI: CT Surgery: Holter monitor: EPS: PPM: CXR: Chest CT Scan: Radiography Diagnostic Testing: Radiology Impression Echocardiogram 01/01/24 08:20 Interpretation Summary Mild concentric left ventricular hypertrophy. The left ventricular ejection fraction is 60 %. The left atrium is severely enlarged. The right atrium is mildly enlarged. Severe mitral annular calcification. Mild mitral valve stenosis. Moderate to severe eccentric mitral regurgitation noted Consider severed mitral valve cord mid left ventricular cavity. Unchanged from the study on 09/05/2023. Recommend transesophageal echocardiogram for further evaluation if clinically indicated. Mild tricuspid valve insufficiency. Right ventricular systolic pressure estimated to be 42 mmHg. Mild aortic stenosis. Ordering Physician: Moris Holm Referring Physician: Rd Rivers Performed By: Sandra Rosa RDCS Physical Exam Const Constitutional Narrative: Sedated but responds appropriately to verbal stimulation. HEENT normocephalic Eyes EOMs intact bilaterally Neck no JVD and no carotid bruits Chest inspection of chest normal Resp normal respiratory effort Auscultation: rhonchi throughout Cardio Rate: tachycardic Rhythm: regular rhythm Heart Sounds: S1 normal, S2 normal and murmur systolic II/ soft mid right sternal border; Negative for click or gallop GI soft to palpation Extremity General Extremity: edema bilateral lower extremity Details: trace Skin General Skin Exam: ecchymosis Psych Psych Narrative: Intubated Assessment & Plan Assessment/Plan (1) Elevated troponin: PLAN: The patient's troponins trended down as noted in the original consult. I do not feel that any further evaluation is indicated at this point in time. We will sign off if further assistance is needed please feel free to reconsult us. (2) Hypoxemia: PLAN: The patient remains intubated and is being monitored and treated by the pulmonary ICU service. (3) Pneumonia: QUALIFIERS: Pneumonia type: due to unspecified organism Laterality: bilateral Lung location: unspecified part of lung Qualified Code(s): J18.9 - Pneumonia, unspecified organism PLAN: Continuing on antibiotic therapy. Charges/Coding Visit Charges Inpatient E&M: 46323 Subs Hosp L2
--- NOTE | 2024-01-02 09:38 | CASEMGMT ---
TC to pt zainab Saunders who lives with pt. She states that she was at work when pt was home. He was sitting on the sofa and calling for help. A renter went down to check on pt and pt had his oxygen on and was stating he couldn't breathe. She reports that when EMS came, pt was unresponsive, his pupils were fixed and dilated and pt was given narcan to bring him back. She is aware that RN CM will follow pt for dc needs when pt is medically ready. She denies any questions at this time.
[2024-01-02] MEDS: Furosemide 40 MG/4 ML Vial IV (09:48)
[2024-01-02] MEDS: Vancomycin Trough/Random Due 1 LAB MC (09:50)
[2024-01-02 10:02] LABS: Pathologist Review Reviewed
[2024-01-02] MEDS: CHLORHEXIDINE GLUC 2% CLOTH 1 EACH TOWELETTE TOPICAL (10:06)
[2024-01-02] MEDS: Enoxaparin 40 MG/0.4 ML Syringe SC (10:06)
[2024-01-02] MEDS: 0.9% Normal Saline (250mL Bag) 250 ML 15 ML IV (11:00)
[2024-01-02] MEDS: Vital AF 1.2 Cal Liquid 1,000 ML 20 ML GT (11:01)
[2024-01-02] MEDS: dexMEDEtomidine 400 MCG in 0.9% Normal Saline (100mL Bag) 96 ML 9.59999999999999964 MCG CONT INF (11:02)
[2024-01-02 11:34] LABS: M R Staph aureus DNA By PCR POSITIVE (Negative); Probe Check PASS
[2024-01-02 11:40] LABS: Vancomycin, Trough Level 13.4 ug/mL (5.0-15.0)
[2024-01-02 11:49] LABS: Hemoglobin A1c 8.3 % (3.8-5.6)
--- NOTE | 2024-01-02 12:06 | PCM.RX.CS ---
Consult Antibiotic Management Pharmacy has been consulted to manage selected antibiotic: Vancomycin Type of Intervention Type of Consult: Follow-up Suspected Infection Suspected Infection: Sepsis and Pneumonia Labs Labs: Sodium 140 mmol/L (136-145) 01/02/24 03:30 Potassium 3.7 mmol/L (3.5-5.1) 01/02/24 03:30 Chloride 110 mmol/L (98-107) H 01/02/24 03:30 Carbon Dioxide 26.0 mmol/L (21.0-32.0) 01/02/24 03:30 Anion Gap 4 (5-15) L 01/02/24 03:30 BUN 30 mg/dL (7-18) H 01/02/24 03:30 Creatinine 0.71 mg/dL (0.70-1.30) 01/02/24 03:30 Est GFR (MDRD) Af Amer 141 mL/min (>60) 01/02/24 03:30 Est GFR (MDRD) Non-Af 116 mL/min (>60) 01/02/24 03:30 BUN/Creatinine Ratio 42.3 RATIO (10-20) H 01/02/24 03:30 Glucose 186 mg/dL (74-106) H 01/02/24 03:30 Vancomycin Trough 13.4 ug/mL (5.0-15.0) 01/02/24 09:50 Microbiology Microbiology: Microbiology 01/01/24 11:15 Sputum, Induced/[place]ukens Gram Stain - Final 01/01/24 11:15 Sputum, Induced/[place]ens Respiratory Culture - Preliminary Culture exhibits no growth. 12/31/23 18:15 Urine Catheter - Price Legionella Antigen - Final 12/31/23 18:15 Urine Catheter - Price Streptococcus pneumoniae Antigen (M - Final 12/31/23 19:22 Mucosa - Nose SARS-CoV-2, Influenza & RSV (PCR) - Final Dosing Weight Weight used for dosin kg Estimated Creatinine Clearance Estimated Creatinine Clearance: 87.45 Goal Trough Goal Trough: 15-20 mcg/mL Pharmacy Plan for Drug Dosing Pharmacy Plan for Drug Dosing: VANCOMYCIN LEVEL RECEIVED Current Vancomycin Dose: 1000mg Q12H Number of Doses Received: 1000mg x2, 1250mg x1 Vancomycin Level: 13.4 Hours Since Last Dose: 13.25 Renal Function: sCr 0.71 / CrCl 87.45 Renal Function Trend: stable Lab/Micro: pending/likely MDR Vancomycin Plan/Comments: Increase Vancomycin dosing regimen to 1250mg Q12H (improved renal function and slightly SUBtherapeutic level - taking into consideration late lab draw and not true trough) Pending Level: Vancomycin trough @ 0000 01/04/24 Pharmacy Service will continue to monitor and adjust dosing as required. Follow-Up Labs Follow-Up Labs: Trough: Vancomycin (00:00 01/04/24)
[2024-01-02 12:11] LABS: Bedside Glucose 169 mg/dL (74-106)
[2024-01-02] MEDS: Vancomycin HCl 1,250 MG in 0.9% Normal Saline (250mL Bag) 250 ML 167 MG IV (12:14)
[2024-01-02] MEDS: Dexmedetomidine 1,000 mcg in 0.9% NS 240 mL 21.1000000000000014 MCG CONT INF (15:38)
[2024-01-02 17:50] LABS: Bedside Glucose 199 mg/dL (74-106)
[2024-01-02] MEDS: Famotidine 200 MG/20 ML MDV 20 MG in 0.9% Normal Saline (Pres. free 8 ML 300 MG IV (20:53)
[2024-01-02] MEDS: Atorvastatin Calcium 40 MG Tablet GT (20:53)
[2024-01-03] VITALS (35 sets, daily range): BP systolic 122–190; BP diastolic 74–110; PULSE 80–128; RESP 16–27; TEMP 36.8–37.4; O2SAT 90–99; BMI 23.2
[2024-01-03] MEDS: Vancomycin HCl 1,250 MG in 0.9% Normal Saline (250mL Bag) 250 ML 167 MG IV ×2 (02:07→12:34)
[2024-01-03 03:05] LABS: Bedside Glucose 211 mg/dL (74-106)
[2024-01-03] MEDS: Ipratropium/Albuterol Sulfate 3 ML AMPUL.NEB INHALATION ×6 (03:05→22:40)
[2024-01-03 03:47] LABS: Absolute Lymphocyte Count 0.56 X10^3/uL (0.83-4.51); Absolute Neutrophil Count 14.2 X10^3/uL (2.0-7.7); Basophil# 0.05 X10^3/uL; Basophil% 0.3 % (0-1); Hematocrit 39.7 % (40-54); Hemoglobin 12.7 g/dL (13.0-16.5); Lymphocyte # 0.56 X10^3/ul (0.83-4.51); Lymphocyte % 3.5 % (19-41); Mean Corpuscular Hgb 30.3 pg (27.0-32.0); Mean Corpuscular Volume 94.7 fL (80-94); Mean Platelet Vol. 10.7 fl (6.2-12.0); Monocyte# 0.91 X10^3/uL; Monocyte% 5.7 % (0-10); NRBC Flagged by Analyzer 0.2 % (0-5); Neutrophil # 14.21 X10^3/uL (2.7-7.7); Neutrophil % 88.4 % (47-70); POSITIVE DIFFERENTIAL YES; Platelet Count 300 K/mm3 (150-450); RBC Distribution Width CV 16.1 % (11.6-14.6); RBC Distribution Width SD 55.9 fl (35.1-43.9); Red Blood Count 4.19 M/mm3 (4.6-6.2); White Blood Count 16.1 K/mm3 (4.4-11.0)
[2024-01-03 04:02] LABS: Anion Gap 5 (5-15); BUN 30 mg/dL (7-18); BUN/Creat Ratio 44.1 RATIO (10-20); Calcium,Total 8.5 mg/dL (8.5-10.1); Chloride 107 mmol/L (98-107); Creatinine, Serum 0.68 mg/dL (0.70-1.30); EST Glomerular Filtration Rate 122 mL/min (>60); Est Glom Filt Rate - Afr Amer 148 mL/min (>60); Estimated Creatinine Clearance 87.45 ml/min; Glucose 178 mg/dL (74-106); Potassium 3.6 mmol/L (3.5-5.1); Sodium Level 137 mmol/L (136-145)
[2024-01-03] MEDS: Dexmedetomidine 1,000 mcg in 0.9% NS 240 mL 28.6999999999999993 MCG CONT INF (04:06)
[2024-01-03] MEDS: 0.9% Saline Lock 10 ML Syringe IV ×3 (04:58→10:51)
[2024-01-03] MEDS: Piperacil/Tazobactam 3.375 GM in 0.9% Normal Saline (50mL MB+) 50 ML IV ×3 (06:22→20:23)
[2024-01-03] MEDS: Insulin Lispro 100 UNIT/ML INSULN.PEN SC ×2 (06:22→18:34)
[2024-01-03 06:42] LABS: Bedside Glucose 195 mg/dL (74-106)
--- NOTE | 2024-01-03 07:04 | PCM.PN.INT ---
Assessment & Plan Assessment/Plan (1) COPD (chronic obstructive pulmonary disease): QUALIFIERS: COPD type: unspecified COPD Qualified Code(s): J44.9 - Chronic obstructive pulmonary disease, unspecified PLAN: Plan RECOMMENDATIONS: 1. Proceed with a trial of extubation this morning. 2. Once extubated, wean supplemental oxygen to maintain saturations at or above 90%. 3. Obtain speech therapy evaluation prior to advancement of diet. 4. Continue antibiotics, bronchodilators and steroids. 5. Continue nicotine replacement therapy. 6. Continue appropriate DVT prophylaxis. 7. Encourage incentive spirometer use and mobilize patient as tolerated. IMPRESSIONS: 1. Acute on chronic combined respiratory failure The patient has an apparent history of COPD with a baseline 2 L/min oxygen requirement. He presented to the emergency department with shortness of breath and was subsequently intubated. The patient was just recently discharged from the hospital after having been admitted with a COPD exacerbation secondary to pneumonia. He was ultimately treated with Levaquin. Chest imaging continues to demonstrate patchy bilateral infiltrates. Rapid COVID, influenza and RSV were negative. Cultures have not demonstrated any growth to date. Recommend continuing empiric antibiotics to complete 7 days of therapy. Given improvement in respiratory status, will proceed with extubation this morning. He will be continued on supplemental oxygen to maintain saturations at or above 90%. Dietary advancement can be considered once cleared by speech therapy. Encourage incentive spirometer use and mobilize patient as tolerated. 2. Elevated troponin Most likely secondary to demand ischemia in the setting #1. Cardiology has signed off. 3. History of congestive heart failure/diabetes mellitus/hypertension/CVA/tobacco dependency/recent hospitalization for COPD Complicates care, management, recovery and prognosis. Continue supportive care as noted above. TIME: 32 minutes of critical care time, independent of procedures, was spent addressing the patient's acute on chronic combined respiratory failure, troponin elevation, review of all data and collaboration with the care team. Subjective Subjective The patient was seen and examined at the bedside this morning. Events from the last 24 hours have been reviewed. The patient is currently afebrile, hemodynamically stable and maintaining appropriate oxygen saturations on his spontaneous breathing trial with an FiO2 requirement of 25%. Overnight nursing staff did report the need to suction his endotracheal tube. The patient is documented to be overall net +1.5 L for the hospitalization. White count is noted to be 16,000 with a hemoglobin of 12.7 g/dL. The patient is alert and able to follow some commands. Objective Data Objective Data The patient's most recent lab work, culture data and imaging studies have all been personally reviewed. Surface echocardiogram completed in August 2023 demonstrated moderate concentric LVH with an ejection fraction of 60% and stage I diastolic dysfunction. There was noted at that time of an echogenic mobile structure as part of the papillary muscle or a possible torn mid cavitary tendon. Repeat surface echocardiogram from January 01 demonstrated a severely enlarged left atrium with severe mitral annular calcification and a right ventricular systolic pressure of 42 mmHg. Vital Signs: Vital Signs Temp Pulse Resp BP Pulse Ox O2 Del Method FiO2 98.6 F 83 18 141/85 H 93 Mechanical Ventilator 25 01/03/24 07:00 01/03/24 07:00 01/03/24 07:00 01/03/24 07:00 01/03/24 07:00 01/03/24 07:00 01/03/24 07:00 Oxygen Delivery Method Mechanical Ventilator Weight: 166 lb 0.129 oz Body Mass Index (BMI) 23.2 Intake & Output: Intake and Output for Last 24 Hours 01/01/24 01/02/24 01/03/24 23:59 23:59 23:59 Intake Total 4038.65 / 4055.31 1656.30 / 1751.83 939.12 / 939.12 Output Total 2420 / 2420 4465 / 4640 1125 / 1125 Balance 1618.65 / 1635.31 -2808.70 / -2888.17 -185.88 / -185.88 Lab / Micro Data Attestation: I reviewed the patient's lab results. 01/03/24 03:39 01/03/24 03:39 Labs: Laboratory Results - last 24 hr 12/31/23 18:10: Diff Path Review Reviewed 01/02/24 03:30: Hemoglobin A1c 8.3 H 01/02/24 09:30: MRSA (PCR) POSITIVE H 01/02/24 09:50: Vancomycin Trough 13.4 01/02/24 11:53: POC Glucose 169 H 01/02/24 17:28: POC Glucose 199 H 01/02/24 23:36: POC Glucose 211 H 01/03/24 03:39: WBC 16.1 H, RBC 4.19 L, Hgb 12.7 L, Hct 39.7 L, MCV 94.7 H, MCH 30.3, MCHC 32.0, RDW Std Deviation 55.9 H, RDW Coeff of Lauri 16.1 H, Plt Count 300, MPV 10.7, Immature Gran % (Auto) 2.100 H, Neut % (Auto) 88.4 H, Lymph % (Auto) 3.5 L, [place] % (Auto) 5.7, Eos % (Auto) 0.0, Baso % (Auto) 0.3, Absolute Neuts (auto) 14.2 H, Absolute Lymphs (auto) 0.56 L, Nucleated RBC % 0.2, Sodium 137, Potassium 3.6, Chloride 107, Carbon Dioxide 25.0, Anion Gap 5, BUN 30 H, Creatinine 0.68 L, Estim Creat Clear Calc 87.45, Est GFR (MDRD) Af Amer 148, Est GFR (MDRD) Non-Af 122, BUN/Creatinine Ratio 44.1 H, Glucose 178 H, Calcium 8.5 01/03/24 06:21: POC Glucose 195 H Micro: Microbiology 01/01/24 11:15 Sputum, Induced/Lukens Gram Stain - Final 01/01/24 11:15 Sputum, Induced/Lukens Respiratory Culture - Preliminary Culture exhibits no growth. 12/31/23 18:15 Urine Catheter - Price Legionella Antigen - Final 12/31/23 18:15 Urine Catheter - Price Streptococcus pneumoniae Antigen (M - Final 12/31/23 19:22 Mucosa - Nose SARS-CoV-2, Influenza & RSV (PCR) - Final ABG Data ABG results: ABG 12/31/23 12/31/23 01/01/24 18:52 20:44 05:18 Specimen Type ART ART ART Sample Site R Radial R Radial L Radial pH 7.07 L* 7.26 L 7.35 Bicarbonate Actual 25.0 23.4 23.5 Total CO2 28 25 25 Base Excess -5 L -4 L -2 O2 Saturation 100 H 95 94 L O2 % 100.0 30.0 35.0 ABG pCO2 85.7 H* 52.7 H 43.0 ABG pO2 427 H* 89 73 L Tito Test Positive Positive N/A Respiration Rate 14 16 16 O2 Delivery Device ET Tube ET Tube Adult Vent Vent Mode AC AC AC Tidal Volume 450.0 500.0 500.0 POC PEEP 5 5 5 Crit Call To/Read Back Yes Blood Gas Notified Time 18:53:56 Radiography Diagnostic Testing: Radiology Impression Chest X-Ray 01/01/24 05:55 IMPRESSION: Decreased lung volumes and patient rotation. Mild increased apparent hazy opacities in the right infrahilar-lower lung velázquez. Otherwise stable chest. Electronically Signed: Tere Mcgovern MD at 7:38 EST , Echocardiogram 01/01/24 08:20 Interpretation Summary Mild concentric left ventricular hypertrophy. The left ventricular ejection fraction is 60 %. The left atrium is severely enlarged. The right atrium is mildly enlarged. Severe mitral annular calcification. Mild mitral valve stenosis. Moderate to severe eccentric mitral regurgitation noted Consider severed mitral valve cord mid left ventricular cavity. Unchanged from the study on 09/05/2023. Recommend transesophageal echocardiogram for further evaluation if clinically indicated. Mild tricuspid valve insufficiency. Right ventricular systolic pressure estimated to be 42 mmHg. Mild aortic stenosis. Ordering Physician: Moris Holm Referring Physician: Rd Rivers Performed By: Sandra Rosa RDCS Rhythm Strip Rhythm Strip: Sinus Tach Rate: 104 Ectopy: PAC(s) (Short burst of SVT) Physical Exam Const Constitutional Narrative: Intubated and mechanically ventilated. Tolerating SBT currently. HEENT normocephalic and head/scalp atraumatic Mouth: endotracheal tube in place and OG tube in place Eyes PERRL, EOMs intact bilaterally and conjunctivae normal Neck supple General: trachea midline Chest inspection of chest normal Resp normal respiratory effort Auscultation: rhonchi and diminished lung sounds Cardio regular rate and regular rhythm Heart Sounds: murmur GI normal to inspection, nondistended, normoactive bowel sounds Extremity no clubbing, cyanosis or edema Skin no rashes or lesions noted Neuro Neuro Narrative: Alert and able to follow simple commands. Charges/Coding Procedures Hospitalists Procedures: [id number] Critical Care 1st Hr
[2024-01-03] MEDS: Metoprolol Tartrate 5 MG/5 ML Vial IV (07:56)
--- NOTE | 2024-01-03 08:02 | PCM.PN.HOSP ---
Reason for Visit Reason for Visit: Diagnoses Hyperkalemia (12/31/23) Nonrheumatic mitral (valve) insufficiency (12/31/23) Pneumonia, unspecified organism (12/31/23) Chronic obstructive pulmonary disease, unspecified (12/31/23) Hypoxemia (12/31/23) Other specified abnormal findings of blood chemistry (12/31/23) Subjective Subjective Patient seen extubated this a.m. subsequently went into supraventricular tachycardia Objective Data Objective Data Vital Signs: Vital Signs Temp Pulse Resp BP Pulse Ox O2 Del Method FiO2 98.6 F 114 H 18 137/78 H 93 Mechanical Ventilator 25 01/03/24 07:00 01/03/24 07:56 01/03/24 07:10 01/03/24 07:56 01/03/24 07:10 01/03/24 07:00 01/03/24 07:00 Oxygen Delivery Method Mechanical Ventilator Weight: 75.3 kg Body Mass Index (BMI) 23.2 Intake & Output: Intake and Output for Last 24 Hours 01/01/24 01/02/24 01/03/24 23:59 23:59 23:59 Intake Total 4038.65 / 4055.31 1656.30 / 1751.83 939.12 / 939.12 Output Total 2420 / 2420 4465 / 4640 1125 / 1125 Balance 1618.65 / 1635.31 -2808.70 / -2888.17 -185.88 / -185.88 Lab / Micro Data 01/03/24 03:39 01/03/24 03:39 Labs: Laboratory Results - last 24 hr 12/31/23 18:10: Diff Path Review Reviewed 01/02/24 03:30: Hemoglobin A1c 8.3 H 01/02/24 09:30: MRSA (PCR) POSITIVE H 01/02/24 09:50: Vancomycin Trough 13.4 01/02/24 11:53: POC Glucose 169 H 01/02/24 17:28: POC Glucose 199 H 01/02/24 23:36: POC Glucose 211 H 01/03/24 03:39: WBC 16.1 H, RBC 4.19 L, Hgb 12.7 L, Hct 39.7 L, MCV 94.7 H, MCH 30.3, MCHC 32.0, RDW Std Deviation 55.9 H, RDW Coeff of Lauri 16.1 H, Plt Count 300, MPV 10.7, Immature Gran % (Auto) 2.100 H, Neut % (Auto) 88.4 H, Lymph % (Auto) 3.5 L, [place] % (Auto) 5.7, Eos % (Auto) 0.0, Baso % (Auto) 0.3, Absolute Neuts (auto) 14.2 H, Absolute Lymphs (auto) 0.56 L, Nucleated RBC % 0.2, Sodium 137, Potassium 3.6, Chloride 107, Carbon Dioxide 25.0, Anion Gap 5, BUN 30 H, Creatinine 0.68 L, Estim Creat Clear Calc 87.45, Est GFR (MDRD) Af Amer 148, Est GFR (MDRD) Non-Af 122, BUN/Creatinine Ratio 44.1 H, Glucose 178 H, Calcium 8.5 01/03/24 06:21: POC Glucose 195 H Micro: Microbiology 01/01/24 11:15 Sputum, Induced/Lukens Gram Stain - Final 01/01/24 11:15 Sputum, Induced/Lukens Respiratory Culture - Preliminary Culture exhibits no growth. 12/31/23 18:15 Urine Catheter - Price Legionella Antigen - Final 12/31/23 18:15 Urine Catheter - Price Streptococcus pneumoniae Antigen (M - Final 12/31/23 19:22 Mucosa - Nose SARS-CoV-2, Influenza & RSV (PCR) - Final Rhythm Strip Rhythm Strip: Sinus Tach Rate: 104 Ectopy: PAC(s) (Short burst of SVT) Physical Exam Narrative GENERAL: Somewhat lethargic following extubation HEENT: Atraumatic; normocephalic EYES; Anicteric, Normal Conjunctiva NECK; supple, normal thyroid, RESPIRATORY: Diminished to auscultation CARDIOVASCULAR: Regular S1 S2, GI: soft, normoactive bowel sounds, : No Renal angle tenderness; EXTREMITIES: No edema, no clubbing, MUSCULOSKELETAL: no muscle wasting NEURO: No lateralizing signs SKIN: No Rash Assessment & Plan Assessment/Plan (1) Pneumonia: QUALIFIERS: Pneumonia type: due to unspecified organism Laterality: bilateral Lung location: unspecified part of lung Qualified Code(s): J18.9 - Pneumonia, unspecified organism (2) COPD (chronic obstructive pulmonary disease): QUALIFIERS: COPD type: unspecified COPD Qualified Code(s): J44.9 - Chronic obstructive pulmonary disease, unspecified (3) Elevated troponin: (4) Hyperkalemia: PLAN: Plan Patient is a 73-year-old gentleman admitted with progressive shortness of breath. An assessment of acute hypoxic and hypercapnic respiratory failure with metabolic encephalopathy made. Patient was intubated and admitted to the intensive care unit 1. Acute hypoxic and hypercapnic respiratory failure ? Secondary to pneumonia with suspected multidrug-resistant organisms. Patient was intubated admitted to the intensive care unit with consultation placed to pulmonary/intensive care for ICU management ? 01/02/2024atient seen remains awake on the vent. Did fail his weaning trial this a.m. ? 01/03/2024; successfully extubated this a.m. 2. Septic shock ? Secondary to pneumonia with suspected multidrug resistant organisms patient treated per protocol with broad-spectrum antibiotic therapy fluids as well as cultures been sent. Patient currently on pressors with Levophed ? 01/02/2024;Patient WBC count trending down. 3. COPD with acute exacerbation ? Patient was found to have severe CO2 narcosis with pCO2 of 85.7 on admission contributing to patient respiratory failure management as discussed above in addition to systemic steroid 4. Acute metabolic encephalopathy ? Secondary to hypoxia and hypercapnia patient was intubated 5. Elevated troponin ? Suspected to be secondary to myocardial injury monitoring with serial cardiac enzymes 6. Diabetes mellitus type II -patient's oral hypoglycemics held. Placed on long acting insulin, Accu-Cheks every 6. and covered with sliding scale insulin 7. Essential hypertension ? Patient antihypertensives held 8. Mild hyperkalemia ?Resolved 9. Dyslipidemia -Patient is on statin therapy, continued at home dose 10. GERD ? On PPI 11. Tobacco dependence -Plan is to funeral pre arrangement counselor patient on cessation 12. Anemia - Secondary to chronic disorder monitoring H&H and transfuse if patient becomes symptomatic or hemoglobin falls below 7 13. DVT prophylaxis ? On heparin 14. PSVT ? Following extubation we will continue monitoring on continuous telemetry. Seen in consultation by cardiology. Time spent in the patient's overall evaluation,decision-making process, review of diagnostic data, adjustment of management, discussion with other providers, nursing nursing and ancillary staff involved in patient's care documentation, 50 minutes Charges/Coding Visit Charges Inpatient E&M: [id number] [place] [id number]
[2024-01-03] MEDS: CHLORHEXIDINE GLUC 2% CLOTH 1 EACH TOWELETTE TOPICAL (10:51)
[2024-01-03] MEDS: Enoxaparin 40 MG/0.4 ML Syringe SC (10:52)
--- NOTE | 2024-01-03 11:12 | CASEMGMT ---
Discharge Planning A list of?HH providers including quality and resource use data and consistent with the patient's preferred geographic region, medical needs, and insurance network was created in [employer] Guide.? This list was provided to the RN FARIBA. Erin Gonzales, Discharge Planning Asst.
--- NOTE | 2024-01-03 15:13 | CASEMGMT ---
RN CM into pt room, discussed dc planning with pt. Of note, pt has had CCN in the past and will now require skilled services. Pt agreeable to [facility]. Provided list created by dc client account assistant. Pt chose [facility]. TC to [place], referral made for SN, PT, OT and ST. Pt states his dtr does not provide much care to him. He states he needs assistance with med set up. Will await decision to accept from .
[2024-01-03 16:09] LABS: Bedside Glucose 142 mg/dL (74-106)
[2024-01-03 19:05] LABS: Bedside Glucose 404 mg/dL (74-106)
[2024-01-03] MEDS: Atorvastatin Calcium 40 MG Tablet GT (20:22)
[2024-01-04] VITALS (17 sets, daily range): BP systolic 107–155; BP diastolic 66–90; PULSE 83–120; RESP 16–26; TEMP 36.5–37; O2SAT 93–98; BMI 23.3
[2024-01-04 00:20] LABS: Bedside Glucose 69 mg/dL (74-106)
[2024-01-04 00:31] LABS: Vancomycin, Trough Level 18.4 ug/mL (5.0-15.0)
[2024-01-04 00:36] LABS: Bedside Glucose 101 mg/dL (74-106)
[2024-01-04] MEDS: Vancomycin HCl 1,250 MG in 0.9% Normal Saline (250mL Bag) 250 ML 167 MG IV ×2 (00:41→12:42)
[2024-01-04] MEDS: 0.9% Saline Lock 10 ML Syringe IV (00:41)
--- NOTE | 2024-01-04 01:46 | PCM.RX.CS ---
Consult Antibiotic Management Pharmacy has been consulted to manage selected antibiotic: Vancomycin Type of Intervention Type of Consult: Follow-up Labs Labs: Sodium 137 mmol/L (136-145) 01/03/24 03:39 Potassium 3.6 mmol/L (3.5-5.1) 01/03/24 03:39 Chloride 107 mmol/L (98-107) 01/03/24 03:39 Carbon Dioxide 25.0 mmol/L (21.0-32.0) 01/03/24 03:39 Anion Gap 5 (5-15) 01/03/24 03:39 BUN 30 mg/dL (7-18) H 01/03/24 03:39 Creatinine 0.68 mg/dL (0.70-1.30) L 01/03/24 03:39 Est GFR (MDRD) Af Amer 148 mL/min (>60) 01/03/24 03:39 Est GFR (MDRD) Non-Af 122 mL/min (>60) 01/03/24 03:39 BUN/Creatinine Ratio 44.1 RATIO (10-20) H 01/03/24 03:39 Glucose 178 mg/dL (74-106) H 01/03/24 03:39 Vancomycin Trough 18.4 ug/mL (5.0-15.0) H 01/04/24 00:00 Microbiology Microbiology: Microbiology 12/31/23 19:23 Blood Culture (Wb) #2 - Anticubital Left Blood Culture - Preliminary No growth in 48 hours. 12/31/23 18:10 Blood Culture (Wb) - Anticubital Right Blood Culture - Preliminary No growth in 48 hours. 01/01/24 11:15 Sputum, Induced/Lukens Gram Stain - Final 01/01/24 11:15 Sputum, Induced/Lukens Respiratory Culture - Preliminary Presumptive C albicans 12/31/23 18:15 Urine Catheter - Price Legionella Antigen - Final 12/31/23 18:15 Urine Catheter - Price Streptococcus pneumoniae Antigen (M - Final 12/31/23 19:22 Mucosa - Nose SARS-CoV-2, Influenza & RSV (PCR) - Final Pharmacy Plan for Drug Dosing Pharmacy Plan for Drug Dosing: Pharmacy Service will continue to monitor and adjust dosing as required. TROUGH 18.4 @ 11.5 HOURS. NO CHANGES, FOLLOW UP TROUGH IN 48 HOURS Follow-Up Labs Follow-Up Labs: Trough: Vancomycin Date/Time Labs Ordered Labs to be done on [date and time ordered]: 01/06 @ 0000
[2024-01-04 03:33] LABS: Absolute Lymphocyte Count 1.16 X10^3/uL (0.83-4.51); Absolute Neutrophil Count 12.5 X10^3/uL (2.0-7.7); Basophil# 0.03 X10^3/uL; Basophil% 0.2 % (0-1); Eosinophil# 0.02 X10^3/uL; Eosinophils% 0.1 % (0-5); Hematocrit 35.2 % (40-54); Hemoglobin 11.1 g/dL (13.0-16.5); Lymphocyte # 1.16 X10^3/ul (0.83-4.51); Lymphocyte % 7.4 % (19-41); Mean Corp Hgb Conc 31.5 g/dL (32-36); Mean Corpuscular Volume 95.1 fL (80-94); Monocyte# 1.71 X10^3/uL; Monocyte% 10.9 % (0-10); NRBC Flagged by Analyzer 0.1 % (0-5); Neutrophil # 12.45 X10^3/uL (2.7-7.7); Neutrophil % 79.8 % (47-70); POSITIVE DIFFERENTIAL YES; Platelet Count 269 K/mm3 (150-450); RBC Distribution Width CV 16.2 % (11.6-14.6); RBC Distribution Width SD 56.3 fl (35.1-43.9); White Blood Count 15.6 K/mm3 (4.4-11.0)
[2024-01-04 03:38] LABS: Differential Indicated SCAN CRITERIA MET
[2024-01-04 04:04] LABS: Anion Gap 1 (5-15); BUN 36 mg/dL (7-18); BUN/Creat Ratio 58.5 RATIO (10-20); Chloride 109 mmol/L (98-107); Creatinine, Serum 0.62 mg/dL (0.70-1.30); EST Glomerular Filtration Rate 137 mL/min (>60); Est Glom Filt Rate - Afr Amer 166 mL/min (>60); Estimated Creatinine Clearance 87.45 ml/min; Glucose 151 mg/dL (74-106); Potassium 3.5 mmol/L (3.5-5.1); Sodium Level 139 mmol/L (136-145)
[2024-01-04 04:43] LABS: Differential Comment SCANNED
[2024-01-04] MEDS: Piperacil/Tazobactam 3.375 GM in 0.9% Normal Saline (50mL MB+) 50 ML IV ×3 (05:24→20:01)
[2024-01-04 05:44] LABS: Bedside Glucose 125 mg/dL (74-106)
--- NOTE | 2024-01-04 06:11 | PN.CC_ITS ---
Assessment & Plan Assessment/Plan (1) COPD (chronic obstructive pulmonary disease): QUALIFIERS: COPD type: unspecified COPD Qualified Code(s): J44.9 - Chronic obstructive pulmonary disease, unspecified PLAN: Plan RECOMMENDATIONS: 1. Continue to wean supplemental oxygen to maintain saturations at or above 90%. 2. Dietary advancement per speech therapy. Plan for cookie swallow today. 3. Continue antibiotics to complete 7 days of therapy. 4. Continue bronchodilators and steroids. Transition to prednisone once able to tolerate p.o. intake. 5. Continue nicotine replacement therapy. 6. Continue appropriate DVT prophylaxis. 7. Encourage incentive spirometer use and mobilize patient as tolerated. 8. The patient is medically stable for transfer out of the intensive care unit. IMPRESSIONS: 1. Acute on chronic combined respiratory failure The patient has an apparent history of COPD with a baseline 2 L/min oxygen requirement. He presented to the emergency department with shortness of breath and was subsequently intubated. The patient was just recently discharged from the hospital after having been admitted with a COPD exacerbation secondary to pneumonia. He was ultimately treated with Levaquin. Chest imaging continues to demonstrate patchy bilateral infiltrates. Rapid COVID, influenza and RSV were negative. Cultures have not demonstrated any growth to date. Recommend continuing empiric antibiotics to complete 7 days of therapy. Given improvement in respiratory status, will proceed with extubation this morning. He will be continued on supplemental oxygen to maintain saturations at or above 90%. Dietary advancement can be considered once cleared by speech therapy. Encourage incentive spirometer use and mobilize patient as tolerated. 2. Elevated troponin Most likely secondary to demand ischemia in the setting #1. Cardiology has signed off. 3. History of congestive heart failure/diabetes mellitus/hypertension/CVA/tobacco dependency/recent hospitalization for COPD Complicates care, management, recovery and prognosis. Continue supportive care as noted above. This note was generated with [employer] dictation software. It may contain incorrect words, spelling, and punctuation that were not noted in checking the note before signing. Subjective Subjective The patient was seen and examined at the bedside this morning. Events from the last 24 hours have been reviewed. The patient is currently afebrile, hemodynamically stable and maintaining appropriate oxygen saturations on 2 L/min via nasal cannula. The patient has done relatively well from a respiratory perspective following extubation yesterday. There are tentative plans for a cookie swallow today to assess his swallow function. The patient denied any shortness of breath this morning. He has been intermittently confused, according to nursing staff. Objective Data Objective Data The patient's most recent lab work, culture data and imaging studies have all been personally reviewed. Surface echocardiogram completed in August 2023 demonstrated moderate concentric LVH with an ejection fraction of 60% and stage I diastolic dysfunction. There was noted at that time of an echogenic mobile structure as part of the papillary muscle or a possible torn mid cavitary tendon. Repeat surface echocardiogram from January 01 demonstrated a severely enlarged left atrium with severe mitral annular calcification and a right ventricular systolic pressure of 42 mmHg. Vital Signs: Vital Signs Temp Pulse Resp BP Pulse Ox O2 Del Method O2 Flow Rate 97.7 F L 86 25 H 140/80 H 97 Nasal Cannula 2 01/04/24 06:00 01/04/24 06:00 01/04/24 06:00 01/04/24 06:00 01/04/24 06:00 01/04/24 06:00 01/04/24 06:00 FiO2 25 01/03/24 07:00 Oxygen Flow Rate (L/min) 2 Oxygen Delivery Method Nasal Cannula Weight: 166 lb 10.711 oz Body Mass Index (BMI) 23.3 Intake & Output: Intake and Output for Last 24 Hours 01/02/24 01/03/24 01/04/24 23:59 23:59 23:59 Intake Total 1656.30 / 1751.83 1811.70 / 2111.70 625 / 625 Output Total 4465 / 4640 2025 / 2275 600 / 600 Balance -2808.70 / -2888.17 -213.30 / -163.30 Lab / Micro Data Attestation: I reviewed the patient's lab results. 01/04/24 03:25 01/04/24 03:25 Labs: Laboratory Results - last 24 hr 01/03/24 06:21: POC Glucose 195 H 01/03/24 12:37: POC Glucose 142 H 01/03/24 18:09: POC Glucose 404 H 01/04/24 00:00: Vancomycin Trough 18.4 H 01/04/24 00:02: POC Glucose 69 L 01/04/24 00:17: POC Glucose 101 01/04/24 03:25: WBC 15.6 H, RBC 3.70 L, Hgb 11.1 L, Hct 35.2 L, MCV 95.1 H, MCH 30.0, MCHC 31.5 L, RDW Std Deviation 56.3 H, RDW Coeff of Lauri 16.2 H, Plt Count 269, MPV 11.0, Immature Gran % (Auto) 1.600 H, Neut % (Auto) 79.8 H, Lymph % (Auto) 7.4 L, [place] % (Auto) 10.9 H, Eos % (Auto) 0.1, Baso % (Auto) 0.2, Absolute Neuts (auto) 12.5 H, Absolute Lymphs (auto) 1.16, Nucleated RBC % 0.1, Differential Comment SCANNED, Diff Path Review March, Sodium 139, Potassium 3.5, Chloride 109 H, Carbon Dioxide 29.0, Anion Gap 1 L, BUN 36 H, Creatinine 0.62 L, Estim Creat Clear Calc 87.45, Est GFR (MDRD) Af Amer 166, Est GFR (MDRD) Non-Af 137, BUN/Creatinine Ratio 58.5 H, Glucose 151 H, Calcium 8.0 L 01/04/24 05:23: POC Glucose 125 H Micro: Microbiology 12/31/23 19:23 Blood Culture (Wb) #2 - Anticubital Left Blood Culture - Preliminary No growth in 48 hours. 12/31/23 18:10 Blood Culture (Wb) - Anticubital Right Blood Culture - Preliminary No growth in 48 hours. 01/01/24 11:15 Sputum, Induced/Lukens Gram Stain - Final 01/01/24 11:15 Sputum, Induced/Lukens Respiratory Culture - Preliminary Presumptive C albicans 12/31/23 18:15 Urine Catheter - Price Legionella Antigen - Final 12/31/23 18:15 Urine Catheter - Priec Streptococcus pneumoniae Antigen (M - Final 12/31/23 19:22 Mucosa - Nose SARS-CoV-2, Influenza & RSV (PCR) - Final ABG Data ABG results: ABG 12/31/23 12/31/23 01/01/24 18:52 20:44 05:18 Specimen Type ART ART ART Sample Site R Radial R Radial L Radial pH 7.07 L* 7.26 L 7.35 Bicarbonate Actual 25.0 23.4 23.5 Total CO2 28 25 25 Base Excess -5 L -4 L -2 O2 Saturation 100 H 95 94 L O2 % 100.0 30.0 35.0 ABG pCO2 85.7 H* 52.7 H 43.0 ABG pO2 427 H* 89 73 L Tito Test Positive Positive N/A Respiration Rate 14 16 16 O2 Delivery Device ET Tube ET Tube Adult Vent Vent Mode AC AC AC Tidal Volume 450.0 500.0 500.0 POC PEEP 5 5 5 Crit Call To/Read Back Yes Blood Gas Notified Time 18:53:56 Radiography Diagnostic Testing: Radiology Impression Chest X-Ray 01/01/24 05:55 IMPRESSION: Decreased lung volumes and patient rotation. Mild increased apparent hazy opacities in the right infrahilar-lower lung velázquez. Otherwise stable chest. Electronically Signed: Tere Mcgovern MD at 7:38 EST , Echocardiogram 01/01/24 08:20 Interpretation Summary Mild concentric left ventricular hypertrophy. The left ventricular ejection fraction is 60 %. The left atrium is severely enlarged. The right atrium is mildly enlarged. Severe mitral annular calcification. Mild mitral valve stenosis. Moderate to severe eccentric mitral regurgitation noted Consider severed mitral valve cord mid left ventricular cavity. Unchanged from the study on 09/05/2023. Recommend transesophageal echocardiogram for further evaluation if clinically indicated. Mild tricuspid valve insufficiency. Right ventricular systolic pressure estimated to be 42 mmHg. Mild aortic stenosis. Ordering Physician: Moris Holm Referring Physician: Rd Rivers Performed By: Sandra Rosa RDCS Rhythm Strip Rhythm Strip: Sinus Tach Rate: 104 Ectopy: PAC(s) (Short burst of SVT) Physical Exam Const alert and no apparent distress General Appearance: cooperative HEENT normocephalic and head/scalp atraumatic Eyes PERRL, EOMs intact bilaterally and conjunctivae normal Neck supple General: trachea midline Chest inspection of chest normal Resp normal respiratory effort Auscultation: wheezes and diminished lung sounds; Negative for rales or rhonchi Cardio regular rate and regular rhythm Heart Sounds: murmur GI normal to inspection, nondistended, normoactive bowel sounds Extremity no clubbing, cyanosis or edema Skin no rashes or lesions noted Neuro CN's II-XII intact bilaterally, moves all extremities and no focal motor deficits Psych cooperative and affect normal Charges/Coding Visit Charges Inpatient E&M: 70320 Subs Hosp L3
[2024-01-04] MEDS: Ipratropium/Albuterol Sulfate 3 ML AMPUL.NEB INHALATION ×5 (06:55→23:19)
--- NOTE | 2024-01-04 07:25 | PCM.PN.HOSP ---
Reason for Visit Reason for Visit: Diagnoses Hyperkalemia (12/31/23) Nonrheumatic mitral (valve) insufficiency (12/31/23) Pneumonia, unspecified organism (12/31/23) Chronic obstructive pulmonary disease, unspecified (12/31/23) Hypoxemia (12/31/23) Other specified abnormal findings of blood chemistry (12/31/23) Subjective Subjective Patient was successfully extubated the day prior. He is scheduled to undergo speech and swallow eval. Objective Data Objective Data Vital Signs: Vital Signs Temp Pulse Resp BP Pulse Ox O2 Del Method O2 Flow Rate 97.9 F 91 21 H 147/87 H 95 Nasal Cannula 2 01/04/24 07:00 01/04/24 07:00 01/04/24 07:00 01/04/24 07:00 01/04/24 07:00 01/04/24 07:00 01/04/24 07:00 FiO2 25 01/03/24 07:00 Oxygen Flow Rate (L/min) 2 Oxygen Delivery Method Nasal Cannula Weight: 75.6 kg Body Mass Index (BMI) 23.3 Intake & Output: Intake and Output for Last 24 Hours 01/02/24 01/03/24 01/04/24 23:59 23:59 23:59 Intake Total 1656.30 / 1751.83 1811.70 / 2111.70 625 / 625 Output Total 4465 / 4640 2025 / 2275 600 / 600 Balance -2808.70 / -2888.17 -213.30 / -163.30 Lab / Micro Data 01/04/24 03:25 01/04/24 03:25 Labs: Laboratory Results - last 24 hr 01/03/24 12:37: POC Glucose 142 H 01/03/24 18:09: POC Glucose 404 H 01/04/24 00:00: Vancomycin Trough 18.4 H 01/04/24 00:02: POC Glucose 69 L 01/04/24 00:17: POC Glucose 101 01/04/24 03:25: WBC 15.6 H, RBC 3.70 L, Hgb 11.1 L, Hct 35.2 L, MCV 95.1 H, MCH 30.0, MCHC 31.5 L, RDW Std Deviation 56.3 H, RDW Coeff of Lauri 16.2 H, Plt Count 269, MPV 11.0, Immature Gran % (Auto) 1.600 H, Neut % (Auto) 79.8 H, Lymph % (Auto) 7.4 L, [place] % (Auto) 10.9 H, Eos % (Auto) 0.1, Baso % (Auto) 0.2, Absolute Neuts (auto) 12.5 H, Absolute Lymphs (auto) 1.16, Nucleated RBC % 0.1, Differential Comment SCANNED, Diff Path Review March, Sodium 139, Potassium 3.5, Chloride 109 H, Carbon Dioxide 29.0, Anion Gap 1 L, BUN 36 H, Creatinine 0.62 L, Estim Creat Clear Calc 87.45, Est GFR (MDRD) Af Amer 166, Est GFR (MDRD) Non-Af 137, BUN/Creatinine Ratio 58.5 H, Glucose 151 H, Calcium 8.0 L 01/04/24 05:23: POC Glucose 125 H Micro: Microbiology 12/31/23 19:23 Blood Culture (Wb) #2 - Anticubital Left Blood Culture - Preliminary No growth in 48 hours. 12/31/23 18:10 Blood Culture (Wb) - Anticubital Right Blood Culture - Preliminary No growth in 48 hours. 01/01/24 11:15 Sputum, Induced/Lukens Gram Stain - Final 01/01/24 11:15 Sputum, Induced/Lukens Respiratory Culture - Preliminary Presumptive C albicans 12/31/23 18:15 Urine Catheter - Price Legionella Antigen - Final 12/31/23 18:15 Urine Catheter - Price Streptococcus pneumoniae Antigen (M - Final 12/31/23 19:22 Mucosa - Nose SARS-CoV-2, Influenza & RSV (PCR) - Final Rhythm Strip Rhythm Strip: Sinus Tach Rate: 104 Ectopy: PAC(s) (Short burst of SVT) Physical Exam Narrative GENERAL: Patient is interactive HEENT: Atraumatic; normocephalic EYES; Anicteric, Normal Conjunctiva NECK; supple, normal thyroid, RESPIRATORY: Diminished to auscultation CARDIOVASCULAR: Regular S1 S2, GI: soft, normoactive bowel sounds, : No Renal angle tenderness; EXTREMITIES: No edema, no clubbing, MUSCULOSKELETAL: no muscle wasting NEURO: No lateralizing signs SKIN: No Rash Assessment & Plan Assessment/Plan (1) Pneumonia: QUALIFIERS: Laterality: bilateral Lung location: unspecified part of lung Pneumonia type: due to unspecified organism Qualified Code(s): J18.9 - Pneumonia, unspecified organism (2) COPD (chronic obstructive pulmonary disease): QUALIFIERS: COPD type: unspecified COPD Qualified Code(s): J44.9 - Chronic obstructive pulmonary disease, unspecified (3) Elevated troponin: (4) Hyperkalemia: PLAN: Plan Patient is a 73-year-old gentleman admitted with progressive shortness of breath. An assessment of acute hypoxic and hypercapnic respiratory failure with metabolic encephalopathy made. Patient was intubated and admitted to the intensive care unit 1. Acute hypoxic and hypercapnic respiratory failure ? Secondary to pneumonia with suspected multidrug-resistant organisms. Patient was intubated admitted to the intensive care unit with consultation placed to pulmonary/intensive care for ICU management ? 01/02/2024atient seen remains awake on the vent. Did fail his weaning trial this a.m. ? 01/03/2024; successfully extubated this a.m. ? 01/04/2024. Patient has maintained adequate saturation on nasal cannula.. Patient scheduled to undergo swallow eval 2. Septic shock ? Secondary to pneumonia with suspected multidrug resistant organisms patient treated per protocol with broad-spectrum antibiotic therapy fluids as well as cultures been sent. Patient currently on pressors with Levophed ? 01/02/2024;Patient WBC count trending down. 3. COPD with acute exacerbation ? Patient was found to have severe CO2 narcosis with pCO2 of 85.7 on admission contributing to patient respiratory failure management as discussed above in addition to systemic steroid 4. Acute metabolic encephalopathy ? Secondary to hypoxia and hypercapnia patient was intubated ? 01/04/2024 patient is interactive however has experienced episodes of delirium 5. Elevated troponin ? Suspected to be secondary to myocardial injury monitoring with serial cardiac enzymes 6. Diabetes mellitus type II -patient's oral hypoglycemics held. Placed on long acting insulin, Accu-Cheks every 6. and covered with sliding scale insulin 7. Essential hypertension ? Patient antihypertensives held 8. Mild hyperkalemia ?Resolved 9. Dyslipidemia -Patient is on statin therapy, continued at home dose 10. GERD ? On PPI 11. Tobacco dependence -Plan is to prenatal genetic counselor patient on cessation 12. Anemia - Secondary to chronic disorder monitoring H&H and transfuse if patient becomes symptomatic or hemoglobin falls below 7 13. DVT prophylaxis ? On heparin 14. PSVT ? Following extubation we will continue monitoring on continuous telemetry. Seen in consultation by cardiology. 15. Physical deconditioning - Requested for PT OT eval and social science manager to assist with discharge planning Time spent in the patient's overall evaluation,decision-making process, review of diagnostic data, adjustment of management, discussion with other providers, nursing nursing and ancillary staff involved in patient's care documentation, 50 minutes Charges/Coding Visit Charges Inpatient E&M: 59729 Subs Hosp L3
[2024-01-04] MEDS: Aspirin 81 MG TAB.CHEW PO (08:10)
[2024-01-04] MEDS: Enoxaparin 40 MG/0.4 ML Syringe SC (08:10)
[2024-01-04] MEDS: Clopidogrel Bisulfate 75 MG Tablet PO (08:10)
--- NOTE | 2024-01-04 10:36 | CASEMGMT ---
Discharge Planning A list of?SNF providers including quality and resource use data and consistent with the patient's preferred geographic region, medical needs, and insurance network was created in [facility] Guide.? This list was provided to the SW. Erin Gonzales Discharge Planning Asst.
--- NOTE | 2024-01-04 11:05 | CASEMGMT ---
HANSEL LINK F/U: Call received from Marina with [facility]. They are unable to accept pt as pt's insurance plan is not in-network. Will f/u with pt for second choice. Marsha Barrios RN AC
--- NOTE | 2024-01-04 11:06 | CASEMGMT ---
Addendum entered by Natalia Her 01/04/24 12:12: Social Work Pt's daughter called back. SW spoke w/her about pt, she confirms pt is forgetful. She states that her brother is not involved very much(pt's son) and pt's other daughter is in rehab, so it's all on her. Daughter became tearful, SW offered support. We spoke about discharge plan, SW explained pt wants to go home but is not moving well w/therapy. Daughter states she works a lot and cannot be w/pt all the time. She states her daughter can help some but she has 3 children of her own. SW explained has a SNF list for pt from [facility] complete w/quality and resource use data, of facilities in network w/his insurance and preferred geographic area. Daughter states wants pt to go to [place] as he has been there before. She will speak to pt about going somewhere for rehab. Pt getting therapy at present, SW will ask RN to help facilitate a call between daughter and pt. D/C first assistant Erin will send the initial referral to [place]. NIDHI will continue to follow. KENNEDI Olea Original Note: Social Work SW met w/pt in room in regard to discharge plan, as pt needed the assist of 2 people and walked 3 feet with therapy. Pt was just extubated yesterday. SW asked pt about discharge plan, introduced the idea of going somewhere for some rehab before returning home. Pt states no, he will go home, he thinks can manage at home. SW explained that we will continue to watch to see how pt is moving with therapy, as pt walked 3 feet yesterday. Pt still politely adamant that he would go home. Pt states wants to call his daughter but the phone does not work. SW called daughter for pt, message left to either call this SW back or call the floor to speak w/pt. SW asked pt about resources for food, as it was mentioned in a prior visit that they run out of food sometimes. Pt states does have Meals on Wheels. SW offered some information of food resources, pt open to this. SW also noted in note from prior visit that pt wanted to complete LW/POA. SW inquired w/pt about this, he did not fully understand what SW was asking. Upon further discussion, he states his son and daughter would be his decision makers if needed. Pt may be agreeable to completing LW/POA later in his hospital stay. SW did give pt some food bank resources. Pt seems slightly confused this morning. SW to revisit LW/POA as time allows. KENNEDI Olea
[2024-01-04] MEDS: Insulin Lispro 100 UNIT/ML INSULN.PEN SC ×3 (11:25→23:18)
[2024-01-04 11:45] LABS: Bedside Glucose 242 mg/dL (74-106)
--- NOTE | 2024-01-04 12:27 | CASEMGMT ---
Social Work SW put pt on phone w/daughter, he is agreeable to [facility] now. Referral being sent. KENNEDI Olea
--- NOTE | 2024-01-04 14:12 | CASEMGMT ---
Addendum entered by Erin Gonzales 01/04/24 15:48: [facility] is unable to accept patient d/t their current level of acuity on unit. VM was left for patients daughter. Erin Gonzales, Discharge Planning Asst. Original Note: Discharge Planning Referral sent via [facility]Port to [facility]. Erin Gonzales, Discharge Planning Asst.
--- NOTE | 2024-01-04 14:39 | SP.MBSS_ITS ---
Modified Barium Swallow Patient Information Study Date: 01/04/24 Study Time: 13:00 Direct Billable Minutes: 86 Total Minutes procedure & reportin Diagnosis: PNA J18.9, COPD J44.1 Referring Physician: Andre Larson Reason for Referral: Objectively assess swallow function, assess risk for aspiration, and determine recommendations for least restrictive diet textures and compensatory strategies to improve safety of swallow. Medical History: PMH: HTN, HLD, DM-2 of unknown control, history of tobacco abuse with subsequent COPD, CAD s/p NSTEMI, history of mitral valve insufficiency, history of chronic diastolic CHF, history of CVA, history of COVID-19, history of appendectomy, history of renal calculi, LEIGH ANN, GERD, OA, and recent admission -12/31/23 for treatment of RLL PNA. He presented to [facility] ED 12/31/23 complaining of altered mental status and SOB. He was intubated shortly after arrival due to acute hypoxic respiratory failure with PNA and COPD. In the ED, CXR evidence of Bibasilar (likely nosocomial/HCAP) Pneumonia with clinical evidence of AE COPD complicated by severe acute hypoxic/hypercapnic respiratory requiring emergent intubation. Additionally, patient was septic amongst other comorbidities. He was transferred to ICU. He was extubated 01/03/24 in the morning and recommended for ST consult prior to diet advancement. UNDERWRITING CLERKS SUPERVISOR recommended advancement to Easy to Chew textures / Thin liquids with Distant supervision and plans for MBSS to assess UNDERWRITING CLERKS SUPERVISOR concerns for silent aspiration. Current Diet Ordered: Easy to Chew textures / Thin liquids Dentition: Upper Dentures and Lower Dentures Mental Status: Impaired (impulsive) Respiratory Status: Oxygenating on 3L/M nasal cannula Penetration-Aspiration Scale Penetration-Aspiration Scale: OBJECTIVE ASSESSMENT OF SWALLOW FUNCTION (QUANTITATIVE ? PER TRIAL): PENETRATION / ASPIRATION SCALE (PEREZ): 1 = does not enter airway 2 = enters airway/above vocal folds/ejected 3 = enters airway/above vocal folds/not ejected 4 = enters airway/contacts vocal folds/ejected 5 = enters airway/contacts vocal folds/not ejected 6 = enters airway/below vocal folds/ejected 7 = enters airway/below vocal folds/not ejected despite effort 8 = enters airway/below vocal folds/no effort VIDEOFLOROSCOPIC SCALE SCORE (PEREZ): Grade I = aspiration of material that has penetrated into the laryngeal vestibule, intact cough reflex Grade II = aspiration < 10 % of the bolus, intact cough reflex Grade III = aspiration of < 10 % of the bolus, reduced cough reflex or aspiration of > 10 % of the bolus, intact cough reflex Grade IV = aspiration of > 10 % of the bolus, reduced cough reflex Penetration-Aspiration Scale Score Thin Liquid via teaspoon: Result: 1= does not enter airway Thin Liquid via teaspoon Trial 2: Result: 2= enter airway/above vocal folds/ejected Thin Liquid via small single sip: cup: Result: 2= enter airway/above vocal folds/ejected Thin Liquid via sequential sips: cup: Result: 4= enters airway/contacts vocal folds/ejected [place] Thick Liquid via large single sip: cup: Result: 1= does not enter airway Pudding via teaspoon: Result: 1= does not enter airway Comment: Esophageal screen - Complete clearance. /2 Cookie: Result: 1= does not enter airway Thin Liquid via single sip: straw: Result: 3= enters airways/above vocal folds/not ejected Thin Liquid via sequential sips:straw: Result: 3= enters airways/above vocal folds/not ejected Thin Liquid via single sip: straw Effortful swallow: Result: 3= enters airways/above vocal folds/not ejected Comment: Increased amount of laryngeal penetration - contrast was seen on the VF at the start of the next trial Thin Liquid via small single sip: cup Trial 2: Result: 3= enters airways/above vocal folds/not ejected Comment: Fluoroscopy was turned on after the trial to reveal continued contrast on the vocal folds, but no cough response was elicited by the patient. UNDERWRITING CLERKS SUPERVISOR cued a cough and re-swallow, which effectively cleared contrast from the patient's VF and laryngeal vestibule. Oral Phase Labial Seal: Interlabial escape, no progression to anterior lip Tongue Control During Bolus Hold: Posterior escape of greater than half of bolus Bolus Preparation/Mastication: Slow prolonged chewing/mashing with complete recollection Bolus Transport/Lingual Motion: Slowed tongue motion Oral Residue: Residue collection on oral structures Pharyngeal Phase Initiation of Pharyngeal Swallow: Bolus head in pyriforms Soft Palate Elevation: Trace column of contrast/air between soft palate and pharyngeal wall Laryngeal Elevation: Partial superior movement thyroid cart/partial apprx aryt- epig petiole Anterior Hyoid Excursion: Partial anterior movement Epiglottic Movement: Complete inversion Laryngeal Vestibule Closure at Height of Swallow: Incomplete; narrow column of air/contrast in laryngeal vestibule Pharyngeal Stripping Wave: Present - complete Pharyngoesophageal Segment Opening: Complete distension and complete duration; no obstruction of flow Tongue Base Retraction: Trace column of contrast between tongue base & post. pharyngeal wall Pharyngeal Residue: Trace residue within or on pharyngeal structures Esophageal Phase Esophageal Clearance: Complete clearance Diagnosis/Impression Diagnosis: Mild-moderate oropharyngeal dysphagia R13.12 Impression: The oral phase is primarily marked by... -Decreased bolus control with >1/2 of the bolus spilling posteriorly to the pyriforms prior to swallow onset observed with pudding especially. -Slowed tongue motion for A-P transport -Mild oral residue after the swallow. The pharyngeal phase is primarily marked by... -Decreased airway closure during the swallow due to decreased anterior hyoid excursion and laryngeal elevation. -Laryngeal penetration of thin liquids, which did not fully eject from the laryngeal vestibule. Some of this residual contrast was seen progressing to the vocal folds on subsequent trials. -While no aspiration was observed during the study, the UNDERWRITING CLERKS SUPERVISOR does have concern for the patient being a silent aspiration risk due to presence of barium on his vocal folds at the end of the study with no reflexive coughing or throat clearing elicited. UNDERWRITING CLERKS SUPERVISOR cued cough and re-swallow, which effectively cleared the laryngeal vestibule of barium contrast. Recommendations Diet: Regular Textures (Easy to Chew Textures IDDSI Level 7) and Thin Liquids Comment: Intermittent cough and re-swallow, oral care 4-5X/day Compensatory Strategies: Small Bites, Small Sips, Slow Rate, Sitting upright and Remain sitting upright for 30 minutes after PO intake Supervision: 1:1 Close Supervision (For meals) Recommend Repeat Modified Barium Swallow: TBD Need for Skilled Speech Therapy Services: Yes Education Completed: 1. Described result of evaluation., 2. Pt understands evaluation & agrees with goals and treatment plan. and 7. Pt requires further education on strategies & risks. Status Active ST Patient: Active Contact Information [facility] Speech Therapy:: Janet Lagunas M.A. [facility]-UNDERWRITING CLERKS SUPERVISOR? Speech-Language Pathologist?? [facility] [address]?? [place] [address]?? [email or web address]?? [phone]??
[2024-01-04 18:24] LABS: Bedside Glucose 322 mg/dL (74-106)
[2024-01-04] MEDS: Atorvastatin Calcium 40 MG Tablet PO (20:01)
[2024-01-04] MEDS: MELATONIN 10 MG TABLET PO (23:33)
[2024-01-04 23:37] LABS: Bedside Glucose 207 mg/dL (74-106)
[2024-01-05] VITALS (20 sets, daily range): BP systolic 124–216; BP diastolic 79–124; PULSE 88–165; RESP 12–35; TEMP 36.6–37.4; O2SAT 84–100; BMI 22.1
[2024-01-05] MEDS: Vancomycin HCl 1,250 MG in 0.9% Normal Saline (250mL Bag) 250 ML 167 MG IV ×2 (00:03→12:10)
--- NOTE | 2024-01-05 03:26 | EKG12_ITS ---
Test Reason : chest pain Blood Pressure : / mmHG Vent. Rate : 100 BPM Atrial Rate : 100 BPM P-R Int : 172 ms QRS Dur : 090 ms QT Int : 370 ms P-R-T Axes : 046 029 076 degrees QTc Int : 477 ms Sinus rhythm with Premature atrial complexes Possible Left atrial enlargement Nonspecific ST abnormality Abnormal ECG Confirmed by Moris Holm ([id number]), visual effects editor ANGELITO CORRALES ([id number]) on 01/09/2024 9:44:30 AM Referred By: Schuyler Confirmed By:Moris Holm
[2024-01-05 03:45] LABS: Absolute Lymphocyte Count 1.31 X10^3/uL (0.83-4.51); Basophil# 0.04 X10^3/uL; Basophil% 0.3 % (0-1); Eosinophil# 0.04 X10^3/uL; Eosinophils% 0.3 % (0-5); Hematocrit 37.7 % (40-54); Lymphocyte # 1.31 X10^3/ul (0.83-4.51); Lymphocyte % 10.1 % (19-41); Mean Corp Hgb Conc 31.8 g/dL (32-36); Mean Corpuscular Volume 94.3 fL (80-94); Mean Platelet Vol. 11.1 fl (6.2-12.0); Monocyte# 1.45 X10^3/uL; Monocyte% 11.2 % (0-10); NRBC Flagged by Analyzer 0.2 % (0-5); Neutrophil # 9.95 X10^3/uL (2.7-7.7); Neutrophil % 76.7 % (47-70); Platelet Count 272 K/mm3 (150-450); RBC Distribution Width CV 16.1 % (11.6-14.6); RBC Distribution Width SD 55.7 fl (35.1-43.9)
[2024-01-05] MEDS: Ipratropium/Albuterol Sulfate 3 ML AMPUL.NEB INHALATION (03:51)
[2024-01-05 04:02] LABS: Anion Gap 6 (5-15); BUN 23 mg/dL (7-18); BUN/Creat Ratio 41.1 RATIO (10-20); Calcium,Total 8.6 mg/dL (8.5-10.1); Chloride 110 mmol/L (98-107); Creatinine, Serum 0.56 mg/dL (0.70-1.30); EST Glomerular Filtration Rate 153 mL/min (>60); Est Glom Filt Rate - Afr Amer 185 mL/min (>60); Estimated Creatinine Clearance 87.45 ml/min; Glucose 147 mg/dL (74-106); Potassium 3.2 mmol/L (3.5-5.1); Sodium Level 145 mmol/L (136-145)
--- NOTE | 2024-01-05 04:09 | EKG12_ITS ---
Test Reason : Blood Pressure : / mmHG Vent. Rate : 145 BPM Atrial Rate : 000 BPM P-R Int : 000 ms QRS Dur : 086 ms QT Int : 286 ms P-R-T Axes : 000 022 018 degrees QTc Int : 444 ms Critical Test Result: High HR Atrial fibrillation with rapid ventricular response Nonspecific ST and T wave abnormality Abnormal ECG Confirmed by Moris Holm ([id number]), magazine editor ANGELITO CORRALES ([id number]) on 01/09/2024 9:44:56 AM Referred By: Schuyler Confirmed By:Moris Holm
--- NOTE | 2024-01-05 04:10 | EKG12_ITS ---
Test Reason : Blood Pressure : / mmHG Vent. Rate : 148 BPM Atrial Rate : 159 BPM P-R Int : 200 ms QRS Dur : 090 ms QT Int : 306 ms P-R-T Axes : 055 023 108 degrees QTc Int : 480 ms Critical Test Result: High HR Atrial fibrillation with RVR Nonspecific ST depression Abnormal ECG Confirmed by Moris Holm ([id number]), greeting card editor ANGELITO CORRALES ([id number]) on 01/09/2024 9:44:42 AM Referred By: Schuyler Confirmed By:Moris Holm
[2024-01-05] MEDS: Metoprolol Tartrate 5 MG/5 ML Vial IV (04:25)
[2024-01-05] MEDS: 0.9% Saline Lock 10 ML Syringe IV (04:42)
[2024-01-05] MEDS: Potassium Chloride 10mEq/100mL 10 MEQ/100 ML IV.SOLN. 100 MEQ IV BOLUS ×4 (04:42→08:54)
--- NOTE | 2024-01-05 04:42 | PN.HOSP_ITS ---
Hospitalist Note The nurse called me that patient is tachycardic, tachypneic, short of breath and not doing well. Patient was heart rate 91 with blood pressure 134/83 on 2 L of oxygen but patient was short of breath therefore DuoNeb was given which caused heart rate going up from 100 265/min. Blood pressure also in systolic 200. On exam General: Patient is agitated although awake and oriented. Chest/lung: Air entry severely diminished. Increased work of breathing. Bilateral rhonchi. Patient was extubated on 01/03. Heart: S1-S2 irregular, A-fib with RVR Extremities: No appreciable pitting edema. Assessment and plan: 1. Acute hypoxic and hypercarbic respiratory failure with respiratory fatigue: ABG shows 7.242/68.2/73 on AVAPS tidal volume 500, respiratory rate 12 PEEP 12 mmHg, but the patient is breathing about 30-35/min. Ativan 0.5 mg ordered so that patient can keep the mask. Repeat ABG after 1 hour. 2. A-fib with RVR most likely due to DuoNeb/acute combined respiratory failure: Patient given metoprolol 5 mg IV and then Cardizem 10 mg IV, heart rate is in the 120s got better from 150 per night. DuoNeb changed to ipratropium. t roponin is normal 61. Hypokalemia: Serum potassium is 3.2. IV potassium and chloride replacement ordered. Serum magnesium 2.1. Phosphorus 3.2. 3. Septic shock. Due to pneumonia with suspected multidrug-resistant organism. Patient on broad-spectrum antibiotic. Being managed by hydraulic plumber 4. COPD exacerbation, acute metabolic encephalopathy and elevated troponin: Elevated troponin suspected due to myocardial injury/respiratory failure and septic shock. Patient was evaluated by legal support manager and signed off. Total time spent near the bedside and management of acute combined respiratory failure and A-fib with RVR 45 minutes Procedures Hospitalists Procedures: [id number] Critical Care 1st Hr
[2024-01-05 04:45] LABS: Allen Test Positive; Base Excess 2 mmol/L (-2 to +2); Bicarbonate 29.4 mmol/L (22-26); Blood Gas Specimen Type ART; Mode Not entered; O2 Delivery Device BiPAP; PEEP 12; PO2 73 mmHG (75-100); RR 12; SITE R Radial; SO2 91 % (95-99); Total Carbon Dioxide 32 mmol/L; pCO2 68.2 mmHg (35-45); pH 7.24 (7.35-7.45)
[2024-01-05 04:50] LABS: Magnesium 2.1 mg/dL (1.6-2.6); Phosphorus 3.2 mg/dL (2.5-4.9)
--- NOTE | 2024-01-05 04:50 | NURSING ---
Pt called out complaining of chest pain, midsternal. EKG obtained and sent to hospitalist, no stemi. AM labs drawn, vitals obtained. Pt again called out d/t chest pain. LS wheezy/dim, respiratory called for breathing tx. After breathing tx, another RN and CHARTER PILOT got pt up to the BSC to have a bowel movement. Upon getting him back in bed, HR jumped up to the 160s and O2 sats dropped to the 70s. Pt placed on nonbreather, EKG obtained. Dr. Payan paged and came to bedside. Pt placed on bipap, ABG drawn, labs added on. IV lopressor and cardizem given. Pt attempting to pull off bipap, IV ativan given as well.
--- NOTE | 2024-01-05 04:51 | CPS ---
Critical ABG values. Dr. Schuyler delgado.
[2024-01-05 04:52] LABS: Troponin-I HS 61 pg/mL (3.0-78.0)
[2024-01-05] MEDS: LORazepam 2 MG/ML Syringe 0.5 MG IV (04:57)
[2024-01-05] MEDS: dilTIAZem 25 MG/5 ML Vial 10 MG IV BOLUS (04:57)
[2024-01-05] MEDS: Piperacil/Tazobactam 3.375 GM in 0.9% Normal Saline (50mL MB+) 50 ML IV ×3 (05:01→20:21)
[2024-01-05] MEDS: Insulin Lispro 100 UNIT/ML INSULN.PEN SC (05:03)
[2024-01-05 05:22] LABS: Bedside Glucose 188 mg/dL (74-106)
--- NOTE | 2024-01-05 06:35 | PN.CC_ITS ---
Assessment & Plan Assessment/Plan (1) COPD (chronic obstructive pulmonary disease): QUALIFIERS: COPD type: unspecified COPD Qualified Code(s): J44.9 - Chronic obstructive pulmonary disease, unspecified PLAN: Plan RECOMMENDATIONS: 1. Continue to wean supplemental oxygen to maintain saturations at or above 90%. 2. Recommend empiric BiPAP therapy with naps and nightly. 3. Dietary advancement per speech therapy. 4. Continue antibiotics to complete 7 days of therapy. 5. Continue bronchodilators and steroids. Transition to prednisone 40 mg daily x 5 days. 6. Continue nicotine replacement therapy. 7. Continue appropriate DVT prophylaxis. 8. Encourage incentive spirometer use and mobilize patient as tolerated. IMPRESSIONS: 1. Acute on chronic combined respiratory failure The patient has an apparent history of COPD with a baseline 2 L/min oxygen requirement. He presented to the emergency department with shortness of breath and was subsequently intubated. The patient was just recently discharged from the hospital after having been admitted with a COPD exacerbation secondary to pneumonia. Chest imaging continues to demonstrate patchy bilateral infiltrates. Rapid COVID, influenza and RSV were negative. Cultures have not demonstrated any growth to date. Although the patient was initially intubated, he was able to be weaned from invasive mechanical ventilatory support on January 03. Plan to continue 7 days of IV antimicrobial therapy. Continue to wean supplemental oxygen as tolerated to maintain saturations at or above 90%. Ongoing dietary advancement per speech therapy. Encourage incentive spirometer use and mobilize patient as tolerated. Recommend empiric BiPAP therapy with naps and nightly, if the patient is agreeable. 2. Elevated troponin Most likely secondary to demand ischemia in the setting #1. Cardiology has signed off. 3. History of congestive heart failure/diabetes mellitus/hypertension/CVA/tobacco dependency/recent hospitalization for COPD Complicates care, management, recovery and prognosis. Continue supportive care as noted above. This note was generated with [employer] ([employer]) dictation software. It may contain incorrect words, spelling, and punctuation that were not noted in checking the note before signing. Subjective Subjective The patient was seen and examined at the bedside this morning. Events from the last 24 hours have been reviewed. The patient is currently afebrile, hemodynamically stable and maintaining appropriate oxygen saturations on nasal cannula supplemental O2. The patient became tachycardic and hypertensive overnight. He was therefore placed on BiPAP therapy. ABG obtained last evening demonstrated a pH of 7.24 with a pCO2 of 68 and pO2 of 73. This morning, the patient is significantly improved following BiPAP therapy with a pH of 7.41, pCO2 of 43 and pO2 of 80. The patient is still somewhat confused, frequently requesting his cigarettes. Objective Data Objective Data The patient's most recent lab work, culture data and imaging studies have all been personally reviewed. Surface echocardiogram completed in August 2023 demonstrated moderate concentric LVH with an ejection fraction of 60% and stage I diastolic dysfunction. There was noted at that time of an echogenic mobile structure as part of the papillary muscle or a possible torn mid cavitary tendon. Repeat surface echocardiogram from January 01 demonstrated a severely enlarged left atrium with severe mitral annular calcification and a right ventricular systolic pressure of 42 mmHg. Vital Signs: Vital Signs Temp Pulse Resp BP Pulse Ox O2 Del Method O2 Flow Rate 99.3 F H 114 H 30 H 173/95 H 96 Bi-pap 2 01/05/24 06:00 01/05/24 06:00 01/05/24 06:00 01/05/24 06:00 01/05/24 06:00 01/05/24 06:00 01/05/24 03:42 FiO2 35 01/05/24 06:00 Oxygen Flow Rate (L/min) 2 Oxygen Delivery Method Bi-pap Weight: 158 lb 4.67 oz Body Mass Index (BMI) 22.1 Intake & Output: Intake and Output for Last 24 Hours 01/03/24 01/04/24 01/05/24 23:59 23:59 23:59 Intake Total 1811.70 / 2111.70 1300 / 1300 425 / 425 Output Total 2024 / 2274 2900 / 2900 350 / 350 Balance -213.30 / -163.30 -1600 / -1600 75 / 75 Lab / Micro Data Attestation: I reviewed the patient's lab results. 01/05/24 03:38 01/05/24 03:38 Labs: Laboratory Results - last 24 hr 01/04/24 11:24: POC Glucose 242 H 01/04/24 18:04: POC Glucose 322 H 01/04/24 23:17: POC Glucose 207 H 01/05/24 03:38: WBC 13.0 H, RBC 4.00 L, Hgb 12.0 L, Hct 37.7 L, MCV 94.3 H, MCH 30.0, MCHC 31.8 L, RDW Std Deviation 55.7 H, RDW Coeff of Lauri 16.1 H, Plt Count 272, MPV 11.1, Immature Gran % (Auto) 1.400 H, Neut % (Auto) 76.7 H, Lymph % (Auto) 10.1 L, Castro % (Auto) 11.2 H, Eos % (Auto) 0.3, Baso % (Auto) 0.3, Absolute Neuts (auto) 10.0 H, Absolute Lymphs (auto) 1.31, Nucleated RBC % 0.2, Sodium 145, Potassium 3.2 L, Chloride 110 H, Carbon Dioxide 29.0, Anion Gap 6, BUN 23 H, Creatinine 0.56 L, Estim Creat Clear Calc 87.45, Est GFR (MDRD) Af Amer 185, Est GFR (MDRD) Non-Af 153, BUN/Creatinine Ratio 41.1 H, Glucose 147 H, Calcium 8.6 01/05/24 03:40: Phosphorus 3.2, Magnesium 2.1, Troponin I High Sens 61 01/05/24 05:03: POC Glucose 188 H Micro: Microbiology 01/01/24 11:15 Sputum, Induced/Lukens Gram Stain - Final 01/01/24 11:15 Sputum, Induced/Lukens Respiratory Culture - Final Presumptive C albicans 12/31/23 19:23 Blood Culture (Wb) #2 - Anticubital Left Blood Culture - Preliminary No growth in 48 hours. 12/31/23 18:10 Blood Culture (Wb) - Anticubital Right Blood Culture - Preliminary No growth in 48 hours. 12/31/23 18:15 Urine Catheter - Price Legionella Antigen - Final 12/31/23 18:15 Urine Catheter - Price Streptococcus pneumoniae Antigen (M - Final 12/31/23 19:22 Mucosa - Nose SARS-CoV-2, Influenza & RSV (PCR) - Final ABG Data ABG results: ABG 01/05/24 04:41 Specimen Type ART Sample Site R Radial pH 7.24 L Bicarbonate Actual 29.4 H Total CO2 32 Base Excess 2 O2 Saturation 91 L O2 % 50.0 ABG pCO2 68.2 H* ABG pO2 73 L Tito Test Positive Respiration Rate 12 O2 Delivery Device BiPAP Vent Mode Not entered Tidal Volume 500.0 POC PEEP 12 Crit Call To/Read Back Yes Radiography Diagnostic Testing: Radiology Impression Chest X-Ray 01/01/24 05:55 IMPRESSION: Decreased lung volumes and patient rotation. Mild increased apparent hazy opacities in the right infrahilar-lower lung velázquez. Otherwise stable chest. Electronically Signed: Tere Mcgovern MD at 7:38 EST Reading Location ID and State: [address] [place] [address] Tel , Service support , Echocardiogram 01/01/24 08:20 Interpretation Summary Mild concentric left ventricular hypertrophy. The left ventricular ejection fraction is 60 %. The left atrium is severely enlarged. The right atrium is mildly enlarged. Severe mitral annular calcification. Mild mitral valve stenosis. Moderate to severe eccentric mitral regurgitation noted Consider severed mitral valve cord mid left ventricular cavity. Unchanged from the study on 09/05/2023. Recommend transesophageal echocardiogram for further evaluation if clinically indicated. Mild tricuspid valve insufficiency. Right ventricular systolic pressure estimated to be 42 mmHg. Mild aortic stenosis. Ordering Physician: Moris Holm Referring Physician: Rd Rivers Performed By: Sandra Rosa RDCS Rhythm Strip Rhythm Strip: Sinus Tach Rate: 104 Ectopy: PAC(s) (Short burst of SVT) Physical Exam Const alert and no apparent distress Constitutional Narrative: Currently tolerating an aerosol treatment. Alert to person only at the present time. General Appearance: cooperative HEENT normocephalic and head/scalp atraumatic Eyes PERRL, EOMs intact bilaterally and conjunctivae normal Neck supple General: trachea midline Chest inspection of chest normal Resp normal respiratory effort Auscultation: diminished lung sounds; Negative for rales, rhonchi or wheezes Cardio regular rate and regular rhythm Heart Sounds: murmur GI normal to inspection, nondistended, normoactive bowel sounds Extremity no clubbing, cyanosis or edema Skin no rashes or lesions noted Neuro CN's II-XII intact bilaterally, moves all extremities and no focal motor deficits Psych cooperative and affect normal Charges/Coding Visit Charges Inpatient E&M: 19740 Subs Hosp L2
[2024-01-05 07:17] LABS: Pathologist Review Reviewed
[2024-01-05 07:29] LABS: Base Excess 3 mmol/L (-2 to +2); Bicarbonate 27.2 mmol/L (22-26); Blood Gas Specimen Type ART; Mode Not entered; O2 Delivery Device BiPAP; PEEP 12; PO2 80 mmHG (75-100); RR 12; SITE L Radial; SO2 96 % (95-99); Total Carbon Dioxide 29 mmol/L; pH 7.41 (7.35-7.45)
[2024-01-05] MEDS: Ipratropium 0.5 MG/2.5 ML SOLUTION INHALATION ×4 (07:30→19:47)
--- NOTE | 2024-01-05 07:55 | PCM.PN.HOSP ---
Reason for Visit Reason for Visit: Diagnoses Hyperkalemia (12/31/23) Nonrheumatic mitral (valve) insufficiency (12/31/23) Pneumonia, unspecified organism (12/31/23) Chronic obstructive pulmonary disease, unspecified (12/31/23) Hypoxemia (12/31/23) Other specified abnormal findings of blood chemistry (12/31/23) Subjective Subjective Patient seen has experienced episodes of delirium.. Patient remains deconditioned and plan is for patient to be transferred to senior care facility Objective Data Objective Data Vital Signs: Vital Signs Temp Pulse Resp BP Pulse Ox O2 Del Method O2 Flow Rate 99.1 F 102 H 32 H 163/116 H 95 Bi-pap 2 01/05/24 07:00 01/05/24 07:00 01/05/24 07:00 01/05/24 07:00 01/05/24 07:00 01/05/24 07:00 01/05/24 03:42 FiO2 35 01/05/24 07:00 Oxygen Flow Rate (L/min) 2 Oxygen Delivery Method Bi-pap Weight: 71.8 kg Body Mass Index (BMI) 22.1 Intake & Output: Intake and Output for Last 24 Hours 01/03/24 01/04/24 01/05/24 23:59 23:59 23:59 Intake Total 1811.70 / 2111.70 1300 / 1300 525 / 525 Output Total 2025 / 2275 2900 / 2900 350 / 350 Balance -213.30 / -163.30 -1600 / -1600 175 / 175 Lab / Micro Data 01/05/24 03:38 01/05/24 03:38 Labs: Laboratory Results - last 24 hr 01/04/24 03:25: Diff Path Review Reviewed 01/04/24 11:24: POC Glucose 242 H 01/04/24 18:04: POC Glucose 322 H 01/04/24 23:17: POC Glucose 207 H 01/05/24 03:38: WBC 13.0 H, RBC 4.00 L, Hgb 12.0 L, Hct 37.7 L, MCV 94.3 H, MCH 30.0, MCHC 31.8 L, RDW Std Deviation 55.7 H, RDW Coeff of Lauri 16.1 H, Plt Count 272, MPV 11.1, Immature Gran % (Auto) 1.400 H, Neut % (Auto) 76.7 H, Lymph % (Auto) 10.1 L, Grant % (Auto) 11.2 H, Eos % (Auto) 0.3, Baso % (Auto) 0.3, Absolute Neuts (auto) 10.0 H, Absolute Lymphs (auto) 1.31, Nucleated RBC % 0.2, Sodium 145, Potassium 3.2 L, Chloride 110 H, Carbon Dioxide 29.0, Anion Gap 6, BUN 23 H, Creatinine 0.56 L, Estim Creat Clear Calc 87.45, Est GFR (MDRD) Af Amer 185, Est GFR (MDRD) Non-Af 153, BUN/Creatinine Ratio 41.1 H, Glucose 147 H, Calcium 8.6 01/05/24 03:40: Phosphorus 3.2, Magnesium 2.1, Troponin I High Sens 61 01/05/24 05:03: POC Glucose 188 H Micro: Microbiology 01/01/24 11:15 Sputum, Induced/Lukens Gram Stain - Final 01/01/24 11:15 Sputum, Induced/Lukens Respiratory Culture - Final Presumptive C albicans 12/31/23 19:23 Blood Culture (Wb) #2 - Anticubital Left Blood Culture - Preliminary No growth in 48 hours. 12/31/23 18:10 Blood Culture (Wb) - Anticubital Right Blood Culture - Preliminary No growth in 48 hours. 12/31/23 18:15 Urine Catheter - Price Legionella Antigen - Final 12/31/23 18:15 Urine Catheter - Price Streptococcus pneumoniae Antigen (M - Final 12/31/23 19:22 Mucosa - Nose SARS-CoV-2, Influenza & RSV (PCR) - Final ABG Data ABG results: ABG 01/05/24 01/05/24 04:41 07:25 Specimen Type ART ART Sample Site R Radial L Radial pH 7.24 L 7.41 Bicarbonate Actual 29.4 H 27.2 H Total CO2 32 29 Base Excess 2 3 H O2 Saturation 91 L 96 O2 % 50.0 35.0 ABG pCO2 68.2 H* 43.0 ABG pO2 73 L 80 Tito Test Positive Respiration Rate 12 12 O2 Delivery Device BiPAP BiPAP Vent Mode Not entered Not entered Tidal Volume 500.0 500.0 POC PEEP 12 12 Crit Call To/Read Back Yes Rhythm Strip Rhythm Strip: Sinus Tach Rate: 104 Ectopy: PAC(s) (Short burst of SVT) Physical Exam Narrative GENERAL: Patient is interactive HEENT: Atraumatic; normocephalic EYES; Anicteric, Normal Conjunctiva NECK; supple, normal thyroid, RESPIRATORY: Diminished to auscultation CARDIOVASCULAR: Regular S1 S2, GI: soft, normoactive bowel sounds, : No Renal angle tenderness; EXTREMITIES: No edema, no clubbing, MUSCULOSKELETAL: no muscle wasting NEURO: No lateralizing signs SKIN: No Rash Assessment & Plan Assessment/Plan (1) Pneumonia: QUALIFIERS: Laterality: bilateral Lung location: unspecified part of lung Pneumonia type: due to unspecified organism Qualified Code(s): J18.9 - Pneumonia, unspecified organism (2) COPD (chronic obstructive pulmonary disease): QUALIFIERS: COPD type: unspecified COPD Qualified Code(s): J44.9 - Chronic obstructive pulmonary disease, unspecified (3) Elevated troponin: (4) Hyperkalemia: PLAN: Plan Patient is a 73-year-old gentleman admitted with progressive shortness of breath. An assessment of acute hypoxic and hypercapnic respiratory failure with metabolic encephalopathy made. Patient was intubated and admitted to the intensive care unit 1. Acute hypoxic and hypercapnic respiratory failure ? Secondary to pneumonia with suspected multidrug-resistant organisms. Patient was intubated admitted to the intensive care unit with consultation placed to pulmonary/intensive care for ICU management ? 01/02/2024atient seen remains awake on the vent. Did fail his weaning trial this a.m. ? 01/03/2024; successfully extubated this a.m. ? 01/04/2024. Patient has maintained adequate saturation on nasal cannula.. Patient scheduled to undergo swallow eval -01/05/2024; patient remains on nasal cannula. Was placed on BiPAP during the night after going into respiratory distress 2. Septic shock ? Secondary to pneumonia with suspected multidrug resistant organisms patient treated per protocol with broad-spectrum antibiotic therapy fluids as well as cultures been sent. Patient currently on pressors with Levophed ? 01/02/2024;Patient WBC count trending down. 3. COPD with acute exacerbation ? Patient was found to have severe CO2 narcosis with pCO2 of 85.7 on admission contributing to patient respiratory failure management as discussed above in addition to systemic steroid 4. Acute metabolic encephalopathy ? Secondary to hypoxia and hypercapnia patient was intubated ? 01/04/2024 patient is interactive however has experienced episodes of delirium 5. Elevated troponin ? Suspected to be secondary to myocardial injury monitoring with serial cardiac enzymes 6. Diabetes mellitus type II -patient's oral hypoglycemics held. Placed on long acting insulin, Accu-Cheks every 6. and covered with sliding scale insulin 7. Essential hypertension ? Patient antihypertensives held 8. Mild hyperkalemia ?Resolved 9. Dyslipidemia -Patient is on statin therapy, continued at home dose 10. GERD ? On PPI 11. Tobacco dependence -Plan is to psychotherapist counselor patient on cessation 12. Anemia - Secondary to chronic disorder monitoring H&H and transfuse if patient becomes symptomatic or hemoglobin falls below 7 13. DVT prophylaxis ? On heparin 14. PSVT ? Following extubation we will continue monitoring on continuous telemetry. Seen in consultation by cardiology. 15. Physical deconditioning - Requested for PT OT eval and director of social media marketing to assist with discharge planning ? 01/05/2024 Case discussed with case management 16. Hypokalemia ? Corrected per protocol repeat labs ordered for a.m. Time spent in the patient's overall evaluation,decision-making process, review of diagnostic data, adjustment of management, discussion with other providers, nursing nursing and ancillary staff involved in patient's care documentation, 50 minutes Charges/Coding Visit Charges Inpatient E&M: 33474 Subs Hosp L3
[2024-01-05] MEDS: Enoxaparin 40 MG/0.4 ML Syringe SC (08:54)
[2024-01-05] MEDS: Clopidogrel Bisulfate 75 MG Tablet PO (08:54)
[2024-01-05] MEDS: Aspirin 81 MG TAB.CHEW PO (08:54)
[2024-01-05 11:46] LABS: Bedside Glucose 145 mg/dL (74-106)
--- NOTE | 2024-01-05 12:51 | CASEMGMT ---
Social Work SW called daughter to ask for additional SNF choices since [facility] cannot take pt. SW let message for daughter to call this SW back. KENNEDI Olea
--- NOTE | 2024-01-05 14:49 | CASEMGMT ---
Social Work SW received return call from pt's dgt. SW updated that [facility] rehab is unable to accept pt. Pt's dgt does not have other thoughts on SNF placement. SW informed dgt that a SNF list of options will be emailed to her for review and she can electronically make choices and referrals will be made. Pt's dgt agreeable to review list and make choices. DC senior underwriting assistant updated and to email list. SAYRA Frey
--- NOTE | 2024-01-05 14:58 | CASEMGMT ---
Discharge Planning A list of?SNF providers including quality and resource use data and consistent with the patient's preferred geographic region, medical needs, and insurance network were provided via email ([email or web address]) from the [facility] Guide link. Erin Gonzales, Discharge Planning Asst.
--- NOTE | 2024-01-05 16:04 | CASEMGMT ---
Addendum entered by Erin Gonzales 01/08/24 14:31: [facility] have accepted. Patients daughter updated and foc is [facility]. She was made aware that he will not be able to smoke there. SW updated. Erin Gonzales, Discharge Planning Asst. Addendum entered by Erin Gonzales 01/05/24 16:43: [facility] has accepted but states that IV fentanyl will need to be dc'd prior to admission if they are foc. Erin Gonzales, Discharge Planning Asst. Addendum entered by Erin Gonzales 01/05/24 16:33: [facility] referral. Erin Gonzales, Discharge Planning Asst. Original Note: Discharge Planning Referral sent via [facility] to [facility], [facility], [facility], and [facility]. Erin Gonzales, Discharge Planning Asst.
[2024-01-05 17:30] LABS: Bedside Glucose 127 mg/dL (74-106)
[2024-01-05] MEDS: MELATONIN 10 MG TABLET PO (20:21)
[2024-01-05] MEDS: Atorvastatin Calcium 40 MG Tablet PO (20:21)
[2024-01-06] VITALS (17 sets, daily range): BP systolic 101–138; BP diastolic 49–91; PULSE 89–114; RESP 12–29; TEMP 36.6–37.1; O2SAT 92–98; BMI 21.1
[2024-01-06] MEDS: Insulin Lispro 100 UNIT/ML INSULN.PEN SC ×4 (00:14→21:14)
[2024-01-06] MEDS: Vancomycin Trough/Random Due 1 LAB MC (00:15)
[2024-01-06 00:36] LABS: Bedside Glucose 178 mg/dL (74-106)
[2024-01-06] MEDS: Vancomycin HCl 1,250 MG in 0.9% Normal Saline (250mL Bag) 250 ML 167 MG IV ×2 (01:31→11:40)
[2024-01-06] MEDS: Furosemide 40 MG/4 ML Vial IV (01:31)
--- NOTE | 2024-01-06 02:28 | PCM.RX.CS ---
Consult Antibiotic Management Pharmacy has been consulted to manage selected antibiotic: Vancomycin Type of Intervention Type of Consult: Follow-up Labs Labs: Sodium 145 mmol/L (136-145) 01/05/24 03:38 Potassium 3.2 mmol/L (3.5-5.1) L 01/05/24 03:38 Chloride 110 mmol/L (98-107) H 01/05/24 03:38 Carbon Dioxide 29.0 mmol/L (21.0-32.0) 01/05/24 03:38 Anion Gap 6 (5-15) 01/05/24 03:38 BUN 23 mg/dL (7-18) H 01/05/24 03:38 Creatinine 0.56 mg/dL (0.70-1.30) L 01/05/24 03:38 Est GFR (MDRD) Af Amer 185 mL/min (>60) 01/05/24 03:38 Est GFR (MDRD) Non-Af 153 mL/min (>60) 01/05/24 03:38 BUN/Creatinine Ratio 41.1 RATIO (10-20) H 01/05/24 03:38 Glucose 147 mg/dL (74-106) H 01/05/24 03:38 Vancomycin Trough 17.0 ug/mL (5.0-15.0) H 01/06/24 00:15 Microbiology Microbiology: Microbiology 01/01/24 11:15 Sputum, Induced/Lukens Gram Stain - Final 01/01/24 11:15 Sputum, Induced/Lukens Respiratory Culture - Final Presumptive C albicans 12/31/23 19:23 Blood Culture (Wb) #2 - Anticubital Left Blood Culture - Preliminary No growth in 48 hours. 12/31/23 18:10 Blood Culture (Wb) - Anticubital Right Blood Culture - Preliminary No growth in 48 hours. 12/31/23 18:15 Urine Catheter - Price Legionella Antigen - Final 12/31/23 18:15 Urine Catheter - Price Streptococcus pneumoniae Antigen (M - Final 12/31/23 19:22 Mucosa - Nose SARS-CoV-2, Influenza & RSV (PCR) - Final Goal Trough Goal Trough: 15-20 mcg/mL Pharmacy Plan for Drug Dosing Pharmacy Plan for Drug Dosing: Pharmacy Service will continue to monitor and adjust dosing as required. TROUGH 17 @ 11.5 HOURS NO CHANGES, FOLLOW UP TROUGH IN 2 DAYS Follow-Up Labs Follow-Up Labs: Trough: Vancomycin Date/Time Labs Ordered Labs to be done on [date and time ordered]: 01/08 @ 0000
[2024-01-06 03:46] LABS: Absolute Lymphocyte Count 0.97 X10^3/uL (0.83-4.51); Absolute Neutrophil Count 13.5 X10^3/uL (2.0-7.7); Basophil# 0.05 X10^3/uL; Basophil% 0.3 % (0-1); Eosinophil# 0.26 X10^3/uL; Eosinophils% 1.6 % (0-5); Hematocrit 42.2 % (40-54); Hemoglobin 13.4 g/dL (13.0-16.5); Lymphocyte # 0.97 X10^3/ul (0.83-4.51); Lymphocyte % 5.9 % (19-41); Mean Corp Hgb Conc 31.8 g/dL (32-36); Mean Corpuscular Hgb 30.2 pg (27.0-32.0); Mean Platelet Vol. 11.2 fl (6.2-12.0); Monocyte# 1.52 X10^3/uL; Monocyte% 9.2 % (0-10); NRBC Flagged by Analyzer 0.1 % (0-5); Neutrophil # 13.49 X10^3/uL (2.7-7.7); Neutrophil % 81.9 % (47-70); POSITIVE DIFFERENTIAL YES; Platelet Count 273 K/mm3 (150-450); RBC Distribution Width CV 16.1 % (11.6-14.6); Red Blood Count 4.44 M/mm3 (4.6-6.2); White Blood Count 16.5 K/mm3 (4.4-11.0)
[2024-01-06 03:50] LABS: Differential Indicated SCAN CRITERIA MET
[2024-01-06 04:00] LABS: Anion Gap 7 (5-15); BUN 15 mg/dL (7-18); BUN/Creat Ratio 29.6 RATIO (10-20); Calcium,Total 8.6 mg/dL (8.5-10.1); Chloride 103 mmol/L (98-107); Creatinine, Serum 0.51 mg/dL (0.70-1.30); EST Glomerular Filtration Rate 171 mL/min (>60); Est Glom Filt Rate - Afr Amer 207 mL/min (>60); Estimated Creatinine Clearance 86.01 ml/min; Glucose 119 mg/dL (74-106); Sodium Level 141 mmol/L (136-145)
[2024-01-06 04:18] LABS: Differential Comment SCANNED
[2024-01-06] MEDS: Piperacil/Tazobactam 3.375 GM in 0.9% Normal Saline (50mL MB+) 50 ML IV ×3 (06:09→21:21)
[2024-01-06] MEDS: Potassium Chloride Oral Tablet 20 MEQ 40 MEQ PO ×2 (06:09→06:20)
[2024-01-06 06:33] LABS: Bedside Glucose 210 mg/dL (74-106)
[2024-01-06] MEDS: Ipratropium 0.5 MG/2.5 ML SOLUTION INHALATION ×4 (07:03→19:50)
--- NOTE | 2024-01-06 07:28 | PCM.PN.HOSP ---
Reason for Visit Reason for Visit: Diagnoses Hyperkalemia (12/31/23) Nonrheumatic mitral (valve) insufficiency (12/31/23) Pneumonia, unspecified organism (12/31/23) Chronic obstructive pulmonary disease, unspecified (12/31/23) Hypoxemia (12/31/23) Other specified abnormal findings of blood chemistry (12/31/23) Subjective Subjective Patient seen, per nursing staff patient has still been experiencing episodes of delirium. Plan is for patient to be transferred to a [facility] facility pending insurance approval Objective Data Objective Data Vital Signs: Vital Signs Temp Pulse Resp BP Pulse Ox O2 Del Method O2 Flow Rate 98.5 F 111 H 22 H 119/71 96 Nasal Cannula 2 01/06/24 05:00 01/06/24 07:05 01/06/24 07:05 01/06/24 05:00 01/06/24 07:05 01/06/24 07:05 01/06/24 07:05 FiO2 35 01/06/24 05:00 Oxygen Flow Rate (L/min) 2 Oxygen Delivery Method Nasal Cannula Weight: 68.4 kg Body Mass Index (BMI) 21.1 Intake & Output: Intake and Output for Last 24 Hours 01/04/24 01/05/24 01/06/24 23:59 23:59 23:59 Intake Total 1300 / 1300 1065 / 1065 565 / 565 Output Total 2900 / 2900 1650 / 2300 2750 / 2750 Balance -1600 / -1600 -585 / -1235 -2185 / -2185 Lab / Micro Data 01/06/24 03:40 01/06/24 03:40 Labs: Laboratory Results - last 24 hr 01/05/24 11:28: POC Glucose 145 H 01/05/24 17:12: POC Glucose 127 H 01/06/24 00:08: POC Glucose 178 H 01/06/24 00:15: Vancomycin Trough 17.0 H 01/06/24 03:40: WBC 16.5 H, RBC 4.44 L, Hgb 13.4, Hct 42.2, MCV 95.0 H, MCH 30.2, MCHC 31.8 L, RDW Std Deviation 56.0 H, RDW Coeff of Lauri 16.1 H, Plt Count 273, MPV 11.2, Immature Gran % (Auto) 1.100 H, Neut % (Auto) 81.9 H, Lymph % (Auto) 5.9 L, [place] % (Auto) 9.2, Eos % (Auto) 1.6, Baso % (Auto) 0.3, Absolute Neuts (auto) 13.5 H, Absolute Lymphs (auto) 0.97, Nucleated RBC % 0.1, Differential Comment SCANNED, Diff Path Review March foll, Sodium 141, Potassium 3.0 L, Chloride 103, Carbon Dioxide 31.0, Anion Gap 7, BUN 15, Creatinine 0.51 L, Estim Creat Clear Calc 86.01, Est GFR (MDRD) Af Amer 207, Est GFR (MDRD) Non-Af 171, BUN/Creatinine Ratio 29.6 H, Glucose 119 H, Calcium 8.6 01/06/24 06:07: POC Glucose 210 H Micro: Microbiology 12/31/23 19:23 Blood Culture (Wb) #2 - Anticubital Left Blood Culture - Final No growth in 5 days. 12/31/23 18:10 Blood Culture (Wb) - Anticubital Right Blood Culture - Final No growth in 5 days. 01/01/24 11:15 Sputum, Induced/Lukens Gram Stain - Final 01/01/24 11:15 Sputum, Induced/Lukens Respiratory Culture - Final Presumptive C albicans 12/31/23 18:15 Urine Catheter - Price Legionella Antigen - Final 12/31/23 18:15 Urine Catheter - Price Streptococcus pneumoniae Antigen (M - Final 12/31/23 19:22 Mucosa - Nose SARS-CoV-2, Influenza & RSV (PCR) - Final ABG Data ABG results: ABG 01/05/24 07:25 Specimen Type ART Sample Site L Radial pH 7.41 Bicarbonate Actual 27.2 H Total CO2 29 Base Excess 3 H O2 Saturation 96 O2 % 35.0 ABG pCO2 43.0 ABG pO2 80 Respiration Rate 12 O2 Delivery Device BiPAP Vent Mode Not entered Tidal Volume 500.0 POC PEEP 12 Rhythm Strip Rhythm Strip: Sinus Tach Rate: 104 Ectopy: PAC(s) (Short burst of SVT) Physical Exam Narrative GENERAL: Patient is interactive HEENT: Atraumatic; normocephalic EYES; Anicteric, Normal Conjunctiva NECK; supple, normal thyroid, RESPIRATORY: Diminished to auscultation CARDIOVASCULAR: Regular S1 S2, GI: soft, normoactive bowel sounds, : No Renal angle tenderness; EXTREMITIES: No edema, no clubbing, MUSCULOSKELETAL: no muscle wasting NEURO: No lateralizing signs SKIN: No Rash Assessment & Plan Assessment/Plan (1) Pneumonia: QUALIFIERS: Laterality: bilateral Lung location: unspecified part of lung Pneumonia type: due to unspecified organism Qualified Code(s): J18.9 - Pneumonia, unspecified organism (2) COPD (chronic obstructive pulmonary disease): QUALIFIERS: COPD type: unspecified COPD Qualified Code(s): J44.9 - Chronic obstructive pulmonary disease, unspecified (3) Elevated troponin: (4) Hyperkalemia: PLAN: Plan Patient is a 73-year-old gentleman admitted with progressive shortness of breath. An assessment of acute hypoxic and hypercapnic respiratory failure with metabolic encephalopathy made. Patient was intubated and admitted to the intensive care unit 1. Acute hypoxic and hypercapnic respiratory failure ? Secondary to pneumonia with suspected multidrug-resistant organisms. Patient was intubated admitted to the intensive care unit with consultation placed to pulmonary/intensive care for ICU management ? 01/02/2024atient seen remains awake on the vent. Did fail his weaning trial this a.m. ? 01/03/2024; successfully extubated this a.m. ? 01/04/2024. Patient has maintained adequate saturation on nasal cannula.. Patient scheduled to undergo swallow eval -01/05/2024; patient remains on nasal cannula. Was placed on BiPAP during the night after going into respiratory distress ? 01/06/2024 plan is for patient to be transferred from the ICU to the progressive care unit 2. Septic shock ? Secondary to pneumonia with suspected multidrug resistant organisms patient treated per protocol with broad-spectrum antibiotic therapy fluids as well as cultures been sent. Patient currently on pressors with Levophed ? 01/02/2024;Patient WBC count trending down. 3. COPD with acute exacerbation ? Patient was found to have severe CO2 narcosis with pCO2 of 85.7 on admission contributing to patient respiratory failure management as discussed above in addition to systemic steroid 4. Acute metabolic encephalopathy ? Secondary to hypoxia and hypercapnia patient was intubated ? 01/04/2024 patient is interactive however has experienced episodes of delirium 5. Elevated troponin ? Suspected to be secondary to myocardial injury monitoring with serial cardiac enzymes 6. Diabetes mellitus type II -patient's oral hypoglycemics held. Placed on long acting insulin, Accu-Cheks every 6. and covered with sliding scale insulin 7. Essential hypertension ? Patient antihypertensives held 8. Mild hyperkalemia ?Resolved 9. Dyslipidemia -Patient is on statin therapy, continued at home dose 10. GERD ? On PPI 11. Tobacco dependence -Plan is to education counselor patient on cessation 12. Anemia - Secondary to chronic disorder monitoring H&H and transfuse if patient becomes symptomatic or hemoglobin falls below 7 13. DVT prophylaxis ? On heparin 14. PSVT ? Following extubation we will continue monitoring on continuous telemetry. Seen in consultation by cardiology. 15. Physical deconditioning - Requested for PT OT eval and web content & social media manager to assist with discharge planning ? 01/05/2024 Case discussed with case management 16. Hypokalemia ? Corrected per protocol repeat labs ordered for a.m. Time spent in the patient's overall evaluation,decision-making process, review of diagnostic data, adjustment of management, discussion with other providers, nursing nursing and ancillary staff involved in patient's care documentation, 35 minutes Charges/Coding Visit Charges Inpatient E&M: 13545 Subs Hosp L2
--- NOTE | 2024-01-06 08:48 | PN.CC_ITS ---
Subjective Subjective Pt seen and examined. Feeling well. On 2L O2. Used NIV over night. PE: General: Well developed, in no distress HEENT: anicteric Sclera, nl nose; supple neck, no masses Cardiovascular: S1/S2; No rubs, gallops; no displaced PM Respiratory: diminished; no crackles, wheezes, or rhonchi Abdominal: Non-tender; Non distended; hypoBS x 4; No Hepatosplenomegaly Extremities: Warm, well perfused; No clubbing, cyanosis; capillary refill < 2 sec Skin: intact, no rashes Neurological: no gross deficits appreciated A/P: #Acute on chronic respiratory failure #Elevated troponin/demand ischemia #History of congestive heart failure/diabetes mellitus/hypertension/CVA/tobacco dependency/recent hospitalization for COPD -Cont titrating O2 to keep sats ~90%; cont recommending NIV qHS/naps; encourage mobilization/IS use; suspect will need home O2 on DC -Finish steroid course as described -Finish Abx course --> can switch to oral in prep for possible discharge -Diet per ST recommendations -Counseling provided re: tobacco smoking cessation; cont nicotine replacement Needs outpatient pulmonary medicine referral & F/U. Will sign off but available as needed. The entirety of this encounter was completed via telemedicine. Objective Data Objective Data Vital Signs: Vital Signs Temp Pulse Resp BP Pulse Ox O2 Del Method O2 Flow Rate 36.9 C 111 H 22 H 119/71 96 Nasal Cannula 4 01/06/24 05:00 01/06/24 07:05 01/06/24 07:05 01/06/24 05:00 01/06/24 07:05 01/06/24 08:18 01/06/24 08:18 FiO2 35 01/06/24 05:00 Oxygen Flow Rate (L/min) 4 Oxygen Delivery Method Nasal Cannula Weight: 68.4 kg Body Mass Index (BMI) 21.1 Intake & Output: Intake and Output for Last 24 Hours 01/04/24 01/05/24 01/06/24 23:59 23:59 23:59 Intake Total 1300 / 1300 1065 / 1065 565 / 565 Output Total 2900 / 2900 1650 / 2300 2750 / 2750 Balance -1600 / -1600 -585 / -1235 -2185 / -2185 Lab / Micro Data 01/06/24 03:40 01/06/24 03:40 Labs: Laboratory Results - last 24 hr 01/05/24 11:28: POC Glucose 145 H 01/05/24 17:12: POC Glucose 127 H 01/06/24 00:08: POC Glucose 178 H 01/06/24 00:15: Vancomycin Trough 17.0 H 01/06/24 03:40: WBC 16.5 H, RBC 4.44 L, Hgb 13.4, Hct 42.2, MCV 95.0 H, MCH 30.2, MCHC 31.8 L, RDW Std Deviation 56.0 H, RDW Coeff of Lauri 16.1 H, Plt Count 273, MPV 11.2, Immature Gran % (Auto) 1.100 H, Neut % (Auto) 81.9 H, Lymph % (Auto) 5.9 L, Cottle % (Auto) 9.2, Eos % (Auto) 1.6, Baso % (Auto) 0.3, Absolute Neuts (auto) 13.5 H, Absolute Lymphs (auto) 0.97, Nucleated RBC % 0.1, Differential Comment SCANNED, Diff Path Review March, Sodium 141, Potassium 3.0 L, Chloride 103, Carbon Dioxide 31.0, Anion Gap 7, BUN 15, Creatinine 0.51 L , Estim Creat Clear Calc 86.01, Est GFR (MDRD) Af Amer 207, Est GFR (MDRD) Non- Af 171, BUN/Creatinine Ratio 29.6 H, Glucose 119 H, Calcium 8.6 01/06/24 06:07: POC Glucose 210 H Micro: Microbiology 12/31/23 19:23 Blood Culture (Wb) #2 - Anticubital Left Blood Culture - Final No growth in 5 days. 12/31/23 18:10 Blood Culture (Wb) - Anticubital Right Blood Culture - Final No growth in 5 days. 01/01/24 11:15 Sputum, Induced/Lukens Gram Stain - Final 01/01/24 11:15 Sputum, Induced/Lukens Respiratory Culture - Final Presumptive C albicans 12/31/23 18:15 Urine Catheter - Price Legionella Antigen - Final 12/31/23 18:15 Urine Catheter - Price Streptococcus pneumoniae Antigen (M - Final 12/31/23 19:22 Mucosa - Nose SARS-CoV-2, Influenza & RSV (PCR) - Final Rhythm Strip Rhythm Strip: Sinus Tach Rate: 104 Ectopy: PAC(s) (Short burst of SVT)
[2024-01-06] MEDS: predniSONE 20 MG Tablet 40 MG PO (09:02)
[2024-01-06] MEDS: Enoxaparin 40 MG/0.4 ML Syringe SC (09:02)
[2024-01-06] MEDS: Aspirin 81 MG TAB.CHEW PO (09:02)
[2024-01-06] MEDS: Clopidogrel Bisulfate 75 MG Tablet PO (09:03)
[2024-01-06 13:29] LABS: Bedside Glucose 138 mg/dL (74-106)
[2024-01-06] MEDS: 0.9% Saline Lock 10 ML Syringe IV (14:08)
[2024-01-06 16:38] LABS: Bedside Glucose 348 mg/dL (74-106)
[2024-01-06 17:15] LABS: Bedside Glucose 348 mg/dL (74-106)
[2024-01-06] MEDS: Atorvastatin Calcium 40 MG Tablet PO (21:13)
[2024-01-06 22:13] LABS: Bedside Glucose 284 mg/dL (74-106)
[2024-01-07] VITALS (8 sets, daily range): BP systolic 111–147; BP diastolic 72–84; PULSE 83–104; RESP 16–24; TEMP 36.6–37; O2SAT 91–97; BMI 21.2
[2024-01-07] MEDS: Vancomycin HCl 1,250 MG in 0.9% Normal Saline (250mL Bag) 250 ML 167 MG IV ×2 (00:36→11:44)
--- NOTE | 2024-01-07 01:45 | CPS ---
Patient does not wish to wear the BIPAP at this time. He states that he is breathing better and does not wear a BIPAP at home
[2024-01-07] MEDS: Piperacil/Tazobactam 3.375 GM in 0.9% Normal Saline (50mL MB+) 50 ML IV ×3 (05:59→21:25)
[2024-01-07 06:22] LABS: Bedside Glucose 113 mg/dL (74-106)
[2024-01-07] MEDS: Ipratropium 0.5 MG/2.5 ML SOLUTION INHALATION ×3 (07:08→20:28)
[2024-01-07 07:32] LABS: Absolute Lymphocyte Count 1.32 X10^3/uL (0.83-4.51); Absolute Neutrophil Count 12.7 X10^3/uL (2.0-7.7); Basophil# 0.02 X10^3/uL; Basophil% 0.1 % (0-1); Eosinophils% 1.3 % (0-5); Hematocrit 39.3 % (40-54); Hemoglobin 12.5 g/dL (13.0-16.5); Lymphocyte # 1.32 X10^3/ul (0.83-4.51); Lymphocyte % 8.4 % (19-41); Mean Corp Hgb Conc 31.8 g/dL (32-36); Mean Corpuscular Hgb 30.5 pg (27.0-32.0); Mean Corpuscular Volume 95.9 fL (80-94); Mean Platelet Vol. 11.8 fl (6.2-12.0); Monocyte# 1.27 X10^3/uL; Monocyte% 8.1 % (0-10); NRBC Flagged by Analyzer 0 % (0-5); Neutrophil # 12.73 X10^3/uL (2.7-7.7); Neutrophil % 81.3 % (47-70); Platelet Count 267 K/mm3 (150-450); RBC Distribution Width CV 16.1 % (11.6-14.6); RBC Distribution Width SD 57.4 fl (35.1-43.9); White Blood Count 15.7 K/mm3 (4.4-11.0)
--- NOTE | 2024-01-07 07:56 | PN.HOSP_ITS ---
Reason for Visit Reason for Visit: Diagnoses Hyperkalemia (12/31/23) Nonrheumatic mitral (valve) insufficiency (12/31/23) Pneumonia, unspecified organism (12/31/23) Chronic obstructive pulmonary disease, unspecified (12/31/23) Hypoxemia (12/31/23) Other specified abnormal findings of blood chemistry (12/31/23) Subjective Subjective Patient was transferred from the intensive care unit to the progressive care unit the day prior. Seen this a.m. Patient still remains confused. Plan is for patient to be discharged to a senior care facility pending insurance approval Objective Data Objective Data Vital Signs: Vital Signs Temp Pulse Resp BP Pulse Ox O2 Del Method O2 Flow Rate 98.5 F 90 18 131/73 H 93 Nasal Cannula 2 01/07/24 04:00 01/07/24 07:09 01/07/24 07:09 01/07/24 04:00 01/07/24 07:09 01/07/24 07:09 01/07/24 07:09 FiO2 35 01/06/24 05:00 Oxygen Flow Rate (L/min) 2 Oxygen Delivery Method Nasal Cannula Weight: 69 kg Body Mass Index (BMI) 21.2 Intake & Output: Intake and Output for Last 24 Hours 01/05/24 01/06/24 01/07/24 23:59 23:59 23:59 Intake Total 1065 / 1065 1180 / 1300 565 / 565 Output Total 1650 / 2300 3550 / 3900 600 / 600 Balance -585 / -1235 -2370 / -2600 -35 / -35 Lab / Micro Data 01/07/24 07:03 01/07/24 07:03 Labs: Laboratory Results - last 24 hr 01/06/24 11:36: POC Glucose 138 H 01/06/24 16:18: POC Glucose 348 H 01/06/24 16:57: POC Glucose 348 H 01/06/24 21:09: POC Glucose 284 H 01/07/24 05:59: POC Glucose 113 H 01/07/24 07:03: WBC 15.7 H, RBC 4.10 L, Hgb 12.5 L, Hct 39.3 L, MCV 95.9 H, MCH 30.5, MCHC 31.8 L, RDW Std Deviation 57.4 H, RDW Coeff of Lauri 16.1 H, Plt Count 267, MPV 11.8, Immature Gran % (Auto) 0.800, Neut % (Auto) 81.3 H, Lymph % (Auto) 8.4 L, [place] % (Auto) 8.1, Eos % (Auto) 1.3, Baso % (Auto) 0.1, Absolute Neuts (auto) 12.7 H, Absolute Lymphs (auto) 1.32, Nucleated RBC % 0 Micro: Microbiology 12/31/23 19:23 Blood Culture (Wb) #2 - Anticubital Left Blood Culture - Final No growth in 5 days. 12/31/23 18:10 Blood Culture (Wb) - Anticubital Right Blood Culture - Final No growth in 5 days. 01/01/24 11:15 Sputum, Induced/Lukens Gram Stain - Final 01/01/24 11:15 Sputum, Induced/Lukens Respiratory Culture - Final Presumptive C albicans 12/31/23 18:15 Urine Catheter - Price Legionella Antigen - Final 12/31/23 18:15 Urine Catheter - Price Streptococcus pneumoniae Antigen (M - Final 12/31/23 19:22 Mucosa - Nose SARS-CoV-2, Influenza & RSV (PCR) - Final Rhythm Strip Rhythm Strip: Sinus Tach Rate: 104 Ectopy: PAC(s) (Short burst of SVT) Physical Exam Narrative GENERAL: Patient is interactive HEENT: Atraumatic; normocephalic EYES; Anicteric, Normal Conjunctiva NECK; supple, normal thyroid, RESPIRATORY: Diminished to auscultation CARDIOVASCULAR: Regular S1 S2, GI: soft, normoactive bowel sounds, : No Renal angle tenderness; EXTREMITIES: No edema, no clubbing, MUSCULOSKELETAL: no muscle wasting NEURO: No lateralizing signs SKIN: No Rash Const Constitutional Narrative: Patient is intubated and sedated on ventilator. HEENT normocephalic and head/scalp atraumatic Eyes conjunctivae normal Neck no lymphadenopathy and supple Resp Resp Narrative: Diminished breath sounds throughout. Cardio Cardio Narrative: Tachycardia at approximately 110 bpm noted. GI normal to inspection, nondistended, normoactive bowel sounds, soft to palpation, non-tender and non-distended Extremity normal to inspection Skin Skin Narrative: Patient has no evidence of rash at this time. Neuro Neuro Narrative: Patient is intubated and sedated on ventilator. Psych Psych Narrative: Patient is intubated and sedated on ventilator. Assessment & Plan Assessment/Plan (1) Pneumonia: QUALIFIERS: Laterality: bilateral Lung location: unspecified part of lung Pneumonia type: due to unspecified organism Qualified Code(s): J18.9 - Pneumonia, unspecified organism (2) COPD (chronic obstructive pulmonary disease): QUALIFIERS: COPD type: unspecified COPD Qualified Code(s): J44.9 - Chronic obstructive pulmonary disease, unspecified (3) Elevated troponin: (4) Hyperkalemia: PLAN: Plan Patient is a 73-year-old gentleman admitted with progressive shortness of breath. An assessment of acute hypoxic and hypercapnic respiratory failure with metabolic encephalopathy made. Patient was intubated and admitted to the intensive care unit 1. Acute hypoxic and hypercapnic respiratory failure ? Secondary to pneumonia with suspected multidrug-resistant organisms. Patient was intubated admitted to the intensive care unit with consultation placed to pulmonary/intensive care for ICU management ? 01/02/2024atient seen remains awake on the vent. Did fail his weaning trial this a.m. ? 01/03/2024; successfully extubated this a.m. ? 01/04/2024. Patient has maintained adequate saturation on nasal cannula.. Patient scheduled to undergo swallow eval -01/05/2024; patient remains on nasal cannula. Was placed on BiPAP during the night after going into respiratory distress ? 01/06/2024 plan is for patient to be transferred from the ICU to the ne ogressive care unit ? 01/07/2024; remains on nasal cannula 2. Septic shock ? Secondary to pneumonia with suspected multidrug resistant organisms patient treated per protocol with broad-spectrum antibiotic therapy fluids as well as cultures been sent. Patient currently on pressors with Levophed ? 01/02/2024;Patient WBC count trending down. ? 01/07/2024 septic shock resolved 3. COPD with acute exacerbation ? Patient was found to have severe CO2 narcosis with pCO2 of 85.7 on admission contributing to patient respiratory failure management as discussed above in addition to systemic steroid 4. Acute metabolic encephalopathy ? Secondary to hypoxia and hypercapnia patient was intubated ? 01/04/2024 patient is interactive however has experienced episodes of delirium 5. Elevated troponin ? Suspected to be secondary to myocardial injury monitoring with serial cardiac enzymes 6. Diabetes mellitus type II -patient's oral hypoglycemics held. Placed on long acting insulin, Accu-Cheks every 6. and covered with sliding scale insulin 7. Essential hypertension ? Patient antihypertensives held 8. Mild hyperkalemia ?Resolved 9. Dyslipidemia -Patient is on statin therapy, continued at home dose 10. GERD ? On PPI 11. Tobacco dependence -Plan is to summer counselor patient on cessation 12. Anemia - Secondary to chronic disorder monitoring H&H and transfuse if patient becomes symptomatic or hemoglobin falls below 7 13. DVT prophylaxis ? On heparin 14. PSVT ? Following extubation we will continue monitoring on continuous telemetry. Seen in consultation by cardiology. 15. Physical deconditioning - Requested for PT OT eval and protective services social worker to assist with discharge planning ? 01/05/2024 Case discussed with case management 16. Hypokalemia ? Corrected per protocol repeat labs ordered for a.m. Time spent in the patient's overall evaluation,decision-making process, review of diagnostic data, adjustment of management, discussion with other providers, nursing nursing and ancillary staff involved in patient's care documentation, 35 minutes Charges/Coding Visit Charges Inpatient E&M: 70332 Subs Hosp L2
[2024-01-07] MEDS: predniSONE 20 MG Tablet 40 MG PO (07:58)
[2024-01-07] MEDS: Enoxaparin 40 MG/0.4 ML Syringe SC (07:59)
[2024-01-07] MEDS: Aspirin 81 MG TAB.CHEW PO (08:00)
[2024-01-07] MEDS: Clopidogrel Bisulfate 75 MG Tablet PO (08:00)
[2024-01-07 08:05] LABS: Anion Gap 4 (5-15); BUN 20 mg/dL (7-18); BUN/Creat Ratio 34.4 RATIO (10-20); Calcium,Total 8.9 mg/dL (8.5-10.1); Chloride 107 mmol/L (98-107); Creatinine, Serum 0.58 mg/dL (0.70-1.30); EST Glomerular Filtration Rate 146 mL/min (>60); Est Glom Filt Rate - Afr Amer 177 mL/min (>60); Estimated Creatinine Clearance 82.66 ml/min; Glucose 123 mg/dL (74-106); Potassium 3.4 mmol/L (3.5-5.1); Sodium Level 142 mmol/L (136-145)
[2024-01-07] MEDS: Insulin Lispro 100 UNIT/ML INSULN.PEN SC ×3 (11:45→21:26)
[2024-01-07 12:20] LABS: Bedside Glucose 306 mg/dL (74-106)
--- NOTE | 2024-01-07 14:26 | NURSING ---
SEAMER called this RN for assistance in patient room. This RN enters room to patient sitting on edge of bed with shoes on, oxygen off, IV tubing wrapped around bed rail. patient yelling at SEAMER stating I am leaving, get me out of this Fing place. I want coffee and a cream stick and I am getting out of here. This RN explained to patient the reason for being in the hospital, asked patient orientation questions and patient oriented to person, place, time. Patient continued yelling at staff and stating he was not staying here. Educated patient on risks of leaving, including being re-admitted and possible if goes unresponsive again. Communicated to patient that this RN was going to call his daughter for him to talk to. Daughter and Dr. Larson made aware. New orders received. Daughter, Nicky, spoke with patient, patient repositioned back in bed with this RN and SEAMER, medicated per Dr. Larson's orders, Coffee given per patient request. Bed exit alarm set. Will continue to monitor.
[2024-01-07] MEDS: LORazepam 2 MG/ML Syringe 1 MG IV (14:31)
[2024-01-07] MEDS: Potassium Chloride Oral Tablet 20 MEQ 40 MEQ PO (15:13)
[2024-01-07 16:47] LABS: Bedside Glucose 196 mg/dL (74-106)
[2024-01-07] MEDS: Atorvastatin Calcium 40 MG Tablet PO (21:26)
[2024-01-07] MEDS: MELATONIN 10 MG TABLET PO (21:34)
[2024-01-07 22:54] LABS: Bedside Glucose 294 mg/dL (74-106)
[2024-01-08] VITALS (12 sets, daily range): BP systolic 89–152; BP diastolic 72–94; PULSE 62–100; RESP 12–25; TEMP 36.3–36.9; O2SAT 92–100; BMI 21.4
[2024-01-08] MEDS: LORazepam 0.5 MG Tablet PO (00:37)
[2024-01-08 00:59] LABS: Vancomycin, Trough Level 18.9 ug/mL (5.0-15.0)
[2024-01-08] MEDS: Vancomycin HCl 1,250 MG in 0.9% Normal Saline (250mL Bag) 250 ML 167 MG IV ×2 (01:26→12:33)
--- NOTE | 2024-01-08 01:51 | PCM.RX.CS ---
Consult Antibiotic Management Pharmacy has been consulted to manage selected antibiotic: Vancomycin Type of Intervention Type of Consult: Follow-up Labs Labs: Sodium 142 mmol/L (136-145) 01/07/24 07:03 Potassium 3.4 mmol/L (3.5-5.1) L 01/07/24 07:03 Chloride 107 mmol/L (98-107) 01/07/24 07:03 Carbon Dioxide 31.0 mmol/L (21.0-32.0) 01/07/24 07:03 Anion Gap 4 (5-15) L 01/07/24 07:03 BUN 20 mg/dL (7-18) H 01/07/24 07:03 Creatinine 0.58 mg/dL (0.70-1.30) L 01/07/24 07:03 Est GFR (MDRD) Af Amer 177 mL/min (>60) 01/07/24 07:03 Est GFR (MDRD) Non-Af 146 mL/min (>60) 01/07/24 07:03 BUN/Creatinine Ratio 34.4 RATIO (10-20) H 01/07/24 07:03 Glucose 123 mg/dL (74-106) H 01/07/24 07:03 Vancomycin Trough 18.9 ug/mL (5.0-15.0) H 01/08/24 00:00 Microbiology Microbiology: Microbiology 12/31/23 19:23 Blood Culture (Wb) #2 - Anticubital Left Blood Culture - Final No growth in 5 days. 12/31/23 18:10 Blood Culture (Wb) - Anticubital Right Blood Culture - Final No growth in 5 days. 01/01/24 11:15 Sputum, Induced/Lukens Gram Stain - Final 01/01/24 11:15 Sputum, Induced/Lukens Respiratory Culture - Final Presumptive C albicans 12/31/23 18:15 Urine Catheter - Price Legionella Antigen - Final 12/31/23 18:15 Urine Catheter - Price Streptococcus pneumoniae Antigen (M - Final 12/31/23 19:22 Mucosa - Nose SARS-CoV-2, Influenza & RSV (PCR) - Final Goal Trough Goal Trough: 15-20 mcg/mL Pharmacy Plan for Drug Dosing Pharmacy Plan for Drug Dosing: Pharmacy Service will continue to monitor and adjust dosing as required. TROUGH 18.9 @ 12 HOURS. NO CHANGES, FOLLOW UP TROUGH IN 4 DAYS Follow-Up Labs Follow-Up Labs: Trough: Vancomycin Date/Time Labs Ordered Labs to be done on [date and time ordered]: 01/12 @ 0000
--- NOTE | 2024-01-08 02:57 | CPS ---
RN put pt on bipap, he on stayed on it for 10 minutes. Pt refused to used wear bipap.
[2024-01-08] MEDS: Piperacil/Tazobactam 3.375 GM in 0.9% Normal Saline (50mL MB+) 50 ML IV ×3 (05:49→21:27)
[2024-01-08] MEDS: QUEtiapine 25 MG Tablet 50 MG PO (05:55)
[2024-01-08 06:09] LABS: Bedside Glucose 118 mg/dL (74-106)
[2024-01-08] MEDS: Ipratropium 0.5 MG/2.5 ML SOLUTION INHALATION ×3 (07:32→14:48)
[2024-01-08 09:24] LABS: Absolute Lymphocyte Count 1.23 X10^3/uL (0.83-4.51); Absolute Neutrophil Count 11.8 X10^3/uL (2.0-7.7); Basophil# 0.06 X10^3/uL; Basophil% 0.4 % (0-1); Eosinophil# 0.17 X10^3/uL; Eosinophils% 1.2 % (0-5); Hematocrit 40.1 % (40-54); Hemoglobin 12.5 g/dL (13.0-16.5); Lymphocyte # 1.23 X10^3/ul (0.83-4.51); Lymphocyte % 8.5 % (19-41); Mean Corp Hgb Conc 31.2 g/dL (32-36); Mean Corpuscular Hgb 29.8 pg (27.0-32.0); Mean Corpuscular Volume 95.5 fL (80-94); Mean Platelet Vol. 11.7 fl (6.2-12.0); Monocyte% 7.6 % (0-10); NRBC Flagged by Analyzer 0 % (0-5); Neutrophil # 11.83 X10^3/uL (2.7-7.7); Neutrophil % 81.5 % (47-70); Platelet Count 252 K/mm3 (150-450); RBC Distribution Width CV 16.1 % (11.6-14.6); RBC Distribution Width SD 56.6 fl (35.1-43.9); White Blood Count 14.5 K/mm3 (4.4-11.0)
[2024-01-08 09:45] LABS: Anion Gap 7 (5-15); BUN 22 mg/dL (7-18); BUN/Creat Ratio 36.6 RATIO (10-20); Calcium,Total 8.7 mg/dL (8.5-10.1); Chloride 109 mmol/L (98-107); EST Glomerular Filtration Rate 141 mL/min (>60); Est Glom Filt Rate - Afr Amer 170 mL/min (>60); Estimated Creatinine Clearance 83.02 ml/min; Glucose 130 mg/dL (74-106); Potassium 3.6 mmol/L (3.5-5.1); Sodium Level 143 mmol/L (136-145)
[2024-01-08 10:13] LABS: Allen Test Positive; Base Excess 3 mmol/L (-2 to +2); Bicarbonate 27.6 mmol/L (22-26); Blood Gas Specimen Type ART; Mode avaps; O2 Delivery Device BiPAP; PEEP 12; RR 12; SITE R Radial; Total Carbon Dioxide 29 mmol/L; pCO2 42.7 mmHg (35-45); pH 7.42 (7.35-7.45)
[2024-01-08] MEDS: Clopidogrel Bisulfate 75 MG Tablet PO (11:51)
[2024-01-08] MEDS: Enoxaparin 40 MG/0.4 ML Syringe SC (11:51)
[2024-01-08] MEDS: Aspirin 81 MG TAB.CHEW PO (11:51)
[2024-01-08] MEDS: predniSONE 20 MG Tablet 40 MG PO (11:51)
[2024-01-08 12:45] LABS: Bedside Glucose 132 mg/dL (74-106)
[2024-01-08 13:41] LABS: Pathologist Review Reviewed
--- NOTE | 2024-01-08 13:42 | NURSING ---
Addendum entered by Maria C See 01/08/24 16:23: Pt remains agitated. Pt trying to put boots on and walk out door, states he is going downstairs to get dress to go across the street to get his coffee and donut. Reoriented pt to hospital, time. Asking for daughter Nicky. Informed pt that Nicky is at home resting because she worked a double shift last night. Pt continues to ask for Nayely. Explained to pt that he is sick, that he was unresponsive at home and had to be intubated when he was brought into the hospital. Encouraged rest. Pt assisted back into bed, bed alarm on. VS obtained. When this RN left room pt was resting quietly with eye closed, no s/sx of distress noted. Dr Ruby made aware. Original Note: This RN received call to come to room d/t pt showing aggression toward staff. Upon entering room, pt was cursing and yelling at staff while attempting to get out of bed with oxygen and IV tubing tangled around him. This RN was able to get pt to calm down some, assisted pt to bathroom and then back into bed. Pt remains agitated and very restless. Bed alarm on, call light in reach.
[2024-01-08] MEDS: 0.9% Saline Lock 10 ML Syringe IV ×2 (13:52→21:28)
[2024-01-08] MEDS: Haloperidol Lactate 5 MG/ML Vial 2 MG IV (13:52)
--- NOTE | 2024-01-08 14:47 | CASEMGMT ---
Discharge Planning [place] updated that they are foc and [facility]. Requested that precert be submitted. Erin Gonzales, Discharge Planning Asst.
[2024-01-08] MEDS: Insulin Lispro 100 UNIT/ML INSULN.PEN SC ×2 (16:24→21:31)
[2024-01-08 17:14] LABS: Bedside Glucose 309 mg/dL (74-106)
--- NOTE | 2024-01-08 18:25 | PCM.PN.HOSP ---
Reason for Visit Reason for Visit: Diagnoses Hyperkalemia (12/31/23) Nonrheumatic mitral (valve) insufficiency (12/31/23) Pneumonia, unspecified organism (12/31/23) Chronic obstructive pulmonary disease, unspecified (12/31/23) Hypoxemia (12/31/23) Other specified abnormal findings of blood chemistry (12/31/23) Subjective Subjective Patient was seen and examined today, he remains confused and agitated, his white blood cell count today was 14.5. Patient remains on 2 L of nasal cannula oxygen. Objective Data Objective Data Vital Signs: Vital Signs Temp Pulse Resp BP Pulse Ox O2 Del Method O2 Flow Rate 97.3 F L 63 18 152/93 H 94 Nasal Cannula 2 01/08/24 16:15 01/08/24 16:15 01/08/24 16:15 01/08/24 16:15 01/08/24 16:15 01/08/24 16:15 01/08/24 16:15 FiO2 35 01/08/24 10:45 Oxygen Flow Rate (L/min) 2 Oxygen Delivery Method Nasal Cannula Weight: 69.3 kg Body Mass Index (BMI) 21.4 Intake & Output: Intake and Output for Last 24 Hours 01/06/24 01/07/24 01/08/24 23:59 23:59 23:59 Intake Total 1180 / 1300 1660 / 2140 1300 / 1300 Output Total 3550 / 3900 1800 / 1800 Balance -2370 / -2600 -140 / 340 1300 / 1300 Lab / Micro Data 01/08/24 08:50 01/08/24 08:50 Labs: Laboratory Results - last 24 hr 01/06/24 03:40: Diff Path Review Reviewed 01/07/24 21:22: POC Glucose 294 H 01/08/24 00:00: Vancomycin Trough 18.9 H 01/08/24 05:45: POC Glucose 118 H 01/08/24 08:50: WBC 14.5 H, RBC 4.20 L, Hgb 12.5 L, Hct 40.1, MCV 95.5 H, MCH 29.8, MCHC 31.2 L, RDW Std Deviation 56.6 H, RDW Coeff of Lauri 16.1 H, Plt Count 252, MPV 11.7, Immature Gran % (Auto) 0.800, Neut % (Auto) 81.5 H, Lymph % (Auto) 8.5 L, [place] % (Auto) 7.6, Eos % (Auto) 1.2, Baso % (Auto) 0.4, Absolute Neuts (auto) 11.8 H, Absolute Lymphs (auto) 1.23, Nucleated RBC % 0, Sodium 143, Potassium 3.6, Chloride 109 H, Carbon Dioxide 27.0, Anion Gap 7, BUN 22 H, Creatinine 0.60 L, Estim Creat Clear Calc 83.02, Est GFR (MDRD) Af Amer 170, Est GFR (MDRD) Non-Af 141, BUN/Creatinine Ratio 36.6 H, Glucose 130 H, Calcium 8.7 01/08/24 11:31: POC Glucose 132 H 01/08/24 16:14: POC Glucose 309 H Micro: Microbiology 12/31/23 19:23 Blood Culture (Wb) #2 - Anticubital Left Blood Culture - Final No growth in 5 days. 12/31/23 18:10 Blood Culture (Wb) - Anticubital Right Blood Culture - Final No growth in 5 days. 01/01/24 11:15 Sputum, Induced/Lukens Gram Stain - Final 01/01/24 11:15 Sputum, Induced/Lukens Respiratory Culture - Final Presumptive C albicans 12/31/23 18:15 Urine Catheter - Price Legionella Antigen - Final 12/31/23 18:15 Urine Catheter - Price Streptococcus pneumoniae Antigen (M - Final 12/31/23 19:22 Mucosa - Nose SARS-CoV-2, Influenza & RSV (PCR) - Final ABG Data ABG results: ABG 01/08/24 08:43 Specimen Type ART Sample Site R Radial pH 7.42 Bicarbonate Actual 27.6 H Total CO2 29 Base Excess 3 H O2 % 45.0 ABG pCO2 42.7 Tito Test Positive Respiration Rate 12 O2 Delivery Device BiPAP Vent Mode avaps Tidal Volume 500.0 POC PEEP 12 Rhythm Strip Rhythm Strip: Sinus Tach Rate: 104 Ectopy: PAC(s) (Short burst of SVT) Physical Exam Const alert and no apparent distress Orientation / Consciousness: awake and confused HEENT normocephalic, head/scalp atraumatic and moist oral mucous membranes Eyes PERRL, EOMs intact bilaterally and conjunctivae normal Neck supple, no JVD, thyroid normal and no carotid bruits General: trachea midline Resp normal respiratory effort, no retractions, no use of accessory muscles and clear to auscultation bilaterally Auscultation: Negative for rales, rhonchi or wheezes Cardio regular rate, regular rhythm, S1 normal heart sound, S2 normal heart sound, no murmurs, no rub and no gallops GI normal to inspection, nondistended, normoactive bowel sounds, soft to palpation, non-tender and non-distended Extremity no clubbing, cyanosis or edema Skin no rashes or lesions noted General Skin Exam: no breakdown Neuro CN's II-XII intact bilaterally, moves all extremities, no focal motor deficits and no sensory deficits noted Neuro Narrative: Patient is confused Sensorium / Orientation: awake and alert Psych Psych Narrative: Patient is confused Assessment & Plan Assessment/Plan (1) Hypoxemia: PLAN: Plan 1. Pneumonia-patient remains on Zosyn at this time, he is also on vancomycin-I have elected to stop the vancomycin today and observe the patient #2 metabolic encephalopathy-etiology unclear, I have given the patient IV Haldol for severe agitation today, continue supportive care #3 hypoxia-patient is currently on low-flow nasal cannula oxygen #4 hyperlipidemia-patient is on Lipitor #5 chronic obstructive pulmonary disease-patient is on aerosol treatments and oral prednisone Total clinical time spent by myself addressing the patient's medical issues, reviewing all of his data, and collaborating with the patient's care team: 35 minutes Charges/Coding Visit Charges Inpatient E&M: 13524 Subs Hosp L2
[2024-01-08] MEDS: Atorvastatin Calcium 40 MG Tablet PO (21:15)
[2024-01-08 21:50] LABS: Bedside Glucose 255 mg/dL (74-106)
--- NOTE | 2024-01-08 22:50 | CPS ---
Pt refused BiPAP
[2024-01-09 03:23] VITALS: BP 146/84; PULSE 73; RESP 16; TEMP 36.4; O2SAT 98
[2024-01-09] MEDS: Piperacil/Tazobactam 3.375 GM in 0.9% Normal Saline (50mL MB+) 50 ML IV (05:26)
[2024-01-09 06:35] VITALS: BMI 22.1
[2024-01-09 06:54] LABS: Bedside Glucose 132 mg/dL (74-106)
[2024-01-09 08:09] VITALS: O2SAT 91
--- NOTE | 2024-01-09 08:44 | CASEMGMT ---
Patient triggered SDOH for transportation. Patient is confused at this time and [facility]. Graciela Hancock MSW [place]
[2024-01-09 09:18] VITALS: BP 119/73; PULSE 99; RESP 18; TEMP 36.8; O2SAT 95
[2024-01-09] MEDS: Aspirin 81 MG TAB.CHEW PO (09:21)
[2024-01-09] MEDS: predniSONE 20 MG Tablet 40 MG PO (09:21)
[2024-01-09] MEDS: Enoxaparin 40 MG/0.4 ML Syringe SC (09:22)
[2024-01-09] MEDS: Clopidogrel Bisulfate 75 MG Tablet PO (09:22)
--- NOTE | 2024-01-09 09:40 | RAD_ITS ---
STUDY: X-RAY CHEST REASON FOR EXAM: Male, 73 years old. Pneumonia TECHNIQUE: Single AP portable view of the chest. COMPARISON: Comparison is made with prior study dated January 01, 2024. FINDINGS: EKG electrodes are seen. Persistent infiltration and/or atelectasis at the lung bases although there has been a moderate degree of improvement as compared to prior study. There is no demonstrated pleural abnormality. Normal size heart. Normal mediastinum and aureliano. Normal visualized pulmonary arteries. There is atherosclerotic calcification of the aortic arch with tortuosity. There are diffuse degenerative changes of the visualized thoracic spine. Prior intrapedicular screw and kwasi fixation of the mid dorsal vertebrae. Normal visualized ribs, clavicles, and shoulders. There is no demonstrated abnormality of the visualized soft tissue structures of the upper abdomen. RAD/Chest 1 View (Portable) IMPRESSION: Residual bibasilar pulmonary infiltrates. There is been a moderate degree of improvement as compared to prior study. Electronically Signed: Trent Cannon MD at 10:31 EST ,
[2024-01-09 12:13] LABS: Bedside Glucose 452 mg/dL (74-106)
[2024-01-09] MEDS: Insulin Lispro 100 UNIT/ML INSULN.PEN 20 UNIT SC (12:25)
--- NOTE | 2024-01-09 13:50 | CASEMGMT ---
Patient was approved to go to [facility] starting 01-10-24. Plan: d/c to [facility] under skilled level of care. Graciela MAHAJAN
[2024-01-09 15:15] VITALS: BP 113/71; PULSE 84; RESP 18; TEMP 36.6; O2SAT 99
--- NOTE | 2024-01-09 17:20 | PCM.PN.HOSP ---
Reason for Visit Reason for Visit: Diagnoses Hyperkalemia (12/31/23) Nonrheumatic mitral (valve) insufficiency (12/31/23) Pneumonia, unspecified organism (12/31/23) Chronic obstructive pulmonary disease, unspecified (12/31/23) Hypoxemia (12/31/23) Other specified abnormal findings of blood chemistry (12/31/23) Subjective Subjective Patient was seen and examined today, his blood sugar spiked today and I made the decision to stop his prednisone. I also placed the patient on a small dose of Seroquel as a mood stabilizer. We are currently awaiting approval for the patient to go to an extended care facility. Objective Data Objective Data Vital Signs: Vital Signs Temp Pulse Resp BP Pulse Ox O2 Del Method O2 Flow Rate 98.3 F 99 18 119/73 95 Nasal Cannula 2 01/09/24 09:18 01/09/24 09:18 01/09/24 09:18 01/09/24 09:18 01/09/24 09:18 01/09/24 14:22 01/09/24 14:22 FiO2 35 01/08/24 10:45 Oxygen Flow Rate (L/min) 2 Oxygen Delivery Method Nasal Cannula Weight: 71.7 kg Body Mass Index (BMI) 22.1 Intake & Output: Intake and Output for Last 24 Hours 01/07/24 01/08/24 01/09/24 23:59 23:59 23:59 Intake Total 1660 / 2140 2390 / 2390 770 / 770 Output Total 1800 / 1800 150 / 150 Balance -140 / 340 2390 / 2390 620 / 620 Lab / Micro Data 01/08/24 08:50 01/08/24 08:50 Labs: Laboratory Results - last 24 hr 01/08/24 21:30: POC Glucose 255 H 01/09/24 06:33: POC Glucose 132 H 01/09/24 11:55: POC Glucose 452 H* Micro: Microbiology 12/31/23 19:23 Blood Culture (Wb) #2 - Anticubital Left Blood Culture - Final No growth in 5 days. 12/31/23 18:10 Blood Culture (Wb) - Anticubital Right Blood Culture - Final No growth in 5 days. 01/01/24 11:15 Sputum, Induced/Lukens Gram Stain - Final 01/01/24 11:15 Sputum, Induced/Lukens Respiratory Culture - Final Presumptive C albicans 12/31/23 18:15 Urine Catheter - Price Legionella Antigen - Final 12/31/23 18:15 Urine Catheter - Price Streptococcus pneumoniae Antigen (M - Final 12/31/23 19:22 Mucosa - Nose SARS-CoV-2, Influenza & RSV (PCR) - Final Radiography Diagnostic Testing: Radiology Impression Chest X-Ray 01/09/24 09:40 IMPRESSION: Residual bibasilar pulmonary infiltrates. There is been a moderate degree of improvement as compared to prior study. Electronically Signed: Trent Cannon MD at 10:31 EST , Rhythm Strip Rhythm Strip: Sinus Tach Rate: 104 Ectopy: PAC(s) (Short burst of SVT) Physical Exam Narrative alert and no apparent distress Orientation / Consciousness: awake and confused HEENT normocephalic, head/scalp atraumatic and moist oral mucous membranes Eyes PERRL, EOMs intact bilaterally and conjunctivae normal Neck supple, no JVD, thyroid normal and no carotid bruits General: trachea midline Resp normal respiratory effort, no retractions, no use of accessory muscles and clear to auscultation bilaterally Auscultation: Negative for rales, rhonchi or wheezes Cardio regular rate, regular rhythm, S1 normal heart sound, S2 normal heart sound, no murmurs, no rub and no gallops GI normal to inspection, nondistended, normoactive bowel sounds, soft to palpation, non-tender and non-distended Extremity no clubbing, cyanosis or edema Skin no rashes or lesions noted General Skin Exam: no breakdown Neuro CN's II-XII intact bilaterally, moves all extremities, no focal motor deficits and no sensory deficits noted Neuro Narrative: Patient is confused Sensorium / Orientation: awake and alert Psych Psych Narrative: Patient is confused Assessment & Plan Assessment/Plan (1) Hypoxemia: PLAN: Plan 1. Pneumonia-patient has completed his course of antibiotics at this time #2 metabolic encephalopathy-etiology unclear, I have elected to place the patient on a small dose of Seroquel twice daily as a mood stabilizer. #3 hypoxia-patient is currently on low-flow nasal cannula oxygen #4 hyperlipidemia-patient is on Lipitor #5 chronic obstructive pulmonary disease-patient is on aerosol treatments, due to his elevated blood sugar, I have elected to take him off prednisone at this time #6 type 2 diabetes-patient remains on sliding scale insulin Total clinical time spent by myself addressing the patient's medical issues, reviewing all of his data, and collaborating with the patient's care team: 35 minutes Charges/Coding Visit Charges Inpatient E&M: 44714 Subs Hosp L2
[2024-01-09] MEDS: Insulin Lispro 100 UNIT/ML INSULN.PEN SC ×2 (17:28→21:17)
[2024-01-09 17:47] LABS: Bedside Glucose 188 mg/dL (74-106)
[2024-01-09 20:57] VITALS: BP 155/94; PULSE 79; RESP 16; TEMP 36.6; O2SAT 99
[2024-01-09] MEDS: QUEtiapine 25 MG Tablet 12.5 MG PO (21:10)
[2024-01-09] MEDS: Atorvastatin Calcium 40 MG Tablet PO (21:10)
[2024-01-09 21:37] LABS: Bedside Glucose 253 mg/dL (74-106)
[2024-01-09 21:42] VITALS: O2SAT 99
[2024-01-10 03:15] VITALS: BP 146/84; PULSE 71; RESP 14; TEMP 36.4; O2SAT 100
[2024-01-10 05:30] VITALS: BMI 21.4
[2024-01-10 06:58] LABS: Bedside Glucose 114 mg/dL (74-106)
[2024-01-10 08:30] VITALS: BP 155/86; PULSE 74; RESP 18; TEMP 36.6; O2SAT 95
--- NOTE | 2024-01-10 09:54 | TREXTCAR_ITS ---
Diet Diet Order/Speech Therapy: 01/04/24 09:51 Diet: Carbohydrate Controlled 1800 nichol Food consistency:: Easy to Chew Liquid Consistency:: Regular/Thin Dietary Modifications:: Cardiac / Heart Healthy Is pt able to select menu?: No Diet Comments: Direct sup at meals, intermittent cough and re-swallow, oral care 4-5X/day Routine Orders/Code Status Routine Lab Work: - (Fingerstick blood sugars AC nightly, Humalog subcu per sliding scale: 200-250: 5 units, 251-300: 8 units, 301-350: 12 units) Code Status: Full Code Wound(s) Bilateral Feet: Wound Type: scattered scabs R greater toe: Wound Type: Neuropathic/Diabetic Foot Ulcer Therapies Weight Bearing: Full weight bearing Problem/Diagnosis (1) Hypoxemia: Status: Acute Code(s): R09.02 - Hypoxemia Plan 1. Pneumonia-patient has completed his course of antibiotics at this time #2 metabolic encephalopathy-etiology unclear, I have elected to place the patient on a small dose of Seroquel twice daily as a mood stabilizer. #3 acute on chronic combined respiratory failure-patient is currently on room air #4 hyperlipidemia-patient is on Lipitor #5 chronic obstructive pulmonary disease-patient is on aerosol treatments, #6 type 2 diabetes-patient remains on sliding scale insulin, patient will resume metformin at the extended care facility #7 troponin elevation secondary to recent type II non-STEMI Total clinical time spent by myself addressing the patient's medical issues, reviewing all of his data, and collaborating with the patient's care team: 35 minutes Allergies/Procedures Done in Hospital Allergies No Known Allergies Allergy (Verified 12/31/23 17:57) Procedures: 2-D Echocardiogram Type of Care/Length of Stay Estimated LOS: Convalescent Care Less Than 30 days Type of Care Needed: Skilled Rehab Potential: Good Prognosis: Good Additional Orders/Day of Discharge H&P will serve as current which was dated: 12/31/23 Day of Discharge: 01/10/24 Dietary and Speech Recommendations Dietitian Recommendations/Changes: Continue CCD, Cardiac with texture/consistency per GLASS BLOWING LATHE OPERATOR to manage medical conditions. Discharge Plan Admission Admit Date/Time: 12/31/23 20:58 Primary Reason for Your Visit: Acute on chronic combined respiratory failure Attending Provider: Manny Russ Primary Care Provider: Rd Rivers Consulting Providers: Andre Smith; Kim Kirk; Bj Marti; Allyson Louie; Tylor Davila; Zaid Frausto; Stew Edwards; Wilfredo Brumfield; Avelino Aquino; Azul Holland; Moris Holm; Braydon Tenorio; Joy Cannon; Kiran Real; Mauro Ahumada; Edson Mitchell; Perez Gusman; Vijay Gibbs; Izaiah George OVERHEAD IRRIGATOR; Kim Shelton OVERHEAD IRRIGATOR; Sabine Xie PA; Andre Larson Discharge Orders/Prescriptions Prescriptions: New quetiapine 25 mg Tablet 12.5 mg PO BID Qty: 0 0RF clopidogrel 75 mg Tablet 75 mg PO DAILY Qty: 1 0RF metformin 500 mg tablet 500 mg PO BID Qty: 1 0RF albuterol sulfate 2.5 mg /3 mL (0.083 %) solution for nebulization 2.5 mg inhalation Q4H PRN (Reason: shortness of breath or wheezing) Qty: 75 0RF Continued Trelegy Ellipta 100-62.5-25 mcg blister with device 1 inh INHALATION DAILY atorvastatin 40 mg Tablet 40 mg PO QHS Qty: 30 0RF Patient Comments: not taking; noncompliance aspirin 81 mg Tablet,Delayed Release (Dr/Ec) 81 mg PO BREAKFAST Qty: 0 0RF Patient Comments: not taking lisinopril 10 mg Tablet 10 mg PO DAILY Qty: 30 0RF nicotine 21 mg/24 hr Patch 24 Hour 21 mg transdermal DAILY Qty: 30 0RF metoprolol succinate 50 mg capsule,sprinkle,ER 24hr 50 mg PO DAILY Qty: 30 0RF pantoprazole 40 mg tablet,delayed release (DR/EC) 40 mg PO DAILY Patient Comments: TAKE 1 TABLET BY MOUTH TWICE DAILY guaifenesin 600 mg tablet extended release 12hr 600 mg PO BID Qty: 10 0RF Discontinued metformin 500 MG tablet 1,000 mg PO BIDCM Hold Instructions: Resume on 01/03/24. albuterol sulfate 90 mcg/actuation HFA aerosol inhaler 2 inh INHALATION Q6H PRN (Reason: shortness of breath or wheezing) spironolactone 25 mg tablet 25 mg PO DAILY dapagliflozin propanediol [Farxiga] 10 mg tablet 10 mg PO DAILY Patient Comments: take 1 tablet by mouth every morning ferrous sulfate [FeroSul] 325 mg (65 mg iron) Tablet 325 mg PO DAILYCM Qty: 0 0RF levofloxacin 750 mg tablet 750 mg PO DAILY Qty: 5 0RF Referrals / Follow Up: Rd Rivers DO [Primary Care Provider] - Disposition Disposition (needs filled in before D/C Order can be placed): Long Term Facility
[2024-01-10 10:00] VITALS: O2SAT 96
[2024-01-10] MEDS: Aspirin 81 MG TAB.CHEW PO (10:11)
[2024-01-10] MEDS: Enoxaparin 40 MG/0.4 ML Syringe SC (10:11)
[2024-01-10] MEDS: QUEtiapine 25 MG Tablet 12.5 MG PO (10:12)
[2024-01-10] MEDS: Clopidogrel Bisulfate 75 MG Tablet PO (10:12)
[2024-01-10 10:24] VITALS: BP 141/90; PULSE 74; RESP 18; TEMP 36.6; O2SAT 95
--- NOTE | 2024-01-10 10:24 | PCM.DC.SUM ---
Providers Date of Admission: 12/31/23 Date of Discharge: 01/10/24 Primary Care Physician: Dr. Rd Rivers, Consultations 12/31/23 23:16 Consult: Cardiology Routine Consulting Provider: [facility] Reason for Consult: NSTEMI-II with Sepsis and AE COPD EMERGENT Consult: No MD Notified: Yes Date Notified: 12/31/23 Time Notified: 21:04 Method of Notification: Verbal Method of Consult:: In-Person Reason For Visit: PNA, SEPSIS AND AE COPD Diagnosis Discharge Diagnosis (1) Hypoxemia: Status: Acute Code(s): R09.02 - Hypoxemia Plan 1. Pneumonia-patient has completed his course of antibiotics at this time #2 metabolic encephalopathy-etiology unclear, I have elected to place the patient on a small dose of Seroquel twice daily as a mood stabilizer. #3 acute on chronic combined respiratory failure-patient is currently on room air #4 hyperlipidemia-patient is on Lipitor #5 chronic obstructive pulmonary disease-patient is on aerosol treatments, #6 type 2 diabetes-patient remains on sliding scale insulin, patient will resume metformin at the [facility] #7 troponin elevation secondary to recent type II non-STEMI #8 hypokalemia Total clinical time spent by myself addressing the patient's medical issues, reviewing all of his data, and collaborating with the patient's care team: 35 minutes Medications at Discharge Home Medications fluticasone fur. 100 mcg-umeclid 62.5 mcg-vilant 25 mcg inhalat.powder (Trelegy Ellipta) 1 inh inhalation DAILY SHORTNESS OF BREATH 09/04/23 aspirin 81 mg tablet,delayed release 81 mg PO BREAKFAST #0 tabs 09/05/23 atorvastatin 40 mg tablet 40 mg PO QHS #30 tabs 09/05/23 lisinopril 10 mg tablet 10 mg PO DAILY blood pressure #30 tabs 09/05/23 metoprolol succinate 50 mg capsule sprinkle, ext. release 24 hr 50 mg PO DAILY blood pressure #30 ea 09/05/23 nicotine 21 mg/24 hr daily transdermal patch 21 mg transdermal DAILY to stop smoking #30 ea 09/05/23 pantoprazole 40 mg tablet,delayed release 40 mg PO DAILY reflux 12/30/23 guaifenesin 600 mg tablet, extended release 12 hr 600 mg PO BID cough #10 tabs 12/31/23 albuterol sulfate 2.5 mg/3 mL (0.083 %) solution for nebulization 2.5 mg (3 mL) inhalation Q4H PRN shortness of breath or wheezing #75 mL 01/10/24 clopidogrel 75 mg tablet 75 mg PO DAILY #1 TAB 01/10/24 metformin 500 mg tablet 500 mg PO BID #1 TAB 01/10/24 quetiapine 25 mg tablet 12.5 mg (1/2 x 25 mg) PO BID #0 tabs 01/10/24 Hospital Course Operations None Procedures 2-D Echocardiogram Summary of Care Provided Minutes Spent on Discharge: 32 Hospital Course: This 73-year-old white male was seen in the emergency room at [facility] after being found down at home, he was in respiratory distress and shortly after his arrival to the emergency room patient was intubated. Workup in the emergency room included a chest x-ray which showed bibasilar infiltrates suggestive of pneumonia, CBC showed a leukocytosis of 25.8, patient's lactic acid was elevated at 3.5, blood gas was obtained and showed a pH of 7.07, pCO2 of 85.7 and a pO2 of 42.7 on the ventilator shortly after intubation. Patient was noted to be hyperkalemic at 5.2, he was admitted to ICU for ongoing care and seen by critical care, he was maintained on IV antibiotics, patient was seen in consultation by cardiology, echocardiogram was obtained which showed a normal EF, patient had moderate to severe mitral regurg. Patient was eventually extubated, he was transferred to PCU where he remained agitated at times, the etiology of the encephalopathy was not determined, patient was placed on low-dose Seroquel and improved mentally overall. It was felt that he would benefit from short-term placement in a correction facility for rehab services. On 01/10/2024, patient was seen and examined: On examination he appeared in good health and spirits. Vital signs as documented. Skin warm and dry and without overt rashes. Neck without JVD, neck was supple, trachea midline, thyroid was normal. Lungs clear bilaterally, normal air movement was noted. Heart exam notable for regular rhythm, normal sounds and absence of murmurs, rubs or gallops. Abdomen unremarkable and without evidence of organomegaly, masses, or abdominal aortic enlargement. Bowel sounds are present, abdomen is not distended. Extremities nonedematous, no cyanosis was noted, no clubbing was noted. Neuro: Cranial nerves II through XII are grossly intact, no focal motor deficits were noted, sensation to light touch and pinprick intact, motor exam 5/5 throughout. Psych: Patient is alert and oriented x3, he does not appear anxious or depressed, he does not appear agitated. Patient was transferred to [facility] in stable condition on 01/10/2024. Weight / BMI Weight Weight: 69.672 kg Body Mass Index (BMI) 21.4 ABG / Lab / Microbiology Data 01/08/24 08:50 01/08/24 08:50 Laboratory: Laboratory Results - last 24 hr 01/09/24 11:55: POC Glucose 452 H* 01/09/24 17:24: POC Glucose 188 H 01/09/24 21:17: POC Glucose 253 H 01/10/24 06:38: POC Glucose 114 H Microbiology: Microbiology 12/31/23 19:23 Blood Culture (Wb) #2 - Anticubital Left Blood Culture - Final No growth in 5 days. 12/31/23 18:10 Blood Culture (Wb) - Anticubital Right Blood Culture - Final No growth in 5 days. 01/01/24 11:15 Sputum, Induced/Lukens Gram Stain - Final 01/01/24 11:15 Sputum, Induced/Lukens Respiratory Culture - Final Presumptive C albicans 12/31/23 18:15 Urine Catheter - Price Legionella Antigen - Final 12/31/23 18:15 Urine Catheter - Price Streptococcus pneumoniae Antigen (M - Final 12/31/23 19:22 Mucosa - Nose SARS-CoV-2, Influenza & RSV (PCR) - Final Radiography Diagnostic Testing: Radiology Impression Chest X-Ray 01/09/24 09:40 IMPRESSION: Residual bibasilar pulmonary infiltrates. There is been a moderate degree of improvement as compared to prior study. Electronically Signed: Trent Cannon MD at 10:31 EST , Meaningful Use Info Meaningful Use Diagnoses (Choose all that apply): None applicable Discharge Plan Admission Admit Date/Time: 12/31/23 20:58 Primary Reason for Your Visit: Acute on chronic combined respiratory failure Attending Provider: Manny Russ Primary Care Provider: Rd Rivers Consulting Providers: Andre Smith; Kim Kirk; Bj Marti; Allyson Louie; Tylor Davila; Zaid Frausto; Stew Edwards; Wilfredo Brumfield; Avelino Aquino; Azul Holland; Moris Holm; Braydon Tenorio; Joy Cannon; Kiran Real; Mauro Blancas; Edson Mitchell; Perez Gusman; Vijay Gibbs; Izaiah George CORPORATE AFFAIRS MANAGER; Kim Shelton CORPORATE AFFAIRS MANAGER; Sabine Xie; Andre Larson Instructions Additional Instructions / Restrictions: Pt is being d/c to [facility] Discharge Orders/Prescriptions Prescriptions: New quetiapine 25 mg Tablet 12.5 mg PO BID Qty: 0 0RF clopidogrel 75 mg Tablet 75 mg PO DAILY Qty: 1 0RF metformin 500 mg tablet 500 mg PO BID Qty: 1 0RF albuterol sulfate 2.5 mg /3 mL (0.083 %) solution for nebulization 2.5 mg inhalation Q4H PRN (Reason: shortness of breath or wheezing) Qty: 75 0RF Continued Trelegy Ellipta 100-62.5-25 mcg blister with device 1 inh INHALATION DAILY atorvastatin 40 mg Tablet 40 mg PO QHS Qty: 30 0RF Patient Comments: not taking; noncompliance aspirin 81 mg Tablet,Delayed Release (Dr/Ec) 81 mg PO BREAKFAST Qty: 0 0RF Patient Comments: not taking lisinopril 10 mg Tablet 10 mg PO DAILY Qty: 30 0RF nicotine 21 mg/24 hr Patch 24 Hour 21 mg transdermal DAILY Qty: 30 0RF metoprolol succinate 50 mg capsule,sprinkle,ER 24hr 50 mg PO DAILY Qty: 30 0RF pantoprazole 40 mg tablet,delayed release (DR/EC) 40 mg PO DAILY Patient Comments: TAKE 1 TABLET BY MOUTH TWICE DAILY guaifenesin 600 mg tablet extended release 12hr 600 mg PO BID Qty: 10 0RF Discontinued metformin 500 MG tablet 1,000 mg PO BIDCM Hold Instructions: Resume on 01/03/24. albuterol sulfate 90 mcg/actuation HFA aerosol inhaler 2 inh INHALATION Q6H PRN (Reason: shortness of breath or wheezing) spironolactone 25 mg tablet 25 mg PO DAILY dapagliflozin propanediol [Farxiga] 10 mg tablet 10 mg PO DAILY Patient Comments: take 1 tablet by mouth every morning ferrous sulfate [FeroSul] 325 mg (65 mg iron) Tablet 325 mg PO DAILYCM Qty: 0 0RF levofloxacin 750 mg tablet 750 mg PO DAILY Qty: 5 0RF Referrals / Follow Up: Rd Rivers DO [Primary Care Provider] - Disposition Disposition (needs filled in before D/C Order can be placed): Detention Facility Charges/Coding Visit Charges Inpatient E&M: 82543 Disch Hosp >30min
--- NOTE | 2024-01-10 10:39 | CASEMGMT ---
Patient is ready for discharge to [place]. SW completed a 7000 in HENS system. Physicians will transport patient. Plan: d/c to [facility] under skilled level of care on a convalescent stay. Physicians will transport patient. Graciela MAHAJAN
--- NOTE | 2024-01-10 10:43 | CASEMGMT ---
Discharge Planning Discharge orders, signed med list, and transport time sent via [facility] to [place]. Physicians will transport patient by cot at 11:30a. Nursing, SW, patient, and his daughter updated. Erin Gonzales, Discharge Planning Asst.
--- NOTE | 2024-01-10 11:00 | NURSING ---
report given to ross admission nurse at [facility]
--- NOTE | 2024-01-10 14:26 | PHA.DC.MR.R ---
Pharmacy [place] Med Reconciliation Pharmacy Service has performed discharge medication reconciliation for this patient. The patient's discharge medication list was reviewed for discrepancies and discrepancies were resolved. Medications at Discharge Home Medications fluticasone fur. 100 mcg-umeclid 62.5 mcg-vilant 25 mcg inhalat.powder (Trelegy Ellipta) 1 inh inhalation DAILY SHORTNESS OF BREATH 09/04/23 aspirin 81 mg tablet,delayed release 81 mg PO BREAKFAST #0 tabs 09/05/23 atorvastatin 40 mg tablet 40 mg PO QHS #30 tabs 09/05/23 lisinopril 10 mg tablet 10 mg PO DAILY blood pressure #30 tabs 09/05/23 metoprolol succinate 50 mg capsule sprinkle, ext. release 24 hr 50 mg PO DAILY blood pressure #30 ea 09/05/23 nicotine 21 mg/24 hr daily transdermal patch 21 mg transdermal DAILY to stop smoking #30 ea 09/05/23 pantoprazole 40 mg tablet,delayed release 40 mg PO DAILY reflux 12/30/23 guaifenesin 600 mg tablet, extended release 12 hr 600 mg PO BID cough #10 tabs 12/31/23 albuterol sulfate 2.5 mg/3 mL (0.083 %) solution for nebulization 2.5 mg (3 mL) inhalation Q4H PRN shortness of breath or wheezing #75 mL 01/10/24 clopidogrel 75 mg tablet 75 mg PO DAILY #1 TAB 01/10/24 metformin 500 mg tablet 500 mg PO BID #1 TAB 01/10/24 quetiapine 25 mg tablet 12.5 mg (1/2 x 25 mg) PO BID #0 tabs 01/10/24
== END 2024-01-10 11:27 | disposition skilled nursing facility (03) | DRG 871 ==
LOC: ED 18:07 → ICU 21:50 → PCU 01-06 17:41
PROVIDERS: Internal Medicine; Internal Medicine Cardiovascular Disease; Internal Medicine Critical Care Medicine; Admitting Provider Internal Medicine; Emergency Provider Emergency Medicine; PCP Family Medicine; Visit Provider Internal Medicine
DX: A41.9 Sepsis, unspecified organism (principal); J96.01 Acute respiratory failure with hypoxia; R65.21 Severe sepsis with septic shock; G93.41 Metabolic encephalopathy; I51.1 Rupture of chordae tendineae, not elsewhere classified; J15.9 Unspecified bacterial pneumonia; J96.02 Acute respiratory failure with hypercapnia; J44.0 Chronic obstructive pulmonary disease with (acute) lower respiratory infection; E87.20 Acidosis, unspecified; I47.10 Supraventricular tachycardia, unspecified; I50.32 Chronic diastolic (congestive) heart failure; J44.1 Chronic obstructive pulmonary disease with (acute) exacerbation; Z16.24 Resistance to multiple antibiotics; I11.0 Hypertensive heart disease with heart failure; E11.9 Type 2 diabetes mellitus without complications; I48.91 Unspecified atrial fibrillation; D50.9 Iron deficiency anemia, unspecified; I34.0 Nonrheumatic mitral (valve) insufficiency; E78.5 Hyperlipidemia, unspecified; E87.5 Hyperkalemia; K21.9 Gastro-esophageal reflux disease without esophagitis; F17.210 Nicotine dependence, cigarettes, uncomplicated; I25.10 Atherosclerotic heart disease of native coronary artery without angina pectoris; E87.6 Hypokalemia; T48.6X5A Adverse effect of antiasthmatics, initial encounter; Y95 Nosocomial condition; R79.89 Other specified abnormal findings of blood chemistry; Z79.84 Long term (current) use of oral hypoglycemic drugs; Z79.51 Long term (current) use of inhaled steroids; Z86.16 Personal history of COVID-19; Z86.73 Personal history of transient ischemic attack (TIA), and cerebral infarction without residual deficits
CPT/HCPCS: 31500; 31720; 36415; 36600; 51702; 70450; 71045; 72125; 74230; 80048; 80202; 82550; 82803; 82962; 83036; 83605; 83735; 83880; 84100; 84478; 84484; 85025; 85730; 87040; 87070; 87205; 87449; 87631; 87641; 92507; 92526; 92610; 92611; 93005; 93306; 94002; 94003; 94640; 94660; 94668; 97110; 97162; 97163; 97166; 97530; 97535; 97802; 97803; 99252; 99285; J7030; J7050; J7120; A4216; G0463; J1940; J3490

== ENCOUNTER 2024-01-24 22:13 | Emergency (ER) | payer MEDICARE, MEDICAID, SELFPAY ==
[2024-01-24] VITALS (7 sets, daily range): BP systolic 136–151; BP diastolic 76–105; PULSE 112–136; RESP 12–38; TEMP 36.6–37.1; O2SAT 92–100; BMI 23.0
--- NOTE | 2024-01-24 22:25 | EKG12_ITS ---
Test Reason : DYSRHYTHMIA Blood Pressure : / mmHG Vent. Rate : 119 BPM Atrial Rate : 119 BPM P-R Int : 160 ms QRS Dur : 080 ms QT Int : 328 ms P-R-T Axes : 055 027 075 degrees QTc Int : 461 ms Sinus tachycardia Possible Left atrial enlargement Septal infarct , age undetermined Abnormal ECG Confirmed by GREG JOY, CASSIUS ([id number]), editor in chief DAWIT GUZMAN ([id number]) on 01/29/2024 9:30:55 AM Referred By: Confirmed By:VIANEY GARZA MD
--- NOTE | 2024-01-24 22:27 | ED.VIS.DYS ---
HPI History of Present Illness Chief Complaint: Shortness of Breath Informant: patient and EMS Onset/Context/Timing Onset: Today (Just prior to arrival) Context: activity on onset (While smoking with his 4 L of home oxygen on at 80% according to EMS) Timing: Continuous Quality: Positive for Wheezing (And tightness) Current Severity: Mild Maximum Severity: Severe Relieved by: Albuterol (DuoNeb given by EMS) Associated Symptoms Chest Pain: Positive for Tightness (Mild); Negative for Pleuritic Narrative Narrative: Patient states he recently was in the hospital, it turns out that was about a month ago, for pneumonia, sepsis, intubated in the ICU. He states he was here for about 2 weeks, he then went to rehab for about 2 weeks and he has been home for an unknown period of time since then. He states he was smoking the night, stating that he is trying to quit, when he started getting a lot worse any did not have a rescue inhaler, it out and I need to get it refilled and he has no nebulizer treatments to use. He called EMS because he could not breathe, which was really the main new symptom. They given a duo nebulizer treatment and put him on CPAP, the patient states that the CPAP does not seem to be doing much but the breathing treatment really helped. He is on 4 L of home oxygen at which he was 80%. When asked if he is still on any antibiotics or prednisone, he states that he has no idea. PFSH PFSH Medical History Acute hypoxic respiratory failure Anxiety BPH (benign prostatic hyperplasia) CHF (congestive heart failure) COPD (chronic obstructive pulmonary disease) COPD (chronic obstructive pulmonary disease) COVID-19 Depression Diabetes mellitus, type 2 HTN (hypertension) Hyperlipidemia Hypertension Iron deficiency Kidney disease Kidney stones Mitral valve insufficiency Nonobstructive atherosclerosis of coronary artery Smoker Stroke/cerebrovascular accident Tobacco use Home Medications fluticasone fur. 100 mcg-umeclid 62.5 mcg-vilant 25 mcg inhalat.powder (Trelegy Ellipta) 1 inh inhalation DAILY SHORTNESS OF BREATH 09/04/23 [History Last Taken 09/04/23] aspirin 81 mg tablet,delayed release 81 mg PO BREAKFAST #0 tabs 09/05/23 [Rx Last Taken 10/23/23] atorvastatin 40 mg tablet 40 mg PO QHS #30 tabs 09/05/23 [Rx Last Taken Unknown] lisinopril 10 mg tablet 10 mg PO DAILY blood pressure #30 tabs 09/05/23 [Rx Last Taken Unknown] metoprolol succinate 50 mg capsule sprinkle, ext. release 24 hr 50 mg PO DAILY blood pressure #30 ea 09/05/23 [Rx Last Taken Unknown] nicotine 21 mg/24 hr daily transdermal patch 21 mg transdermal DAILY to stop smoking #30 ea 09/05/23 [Rx Last Taken Unknown] pantoprazole 40 mg tablet,delayed release 40 mg PO DAILY reflux 12/30/23 [History Last Taken Unknown] guaifenesin 600 mg tablet, extended release 12 hr 600 mg PO BID cough #10 tabs 12/31/23 [Rx Last Taken Unknown] albuterol sulfate 2.5 mg/3 mL (0.083 %) solution for nebulization 2.5 mg (3 mL) inhalation Q4H PRN shortness of breath or wheezing #75 mL 01/10/24 [Rx Last Taken Unknown] clopidogrel 75 mg tablet 75 mg PO DAILY #1 TAB 01/10/24 [Rx Last Taken Unknown] metformin 500 mg tablet 500 mg PO BID #1 TAB 01/10/24 [Rx Last Taken Unknown] quetiapine 25 mg tablet 12.5 mg (1/2 x 25 mg) PO BID #0 tabs 01/10/24 [Rx Last Taken Unknown] albuterol sulfate 90 mcg/actuation aerosol inhaler (Ventolin HFA) 1 - 2 puff inhalation Q4H PRN PRN Wheezing ##1 01/24/24 [Rx Last Taken Unknown] prednisone 10 mg tablet 10 mg PO UD #33 tabs 01/24/24 [Rx Last Taken Unknown] Allergy/AdvReac Type Severity Reaction Status Date / Time No Known Allergies Allergy Verified 01/24/24 22:19 Family History Other Diabetes Heart disease Surgical History History of appendectomy Status post appendectomy Social History Smoking Status: Current every day smoker tobacco type: cigarettes alcohol intake: current alcohol intake frequency: holidays/special occasions only substance use type: does not use ROS ROS ED Constitutional Constitutional ED: Denies chills or fever(s) Eyes Eyes: Denies change in vision or diplopia ENT ENT ED: Denies rhinorrhea or sore throat Cardiovascular Cardiovascular: Denies chest pain, palpitations, pedal edema or radiating jaw, neck or arm pain Respiratory/Chest Respiratory/Chest: Reports chest tightness, cough and dyspnea Gastrointestinal Gastrointestinal: Denies abdominal pain, diarrhea, nausea or vomiting Genitourinary Genitourinary ED: Denies dysuria or hematuria Musculoskeletal Musculoskeletal: Denies back pain or neck pain Integumentary Denies abscess or rash Neurologic Neurologic: Denies headache(s), paresthesias or weakness Psychiatric Psychiatric: Denies anxiety or suicidal thoughts EXAM Physical Exam Const Vital Signs: 01/24/24 22:14 01/24/24 22:17 01/24/24 22:36 Temperature 98 F 98.8 F Temperature Source Temporal Oral Pulse Rate 134 H 120 H Respiratory Rate 33 H 24 H Respiratory Effort Short of Breath Accessory Muscle Use Respiratory Depth Deep Respiratory Pattern Tachypnea Blood Pressure 141/105 H 151/76 H Blood Pressure Mean 117 101 Pulse Ox 99 98 Oxygen Delivery Method Bi-pap Bi-pap Nasal Cannula Oxygen Flow Rate (L/min) 4 Fraction of Inspired Oxygen (FIO2) 40 40 01/24/24 22:36 01/24/24 22:15 01/24/24 23:19 Temperature 98.8 F Temperature Source Oral Pulse Rate 136 H 112 H Respiratory Rate 38 H 23 H Respiratory Effort Respiratory Depth Respiratory Pattern Tachypnea Blood Pressure 136/89 H Blood Pressure Mean 104 Pulse Ox 100 93 Oxygen Delivery Method Nasal Cannula Nasal Cannula Oxygen Flow Rate (L/min) 4 3 Fraction of Inspired Oxygen (FIO2) 40 Positive well nourished and well developed General Appearance ED: well developed and NAD HEENT Reports moist mucous membranes normocephalic and atraumatic Eyes PERRL and EOMs intact bilaterally Neck full ROM, supple and no JVD Resp Resp Narrative: Diffusely and symmetrically diminished with trachea midline. Tachypneic but speaking in 10-15 word sentences, without respiratory distress. Auscultation: Negative for rales or rhonchi Cardio regular rate, regular rhythm and no murmurs Rate: tachycardic GI non-tender and non-distended Auscultation: normoactive bowel sounds Palpation: soft Back/Spine no CVA tenderness General Back: other FROM Extremity normal to inspection General Extremety ED: Negative for edema, pulses abnormal or tenderness General Extremity: Negative for edema or pulses abnormal Neuro oriented x3, CN's II-XII intact bilaterally and no sensory deficits noted Sensorium / Orientation: awake and alert Motor Exam: strength 5/5 throughout Skin no rashes or lesions noted and no wounds MDM MDM MDM Narrative Medical decision making narrative: Patient 99% on BiPAP with an FiO2 of 40, it was easier to get a history by removing him from the BiPAP since he said it was not really helping we gave him a trial on a 4 L nasal cannula along with some more breathing treatments and Solu-Medrol while we worked him up. Workup is benign. He has a mild leukocytosis but he looks like he always does looking back at old labs. In talking further, he is no longer taking any prednisone. His troponin is within normal limits, his x-ray does not show any recurrent pneumonia, 1 view on my interpretation, and he is doing much better and speaking in full sentences without any respiratory distress or tachypnea after breathing treatments. On his 4 L of oxygen he never became hypoxic, even on 3 L satting 93% and ambulatory without significant symptoms; he did desat down to 87% on his 4 L but quickly came back up into the mid half in the high 90s without dyspnea or other symptoms. Offered admission given his history of severe exacerbations but he is comfortable going home and declines. He says he has a prescription at the pharmacy but he needs to pick it up and does not have a car. 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 I do not think he needs antibiotics at this time. Lab Data Attestation: I reviewed the patient's lab results. Labs: Laboratory Results - last 24 hr 01/24/24 22:25 WBC 13.7 H RBC 4.31 L Hgb 12.6 L Hct 41.4 MCV 96.1 H MCH 29.2 MCHC 30.4 L RDW Std Deviation 56.9 H RDW Coeff of Lauri 15.9 H Plt Count 432 MPV 10.2 Immature Gran % (Auto) 0.800 Neut % (Auto) 77.5 H Lymph % (Auto) 12.3 L Irion % (Auto) 7.0 Eos % (Auto) 1.3 Baso % (Auto) 1.1 H Absolute Neuts (auto) 10.6 H Absolute Lymphs (auto) 1.68 Nucleated RBC % 0 Sodium 138 Potassium 4.0 Chloride 104 Carbon Dioxide 30.0 Anion Gap 4 L BUN 10 Creatinine 0.88 Estim Creat Clear Calc 79.28 Est GFR (MDRD) Af Amer 109 Est GFR (MDRD) Non-Af 90 BUN/Creatinine Ratio 11.3 Glucose 218 H Calcium 9.9 Troponin I High Sens 39 ABG Data ABG results: ABG 01/24/24 22:32 Specimen Type ART Sample Site L Radial pH 7.39 Bicarbonate Actual 28.9 H Total CO2 30 Base Excess 4 H O2 Saturation 99 O2 % 40.0 ABG pCO2 47.5 H ABG pO2 132 H Tito Test Positive O2 Delivery Device BiPAP Vent Mode Not entered Clinical Comments Rhythm Strip Rhythm Strip: Sinus Tach Rate: 130 Ectopy: None EKG Initial EKG: Attestation: I personally reviewed and interpreted this EKG as follows: Interpretation: No Acute Injury Pattern and Sinus Tachycardia Discharge Plan Triage Chief Complaint: Shortness of Breath ED Provider: Tommy Martinez Dx/Rx/DC Orders Clinical Impression: Acute exacerbation of chronic obstructive pulmonary disease (COPD) Instructions: ED COPD Flare Prescriptions: New prednisone 10 mg tablet 10 mg PO UD Qty: 33 0RF Rx Instructions: Take 4 tablets daily for 3 days, then 3 daily for 3 days, then 2 daily for 3 days, then 1 a day for 3 days then 1 QOD for 3 doses. albuterol sulfate [Ventolin HFA] 90 mcg/actuation HFA aerosol inhaler 1 - 2 puff inhalation Q4H PRN PRN (Reason: Wheezing) Qty: 1 0RF No Action Trelegy Ellipta 100-62.5-25 mcg blister with device 1 inh INHALATION DAILY atorvastatin 40 mg Tablet 40 mg PO QHS Qty: 30 0RF Patient Comments: not taking; noncompliance aspirin 81 mg Tablet,Delayed Release (Dr/Ec) 81 mg PO BREAKFAST Qty: 0 0RF Patient Comments: not taking lisinopril 10 mg Tablet 10 mg PO DAILY Qty: 30 0RF nicotine 21 mg/24 hr Patch 24 Hour 21 mg transdermal DAILY Qty: 30 0RF metoprolol succinate 50 mg capsule,sprinkle,ER 24hr 50 mg PO DAILY Qty: 30 0RF pantoprazole 40 mg tablet,delayed release (DR/EC) 40 mg PO DAILY Patient Comments: TAKE 1 TABLET BY MOUTH TWICE DAILY guaifenesin 600 mg tablet extended release 12hr 600 mg PO BID Qty: 10 0RF quetiapine 25 mg Tablet 12.5 mg PO BID Qty: 0 0RF clopidogrel 75 mg Tablet 75 mg PO DAILY Qty: 1 0RF metformin 500 mg tablet 500 mg PO BID Qty: 1 0RF albuterol sulfate 2.5 mg /3 mL (0.083 %) solution for nebulization 2.5 mg inhalation Q4H PRN (Reason: shortness of breath or wheezing) Qty: 75 0RF Primary Care Provider: Rd Rivers Referrals: Rd Rivers, [Primary Care Provider] - As soon as possible (or your pulmonary doctor) Disposition Disposition: Home, Self Care
[2024-01-24] MEDS: MethylPREDNISolone 125 MG/2 ML Vial IV (22:32)
[2024-01-24 22:35] LABS: Allen Test Positive; Base Excess 4 mmol/L (-2 to +2); Bicarbonate 28.9 mmol/L (22-26); Blood Gas Specimen Type ART; Mode Not entered; O2 Delivery Device BiPAP; PO2 132 mmHG (75-100); SITE L Radial; SO2 99 % (95-99); Total Carbon Dioxide 30 mmol/L; pCO2 47.5 mmHg (35-45); pH 7.39 (7.35-7.45)
--- NOTE | 2024-01-24 22:35 | RAD_ITS ---
EXAM: XR CHEST, 1 VIEW CLINICAL INDICATION: sob TECHNIQUE: Frontal view of the chest. COMPARISON: January 09, 2024. FINDINGS: LUNGS AND PLEURAL SPACES: The lung bases are better inflated with clearance of the SVC and bibasilar opacities and newly sharply marginated left lateral costophrenic angle. There is persistent mild pulmonary vascular distention in the perihilar regions and there are similar mild increased interstitial markings in the lungs. Mild linear streak of atelectasis or scarring remains in the left lateral lung. No pneumothorax. No effusion. HEART: Unremarkable. Cardiac silhouette not enlarged. MEDIASTINUM: No mediastinal widening. Mild peripheral calcification of the aortic arch again noted. BONES/JOINTS: Postoperative changes of stabilization rods at multiple mid thoracic vertebral body levels again noted. No acute fracture. SOFT TISSUES: Unremarkable. RAD/Chest 1 View (Portable) IMPRESSION: Improved inflation of the lung bases with clearance of hazy bibasilar opacities. Persistent mild pulmonary vascular prominence and mild interstitial changes. Electronically Signed: Tere Mcgovern MD at 0:42 EST ,
[2024-01-24 22:40] LABS: Absolute Lymphocyte Count 1.68 X10^3/uL (0.83-4.51); Absolute Neutrophil Count 10.6 X10^3/uL (2.0-7.7); Basophil# 0.15 X10^3/uL; Basophil% 1.1 % (0-1); Eosinophil# 0.18 X10^3/uL; Eosinophils% 1.3 % (0-5); Hematocrit 41.4 % (40-54); Hemoglobin 12.6 g/dL (13.0-16.5); Lymphocyte # 1.68 X10^3/ul (0.83-4.51); Lymphocyte % 12.3 % (19-41); Mean Corp Hgb Conc 30.4 g/dL (32-36); Mean Corpuscular Hgb 29.2 pg (27.0-32.0); Mean Corpuscular Volume 96.1 fL (80-94); Mean Platelet Vol. 10.2 fl (6.2-12.0); Monocyte# 0.95 X10^3/uL; NRBC Flagged by Analyzer 0 % (0-5); Neutrophil # 10.59 X10^3/uL (2.7-7.7); Neutrophil % 77.5 % (47-70); Platelet Count 432 K/mm3 (150-450); RBC Distribution Width CV 15.9 % (11.6-14.6); RBC Distribution Width SD 56.9 fl (35.1-43.9); Red Blood Count 4.31 M/mm3 (4.6-6.2); White Blood Count 13.7 K/mm3 (4.4-11.0)
[2024-01-24] MEDS: Albuterol 2.5 MG/3 ML VIAL.NEB. INHALATION ×3 (22:44→23:23)
[2024-01-24 22:59] LABS: Anion Gap 4 (5-15); BUN 10 mg/dL (7-18); BUN/Creat Ratio 11.3 RATIO (10-20); Calcium,Total 9.9 mg/dL (8.5-10.1); Chloride 104 mmol/L (98-107); Creatinine, Serum 0.88 mg/dL (0.70-1.30); EST Glomerular Filtration Rate 90 mL/min (>60); Est Glom Filt Rate - Afr Amer 109 mL/min (>60); Estimated Creatinine Clearance 79.28 ml/min; Glucose 218 mg/dL (74-106); Sodium Level 138 mmol/L (136-145); Troponin-I HS 39 pg/mL (3.0-78.0)
--- NOTE | 2024-01-24 23:06 | CPS ---
[2235] Pt. taken off AVAPS at this time and placed on 4L NC.
--- NOTE | 2024-01-25 00:04 | ED.RN ---
Called pt daughter for ride home. Daughter stated she cannot take him home. Pt stated he is depended on O2 2-4L depending on SOB sx.
[2024-01-25 00:22] VITALS: RESP 14
== END 2024-01-25 05:50 | disposition home or self-care (01) ==
PROVIDERS: Emergency Provider Emergency Medicine; PCP Family Medicine; Visit Provider Emergency Medicine
DX: J44.1 Chronic obstructive pulmonary disease with (acute) exacerbation (principal); I50.9 Heart failure, unspecified; I11.0 Hypertensive heart disease with heart failure; E11.9 Type 2 diabetes mellitus without complications; F17.210 Nicotine dependence, cigarettes, uncomplicated; E78.5 Hyperlipidemia, unspecified; I25.10 Atherosclerotic heart disease of native coronary artery without angina pectoris
CPT/HCPCS: 36600; 71045; 80048; 82803; 84484; 85025; 93005; 94002; 96374; 99284; A4216

== ENCOUNTER 2024-01-28 17:41 | Inpatient (IN) | payer MEDICARE, MEDICAID, SELFPAY ==
[2024-01-28] VITALS (22 sets, daily range): BP systolic 65–138; BP diastolic 48–95; PULSE 127–157; RESP 14–33; TEMP 36.2–37.1; O2SAT 92–100; BMI 26.4; BMI 25.9
--- NOTE | 2024-01-28 17:39 | EKG12_ITS ---
Test Reason : CODE BLUE Blood Pressure : / mmHG Vent. Rate : 166 BPM Atrial Rate : 000 BPM P-R Int : 000 ms QRS Dur : 120 ms QT Int : 262 ms P-R-T Axes : 000 007 -85 degrees QTc Int : 435 ms Critical Test Result: High HR Atrial fibrillation /Flutter with RVR Left ventricular hypertrophy with QRS widening and repolarization abnormality ( Lalo product ) Cannot rule out Anterior infarct , age undetermined Abnormal ECG No previous ECGs available Confirmed by Moris Holm ([id number]), brands editor ANGELITO CORRALES ([id number]) on 01/30/2024 2:24:32 PM Referred By: Confirmed By:Moris Holm
--- NOTE | 2024-01-28 17:44 | EKG12_ITS ---
Test Reason : CODE BLUE Blood Pressure : / mmHG Vent. Rate : 166 BPM Atrial Rate : 000 BPM P-R Int : 000 ms QRS Dur : 120 ms QT Int : 262 ms P-R-T Axes : 000 007 -85 degrees QTc Int : 435 ms Critical Test Result: High HR Atrial Flutter with 2:[address] changes Confirmed by Moris Holm ([id number]), purchase request editor ANGELITO CORRALES ([id number]) on 01/29/2024 1:51:43 PM Referred By: Confirmed By:Moris Holm
--- NOTE | 2024-01-28 17:47 | ED.VIS.DYS ---
HPI History of Present Illness Chief Complaint: Shortness of Breath PFSH PFSH Allergy/AdvReac Type Severity Reaction Status Date / Time No Known Allergies Allergy Verified 01/28/24 18:36 Social History Smoking Status: Current every day smoker tobacco type: cigarettes EXAM Physical Exam Const Vital Signs: 01/28/24 17:44 01/28/24 18:00 01/28/24 18:00 Temperature 97.2 F L 97.2 F L Temperature Source Temporal Core Pulse Rate 140 H 150 H Respiratory Rate 33 H Respiratory Effort Respiratory Depth Respiratory Pattern Blood Pressure 138/76 H 138/76 H Blood Pressure Mean 96 96 Pulse Ox 100 100 Oxygen Delivery Method Mechanical Ventilator Mechanical Ventilator Mechanical Ventilator Fraction of Inspired Oxygen (FIO2) 80 01/28/24 17:45 01/28/24 17:45 01/28/24 18:06 Temperature Temperature Source Pulse Rate 156 H 151 H Respiratory Rate 28 H 29 H Respiratory Effort Respiratory Depth Respiratory Pattern Tachypnea Tachypnea Blood Pressure Blood Pressure Mean Pulse Ox 100 Oxygen Delivery Method Mechanical Ventilator Fraction of Inspired Oxygen (FIO2) 80 01/28/24 18:07 01/28/24 18:19 01/28/24 18:26 Temperature Temperature Source Pulse Rate 143 H 154 H Respiratory Rate 18 17 Respiratory Effort Respiratory Depth Respiratory Pattern Blood Pressure 138/95 H Blood Pressure Mean 109 Pulse Ox 96 Oxygen Delivery Method Mechanical Ventilator Fraction of Inspired Oxygen (FIO2) 40 40 01/28/24 17:41 01/28/24 18:29 01/28/24 18:34 Temperature Temperature Source Pulse Rate Respiratory Rate Respiratory Effort Accessory Muscle Use Mechanically Ventilated Respiratory Depth Normal Respiratory Pattern Normal Blood Pressure 78/58 L Blood Pressure Mean 64 Pulse Ox Oxygen Delivery Method Ambu-Bag Mechanical Ventilator Fraction of Inspired Oxygen (FIO2) 01/28/24 19:00 01/28/24 19:30 01/28/24 19:46 Temperature 98.6 F Temperature Source Core Pulse Rate 146 H 153 H Respiratory Rate 22 H 33 H Respiratory Effort Respiratory Depth Respiratory Pattern Blood Pressure 86/65 L 65/48 L 81/66 L Blood Pressure Mean 72 53 71 Pulse Ox 92 Oxygen Delivery Method Mechanical Ventilator Fraction of Inspired Oxygen (FIO2) 40 MDM MDM MDM Narrative Medical decision making narrative: HISTORY OF PRESENT ILLNESS: 69-year-old male presents with concern for respiratory arrest. Per EMS patient frequently calls them for COPD exacerbation today he called them for shortness of breath he appeared clinically like he is having a COPD exacerbation. He then lost consciousness. EMS notes respiratory arrest . Per EMS. He had a pulse the entire time. Per EMS the patient never received CPR. They stated patient was intubated in the field. States he quickly regained pulses. They transported him to the emergency department immediately REVIEW OF SYSTEMS: Unable to obtain review of systems secondary to acuity of condition PHYSICAL EXAM: Nursing triage notes reviewed, Vital signs reviewed Constitutional: please see mdm HENT: MMM Eyes: Pupils equal round and reactive to light, Extraocular muscles intact Neck: No stridor, no JVD, full neck ROM Lungs: Clear to auscultation, No wheezing or rales. No increased work of breathing, no conversational dyspnea, no accessory muscle use, no nasal flaring. No respiratory distress noted Heart: fast irregular rate, pulses in all 4 extremities Abdomen: S soft : Normal-appearing genitalia Extremities: No edema Neuro: Intubated, patient fighting the vent, pupils equal and reactive bilaterally, cannot adequately assess sensation or movement Skin: No rash or lesions noted MEDICAL DECISION MAKING: Chief Complaint: Respiratory arrest External records reviewed: Admitted 1 month ago for similar symptoms was intubated at that time for community-acquired pneumonia and COPD exacerbation Factors affecting care: COPD Social determinants of health: Tobacco use History obtained from others: EMS Consults: Internal medicine, critical care [facility] Narrative: Patient was initially tachycardic, in severe respiratory distress unconscious intubated. I considered the following differential diagnosis: Respiratory arrest, PE, cardiac arrest, ACS, anemia, arrhythmia, Patient arrived intubated. Intubation was confirmed via end-tidal CO2, visual inspection condensation in the tube. 2 large-bore IVs were placed. OG Price was placed. Patient was given fentanyl drip and Versed drip for sedation. A broad lab and imaging workup was then obtained to further elucidate the etiology of patient's complaint. ALL IMAGES (IF OBTAINED) HAVE BEEN PERSONALLY REVIEWED AND INTERPRETED BY MYSELF. CBC with leukocytosis suggestive of systemic inflammation, mild anemia, no thrombocytopenia initial EKG with A-fib with RVR, normal intervals ABG with respiratory acidosis that appears acute, no signs of DKA with a bicarb greater than 15 BMP without significant electrolyte abnormalities, no anion gap noted hyperglycemia Acetone negative high-sensitivity troponin is negative, no evidence of myocardial ischemia The patient's chest x-ray was read reviewed myself showed evidence of right lower lobe pneumonia The synthesis of the patient history, physical exam, labs images suggest acute respiratory failure secondary to pneumonia causing COPD exacerbation. There is no evidence of cardiac arrest at this time. Patient remained tachycardic (A-fib with RVR) began to have low blood pressure with maps below 65. He was resuscitated with a full 30 cc/kg bolus which improved his maps greater than 65. At this time there is no indication for vasopressor support. I suspect the patient's A-fib is in response to sepsis, COPD exacerbation. I considered cardioverting the patient however he is not anticoagulated had a very labile rate from 120s to 160s but primarily in the 120s to 130s. Given this rate and risk of cardioversion induced CVA I opted not to cardiovert the patient in the emergency department. Given the patient's elevated heart rate, intubated status, signs of sepsis and hypotension he will need admission to the intensive care unit for further resuscitation and treatment. Discussed with the hospitalist Dr. Smith The patient and/or family, caregivers express understanding. The patient and/or family, caregivers agrees with the plan. Shared decision making: I will have a discussion with the patient and or visitors regarding risk/benefits of further testing or admission. They will be made aware of of the risk/benefits inherent in this decision they will be given the opportunity to voice understanding. Total critical care time today provided was at least 60 minutes. This excludes separately billable procedures. Critical care time (if documented) is secondary to the patient having high probability of clinically significant/life threatening deterioration in the patient's condition which required my urgent intervention. Impression: 1. Acute respiratory failure 2. Respiratory arrest 3. Community-acquired pneumonia 4. Leukocytosis 5. Hyperglycemia Dispo: Admit to ICU This note was generated with [employer] dictation software. It may contain incorrect words, spelling, and punctuation that were not noted in review of the chart prior to signing. Lab Data Labs: Laboratory Results - last 24 hr 01/28/24 17:45 WBC 16.6 H RBC 4.26 L Hgb 12.6 L Hct 42.7 MCV 100.2 H MCH 29.6 MCHC 29.5 L RDW Std Deviation 60.2 H RDW Coeff of Lauri 16.3 H Plt Count 517 H MPV 10.5 Immature Gran % (Auto) 4.700 H Neut % (Auto) 71.7 H Lymph % (Auto) 17.2 L [place] % (Auto) 5.6 Eos % (Auto) 0.1 Baso % (Auto) 0.7 Absolute Neuts (auto) 11.9 H Absolute Lymphs (auto) 2.86 Nucleated RBC % 1.6 Sodium 137 Potassium 4.1 Chloride 102 Carbon Dioxide 23.0 Anion Gap 12 BUN 14 Creatinine 1.20 Estim Creat Clear Calc 49.11 Est GFR (MDRD) Af Amer TNP Est GFR (MDRD) Non-Af TNP BUN/Creatinine Ratio 11.7 Glucose 562 H* Calcium 9.4 Troponin I High Sens 50 B-Natriuretic Peptide 848.8 H Acetone Level NEGATIVE ABG Data ABG results: ABG 01/28/24 17:59 Specimen Type ART Sample Site R Radial pH 7.20 L Bicarbonate Actual 23.4 Total CO2 25 Base Excess -5 L O2 Saturation 100 H O2 % 100.0 ABG pCO2 60.4 H ABG pO2 378 H* Tito Test Positive Respiration Rate 14 O2 Delivery Device Adult Vent Vent Mode AC Tidal Volume 450.0 POC PEEP 5 Crit Call To/Read Back Yes Blood Gas Notified Whom dr belle Blood Gas Notified Time 18:02:51 Radiography Diagnostic Testing: Clinical Impression(s) from Imaging Studies Chest X-Ray 01/28/24 17:50 IMPRESSION: There is a feeding tube/ nasogastric tube noted. The tip is off the field of view. Diffuse bilateral infiltrates. Electronically Signed: Killian Louis MD at 18:09 EST , Discharge Plan Triage Chief Complaint: Shortness of Breath ED Provider: Pablo Munoz Dx/Rx/DC Orders Primary Care Provider: Rd Rivers
--- NOTE | 2024-01-28 17:50 | RAD_ITS ---
STUDY: XR Chest 1 View 01/28/2024 5:46 PM REASON FOR EXAM: Male, 73 years old. arrest COMPARISON: 2. TECHNIQUE: XR Chest 1 View FINDINGS: There is no demonstrated pleural abnormality. Lumbar spinal fixation hardware. There is a feeding tube/ nasogastric tube noted. ET tube in good position. Normal heart size. Normal mediastinum. Normal aureliano. Prominent appearing increased interstitial lung markings. Normal visualized pulmonary arteries. There is atherosclerotic calcification of the aortic arch with tortuosity. There are diffuse degenerative changes of the visualized thoracic spine. There is degenerative osteoarthritis of the bilateral shoulders. There are no acute findings of the upper abdomen. RAD/Chest 1 View (Portable) IMPRESSION: There is a feeding tube/ nasogastric tube noted. The tip is off the field of view. Diffuse bilateral infiltrates. Electronically Signed: Killian Louis MD at 18:09 EST ,
[2024-01-28] MEDS: fentaNYL 100 MCG/2 ML Ampul IV ×2 (17:52→19:38)
[2024-01-28 17:55] LABS: Absolute Lymphocyte Count 2.86 X10^3/uL (0.83-4.51); Absolute Neutrophil Count 11.9 X10^3/uL (2.0-7.7); Basophil# 0.12 X10^3/uL; Basophil% 0.7 % (0-1); Eosinophil# 0.01 X10^3/uL; Eosinophils% 0.1 % (0-5); Hematocrit 42.7 % (40-54); Hemoglobin 12.6 g/dL (13.0-16.5); Lymphocyte # 2.86 X10^3/ul (0.83-4.51); Lymphocyte % 17.2 % (19-41); Mean Corp Hgb Conc 29.5 g/dL (32-36); Mean Corpuscular Hgb 29.6 pg (27.0-32.0); Mean Corpuscular Volume 100.2 fL (80-94); Mean Platelet Vol. 10.5 fl (6.2-12.0); Monocyte# 0.93 X10^3/uL; Monocyte% 5.6 % (0-10); NRBC Flagged by Analyzer 1.6 % (0-5); Neutrophil # 11.88 X10^3/uL (2.7-7.7); Neutrophil % 71.7 % (47-70); Platelet Count 517 K/mm3 (150-450); RBC Distribution Width CV 16.3 % (11.6-14.6); RBC Distribution Width SD 60.2 fl (35.1-43.9); Red Blood Count 4.26 M/mm3 (4.6-6.2); White Blood Count 16.6 K/mm3 (4.4-11.0)
[2024-01-28] MEDS: MethylPREDNISolone 125 MG/2 ML Vial IV (17:58)
[2024-01-28] MEDS: 0.9% Normal Saline (500mL Bag) 500 ML 999 ML IV ×2 (17:58→23:15)
[2024-01-28] MEDS: fentaNYL drip 100 ML 5 MCG CONT INF (17:58)
--- NOTE | 2024-01-28 17:58 | CPS ---
Pt was intubated in the EMS in route to the ER. Once pt was here this RT placed CO2 color changer on tube to make sure the tube was in the lungs. This RT also listen to lung sound to make sure tube was in the right place as well. Tube is a size 7.0 at 25 at the lip
[2024-01-28] MEDS: Ipratropium/Albuterol Sulfate 3 ML AMPUL.NEB INHALATION (17:59)
[2024-01-28] MEDS: Midazolam 50 MG in 0.9% Normal Saline (100mL Bag) 90 ML CONT INF (18:04)
[2024-01-28 18:05] LABS: Allen Test Positive; Base Excess -5 mmol/L (-2 to +2); Bicarbonate 23.4 mmol/L (22-26); Blood Gas Specimen Type ART; Mode AC; O2 Delivery Device Adult Vent; PEEP 5; PO2 378 mmHG (75-100); RR 14; SITE R Radial; SO2 100 % (95-99); Time Given 18:02:51; Total Carbon Dioxide 25 mmol/L; pCO2 60.4 mmHg (35-45)
--- NOTE | 2024-01-28 18:08 | CPS ---
decreased to 40%
[2024-01-28 18:13] LABS: BNP,B-Type NATRIURETIC PEPTIDE 848.8 pg/mL (0-100)
[2024-01-28 18:15] LABS: Anion Gap 12 (5-15); BUN 14 mg/dL (7-18); BUN/Creat Ratio 11.7 RATIO (10-20); Calcium,Total 9.4 mg/dL (8.5-10.1); Chloride 102 mmol/L (98-107); Estimated Creatinine Clearance 49.11 ml/min; Glucose 562 mg/dL (74-106); Potassium 4.1 mmol/L (3.5-5.1); Sodium Level 137 mmol/L (136-145); Troponin-I HS 50 pg/mL (3.0-78.0)
[2024-01-28] MEDS: Albuterol 2.5 MG/3 ML VIAL.NEB. INHALATION ×2 (18:19)
[2024-01-28] MEDS: Piperacil/Tazobactam 4.5 GM in 0.9% Normal Saline (100mL MB+) 100 ML IV (19:03)
--- NOTE | 2024-01-28 19:20 | PCM.HP.STD ---
HPI - General General Date of Admission: 01/28/24 Date of Service: 01/28/24 Chief Complaint: Respiratory Arrest. HPI Narrative RAHEL NICHOLS, is a 73 M with a past medical history of tobacco abuse; with subsequent COPD who presents to [facility] ER with patient intubated in the field by EMS for respiratory arrest. Information was gathered from chart, medical staff and computer. According to the records the patient became short of breath approximately 1 hour prior to arrival culminating in him activating EMS. Apparently this patient frequently calls EMS for his COPD exacerbations with a recent admission here approximately 2 weeks ago for acute exacerbation of COPD with respiratory arrest requiring intubation. Once EMS arrived they noted that he was in respiratory arrest and intubated him immediately. In the ER he was noted to have a chest x-ray positive for diffuse bilateral infiltrates consistent with multifocal (likely nosocomial) pneumonia complicated by clinical evidence of acute exacerbation of COPD with acute hypoxic respiratory failure requiring intubation mechanical ventilation and he was then admitted to the ICU for ongoing care for stay that is expected to be greater than 48 hours. PFSH Allergy/AdvReac Type Severity Reaction Status Date / Time No Known Allergies Allergy Verified 01/28/24 18:36 Social History Smoking Status: Current every day smoker tobacco type: cigarettes ROS ROS Narrative Review of systems could not be completed with patient intubated and sedated. Review of Systems ROS Unobtainable: due to encephalopathy Vital Signs Vital Signs Vital Signs: 01/28/24 17:44 01/28/24 18:00 01/28/24 18:00 Temperature 97.2 F L 97.2 F L Temperature Source Temporal Core Pulse Rate 140 H 150 H Respiratory Rate 33 H Respiratory Effort Respiratory Depth Respiratory Pattern Blood Pressure 138/76 H 138/76 H Blood Pressure Mean 96 96 Pulse Ox 100 100 Oxygen Delivery Method Mechanical Ventilator Mechanical Ventilator Mechanical Ventilator Fraction of Inspired Oxygen (FIO2) 80 01/28/24 17:45 01/28/24 17:45 01/28/24 18:06 Temperature Temperature Source Pulse Rate 156 H 151 H Respiratory Rate 28 H 29 H Respiratory Effort Respiratory Depth Respiratory Pattern Tachypnea Tachypnea Blood Pressure Blood Pressure Mean Pulse Ox 100 Oxygen Delivery Method Mechanical Ventilator Fraction of Inspired Oxygen (FIO2) 80 01/28/24 18:07 01/28/24 18:19 01/28/24 18:26 Temperature Temperature Source Pulse Rate 143 H 154 H Respiratory Rate 18 17 Respiratory Effort Respiratory Depth Respiratory Pattern Blood Pressure 138/95 H Blood Pressure Mean 109 Pulse Ox 96 Oxygen Delivery Method Mechanical Ventilator Fraction of Inspired Oxygen (FIO2) 40 40 01/28/24 17:41 01/28/24 18:29 01/28/24 18:34 Temperature Temperature Source Pulse Rate Respiratory Rate Respiratory Effort Accessory Muscle Use Mechanically Ventilated Respiratory Depth Normal Respiratory Pattern Normal Blood Pressure 78/58 L Blood Pressure Mean 64 Pulse Ox Oxygen Delivery Method Ambu-Bag Mechanical Ventilator Fraction of Inspired Oxygen (FIO2) 01/28/24 19:00 Temperature Temperature Source Pulse Rate 146 H Respiratory Rate 22 H Respiratory Effort Respiratory Depth Respiratory Pattern Blood Pressure 86/65 L Blood Pressure Mean 72 Pulse Ox Oxygen Delivery Method Fraction of Inspired Oxygen (FIO2) Weight Weight: 158 lb 11.725 oz Body Mass Index (BMI) 26.4 Physical Exam Const Constitutional Narrative: Patient is intubated and sedated on ventilator. HEENT normocephalic and head/scalp atraumatic Eyes PERRL and EOMs intact bilaterally Neck no lymphadenopathy and supple Resp Resp Narrative: Diminished breath sounds throughout with scattered rhonchi. Auscultation: rhonchi Cardio regular rate and regular rhythm GI normal to inspection, nondistended, normoactive bowel sounds, soft to palpation, non-tender and non-distended Extremity normal to inspection, full ROM and no clubbing, cyanosis or edema Skin Skin Narrative: Patient has no evidence of rash at this time. Neuro Neuro Narrative: Patient is intubated and sedated on ventilator. Psych Psych Narrative: Patient is intubated and sedated on ventilator. Results Medical Records Data Attestation: I reviewed the patient's medical records Lab / Micro Data Attestation: I reviewed the patient's lab results. 01/29/24 04:20 01/29/24 04:20 Labs: Laboratory Results - last 24 hr 01/28/24 17:45: WBC 16.6 H, RBC 4.26 L, Hgb 12.6 L, Hct 42.7, MCV 100.2 H, MCH 29.6, MCHC 29.5 L, RDW Std Deviation 60.2 H, RDW Coeff of Lauri 16.3 H, Plt Count 517 H, MPV 10.5, Immature Gran % (Auto) 4.700 H, Neut % (Auto) 71.7 H, Lymph % (Auto) 17.2 L, [place] % (Auto) 5.6, Eos % (Auto) 0.1, Baso % (Auto) 0.7, Absolute Neuts (auto) 11.9 H, Absolute Lymphs (auto) 2.86, Nucleated RBC % 1.6, Sodium 137, Potassium 4.1, Chloride 102, Carbon Dioxide 23.0, Anion Gap 12, BUN 14, Creatinine 1.20, Estim Creat Clear Calc 49.11, Est GFR (MDRD) Af Amer TNP, Est GFR (MDRD) Non-Af TNP, BUN/Creatinine Ratio 11.7, Glucose 562 H*, Calcium 9.4, Troponin I High Sens 50, B-Natriuretic Peptide 848.8 H, Acetone Level NEGATIVE Micro: Microbiology 01/28/24 18:05 Mucosa - Nose SARS-CoV-2, Influenza & RSV (PCR) - Final ABG Data ABG results: ABG 01/28/24 17:59 Specimen Type ART Sample Site R Radial pH 7.20 L Bicarbonate Actual 23.4 Total CO2 25 Base Excess -5 L O2 Saturation 100 H O2 % 100.0 ABG pCO2 60.4 H ABG pO2 378 H* Tito Test Positive Respiration Rate 14 O2 Delivery Device Adult Vent Vent Mode AC Tidal Volume 450.0 POC PEEP 5 Crit Call To/Read Back Yes Blood Gas Notified Whom dr belle Blood Gas Notified Time 18:02:51 Imaging Radiology Impression Chest X-Ray 01/28/24 17:50 IMPRESSION: There is a feeding tube/ nasogastric tube noted. The tip is off the field of view. Diffuse bilateral infiltrates. Electronically Signed: Killian Louis MD at 18:09 EST , Assessment & Plan Assessment/Plan (1) Multifocal pneumonia: (2) COPD with acute exacerbation: (3) Acute hypoxic on chronic hypercapnic respiratory failure: PLAN: Plan 1. Multifocal Pneumonia with Leukocytosis of 16.6 present on admission along with tachycardia of 143 bpm and hypotension of 85/73 mm Hg present on admission concerning for possible Sepsis - Admit to ICU for treatment under the Sepsis protocol. Continue IV Vancomycin and IV Zosyn begun in the ER and await culture and sensitivity data. Resume sedation with Fentanyl and Versed and titrate per protocol. Give Tylenol prn pain or fever. Finally, we will consult the clinical lab specialist on-call to see this patient on-rounds in the AM for further recommendations with help appreciated in advance. 2. AE COPD with respiratory arrest likely due to #1 - Continue IV Solumedrol, nebulizers and ventilator. Start IV Protonix for GI prophylaxis while on high-dose steroids. 3. Acute Hypoxic Respiratory Failure requiring intubation in the field caused by #1 & #2 - Wean ventilator as tolerated. 4. Recent admission here to this hospital ~2 weeks ago with AE COPD requiring intubation - Noted. Patient may benefit from referral to palliative care if and when he is able to extubated to prevent further serial readmission. 5. DVT prophylaxis - Lovenox 40 mg sq daily plus SCD's. Total time: Approximately 55 minutes. Sepsis Attestation Sepsis Alert: Yes Sepsis Attestation: Agree w/Sepsis Date exam was performed: 01/28/24 Time exam was performed: 20:00 Possible Source of Sepsis: Pulmonary Sepsis Organ Dysfunction Criteria Present: SBP < 90 mmHg or MAP < 65 mmHg, Acute Respiratory Failure (New need for BiPAP/CPAP or MV) and New/Unexplained change in mental status Fluid Resuscitation Fluid resuscitation indicated?: Yes Fluid Resuscitation ordered: 30 ml/kg fluid bolus ordered Amount of fluid ordered: 3 Sepsis Note Date exam was performed: 01/29/24 Time exam was performed: 00:00 Sepsis Attestation: Sepsis re-evaluation was performed Response to fluids: Fluid responsive hypotension Charges/Coding Visit Charges Inpatient E&M: 33650 Init Hosp L2
--- NOTE | 2024-01-28 19:27 | ED.RN ---
181 PT INTUBATED. PT MOVING ARMS, SOFT WRIST RESTRAINTS APPLIED FOR TUBE SAFETY.
--- NOTE | 2024-01-28 19:36 | ED.RN ---
first fentanyl pulled under name Bandar Palmer because pt name was unknown. Verbal order for 100mcg given by Dr. Munoz.
[2024-01-28] MEDS: VIAFLEX IV (19:40)
[2024-01-28] MEDS: NORMAL SALINE IV (19:40)
[2024-01-28] MEDS: Vancomycin IV 1,000 MG/200 ML BAG 200 MG IV (20:31)
[2024-01-28 20:33] LABS: Mucous, Urine 0 SEEN /hpf (<or=2+)
[2024-01-28 20:36] LABS: Color, Urine Yellow (Yellow); Glucose, Dipstick 1000 mg/dl (Normal); Ketone-Dipstick Negative (Negative); Leukocyte Esterase-Dipstick Negative /ul (Negative); Nitrite-Dipstick Negative (Negative); Occult Blood-Urine 50 /ul (Negative); Protein-Dipstick 500 mg/dl (Negative); Urine Bilirubin Dipstick Negative (Negative); Urine Clarity Cloudy (Clear); Urine Urobilinogen Normal (Normal)
[2024-01-28 20:43] LABS: White Blood Cells 0-5 SEEN /hpf (0-5)
[2024-01-28 20:44] LABS: Red Blood Cells-Urine 10-25 SEEN /hpf (0-5); Squamous Epithelial Cells - UA 10-25 SEEN /hpf (0-5)
[2024-01-28 20:45] LABS: Bacteria RARE /hpf (None Seen)
--- NOTE | 2024-01-28 20:51 | PCM.RX.CS ---
Consult Antibiotic Management Pharmacy has been consulted to manage selected antibiotic: Vancomycin Type of Intervention Type of Consult: New start Suspected Infection Suspected Infection: Pneumonia Labs Labs: Sodium 137 mmol/L (136-145) 01/28/24 17:45 Potassium 4.1 mmol/L (3.5-5.1) 01/28/24 17:45 Chloride 102 mmol/L (98-107) 01/28/24 17:45 Carbon Dioxide 23.0 mmol/L (21.0-32.0) 01/28/24 17:45 Anion Gap 12 (5-15) 01/28/24 17:45 BUN 14 mg/dL (7-18) 01/28/24 17:45 Creatinine 1.20 mg/dL (0.70-1.30) 01/28/24 17:45 Est GFR (MDRD) Af Amer TNP 01/28/24 17:45 Est GFR (MDRD) Non-Af TNP 01/28/24 17:45 BUN/Creatinine Ratio 11.7 RATIO (10-20) 01/28/24 17:45 Glucose 562 mg/dL (74-106) H* 01/28/24 17:45 Microbiology Microbiology: Microbiology 01/28/24 18:05 Mucosa - Nose SARS-CoV-2, Influenza & RSV (PCR) - Final Dosing Weight Weight used for dosin kg Estimated Creatinine Clearance Estimated Creatinine Clearance: 49 Goal Trough Goal Trough: 15-20 mcg/mL Pharmacy Plan for Drug Dosing Pharmacy Plan for Drug Dosing: Pharmacy Service will continue to monitor and adjust dosing as required. Follow-Up Labs Follow-Up Labs: Trough: Vancomycin Date/Time Labs Ordered Labs to be done on [date and time ordered]: 01/30/24 @0800
[2024-01-28 21:19] LABS: Allen Test Positive; Base Excess -5 mmol/L (-2 to +2); Bicarbonate 22.1 mmol/L (22-26); Blood Gas Specimen Type ART; Mode AC; O2 Delivery Device ET Tube; PEEP 5; PO2 92 mmHG (75-100); RR 14; SITE L Radial; SO2 95 % (95-99); Total Carbon Dioxide 24 mmol/L; pCO2 50.7 mmHg (35-45); pH 7.25 (7.35-7.45)
[2024-01-28] MEDS: Pantoprazole Sodium 40 MG in 0.9% Normal Saline (100mL MB+) 100 ML 330 MG IV (21:25)
[2024-01-28] MEDS: 0.9% Normal Saline (1000mL) 1,000 ML 75 ML IV (21:25)
[2024-01-28 21:37] LABS: Bedside Glucose 351 mg/dL (74-106)
[2024-01-28] MEDS: Digoxin 250 MCG/ML Ampul 500 MCG IV (21:49)
[2024-01-28] MEDS: 0.9% Saline Lock 10 ML Syringe IV (21:50)
[2024-01-28 21:57] LABS: Lactic Acid 2.3 mmol/L (0.4-1.9)
[2024-01-28] MEDS: Chlorhexidine 15 ML PO (23:14)
[2024-01-28] MEDS: Insulin Glargine-YFGN 100 UNIT/ML Pen 10 UNIT SC (23:14)
[2024-01-28] MEDS: Insulin Lispro 100 UNIT/ML INSULN.PEN SC (23:15)
[2024-01-28 23:42] LABS: Bedside Glucose 356 mg/dL (74-106)
[2024-01-29] VITALS (38 sets, daily range): BP systolic 84–194; BP diastolic 56–106; PULSE 90–162; RESP 14–24; TEMP 36.4–37; O2SAT 15–99; BMI 26.4
[2024-01-29 00:40] LABS: Reflex Lactate? Y
[2024-01-29 01:30] LABS: Lactic Acid 1.8 mmol/L (0.4-1.9)
[2024-01-29] MEDS: CHLORHEXIDINE GLUC 2% CLOTH 1 EACH TOWELETTE TOPICAL (04:14)
[2024-01-29] MEDS: fentaNYL drip 100 ML 10 MCG CONT INF ×2 (04:15→12:20)
[2024-01-29 04:31] LABS: Absolute Lymphocyte Count 0.39 X10^3/uL (0.83-4.51); Absolute Neutrophil Count 16.8 X10^3/uL (2.0-7.7); Basophil# 0.04 X10^3/uL; Basophil% 0.2 % (0-1); Hematocrit 34.1 % (40-54); Hemoglobin 10.2 g/dL (13.0-16.5); Lymphocyte # 0.39 X10^3/ul (0.83-4.51); Lymphocyte % 2.1 % (19-41); Mean Corp Hgb Conc 29.9 g/dL (32-36); Mean Corpuscular Hgb 29.5 pg (27.0-32.0); Mean Corpuscular Volume 98.6 fL (80-94); Mean Platelet Vol. 10.3 fl (6.2-12.0); Monocyte% 4.9 % (0-10); NRBC Flagged by Analyzer 0.4 % (0-5); Neutrophil # 16.78 X10^3/uL (2.7-7.7); Neutrophil % 91.8 % (47-70); POSITIVE DIFFERENTIAL YES; Platelet Count 354 K/mm3 (150-450); RBC Distribution Width CV 16.3 % (11.6-14.6); RBC Distribution Width SD 58.8 fl (35.1-43.9); Red Blood Count 3.46 M/mm3 (4.6-6.2); White Blood Count 18.3 K/mm3 (4.4-11.0)
[2024-01-29 05:05] LABS: ALB/GLOB Ratio 0.9 RATIO (0.9-2.4); AST(SGOT) 23 U/L (15-37); Alanine Aminotransfer ALT/SGPT 35 U/L (16-61); Albumin, Serum 2.6 g/dL (3.2-5.0); Alkaline Phosphatase 76 U/L (45-117); Anion Gap 4 (5-15); BUN 22 mg/dL (7-18); Calcium,Total 7.3 mg/dL (8.5-10.1); Chloride 114 mmol/L (98-107); EST Glomerular Filtration Rate 78 mL/min (>60); Est Glom Filt Rate - Afr Amer 95 mL/min (>60); Estimated Creatinine Clearance 58.94 ml/min; Globulin 2.8 g/dL (2.2-4.2); Glucose 350 mg/dL (74-106); Magnesium 1.9 mg/dL (1.6-2.6); Phosphorus 3.6 mg/dL (2.5-4.9); Potassium 4.7 mmol/L (3.5-5.1); Protein, Total 5.4 g/dL (6.4-8.2); Sodium Level 142 mmol/L (136-145); Thyroid Stim Hormone (TSH) 0.75 uIU/mL (0.358-3.74)
[2024-01-29] MEDS: Piperacil/Tazobactam 3.375 GM in 0.9% Normal Saline (50mL MB+) 50 ML IV ×3 (05:13→21:17)
[2024-01-29] MEDS: Insulin Lispro 100 UNIT/ML INSULN.PEN SC ×4 (05:14→23:27)
--- NOTE | 2024-01-29 05:55 | RAD_ITS ---
EXAM: XR CHEST, 1 VIEW CLINICAL INDICATION: AE COPD with intubation in the field. TECHNIQUE: Frontal view of the chest. COMPARISON: Single view chest 01/28/2024 FINDINGS: LUNGS AND PLEURAL SPACES: Bibasilar airspace disease. No pneumothorax. No effusion. HEART: Unremarkable. Cardiac silhouette not enlarged. MEDIASTINUM: Central airways and mediastinal contour are unremarkable. BONES/JOINTS: Unremarkable. No acute fracture. SOFT TISSUES: Unremarkable. TUBES, LINES AND DEVICES: Endotracheal tube with tip 2.8 cm above the cyril. Stable enteric tube. RAD/Chest 1 View (Portable) IMPRESSION: Bibasilar airspace disease. Findings may indicate pneumonia. Electronically Signed: Killian Magallanes MD at 5:53 EST ,
[2024-01-29] MEDS: Albuterol 2.5 MG/3 ML VIAL.NEB. INHALATION (06:45)
--- NOTE | 2024-01-29 07:40 | PN.HOSP_ITS ---
Reason for Visit Reason for Visit: Diagnoses Pneumonia, unspecified organism (01/28/24) Chronic obstructive pulmonary disease with (acute) exacerbation (01/28/24) Acute respiratory failure with hypoxia (01/28/24) Chronic respiratory failure with hypercapnia (01/28/24) Objective Data Objective Data Vital Signs: Vital Signs Temp Pulse Resp BP Pulse Ox O2 Del Method FiO2 97.7 F L 139 H 17 95/57 L 99 Mechanical Ventilator 30 01/29/24 04:00 01/29/24 06:46 01/29/24 06:46 01/29/24 06:00 01/29/24 06:46 01/29/24 06:00 01/29/24 06:46 Oxygen Delivery Method Mechanical Ventilator Weight: 158 lb 8.198 oz Body Mass Index (BMI) 26.4 Intake & Output: Intake and Output for Last 24 Hours 01/27/24 01/28/24 01/29/24 23:59 23:59 23:59 Intake Total 3128.57 / 3142.57 598.0 / 598.0 Output Total 500 / 500 Balance 3128.57 / 2892.57 98.0 / 98.0 Lab / Micro Data 01/29/24 04:20 01/29/24 04:20 Labs: Laboratory Results - last 24 hr 01/28/24 17:45: WBC 16.6 H, RBC 4.26 L, Hgb 12.6 L, Hct 42.7, MCV 100.2 H, MCH 29.6, MCHC 29.5 L, RDW Std Deviation 60.2 H, RDW Coeff of Lauri 16.3 H, Plt Count 517 H, MPV 10.5, Immature Gran % (Auto) 4.700 H, Neut % (Auto) 71.7 H, Lymph % (Auto) 17.2 L, [place] % (Auto) 5.6, Eos % (Auto) 0.1, Baso % (Auto) 0.7, Absolute Neuts (auto) 11.9 H, Absolute Lymphs (auto) 2.86, Nucleated RBC % 1.6, Sodium 137, Potassium 4.1, Chloride 102, Carbon Dioxide 23.0, Anion Gap 12, BUN 14, Creatinine 1.20, Estim Creat Clear Calc 49.11, Est GFR (MDRD) Af Amer TNP, Est GFR (MDRD) Non-Af TNP, BUN/Creatinine Ratio 11.7, Glucose 562 H*, Calcium 9.4, Troponin I High Sens 50, B-Natriuretic Peptide 848.8 H, Acetone Level NEGATIVE 01/28/24 20:20: Urine Color Yellow, Urine Clarity Cloudy, Urine pH 6.0, Ur Specific [place] 1.020, Urine Protein 500 H, Urine Glucose (UA) 1000 H, Urine Ketones Negative, Urine Occult Blood 50 H, Urine Nitrite Negative, Urine Bilirubin Negative, Urine Urobilinogen Normal, Ur Leukocyte Esterase Negative, Urine RBC 10-25 SEEN, Urine WBC 0-5 SEEN, Ur Squamous Epith Cells 10-25 SEEN, Urine Bacteria RARE, Urine Mucus 0 SEEN 01/28/24 20:37: Lactic Acid 2.3 H* 01/28/24 21:07: POC Glucose 351 H 01/28/24 23:13: POC Glucose 356 H 01/29/24 00:50: Lactic Acid 1.8 01/29/24 04:20: WBC 18.3 H, RBC 3.46 L, Hgb 10.2 L, Hct 34.1 L, MCV 98.6 H, MCH 29.5, MCHC 29.9 L, RDW Std Deviation 58.8 H, RDW Coeff of Lauri 16.3 H, Plt Count 354, MPV 10.3, Immature Gran % (Auto) 1.000 H, Neut % (Auto) 91.8 H, Lymph % (Auto) 2.1 L, [place] % (Auto) 4.9, Eos % (Auto) 0.0, Baso % (Auto) 0.2, Absolute Neuts (auto) 16.8 H, Absolute Lymphs (auto) 0.39 L, Nucleated RBC % 0.4, Sodium 142, Potassium 4.7, Chloride 114 H, Carbon Dioxide 24.0, Anion Gap 4 L, BUN 22 H , Creatinine 1.00, Estim Creat Clear Calc 58.94, Est GFR (MDRD) Af Amer 95, Est GFR (MDRD) Non-Af 78, BUN/Creatinine Ratio 22.0 H, Glucose 350 H, Calcium 7.3 L, Phosphorus 3.6, Magnesium 1.9, Total Bilirubin 0.40, AST 23, ALT 35, Alkaline Phosphatase 76, Total Protein 5.4 L, Albumin 2.6 L, Globulin 2.8, Albumin/Globu kanika Ratio 0.9, TSH 0.75 Micro: Microbiology 01/28/24 18:05 Mucosa - Nose SARS-CoV-2, Influenza & RSV (PCR) - Final ABG Data ABG results: ABG 01/28/24 01/28/24 17:59 21:15 Specimen Type ART ART Sample Site R Radial L Radial pH 7.20 L 7.25 L Bicarbonate Actual 23.4 22.1 Total CO2 25 24 Base Excess -5 L -5 L O2 Saturation 100 H 95 O2 % 100.0 40.0 ABG pCO2 60.4 H 50.7 H ABG pO2 378 H* 92 Tito Test Positive Positive Respiration Rate 14 14 O2 Delivery Device Adult Vent ET Tube Vent Mode AC AC Tidal Volume 450.0 450.0 POC PEEP 5 5 Crit Call To/Read Back Yes Blood Gas Notified Whom dr belle Blood Gas Notified Time 18:02:51 Radiography Diagnostic Testing: Radiology Impression Chest X-Ray 01/28/24 17:50 IMPRESSION: There is a feeding tube/ nasogastric tube noted. The tip is off the field of view. Diffuse bilateral infiltrates. Electronically Signed: Killian Louis MD at 18:09 EST , Chest X-Ray 01/29/24 05:55 IMPRESSION: Bibasilar airspace disease. Findings may indicate pneumonia. Electronically Signed: Killian Magallanes MD at 5:53 EST , Physical Exam Narrative Seen and examined. Patient is intubated. Awake and follows simple command. Physical exam General: Awake, on light sedation. HEENT: Atraumatic, PERRLA, EOMI, Normocephalic Oral: No Gingival or Mucosal Lesions/ Ulcerations Neck: Supple, No JVD, Negative Carotid Bruits Chest wall/Lungs: On vent support. Air entry diminished in bilateral lung bases . No crepitation/rhonchi Cardiovascular: Regular rate, Regular Rhythm, Normal S1, Normal S2, No M/G/R Abdomen: Bowel Sounds Present, Soft, Non Tender, Non-Distended : No dysuria. No renal angle tenderness. No suprapubic tenderness. Extremities: No edema, Capillary Refill Less than 3 Seconds Skin: No rashes, No breakdown Musculoskeletal: No Tenderness to Palpation of Joints or Extremities. Decreased muscle bulk. Neurological: Cranial nerves II-XII grossly intact, DTR 2+/4. No acute focal n eurological deficit. Psych/Mental Status: Flat affect. Assessment & Plan Assessment/Plan (1) Multifocal pneumonia: (2) COPD with acute exacerbation: (3) Acute hypoxic on chronic hypercapnic respiratory failure: PLAN: Plan 73-year-old gentleman being admitted for concern of respiratory arrest. A spiration risk, called for COPD exacerbation emergency patient lost consciousness blood pressure during pulse therefore no CPR was given. The patient was intubated in the field. Chest x-ray was positive for diffuse bilateral infiltrates consistent with multifocal pneumonia 1. Multifocal Pneumonia with Leukocytosis of 16.6 present on admission along with tachycardia of 143 bpm and hypotension of 85/73 mm Hg present on admission concerning for possible Sepsis - Admit to ICU for treatment under the Sepsis protocol. Continue IV Vancomycin and IV Zosyn begun in the ER and await culture and sensitivity data. On IV fentanyl. Give Tylenol prn pain or fever. Personnel Records Clerk is consulted. On light sedation. IV fluid discontinued. 2. AE COPD with respiratory arrest = Continue IV Solumedrol, nebulizers and ventilator. Start IV Protonix for GI prophylaxis while on high-dose steroids. 3. Acute Hypoxic and hypercarbic combined respiratory Failure requiring intubation in the field: Patient first ABG shows 7.2/60/378 head 100% FiO2/450/14/5 which improved to 7.25/51/92 at 40% FiO2/450/14/5. There is no previous ABG or bicarb of previous admissions at our system therefore unclear of his baseline. Bicarb and ABG was 23 and 24 normal. Spontaneous awakening and breathing trial from tomorrow AM. 4. Recent admission here to this hospital ~2 weeks ago with AE COPD requiring intubation - Noted. Patient may benefit from referral to palliative care if and when he is able to extubated to prevent further serial readmission. 5. DVT prophylaxis - Lovenox 40 mg sq daily plus SCD's. Charges/Coding Visit Charges Inpatient E&M: 14410 Subs Hosp L3
[2024-01-29] MEDS: Vancomycin IV 500 MG/100 ML BAG 100 MG IV ×2 (08:01→19:49)
--- NOTE | 2024-01-29 08:03 | CON.PCM.CC_ITS ---
Assessment & Plan Assessment/Plan (1) COPD with acute exacerbation: (2) Acute and chronic respiratory failure with hypoxia: PLAN: Plan RECOMMENDATIONS: 1. Continue assist-control mode mechanical ventilation. Wean FiO2 and PEEP for saturations greater than 90%. 2. Stop continuous IV fluids. 3. Continue empiric broad-spectrum antimicrobials, pending infectious workup. 4. Continue scheduled bronchodilators and steroids. 5. Continue appropriate ICU prophylaxis. 6. Perform spontaneous awakening and breathing trials beginning tomorrow. IMPRESSIONS: 1. Acute on chronic combined respiratory failure The patient has an apparent history of COPD with a baseline 2-4 L/min oxygen requirement. The patient has a history of frequent COPD exacerbations leading to hospitalization. I suspect that his current exacerbation is likely secondary to possible underlying pneumonia coupled with noncompliance with out patient therapy and ongoing tobacco dependency. At this time, recommend continuing current supportive care including invasive mechanical ventilatory support. Wean FiO2 and PEEP to maintain oxygen saturations at or above 90%. The patient will be continued on empiric broad-spectrum antimicrobials along with bronchodilators and steroids. Ultimately, the patient needs to establish care in the pulmonary medicine clinic after discharge. 2. Valvular heart disease Continue current supportive care. Recommend outpatient cardiology follow-up. 3. History of congestive heart failure/diabetes mellitus/hypertension/CVA/tobacco dependency/recent hospitalization for COPD Complicates care, management, recovery and prognosis. Continue supportive care as noted above. Continue appropriate GI and DVT prophylaxis. TIME: 34 minutes of critical care time, independent of procedures, was spent addressing the patient's acute on chronic combined respiratory failure, valvular heart disease, history of tobacco dependency, review of all data and collaboration with the care team. HPI Consult Data Date of Consult: 01/29/24 HPI Narrative Reason for Consultation: Respiratory failure HPI Narrative: The patient is a 73-year-old male, with a history as outlined below, who presented to the emergency department via EMS on January 27 with complaints of dyspnea. According to EMS, the patient lost consciousness and was intubated in the field. He never lost a pulse. The patient has an apparent history of COPD of unknown severity along with chronic hypoxemic respiratory failure with a 2 L/min oxygen requirement. The patient was last hospitalized in December 2023 with acute on chronic combined respiratory failure, requiring invasive mechanical ventilatory support. The patient also had an elevated troponin level, which was felt to be the consequence of demand ischemia. The patient was ultimately discharged on January 10. He completed a 7-day treatment course of antibiotics. The patient was also evaluated in the emergency department on January 24 with shortness of breath. The patient admitted to the time that he had ran out of his nebulizer treatments at home. The patient does continue to smoke cigarettes. The patient was ultimately discharged home from the emergency department with an albuterol inhaler and a prednisone taper. On presentation to the emergency department, the patient was documented to have a temperature of 97.2 ?F. He was notably tachycardic and tachypneic. He was, nevertheless, hemodynamically stable. Initial laboratory evaluation revealed an elevated white blood cell count to 16,000. Platelet count was elevated at 517,000. Initial ABG demonstrated a pH of 7.2 with a pCO2 of 61 and pO2 of 378. Chemistry profile was unremarkable. Glucose was elevated at 562. Lactate was increased to 2.3. BNP was elevated at 848 with a normal troponin. Blood and sputum cultures were collected. COVID, influenza and RSV PCR's were negative. Chest imaging demonstrated bibasilar infiltrates. The patient was started on supplemental IV fluids along with empiric antibiotics, bronchodilators and steroids. He was admitted to the medical intensive care unit for further management. This morning, the patient is clinically stable on assist-control mode mechanical ventilation with an FiO2 requirement of 30% and PEEP of 5. White count remains elevated at 18,000. Lactic acidemia has resolved. Surface echocardiogram completed on January 01, 2024 demonstrated mild concentric LVH with an ejection fraction of 60%. Moderate to severe mitral regurgitation was noted. Right ventricular systolic pressure was estimated to be 42 mmHg. PFSH Allergy/AdvReac Type Severity Reaction Status Date / Time No Known Allergies Allergy Verified 01/28/24 18:36 Social History Smoking Status: Current every day smoker tobacco type: cigarettes ROS Review of Systems ROS Unobtainable: due to endotracheal tube Physical Exam Const Constitutional Narrative: Intubated, sedated and mechanically ventilated. No ventilator dyssynchrony noted. HEENT normocephalic and head/scalp atraumatic Mouth: endotracheal tube in place and OG tube in place Eyes PERRL, EOMs intact bilaterally and conjunctivae normal Neck supple General: trachea midline Chest inspection of chest normal Resp Auscultation: diminished lung sounds; Negative for rales, rhonchi or wheezes Cardio S1 normal heart sound and S2 normal heart sound Rate: tachycardic Rhythm: abnormal rhythm Heart Sounds: murmur GI normal to inspection, nondistended, normoactive bowel sounds Extremity General Extremity: edema bilateral lower extremity; Negative for clubbing Skin no rashes or lesions noted Neuro Sensorium / Orientation: sedated on vent Lab / Micro Data 01/29/24 04:20 01/29/24 04:20 Labs: Laboratory Results - last 24 hr 01/28/24 17:45: WBC 16.6 H, RBC 4.26 L, Hgb 12.6 L, Hct 42.7, MCV 100.2 H, MCH 29.6, MCHC 29.5 L, RDW Std Deviation 60.2 H, RDW Coeff of Lauri 16.3 H, Plt Count 517 H, MPV 10.5, Immature Gran % (Auto) 4.700 H, Neut % (Auto) 71.7 H, Lymph % (Auto) 17.2 L, [place] % (Auto) 5.6, Eos % (Auto) 0.1, Baso % (Auto) 0.7, Absolute Neuts (auto) 11.9 H, Absolute Lymphs (auto) 2.86, Nucleated RBC % 1.6, Sodium 137, Potassium 4.1, Chloride 102, Carbon Dioxide 23.0, Anion Gap 12, BUN 14, Creatinine 1.20, Estim Creat Clear Calc 49.11, Est GFR (MDRD) Af Amer TNP, Est GFR (MDRD) Non-Af TNP, BUN/Creatinine Ratio 11.7, Glucose 562 H*, Calcium 9.4, Troponin I High Sens 50, B-Natriuretic Peptide 848.8 H, Acetone Level NEGATIVE 01/28/24 20:20: Urine Color Yellow, Urine Clarity Cloudy, Urine pH 6.0, Ur Specific [place] 1.020, Urine Protein 500 H, Urine Glucose (UA) 1000 H, Urine Ketones Negative, Urine Occult Blood 50 H, Urine Nitrite Negative, Urine Bilirubin Negative, Urine Urobilinogen Normal, Ur Leukocyte Esterase Negative, Urine RBC 10-25 SEEN, Urine WBC 0-5 SEEN, Ur Squamous Epith Cells 10-25 SEEN, Urine Bacteria RARE, Urine Mucus 0 SEEN 01/28/24 20:37: Lactic Acid 2.3 H* 01/28/24 21:07: POC Glucose 351 H 01/28/24 23:13: POC Glucose 356 H 01/29/24 00:50: Lactic Acid 1.8 01/29/24 04:20: WBC 18.3 H, RBC 3.46 L, Hgb 10.2 L, Hct 34.1 L, MCV 98.6 H, MCH 29.5, MCHC 29.9 L, RDW Std Deviation 58.8 H, RDW Coeff of Lauri 16.3 H, Plt Count 354, MPV 10.3, Immature Gran % (Auto) 1.000 H, Neut % (Auto) 91.8 H, Lymph % (Auto) 2.1 L, [place] % (Auto) 4.9, Eos % (Auto) 0.0, Baso % (Auto) 0.2, Absolute Neuts (auto) 16.8 H, Absolute Lymphs (auto) 0.39 L, Nucleated RBC % 0.4, Sodium 142, Potassium 4.7, Chloride 114 H, Carbon Dioxide 24.0, Anion Gap 4 L, BUN 22 H , Creatinine 1.00, Estim Creat Clear Calc 58.94, Est GFR (MDRD) Af Amer 95, Est GFR (MDRD) Non-Af 78, BUN/Creatinine Ratio 22.0 H, Glucose 350 H, Calcium 7.3 L, Phosphorus 3.6, Magnesium 1.9, Total Bilirubin 0.40, AST 23, ALT 35, Alkaline Phosphatase 76, Total Protein 5.4 L, Albumin 2.6 L, Globulin 2.8, Albumin/Globulin Ratio 0.9, TSH 0.75 Micro: Microbiology 01/28/24 18:05 Mucosa - Nose SARS-CoV-2, Influenza & RSV (PCR) - Final ABG Data ABG results: ABG 01/28/24 01/28/24 17:59 21:15 Specimen Type ART ART Sample Site R Radial L Radial pH 7.20 L 7.25 L Bicarbonate Actual 23.4 22.1 Total CO2 25 24 Base Excess -5 L -5 L O2 Saturation 100 H 95 O2 % 100.0 40.0 ABG pCO2 60.4 H 50.7 H ABG pO2 378 H* 92 Tito Test Positive Positive Respiration Rate 14 14 O2 Delivery Device Adult Vent ET Tube Vent Mode AC AC Tidal Volume 450.0 450.0 POC PEEP 5 5 Crit Call To/Read Back Yes Blood Gas Notified Whom dr belle Blood Gas Notified Time 18:02:51 Imaging Radiology Impression Chest X-Ray 01/28/24 17:50 IMPRESSION: There is a feeding tube/ nasogastric tube noted. The tip is off the field of view. Diffuse bilateral infiltrates. Electronically Signed: Killian Louis MD at 18:09 EST , Chest X-Ray 01/29/24 05:55 IMPRESSION: Bibasilar airspace disease. Findings may indicate pneumonia. Electronically Signed: Killian Magallanes MD at 5:53 EST , Charges/Coding Procedures Hospitalists Procedures: [id number] Critical Care 1st Hr
[2024-01-29] MEDS: Amiodarone 150 MG in Dextrose 5%-Water (100mL Bag) 100 ML 600 MG IV BOLUS (09:01)
[2024-01-29] MEDS: Amiodarone 360 MG in Dextrose 5% Viaflo Bag 192.8 ML 33.2999999999999972 MG CONT INF (09:14)
[2024-01-29] MEDS: MethylPREDNISolone 125 MG/2 ML Vial 60 MG IV ×2 (09:35→21:17)
[2024-01-29] MEDS: Chlorhexidine 15 ML PO ×2 (09:35→21:22)
[2024-01-29] MEDS: Enoxaparin 40 MG/0.4 ML Syringe SC (09:35)
[2024-01-29] MEDS: Pantoprazole Sodium 40 MG in 0.9% Normal Saline (100mL MB+) 100 ML 330 MG IV (09:35)
[2024-01-29] MEDS: Ipratropium/Albuterol Sulfate 3 ML AMPUL.NEB INHALATION ×4 (10:16→23:02)
[2024-01-29] MEDS: 0.9% Normal Saline (1000mL) 1,000 ML 75 ML IV ×2 (10:24→23:41)
--- NOTE | 2024-01-29 10:47 | CASEMGMT ---
Readmission Note: Index: 12/31-01/10. Dx: PNA, Sepsis and AE COPD Readmission: 01/27. Dx: AE COPD with Intubation in field Pt with a history of acute and chronic RF with hypoxia, multifocal pneumonia, COPD, and tobacco abuse was admitted on the above noted dates for the corresponding dx?s. During the index admission, pt was intubated d/t respiratory distress and was eventually extubated and was sent to PCU (from the ICU). Pt finished his course of IV ATB. Pt was having increased agitation at that time and was placed on Seroquel and improved mentally overall. At that time, it was felt that the pt would benefit from going to a SNF and the pt was accepted and discharged to [facility] on 01/10 in stable condition. Pt was discharged with 4 new Rx: Quetiapine, Clopidogrel, metformin, and Albuterol Sulfate. Pt returns to [facility] ER via EMS and was intubated in the field prior to arrival for respiratory arrest. Per the pt medical records, the pt became SOB x1 hour [employer] and once EMS arrived, they noticed the pt was in respiratory arrest and intubated the pt immediately. Due to pt current status, TC to pt daughter (Nicky) at this time. Pt daughter lives with the pt. Pt daughter states that the pt was discharged from the SNF on 01/14. Pt daughter states that she was ?confused and never educated on the drugs my dad is supposed to take.? Pt daughter reassured that we will provide this education at the appropriate time. Pt daughter stated to this RN CM that the pt did have a HHC RN come to the home and would help organize the pt medications. Pt daughter states that if the pt is able to DC to home she would like [facility] to be set up. Pt daughter educated that this RN CM can help set this up if appropriate. Pt daughter states the pt was able to take his breathing treatments when needed. Pt daughter states that the pt does wear oxygen at home via [place] but was unsure of the amount of oxygen or the company that provides it. Pt daughter states the pt does not wear any PAP machines. Per the pt medical record, it appears that the pt was recently set up through [facility]. TC to [facility] at this time who state the pt current order is 2L continuous. The plan for this pt is TBD. Will follow pt progression in the hospital to see what the pt qualifies for at time of discharge. B MONICA HAMM CM
[2024-01-29 12:48] LABS: Bedside Glucose 244 mg/dL (74-106)
[2024-01-29] MEDS: Amiodarone 360 MG in Dextrose 5% Viaflo Bag 192.8 ML 16.6999999999999993 MG CONT INF (15:16)
[2024-01-29 17:44] LABS: Bedside Glucose 239 mg/dL (74-106)
[2024-01-29] MEDS: 0.9% Saline Lock 10 ML Syringe IV ×2 (21:17→23:50)
[2024-01-29] MEDS: fentaNYL drip 100 ML 12.5 MCG CONT INF (21:29)
[2024-01-29] MEDS: dexMEDEtomidine 400 MCG in 0.9% Normal Saline (100mL Bag) 96 ML 9 MCG CONT INF (23:27)
[2024-01-29] MEDS: Insulin Glargine-YFGN 100 UNIT/ML Pen 10 UNIT SC (23:27)
[2024-01-29 23:56] LABS: Bedside Glucose 260 mg/dL (74-106)
[2024-01-30] VITALS (39 sets, daily range): BP systolic 100–219; BP diastolic 66–111; PULSE 76–137; RESP 12–35; TEMP 36.4–37.2; O2SAT 91–100; BMI 27.0
[2024-01-30] MEDS: Ipratropium/Albuterol Sulfate 3 ML AMPUL.NEB INHALATION ×6 (02:14→23:13)
[2024-01-30] MEDS: CHLORHEXIDINE GLUC 2% CLOTH 1 EACH TOWELETTE TOPICAL (02:48)
[2024-01-30] MEDS: fentaNYL drip 100 ML 20 MCG CONT INF (02:49)
[2024-01-30] MEDS: dexMEDEtomidine 400 MCG in 0.9% Normal Saline (100mL Bag) 96 ML 18 MCG CONT INF (02:50)
[2024-01-30] MEDS: Amiodarone 360 MG in Dextrose 5% Viaflo Bag 192.8 ML 16.6999999999999993 MG CONT INF (02:53)
[2024-01-30] MEDS: Piperacil/Tazobactam 3.375 GM in 0.9% Normal Saline (50mL MB+) 50 ML IV ×3 (04:37→20:43)
[2024-01-30] MEDS: Insulin Lispro 100 UNIT/ML INSULN.PEN SC ×2 (04:39→11:25)
[2024-01-30] MEDS: 0.9% Saline Lock 10 ML Syringe IV (04:43)
[2024-01-30 05:08] LABS: Bedside Glucose 252 mg/dL (74-106)
--- NOTE | 2024-01-30 06:57 | PN.CC_ITS ---
Assessment & Plan Assessment/Plan (1) COPD with acute exacerbation: (2) Acute and chronic respiratory failure with hypoxia: PLAN: Plan RECOMMENDATIONS: 1. Proceed with a trial of extubation this morning. 2. Once extubated, transition to BiPAP support. 3. Obtain arterial blood gas on BiPAP. 4. Continue broad-spectrum antimicrobials. 5. Continue scheduled bronchodilators and steroids. 6. Continue appropriate ICU prophylaxis. IMPRESSIONS: 1. Acute on chronic combined respiratory failure The patient has an apparent history of COPD with a baseline 2-4 L/min oxygen requirement. The patient has a history of frequent COPD exacerbations leading to hospitalization. I suspect that his current exacerbation is likely secondary to possible underlying pneumonia coupled with noncompliance with out patient therapy and ongoing tobacco dependency. The patient responded appropriately to invasive mechanical ventilatory support was able to be extubated on the morning of January 29. He will be transitioned to BiPAP therapy, with eventual goal to transition him to nasal cannula oxygen. In the interim, continue antimicrobials, scheduled bronchodilators and steroids. Ultimately, the patient needs to establish care in the pulmonary medicine clinic after discharge. 2. Valvular heart disease Continue current supportive care. Recommend outpatient cardiology follow-up. 3. History of congestive heart failure/diabetes mellitus/hypertension/CVA/tobacco dependency/recent hospitalization for COPD Complicates care, management, recovery and prognosis. Continue supportive care as noted above. Continue appropriate ICU prophylaxis. TIME: 32 minutes of critical care time, independent of procedures, was spent addressing the patient's acute on chronic combined respiratory failure, valvular heart disease, history of tobacco dependency, review of all data and collaboration with the care team. Subjective Subjective The patient was seen and examined at the bedside this morning. Events from the last 24 hours have been reviewed. The patient is currently afebrile, hemodyn amically stable and maintaining appropriate oxygen saturations on spontaneous mode mechanical ventilation with an FiO2 requirement of 30%. Overnight, Precedex was initiated for sedation purposes. The patient did remarkably well this morning on his spontaneous breathing trial. He is alert and able to follow simple commands. The patient is documented to be overall net +5.8 L for the hospitalization. The patient was able to be extubated this morning without complication. Within the hour, following extubation, the patient was noted to have increased respiratory rate. Therefore, he was placed on BiPAP therapy and appears to be resting much more comfortably. Objective Data Objective Data The patient's most recent lab work, culture data and imaging studies have all been personally reviewed. Surface echocardiogram completed on January 01, 2024 demonstrated mild concentric LVH with an ejection fraction of 60%. Moderate to severe mitral regurgitation was noted. Right ventricular systolic pressure was estimated to be 42 mmHg. Sputum culture dated January 27 was positive for group B streptococcus. Blood cultures are pending. COVID, influenza and RSV PCR's were negative. Vital Signs: Vital Signs Temp Pulse Resp BP Pulse Ox O2 Del Method FiO2 97.8 F 83 16 112/78 94 Mechanical Ventilator 30 01/30/24 03:00 01/30/24 06:00 01/30/24 06:00 01/30/24 06:00 01/30/24 06:00 01/30/24 06:00 01/30/24 06:00 Oxygen Delivery Method Mechanical Ventilator Weight: 162 lb 4.163 oz Body Mass Index (BMI) 27.0 Intake & Output: Intake and Output for Last 24 Hours 01/28/24 01/29/24 01/30/24 23:59 23:59 23:59 Intake Total 3128.57 / 3142.57 3662.45 / 3675.15 426.53 / 426.53 Output Total 1165 / 1165 227 / 227 Balance 3128.57 / 2892.57 2497.45 / 2510.15 199.53 / 199.53 Lab / Micro Data Attestation: I reviewed the patient's lab results. 01/30/24 08:25 01/30/24 08:25 Labs: Laboratory Results - last 24 hr 01/29/24 12:29: POC Glucose 244 H 01/29/24 17:22: POC Glucose 239 H 01/29/24 23:20: POC Glucose 260 H 01/30/24 04:36: POC Glucose 252 H Micro: Microbiology 01/28/24 18:02 Sputum, Induced/Lukens Gram Stain - Final 01/28/24 18:02 Sputum, Induced/Lukens Respiratory Culture - Final Streptococcus agalactiae (B) 01/28/24 18:05 Mucosa - Nose SARS-CoV-2, Influenza & RSV (PCR) - Final Physical Exam Const Constitutional Narrative: Intubated, sedated and mechanically ventilated. No ventilator dyssynchrony noted. Tolerating SBT currently. General Appearance: cooperative HEENT normocephalic and head/scalp atraumatic Mouth: endotracheal tube in place and OG tube in place Eyes PERRL, EOMs intact bilaterally and conjunctivae normal Neck supple General: trachea midline Chest inspection of chest normal Resp Auscultation: diminished lung sounds; Negative for rales, rhonchi or wheezes Cardio S1 normal heart sound and S2 normal heart sound Rate: tachycardic Heart Sounds: murmur GI normal to inspection, nondistended, normoactive bowel sounds Extremity General Extremity: edema bilateral lower extremity; Negative for clubbing Skin no rashes or lesions noted Neuro Neuro Narrative: Alert and able to follow simple commands. Charges/Coding Procedures Hospitalists Procedures: [id number] Critical Care 1st Hr
[2024-01-30 08:22] LABS: Vancomycin, Trough Level 9.4 ug/mL (5.0-15.0)
[2024-01-30 08:36] LABS: Absolute Lymphocyte Count 0.69 X10^3/uL (0.83-4.51); Basophil# 0.05 X10^3/uL; Basophil% 0.3 % (0-1); Hemoglobin 10.8 g/dL (13.0-16.5); Lymphocyte # 0.69 X10^3/ul (0.83-4.51); Mean Corpuscular Hgb 29.5 pg (27.0-32.0); Mean Corpuscular Volume 98.4 fL (80-94); Mean Platelet Vol. 10.6 fl (6.2-12.0); Monocyte# 1.26 X10^3/uL; Monocyte% 7.3 % (0-10); NRBC Flagged by Analyzer 0.5 % (0-5); Neutrophil # 15.01 X10^3/uL (2.7-7.7); Neutrophil % 87.2 % (47-70); Platelet Count 389 K/mm3 (150-450); RBC Distribution Width CV 16.5 % (11.6-14.6); Red Blood Count 3.66 M/mm3 (4.6-6.2); White Blood Count 17.2 K/mm3 (4.4-11.0)
[2024-01-30] MEDS: MethylPREDNISolone 125 MG/2 ML Vial 60 MG IV ×2 (08:44→20:43)
[2024-01-30] MEDS: Enoxaparin 40 MG/0.4 ML Syringe SC (08:44)
[2024-01-30] MEDS: Pantoprazole Sodium 40 MG in 0.9% Normal Saline (100mL MB+) 100 ML 330 MG IV (08:44)
[2024-01-30 08:48] LABS: Anion Gap 4 (5-15); BUN 33 mg/dL (7-18); BUN/Creat Ratio 33.4 RATIO (10-20); Chloride 116 mmol/L (98-107); Creatinine, Serum 0.99 mg/dL (0.70-1.30); EST Glomerular Filtration Rate 79 mL/min (>60); Est Glom Filt Rate - Afr Amer 96 mL/min (>60); Estimated Creatinine Clearance 59.53 ml/min; Glucose 211 mg/dL (74-106); Potassium 4.3 mmol/L (3.5-5.1); Sodium Level 142 mmol/L (136-145)
[2024-01-30 08:57] LABS: Allen Test Positive; Base Excess -4 mmol/L (-2 to +2); Bicarbonate 21.8 mmol/L (22-26); Blood Gas Specimen Type ART; Mode Not entered; O2 Delivery Device BiPAP; PEEP 8; PO2 50 mmHG (75-100); SITE L Radial; SO2 83 % (95-99); Total Carbon Dioxide 23 mmol/L; pCO2 39.3 mmHg (35-45); pH 7.35 (7.35-7.45)
--- NOTE | 2024-01-30 09:51 | CASEMGMT ---
Per MD during rounds, the pt was extubated this morning and was started on HFNC and BiPAP. MD states that PT should be skipped today and started tomorrow as well as a speech evaluation. Will continue to monitor pt status for safe DC.
--- NOTE | 2024-01-30 10:56 | NURSING ---
Patient SPO2 dropped to 83% and he was short of breath and working to breathe, Patient BiPAP was turned up to 50% tolerating well and o2 back up to 97%
--- NOTE | 2024-01-30 12:19 | PCM.PN.HOSP ---
Reason for Visit Reason for Visit: Diagnoses Pneumonia, unspecified organism (01/28/24) Chronic obstructive pulmonary disease with (acute) exacerbation (01/28/24) Acute respiratory failure with hypoxia (01/28/24) Chronic respiratory failure with hypercapnia (01/28/24) Acute and chronic respiratory failure with hypoxia (01/28/24) Objective Data Objective Data Vital Signs: Vital Signs Temp Pulse Resp BP Pulse Ox O2 Del Method O2 Flow Rate 98.9 F 118 H 25 H 170/97 H 95 Bi-pap 3 01/30/24 08:00 01/30/24 11:37 01/30/24 11:37 01/30/24 11:00 01/30/24 11:37 01/30/24 11:00 01/30/24 08:54 FiO2 50 01/30/24 11:37 Oxygen Flow Rate (L/min) 3 Oxygen Delivery Method Bi-pap Weight: 162 lb 4.163 oz Body Mass Index (BMI) 27.0 Intake & Output: Intake and Output for Last 24 Hours 01/28/24 01/29/24 01/30/24 23:59 23:59 23:59 Intake Total 3128.57 / 3142.57 3662.45 / 3675.15 1344.10 / 1344.10 Output Total 1165 / 1165 377 / 377 Balance 3128.57 / 2892.57 2497.45 / 2510.15 967.10 / 967.10 Lab / Micro Data 01/30/24 08:25 01/30/24 08:25 Labs: Laboratory Results - last 24 hr 01/29/24 12:29: POC Glucose 244 H 01/29/24 17:22: POC Glucose 239 H 01/29/24 23:20: POC Glucose 260 H 01/30/24 04:36: POC Glucose 252 H 01/30/24 07:40: Vancomycin Trough 9.4 01/30/24 08:25: WBC 17.2 H, RBC 3.66 L, Hgb 10.8 L, Hct 36.0 L, MCV 98.4 H, MCH 29.5, MCHC 30.0 L, RDW Std Deviation 60.0 H, RDW Coeff of Lauri 16.5 H, Plt Count 389, MPV 10.6, Immature Gran % (Auto) 1.200 H, Neut % (Auto) 87.2 H, Lymph % (Auto) 4.0 L, [place] % (Auto) 7.3, Eos % (Auto) 0.0, Baso % (Auto) 0.3, Absolute Neuts (auto) 15.0 H, Absolute Lymphs (auto) 0.69 L, Nucleated RBC % 0.5, Sodium 142, Potassium 4.3, Chloride 116 H, Carbon Dioxide 22.0, Anion Gap 4 L, BUN 33 H, Creatinine 0.99, Estim Creat Clear Calc 59.53, Est GFR (MDRD) Af Amer 96, Est GFR (MDRD) Non-Af 79, BUN/Creatinine Ratio 33.4 H, Glucose 211 H, Calcium 8.0 L Micro: Microbiology 01/28/24 18:02 Sputum, Induced/Lukens Gram Stain - Final 01/28/24 18:02 Sputum, Induced/Lukens Respiratory Culture - Final Streptococcus agalactiae (B) 01/28/24 18:05 Mucosa - Nose SARS-CoV-2, Influenza & RSV (PCR) - Final ABG Data ABG results: ABG 01/30/24 08:53 Specimen Type ART Sample Site L Radial pH 7.35 Bicarbonate Actual 21.8 L Total CO2 23 Base Excess -4 L O2 Saturation 83 L O2 % 40.0 ABG pCO2 39.3 ABG pO2 50 L Tito Test Positive O2 Delivery Device BiPAP Vent Mode Not entered POC PEEP 8 Physical Exam Narrative Seen and examined. Patient is improving. Was able to extubate in the morning. Currently on BiPAP. Physical exam General: Awake, alert oriented x 3. HEENT: Atraumatic, PERRLA, EOMI, Normocephalic Oral: No Gingival or Mucosal Lesions/ Ulcerations Neck: Supple, No JVD, Negative Carotid Bruits Chest wall/Lungs: Air entry very diminished in bilateral lung bases. No crepitation/rhonchi Cardiovascular: Sinus tachycardia with PACs, irregular rhythm, Normal S1, Normal S2, No M/G/R Abdomen: Bowel Sounds Present, Soft, Non Tender, Non-Distended : No dysuria. No renal angle tenderness. No suprapubic tenderness. Extremities: No edema, Capillary Refill Less than 3 Seconds Skin: No rashes, No breakdown Musculoskeletal: No Tenderness to Palpation of Joints or Extremities. Decreased muscle bulk. Neurological: Cranial nerves II-XII grossly intact, DTR 2+/4. No acute focal neurological deficit. Psych/Mental Status: Flat affect. Assessment & Plan Assessment/Plan (1) Multifocal pneumonia: (2) COPD with acute exacerbation: (3) Acute hypoxic on chronic hypercapnic respiratory failure: PLAN: Plan 73-year-old gentleman being admitted for concern of respiratory arrest. Aspiration risk, called for COPD exacerbation emergency patient lost consciousness blood pressure during pulse therefore no CPR was given. The patient was intubated in the field. Chest x-ray was positive for diffuse bilateral infiltrates consistent with multifocal pneumonia 1. Multifocal Pneumonia with Leukocytosis of 16.6 present on admission along with tachycardia of 143 bpm and hypotension of 85/73 mm Hg present on admission concerning for possible Sepsis - Admit to ICU for treatment under the Sepsis protocol. Continue IV Vancomycin and IV Zosyn begun in the ER and await culture and sensitivity data. On IV fentanyl. Give Tylenol prn pain or fever. [employer] Out Worker is consulted. On light sedation. IV fluid discontinued. /5: Patient extubated in the morning. Currently on BiPAP. Continue IV antibiotics. Patient having sinus tachycardia with PACs. 2. AE COPD with respiratory arrest = Continue IV Solumedrol, nebulizers and ventilator. Start IV Protonix for GI prophylaxis while on high-dose steroids. 3. Acute Hypoxic and hypercarbic combined respiratory Failure requiring intubation in the field: Patient first ABG shows 7.2/60/378 head 100% FiO2/450/14/5 which improved to 7.25/51/92 at 40% FiO2/450/14/5. There is no previous ABG or bicarb of previous admissions at our system therefore unclear of his baseline. Bicarb and ABG was 23 and 24 normal. Spontaneous awakening and breathing trial from tomorrow AM. 4. Recent admission here to this hospital ~2 weeks ago with AE COPD requiring intubation - Noted. Patient may benefit from referral to palliative care if and when he is able to extubated to prevent further serial readmission. 5. DVT prophylaxis - Lovenox 40 mg sq daily plus SCD's. Charges/Coding Visit Charges Inpatient E&M: 69782 [facility] H[facility] L3
[2024-01-30 12:34] LABS: Bedside Glucose 200 mg/dL (74-106)
[2024-01-30 17:18] LABS: Bedside Glucose 247 mg/dL (74-106)
[2024-01-30] MEDS: Insulin Glargine-YFGN 100 UNIT/ML Pen 10 UNIT SC (20:44)
[2024-01-31] VITALS (31 sets, daily range): BP systolic 124–175; BP diastolic 65–133; PULSE 72–117; RESP 12–25; TEMP 36.4–37.1; O2SAT 93–100; BMI 26.2
[2024-01-31] MEDS: Insulin Lispro 100 UNIT/ML INSULN.PEN SC ×4 (00:50→17:46)
[2024-01-31 01:10] LABS: Bedside Glucose 217 mg/dL (74-106)
[2024-01-31] MEDS: Ipratropium/Albuterol Sulfate 3 ML AMPUL.NEB INHALATION ×6 (03:17→22:56)
[2024-01-31 03:20] LABS: Bedside Glucose 205 mg/dL (74-106)
[2024-01-31] MEDS: Piperacil/Tazobactam 3.375 GM in 0.9% Normal Saline (50mL MB+) 50 ML IV ×3 (05:19→20:21)
[2024-01-31 05:41] LABS: Bedside Glucose 195 mg/dL (74-106)
--- NOTE | 2024-01-31 06:42 | PN.CC_ITS ---
Assessment & Plan Assessment/Plan (1) COPD with acute exacerbation: (2) Acute and chronic respiratory failure with hypoxia: PLAN: Plan RECOMMENDATIONS: 1. Continue BiPAP therapy, if needed. Otherwise, wean supplemental oxygen to maintain saturations at or above 90%. 2. Plan to continue antibiotics to complete 7 days of therapy. 3. Continue scheduled bronchodilators and steroids. 4. Encourage incentive spirometer use and mobilize patient as tolerated. 5. Continue appropriate DVT prophylaxis IMPRESSIONS: 1. Acute on chronic combined respiratory failure The patient has an apparent history of COPD with a baseline 2-4 L/min oxygen requirement. The patient has a history of frequent COPD exacerbations leading to hospitalization. I suspect that his current exacerbation is likely secondary to possible underlying pneumonia coupled with noncompliance with out patient therapy and ongoing tobacco dependency. The patient responded appropriately to invasive mechanical ventilatory support was able to be extubated on the morning of January 29. He was transition to BiPAP therapy following extubation and has done well from a respiratory perspective. At this time, the patient can be weaned to nasal cannula oxygen with a goal to maintain saturations at or above 90%. In the interim, continue antibiotics to complete 7 days of therapy, along with scheduled bronchodilators and steroids. Ultimately, the patient needs to es tablish care in the pulmonary medicine clinic after discharge. 2. Valvular heart disease Continue current supportive care. Recommend outpatient cardiology follow-up. 3. History of congestive heart failure/diabetes mellitus/hypertension/CVA/tobacco dependency/recent hospitalization for COPD Complicates care, management, recovery and prognosis. Continue supportive care as noted above. This note was generated with [employer] dictation software. It may contain incorrect words, spelling, and punctuation that were not noted in checking the note before signing. Subjective Subjective The patient was seen and examined at the bedside this morning. Events from the last 24 hours have been reviewed. The patient is currently afebrile, hemodynam ically stable and maintaining appropriate oxygen saturations on BiPAP with an FiO2 requirement of 35%. The patient has done well with BiPAP therapy. He is requesting to take a break this morning. Objective Data Objective Data The patient's most recent lab work, culture data and imaging studies have all been personally reviewed. Surface echocardiogram completed on January 01, 2024 demonstrated mild concentric LVH with an ejection fraction of 60%. Moderate to severe mitral regurgitation was noted. Right ventricular systolic pressure was estimated to be 42 mmHg. Sputum culture dated January 27 was positive for group B streptococcus. Blood cultures are pending. COVID, influenza and RSV PCR's were negative. Vital Signs: Vital Signs Temp Pulse Resp BP Pulse Ox O2 Del Method O2 Flow Rate 97.8 F 97 13 150/91 H 99 Bi-pap 13 01/31/24 04:00 01/31/24 06:00 01/31/24 06:00 01/31/24 06:00 01/31/24 06:00 01/31/24 06:00 01/30/24 16:25 FiO2 35 01/31/24 06:00 Oxygen Flow Rate (L/min) 13 Oxygen Delivery Method Bi-pap Weight: 157 lb 10.088 oz Body Mass Index (BMI) 26.2 Intake & Output: Intake and Output for Last 24 Hours 01/29/24 01/30/24 01/31/24 23:59 23:59 23:59 Intake Total 3662.45 / 3675.15 1394.10 / 1394.10 50 / 50 Output Total 1165 / 1165 627 / 927 700 / 700 Balance 2497.45 / 2510.15 767.10 / 467.10 -650 / -650 Lab / Micro Data Attestation: I reviewed the patient's lab results. 01/30/24 08:25 01/30/24 08:25 Labs: Laboratory Results - last 24 hr 01/30/24 07:40: Vancomycin Trough 9.4 01/30/24 08:25: WBC 17.2 H, RBC 3.66 L, Hgb 10.8 L, Hct 36.0 L, MCV 98.4 H, MCH 29.5, MCHC 30.0 L, RDW Std Deviation 60.0 H, RDW Coeff of Lauri 16.5 H, Plt Count 389, MPV 10.6, Immature Gran % (Auto) 1.200 H, Neut % (Auto) 87.2 H, Lymph % (Auto) 4.0 L, Orange % (Auto) 7.3, Eos % (Auto) 0.0, Baso % (Auto) 0.3, Absolute Neuts (auto) 15.0 H, Absolute Lymphs (auto) 0.69 L, Nucleated RBC % 0.5, Sodium 142, Potassium 4.3, Chloride 116 H, Carbon Dioxide 22.0, Anion Gap 4 L, BUN 33 H , Creatinine 0.99, Estim Creat Clear Calc 59.53, Est GFR (MDRD) Af Amer 96, Est GFR (MDRD) Non-Af 79, BUN/Creatinine Ratio 33.4 H, Glucose 211 H, Calcium 8.0 L 01/30/24 11:24: POC Glucose 200 H 01/30/24 17:00: POC Glucose 247 H 01/30/24 20:42: POC Glucose 205 H 01/31/24 00:49: POC Glucose 217 H 01/31/24 05:20: POC Glucose 195 H Micro: Microbiology 01/28/24 18:02 Sputum, Induced/Lukens Gram Stain - Final 01/28/24 18:02 Sputum, Induced/Lukens Respiratory Culture - Final Streptococcus agalactiae (B) 01/28/24 18:05 Mucosa - Nose SARS-CoV-2, Influenza & RSV (PCR) - Final ABG Data ABG results: ABG 01/30/24 08:53 Specimen Type ART Sample Site L Radial pH 7.35 Bicarbonate Actual 21.8 L Total CO2 23 Base Excess -4 L O2 Saturation 83 L O2 % 40.0 ABG pCO2 39.3 ABG pO2 50 L Tito Test Positive O2 Delivery Device BiPAP Vent Mode Not entered POC PEEP 8 Physical Exam Const alert and no apparent distress Constitutional Narrative: Tolerating BiPAP currently. General Appearance: cooperative HEENT normocephalic, head/scalp atraumatic and moist oral mucous membranes Eyes PERRL, EOMs intact bilaterally and conjunctivae normal Neck supple General: trachea midline Chest inspection of chest normal Resp Auscultation: diminished lung sounds; Negative for rales, rhonchi or wheezes Cardio regular rate, S1 normal heart sound and S2 normal heart sound Heart Sounds: murmur GI normal to inspection, nondistended, normoactive bowel sounds Extremity General Extremity: edema bilateral lower extremity; Negative for clubbing Skin no rashes or lesions noted Neuro CN's II-XII intact bilaterally, moves all extremities and no focal motor defic its Psych cooperative and affect normal Charges/Coding Visit Charges Inpatient E&M: 87391 Subs Hosp L3
[2024-01-31] MEDS: Pantoprazole Sodium 40 MG in 0.9% Normal Saline (100mL MB+) 100 ML 330 MG IV (10:46)
[2024-01-31] MEDS: CHLORHEXIDINE GLUC 2% CLOTH 1 EACH TOWELETTE TOPICAL (10:46)
[2024-01-31] MEDS: MethylPREDNISolone 125 MG/2 ML Vial 60 MG IV ×2 (10:47→20:22)
[2024-01-31] MEDS: Enoxaparin 40 MG/0.4 ML Syringe SC (10:47)
[2024-01-31 12:34] LABS: Bedside Glucose 178 mg/dL (74-106)
--- NOTE | 2024-01-31 12:38 | PN.HOSP_ITS ---
Reason for Visit Reason for Visit: Diagnoses Pneumonia, unspecified organism (01/28/24) Chronic obstructive pulmonary disease with (acute) exacerbation (01/28/24) Acute respiratory failure with hypoxia (01/28/24) Chronic respiratory failure with hypercapnia (01/28/24) Acute and chronic respiratory failure with hypoxia (01/28/24) Objective Data Objective Data Vital Signs: Vital Signs Temp Pulse Resp BP Pulse Ox O2 Del Method O2 Flow Rate 98.3 F 92 18 155/92 H 100 Nasal Cannula 9 01/31/24 12:00 01/31/24 12:00 01/31/24 12:00 01/31/24 12:00 01/31/24 12:00 01/31/24 12:00 01/31/24 12:00 FiO2 35 01/31/24 11:03 Oxygen Flow Rate (L/min) 9 Oxygen Delivery Method Nasal Cannula Weight: 157 lb 10.088 oz Body Mass Index (BMI) 26.2 Intake & Output: Intake and Output for Last 24 Hours 01/29/24 01/30/24 01/31/24 23:59 23:59 23:59 Intake Total 3662.45 / 3675.15 1394.10 / 1394.10 210 / 210 Output Total 1165 / 1165 627 / 927 1100 / 1100 Balance 2497.45 / 2510.15 767.10 / 467.10 -890 / -890 Lab / Micro Data 01/30/24 08:25 01/30/24 08:25 Labs: Laboratory Results - last 24 hr 01/30/24 17:00: POC Glucose 247 H 01/30/24 20:42: POC Glucose 205 H 01/31/24 00:49: POC Glucose 217 H 01/31/24 05:20: POC Glucose 195 H 01/31/24 12:14: POC Glucose 178 H Micro: Microbiology 01/28/24 20:20 Blood Culture (Wb) - Anticubital Right Blood Culture - Preliminary No growth in 48 hours. 01/28/24 18:45 Blood Culture (Wb) - Right Wrist Blood Culture - Preliminary No growth in 48 hours. 01/28/24 18:02 Sputum, Induced/Lukens Gram Stain - Final 01/28/24 18:02 Sputum, Induced/Lukens Respiratory Culture - Final Streptococcus agalactiae (B) 01/28/24 18:05 Mucosa - Nose SARS-CoV-2, Influenza & RSV (PCR) - Final Physical Exam Narrative Seen and examined. Patient is improving. Was extubated on 01/30/2024. Currently on BiPAP alternating with high flow oxygen. Physical exam General: Awake, alert oriented x 3. HEENT: Atraumatic, PERRLA, EOMI, Normocephalic Oral: No Gingival or Mucosal Lesions/ Ulcerations Neck: Supple, No JVD, Negative Carotid Bruits Chest wall/Lungs: Air entry very diminished in bilateral lung bases. No crepitation/rhonchi Cardiovascular: Sinus tachycardia with PACs, irregular rhythm, Normal S1, Normal S2, No M/G/R Abdomen: Bowel Sounds Present, Soft, Non Tender, Non-Distended : No dysuria. No renal angle tenderness. No suprapubic tenderness. Extremities: Mild dependent edema, Capillary Refill Less than 3 Seconds Skin: No rashes, No breakdown Musculoskeletal: No Tenderness to Palpation of Joints or Extremities. Decreased muscle bulk. Neurological: Cranial nerves II-XII grossly intact, DTR 2+/4. No acute focal neurological deficit. Psych/Mental Status: Flat affect. Assessment & Plan Assessment/Plan (1) Multifocal pneumonia: (2) COPD with acute exacerbation: (3) Acute hypoxic on chronic hypercapnic respiratory failure: PLAN: Plan 73-year-old gentleman being admitted for concern of respiratory arrest. Aspiration risk, called for COPD exacerbation emergency patient lost consciousness blood pressure during pulse therefore no CPR was given. The patient was intubated in the field. Chest x-ray was positive for diffuse bi lateral infiltrates consistent with multifocal pneumonia 1. Multifocal Pneumonia with Leukocytosis of 16.6 present on admission along with tachycardia of 143 bpm and hypotension of 85/73 mm Hg present on admission concerning for possible Sepsis - Admit to ICU for treatment under the Sepsis protocol. Continue IV Vancomycin and IV Zosyn begun in the ER and await culture and sensitivity data. On IV fentanyl. Give Tylenol prn pain or fever. [employer] is consulted. On light sedation. IV fluid discontinued. 01/29: Patient extubated in the morning. Currently on BiPAP. Continue IV antibiotics. Patient having sinus tachycardia with PACs. 01/30: Patient on BiPAP. Still has significant shortness of breath and respiratory distress but comfortable on BiPAP. Anticipate long recovery time before discharge. 2. Acute exacerbation of COPD: Continue IV Solumedrol, nebulizers and ventilator. Start IV Protonix for GI prophylaxis while on high-dose steroids. 3. Acute Hypoxic and hypercarbic combined respiratory Failure requiring intubation in the field: Patient first ABG shows 7.2/60/378 head 100% FiO2/450/14/5 which improved to 7.25/51/92 at 40% FiO2/450/14/5. There is no previous ABG or bicarb of previous admissions at our system therefore unclear of his baseline. Bicarb and ABG was 23 and 24 normal. As mentioned above. 4. Recent admission here to this hospital ~2 weeks ago with AE COPD requiring intubation - Noted. Patient may benefit from referral to palliative care if and when he is able to extubated to prevent further serial readmission. 5. DVT prophylaxis - Lovenox 40 mg sq daily plus SCD's. Charges/Coding Visit Charges Inpatient E&M: 15173 Subs Hosp L3
--- NOTE | 2024-01-31 13:39 | CASEMGMT ---
HANSEL LINK to pt room at this time to discuss DC planning. Pt states that he is wanting to go home at time of DC. This RN FARIBA talked to the pt about how he did with therapy and the pt states that he feels safe going home with his daughter. Pt denies SNF at this time and states that he would be interested in HHC at time of DC. Pt denies wanting to see a list of local in-network HHC agencies and states that he would just want [facility] at this time. Will follow and make referral once appropriate. Pt is currently on HFNC. If pt does DC home, will follow to update current home O2 order through [facility]. Dr. Payan states that the pt may benefit from a Palliative care consult. At this time, referral e-mailed to [facility] including the screening tool (via [employer]) and Palliative care order. Awaiting return response.
[2024-01-31 16:58] LABS: Bedside Glucose 203 mg/dL (74-106)
[2024-01-31] MEDS: Insulin Glargine-YFGN 100 UNIT/ML Pen 10 UNIT SC (20:22)
[2024-01-31 20:59] LABS: Bedside Glucose 184 mg/dL (74-106)
[2024-02-01] VITALS (26 sets, daily range): BP systolic 128–167; BP diastolic 70–128; PULSE 66–126; RESP 12–32; TEMP 36.1–36.7; O2SAT 94–100; BMI 26.4
[2024-02-01] MEDS: Insulin Lispro 100 UNIT/ML INSULN.PEN SC ×4 (00:07→21:35)
[2024-02-01 00:25] LABS: Bedside Glucose 174 mg/dL (74-106)
[2024-02-01] MEDS: Acetaminophen 325 MG Tablet 650 MG PO (01:44)
[2024-02-01] MEDS: Ipratropium/Albuterol Sulfate 3 ML AMPUL.NEB INHALATION ×3 (03:10→11:37)
[2024-02-01] MEDS: Albuterol 2.5 MG/3 ML VIAL.NEB. INHALATION (05:05)
[2024-02-01] MEDS: Piperacil/Tazobactam 3.375 GM in 0.9% Normal Saline (50mL MB+) 50 ML IV ×3 (05:16→21:31)
--- NOTE | 2024-02-01 06:40 | PCM.PN.INT ---
Assessment & Plan Assessment/Plan (1) COPD with acute exacerbation: (2) Acute and chronic respiratory failure with hypoxia: PLAN: Plan RECOMMENDATIONS: 1. Continue BiPAP therapy with naps and nightly. 2. Continue to wean supplemental oxygen to maintain saturations at or above 90%. 3. Plan to continue antibiotics to complete 7 days of therapy. 4. Continue scheduled bronchodilators and steroids. 5. Encourage incentive spirometer use and mobilize patient as tolerated. 6. Continue appropriate DVT prophylaxis 7. The patient is medically stable for transfer out of the intensive care unit. IMPRESSIONS: 1. Acute on chronic combined respiratory failure The patient has an apparent history of COPD with a baseline 2-4 L/min oxygen requirement. The patient has a history of frequent COPD exacerbations leading to hospitalization. I suspect that his current exacerbation is likely secondary to possible underlying pneumonia coupled with noncompliance with out patient therapy and ongoing tobacco dependency. The patient responded appropriately to invasive mechanical ventilatory support was able to be extubated on the morning of January 29. He was transitioned to BiPAP therapy following extubation and has done well from a respiratory perspective. At this time, the patients supplemental oxygen will be weaned to maintain saturations at or above 90%. Recommend continuing antibiotics to complete 7 days of therapy. Continue scheduled bronchodilators and steroids. Ultimately, the patient needs to establish care in the pulmonary medicine clinic after discharge. 2. Valvular heart disease Continue current supportive care. Recommend outpatient cardiology follow-up. 3. History of congestive heart failure/diabetes mellitus/hypertension/CVA/tobacco dependency/recent hospitalization for COPD Complicates care, management, recovery and prognosis. Continue supportive care as noted above. This note was generated with [employer] dictation software. It may contain incorrect words, spelling, and punctuation that were not noted in checking the note before signing. Subjective Subjective The patient was seen and examined at the bedside this morning. Events from the last 24 hours have been reviewed. The patient remains afebrile hemodynamically stable. He has been intermittently utilizing BiPAP therapy over the last 24 hours. The patient is stable from a respiratory perspective on 2 L/min via nasal cannula. The patient reported feeling hungry and is requesting to eat breakfast this morning. Objective Data Objective Data The patient's most recent lab work, culture data and imaging studies have all been personally reviewed. Surface echocardiogram completed on January 01, 2024 demonstrated mild concentric LVH with an ejection fraction of 60%. Moderate to severe mitral regurgitation was noted. Right ventricular systolic pressure was estimated to be 42 mmHg. Sputum culture dated January 27 was positive for group B streptococcus. Blood cultures are pending. COVID, influenza and RSV PCR's were negative. Vital Signs: Vital Signs Temp Pulse Resp BP Pulse Ox O2 Del Method O2 Flow Rate 98.0 F 87 18 144/76 H 100 Bi-pap 2 02/01/24 05:00 02/01/24 06:00 02/01/24 06:00 02/01/24 06:00 02/01/24 06:00 02/01/24 06:00 02/01/24 04:00 FiO2 35 01/31/24 19:05 Oxygen Flow Rate (L/min) 2 Oxygen Delivery Method Bi-pap Weight: 158 lb 15.253 oz Body Mass Index (BMI) 26.4 Intake & Output: Intake and Output for Last 24 Hours 01/30/24 01/31/24 02/01/24 23:59 23:59 23:59 Intake Total 1394.10 / 1394.10 260 / 260 50 / 50 Output Total 627 / 927 1950 / 2150 700 / 700 Balance 767.10 / 467.10 -1690 / -1890 -650 / -650 Lab / Micro Data Attestation: I reviewed the patient's lab results. 01/30/24 08:25 01/30/24 08:25 Labs: Laboratory Results - last 24 hr 01/31/24 12:14: POC Glucose 178 H 01/31/24 16:40: POC Glucose 203 H 01/31/24 20:18: POC Glucose 184 H 02/01/24 00:06: POC Glucose 174 H Micro: Microbiology 01/28/24 20:20 Blood Culture (Wb) - Anticubital Right Blood Culture - Preliminary No growth in 48 hours. 01/28/24 18:45 Blood Culture (Wb) - Right Wrist Blood Culture - Preliminary No growth in 48 hours. 01/28/24 18:02 Sputum, Induced/Lukens Gram Stain - Final 01/28/24 18:02 Sputum, Induced/Lukens Respiratory Culture - Final Streptococcus agalactiae (B) 01/28/24 18:05 Mucosa - Nose SARS-CoV-2, Influenza & RSV (PCR) - Final ABG Data ABG results: ABG 01/30/24 08:53 Specimen Type ART Sample Site L Radial pH 7.35 Bicarbonate Actual 21.8 L Total CO2 23 Base Excess -4 L O2 Saturation 83 L O2 % 40.0 ABG pCO2 39.3 ABG pO2 50 L Tito Test Positive O2 Delivery Device BiPAP Vent Mode Not entered POC PEEP 8 Radiography Diagnostic Testing: Radiology Impression Chest X-Ray 01/28/24 17:50 IMPRESSION: There is a feeding tube/ nasogastric tube noted. The tip is off the field of view. Diffuse bilateral infiltrates. Electronically Signed: Killian Louis MD at 18:09 EST , Chest X-Ray 01/29/24 05:55 IMPRESSION: Bibasilar airspace disease. Findings may indicate pneumonia. Electronically Signed: Killian Magallanes MD at 5:53 EST , Physical Exam Const alert and no apparent distress General Appearance: cooperative HEENT normocephalic, head/scalp atraumatic and moist oral mucous membranes Eyes PERRL, EOMs intact bilaterally and conjunctivae normal Neck supple General: trachea midline Chest inspection of chest normal Resp Auscultation: diminished lung sounds; Negative for rales, rhonchi or wheezes Cardio regular rate, S1 normal heart sound and S2 normal heart sound Heart Sounds: murmur GI normal to inspection, nondistended, normoactive bowel sounds Extremity General Extremity: edema bilateral lower extremity; Negative for clubbing Skin no rashes or lesions noted Neuro CN's II-XII intact bilaterally, moves all extremities and no focal motor deficits Psych cooperative and affect normal Charges/Coding Visit Charges Inpatient E&M: 33622 Subs Hosp L2
[2024-02-01 08:25] LABS: Bedside Glucose 124 mg/dL (74-106)
--- NOTE | 2024-02-01 09:34 | SP.MBSS_ITS ---
Modified Barium Swallow Patient Information Study Date: 02/01/24 Study Time: 10:00 Direct Billable Minutes: 116 Total Minutes procedure & reportin Diagnosis: COPD w/ exacerbation J44.1; Acute respiratory failure J96.21 Referring Physician: Evan Payan Reason for Referral: Objectively assess swallow function, assess risk for aspiration, and determine recommendations for least restrictive diet textures and compensatory strategies to improve safety of swallow. Medical History: PMH: Tobacco abuse, COPD, multifocal PNA, DM type 2, HTN, Smoker, Acute respiratory failure, Oropharyngeal dysphagia (See EMR for full PMH). Patient presented to [facility] ED on 01/28/2024 after being intubated in the field by EMS for respiratory arrest d/t COPD exacerbation. Chest x-ray positive for diffuse bilateral infiltrates consistent with multifocal (likely nosocomial) pneumonia complicated by clinical evidence of acute exacerbation of COPD with acute hypoxic respiratory failure requiring intubation mechanical ventilation and he was then admitted to the ICU for ongoing care. Patient was extubated on 01/30/2024 and put on BiPAP. Patient had a recent admission at [facility] ~2 weeks ago for acute COPD exacerbation requiring intubation. Of note, patient has history of dysphagia with recent MBSS in December of 2023 with recommendations for easy to chew textures / thin liquids - See study for full recommendations. ST was consulted during this hospitalization d/t concerns for difficulty swallowing s/p extubation. Current Diet Ordered: NPO with sips and chips Dentition: Upper Dentures and Lower Dentures Mental Status: Impaired (repetition required to follow some commands) Respiratory Status: Oxygenating on 2L/M nasal cannula Penetration-Aspiration Scale Penetration-Aspiration Scale: OBJECTIVE ASSESSMENT OF SWALLOW FUNCTION (QUANTITATIVE ? PER TRIAL): PENETRATION / ASPIRATION SCALE (PEREZ): 1 = does not enter airway 2 = enters airway/above vocal folds/ejected 3 = enters airway/above vocal folds/not ejected 4 = enters airway/contacts vocal folds/ejected 5 = enters airway/contacts vocal folds/not ejected 6 = enters airway/below vocal folds/ejected 7 = enters airway/below vocal folds/not ejected despite effort 8 = enters airway/below vocal folds/no effort VIDEOFLOROSCOPIC SCALE SCORE (PEREZ): Grade I = aspiration of material that has penetrated into the laryngeal vestibule, intact cough reflex Grade II = aspiration < 10 % of the bolus, intact cough reflex Grade III = aspiration of < 10 % of the bolus, reduced cough reflex or aspiration of > 10 % of the bolus, intact cough reflex Grade IV = aspiration of > 10 % of the bolus, reduced cough reflex Penetration-Aspiration Scale Score Thin Liquid via teaspoon: Result: 1= does not enter airway Thin Liquid via teaspoon Trial 2: Result: 1= does not enter airway Thin Liquid via large single sip: cup: Result: 8= enters airway/below vocal folds/no effort Comment: Delayed cough ~30 seconds after trial [place] Thick Liquid via large single sip: cup: Result: 2= enter airway/above vocal folds/ejected Pudding via teaspoon: Result: 1= does not enter airway Comment: Esophageal screen - Complete clearance. 1/2 Cookie: Result: 1= does not enter airway Thin Liquid via single sip: straw: Result: 3= enters airways/above vocal folds/not ejected Thin Liquid via single sip: straw Trial 2: Comment: Unable to score as fluoroscopy was turned off due to barium spill. SMALL ARMS ARTILLERY REPAIRER requested fluoroscopy be turned on after the swallow and the patient had trace barium in the laryngeal vestibule; however, SMALL ARMS ARTILLERY REPAIRER cannot definitively rule out aspiration. Thin liuqid via single sip: straw w/ a cued cough and re-swallow: Result: 3= enters airways/above vocal folds/not ejected [place] Thick Liquid via small single sip: cup: Result: 1= does not enter airway Oral Phase Labial Seal: Escape beyond interlabial space; no extension beyond sony border Tongue Control During Bolus Hold: Posterior escape of greater than half of bolus Bolus Preparation/Mastication: Disorganized chewing/mashing with solid pieces of bolus unchewed (small pieces of un-chewed cookie) Bolus Transport/Lingual Motion: Repetitive/disorganized tongue motion Oral Residue: Residue collection on oral structures (large sip) Pharyngeal Phase Initiation of Pharyngeal Swallow: Bolus head in pyriforms Soft Palate Elevation: Trace column of contrast/air between soft palate and pharyngeal wall Laryngeal Elevation: Partial superior movement thyroid cart/partial apprx aryt- epig petiole Anterior Hyoid Excursion: Partial anterior movement Epiglottic Movement: Complete inversion Laryngeal Vestibule Closure at Height of Swallow: Incomplete; narrow column of air/contrast in laryngeal vestibule Pharyngeal Stripping Wave: Present - complete Pharyngoesophageal Segment Opening: Parital distension and partial duration; parital obstruction of flow Tongue Base Retraction: Trace column of contrast between tongue base & post. pharyngeal wall Pharyngeal Residue: Trace residue within or on pharyngeal structures Esophageal Phase Esophageal Clearance: Complete clearance Diagnosis/Impression Diagnosis: Mild-moderate oropharyngeal dysphagia R13.12 Impression: The oral phase is primarily marked by... -Decreased bolus control with >1/2 of the bolus spilling posteriorly to the pyriforms prior to swallow onset observed with thin liquids especially. -Mild oral residue after the swallow with large sip by cup. -Prolonged mastication of 1/2 cookie with very small un-chewed pieces. The pharyngeal phase is primarily marked by... -Decreased airway closure during the swallow due to decreased anterior hyoid excursion and laryngeal elevation. SILENT aspiration of thin liquids via cup. Trace laryngeal penetration of thin liquids via straw without full ejection - cough and re-swallow was most effective in decreasing risk for aspiration. -Mildly decreased UES opening/duration with trace residues in the UES after the swallow. Recommendations Diet: Regular Textures (Easy to Chew textures IDDSI Level 7) and Thin Liquids Comment: Medications whole in applesauce one at a time Compensatory Strategies: Small Bites, Small Sips (Intermittent cough and re- swallow), Sips by straw only, Slow Rate (Sips one at a time) and Sitting upright Supervision: 1:1 Close Supervision (Ok for water unsupervised between meals after oral care) Recommend Repeat Modified Barium Swallow: TBD Need for Skilled Speech Therapy Services: Yes Education Completed: 1. Described result of evaluation., 4. Family/caregivers understand evaluation & agree w/ goals & tx plan. and 7. Pt requires further education on strategies & risks. Comment: SMALL ARMS ARTILLERY REPAIRER spoke with the patient and called patient's daughter, Nicky, to discuss results and recommendation options of the evaluation. SMALL ARMS ARTILLERY REPAIRER educated the patient and his daughter that nectar/mildly thick liquids decreased his risk for aspiration; however, SMALL ARMS ARTILLERY REPAIRER also discussed increased risk for dehydration with thickened liquids. SMALL ARMS ARTILLERY REPAIRER educated them in observation of silent aspiration of thin liquids via cup, which may increase risk for aspiration related illness; however, with use of straw and intermittent cough and re-swallow his risk for aspiration would be lessened. Patient's daughter verbalized concern that the patient would not be compliant with nectar/mildly thick liquids and patient declined nectar/mildly thickened liquids. SMALL ARMS ARTILLERY REPAIRER proceeded with recommendation of thin liquids to be consumed via straw with intermittent cough and re-swallows wi direct supervision at meals. Pt's daughter and patient were agreeable to recommendations. Status Active ST Patient: Active Contact Information [facility] Speech Therapy:: Janet Lagunas M.A. CCC-SMALL ARMS ARTILLERY REPAIRER? Speech-Language Pathologist?? [place] [id number]?? [place] [address]?? [email or web address]?? [phone]??
[2024-02-01] MEDS: MethylPREDNISolone 125 MG/2 ML Vial 60 MG IV ×2 (10:37→21:32)
[2024-02-01] MEDS: Pantoprazole Sodium 40 MG in 0.9% Normal Saline (100mL MB+) 100 ML 330 MG IV (10:38)
[2024-02-01] MEDS: Enoxaparin 40 MG/0.4 ML Syringe SC (10:38)
[2024-02-01 12:10] LABS: Bedside Glucose 174 mg/dL (74-106)
--- NOTE | 2024-02-01 12:59 | CASEMGMT ---
Social Work SW attempted to meet w/pt, he is on BiPap, asked SW to take it off. SW explained would ask his nurse. SW asked RN, she states can take the Bipap off of pt. SW went back to speak w/pt and he is now asleep. Pt is also not fully alert and oriented. SW called daughter Nicky w/whom pt lives. SW explained attempted to speak w/pt about discharge plan but he is asleep. SW asked how things went after discharge last time pt was here, as he went from here to [facility]. Daughter states that pt was at [facility] for 5 days, and they did not review pt's discharge information, did not set up home health. 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 She states she does not fully understand what medications pt is to be taking. We spoke about plan from here. She is aware pt will want to go home, but states that she is not home during the day and pt cannot be left alone. SW spoke w/her about pt going somewhere for rehab. SW offered to give daughter a list, did print a SNF list from [facility] of SNFs in pt's preferred geographic area, in insurance network, and complete w/quality and resource use data. Daughter does not need a list at present, she states would like referrals sent to [facility] and [facility]. SW explained will start the process. SW also asked daughter if a referral had been made to [facility], explained the [employer] continuous churn care program. She states there has not been a referral made that she is aware of. SW explained will put in a referral for her. SW put in referral for pt for [facility] for pt. SW asked d/c strike planning applications to make referrals to [facility] and [place]. NIDHI will continue to follow. KENNEDI Olea
[2024-02-01] MEDS: Metoprolol Tartrate 25 MG Tablet PO ×2 (15:27→21:31)
[2024-02-01] MEDS: Ipratropium 0.5 MG/2.5 ML SOLUTION INHALATION ×3 (15:30→22:53)
--- NOTE | 2024-02-01 15:38 | CASEMGMT ---
Addendum entered by Erin Gonzales 02/01/24 16:14: [facility] declined referral. New referral sent to patients second choice, [facility]. Erin Gonzales, Discharge Planning Asst. Original Note: Discharge Planning Referral sent via [facility] to [facility]. Erin Gonzales, Discharge Planning Asst.
--- NOTE | 2024-02-01 15:41 | CASEMGMT ---
Tylor Matson at [facility] emails this RN CM back and states they can accept the pt and that they connected with the pt daughter as well. At this time, the pt may DC to SNF once medically ready. Tylor is requesting the CM to update her on the DC date and facility the pt discharges to. CM to follow.
--- NOTE | 2024-02-01 16:00 | PN.HOSP_ITS ---
Reason for Visit Reason for Visit: Diagnoses Pneumonia, unspecified organism (01/28/24) Chronic obstructive pulmonary disease with (acute) exacerbation (01/28/24) Acute respiratory failure with hypoxia (01/28/24) Chronic respiratory failure with hypercapnia (01/28/24) Acute and chronic respiratory failure with hypoxia (01/28/24) Objective Data Objective Data Vital Signs: Vital Signs Temp Pulse Resp BP Pulse Ox O2 Del Method O2 Flow Rate 97.4 F L 94 25 H 151/72 H 98 Nasal Cannula 3 02/01/24 14:32 02/01/24 15:30 02/01/24 15:30 02/01/24 15:27 02/01/24 14:32 02/01/24 14:32 02/01/24 14:32 FiO2 35 02/01/24 13:40 Oxygen Flow Rate (L/min) 3 Oxygen Delivery Method Nasal Cannula Weight: 158 lb 15.253 oz Body Mass Index (BMI) 26.4 Intake & Output: Intake and Output for Last 24 Hours 01/30/24 01/31/24 02/01/24 23:59 23:59 23:59 Intake Total 1394.10 / 1394.10 260 / 260 210 / 210 Output Total 627 / 927 1950 / 2150 700 / 700 Balance 767.10 / 467.10 -1690 / -1890 -490 / -490 Lab / Micro Data 01/30/24 08:25 01/30/24 08:25 Labs: Laboratory Results - last 24 hr 01/31/24 16:40: POC Glucose 203 H 01/31/24 20:18: POC Glucose 184 H 02/01/24 00:06: POC Glucose 174 H 02/01/24 05:20: POC Glucose 124 H 02/01/24 11:48: POC Glucose 174 H Micro: Microbiology 01/28/24 20:20 Blood Culture (Wb) - Anticubital Right Blood Culture - Prelim inary No growth in 48 hours. 01/28/24 18:45 Blood Culture (Wb) - Right Wrist Blood Culture - Preliminary No growth in 48 hours. 01/28/24 18:02 Sputum, Induced/Lukens Gram Stain - Final 01/28/24 18:02 Sputum, Induced/Lukens Respiratory Culture - Final Streptococcus agalactiae (B) 03/03/24 18:05 Mucosa - Nose SARS-CoV-2, Influenza & RSV (PCR) - Final Radiography Diagnostic Testing: Radiology Impression Chest X-Ray 01/28/24 17:50 IMPRESSION: There is a feeding tube/ nasogastric tube noted. The tip is off the field of view. Diffuse bilateral infiltrates. Electronically Signed: Killian Louis MD at 18:09 EST , Chest X-Ray 01/29/24 05:55 IMPRESSION: Bibasilar airspace disease. Findings may indicate pneumonia. Electronically Signed: Killian Magallanes MD at 5:53 EST , Physical Exam Narrative Seen and examined. Patient is improving. Was extubated on 01/30/2024. Currently on BiPAP alternating with high flow oxygen. Gradually getting better. Physical exam General: Awake, alert oriented x 3. HEENT: Atraumatic, PERRLA, EOMI, Normocephalic Oral: No Gingival or Mucosal Lesions/ Ulcerations Neck: Supple, No JVD, Negative Carotid Bruits Chest wall/Lungs: Air entry very diminished in bilateral lung bases. No crepitation/rhonchi Cardiovascular: Sinus tachycardia with PACs, irregular rhythm, Normal S1, Normal S2, No M/G/R Abdomen: Bowel Sounds Present, Soft, Non Tender, Non-Distended : No dysuria. No renal angle tenderness. No suprapubic tenderness. Extremities: Mild dependent edema, Capillary Refill Less than 3 Seconds Skin: No rashes, No breakdown Musculoskeletal: No Tenderness to Palpation of Joints or Extremities. Decreased muscle bulk. Neurological: Cranial nerves II-XII grossly intact, DTR 2+/4. No acute focal neurological deficit. Psych/Mental Status: Flat affect. Assessment & Plan Assessment/Plan (1) COPD with acute exacerbation: (2) Acute hypoxic on chronic hypercapnic respiratory failure: (3) Multifocal pneumonia: PLAN: Plan 73-year-old gentleman being admitted for concern of respiratory arrest. Aspiration risk, called for COPD exacerbation emergency patient lost consciousness blood pressure during pulse therefore no CPR was given. The patient was intubated in the field. Chest x-ray was positive for diffuse bilateral infiltrates consistent with multifocal pneumonia 1. Multifocal Pneumonia with Leukocytosis of 16.6 present on admission along with tachycardia of 143 bpm and hypotension of 85/73 mm Hg present on admission concerning for possible Sepsis - Admit to ICU for treatment under the Sepsis protocol. Continue IV Vancomycin and IV Zosyn begun in the ER and await culture and sensitivity data. On IV fentanyl. Give Tylenol prn pain or fever. Room Service Server is consulted. On light sedation. IV fluid discontinued. 01/29: Patient extubated in the morning. Currently on BiPAP. Continue IV antibiotics. Patient having sinus tachycardia with PACs. 01/30: Patient on BiPAP. Still has significant shortness of breath and respiratory distress but comfortable on BiPAP. Anticipate long recovery time before discharge. 01/31: Patient on high flow oxygen. Continue empiric antibiotic. Sinus tachycardia exact etiology unclear possible due to bronchodilator/respiratory drive: On DuoNeb changed to ipratropium. Metoprolol ordered. 2. Acute exacerbation of COPD: Continue IV Solumedrol, nebulizers and ventila tor. Start IV Protonix for GI prophylaxis while on high-dose steroids. 3. Acute Hypoxic and hypercarbic combined respiratory Failure requiring intubation in the field: Patient first ABG shows 7.2/60/378 head 100% FiO2/450/14/5 which improved to 7.25/51/92 at 40% FiO2/450/14/5. There is no previous ABG or bicarb of previous admissions at our system therefore unclear of his baseline. Bicarb and ABG was 23 and 24 normal. As mentioned above. 4. Recent admission here to this hospital ~2 weeks ago with AE COPD requiring intubation - Noted. Patient may benefit from referral to palliative care if and when he is able to extubated to prevent further serial readmission. 5. DVT prophylaxis - Lovenox 40 mg sq daily plus SCD's. Charges/Coding Visit Charges Inpatient E&M: [id number] [facility] Hosp L3
[2024-02-01 17:30] LABS: Bedside Glucose 243 mg/dL (74-106)
[2024-02-01] MEDS: Insulin Glargine-YFGN 100 UNIT/ML Pen 10 UNIT SC (21:34)
[2024-02-01 22:56] LABS: Bedside Glucose 207 mg/dL (74-106)
[2024-02-02] VITALS (23 sets, daily range): BP systolic 92–154; BP diastolic 46–99; PULSE 46–115; RESP 12–32; TEMP 36.1–36.7; O2SAT 94–100; BMI 25.5
[2024-02-02] MEDS: Acetaminophen 325 MG Tablet 650 MG PO (00:02)
[2024-02-02] MEDS: LORazepam 2 MG/ML Syringe 0.5 MG IV (00:32)
[2024-02-02] MEDS: 0.9% Saline Lock 10 ML Syringe IV ×3 (00:33→05:50)
[2024-02-02] MEDS: LORazepam 2 MG/ML Syringe 1 MG IV (03:32)
[2024-02-02] MEDS: Ipratropium 0.5 MG/2.5 ML SOLUTION INHALATION ×6 (03:35→22:12)
--- NOTE | 2024-02-02 03:45 | PCM.HOSP.N ---
Hospitalist Note Patient with increased agitation, unable to keep BIPAP on, increased RR, will transition to the ICU and attempt precedex usage, ABG requested concurrently.
[2024-02-02 03:52] LABS: Allen Test Positive; Base Excess 1 mmol/L (-2 to +2); Bicarbonate 28.5 mmol/L (22-26); Blood Gas Specimen Type ART; Mode Not entered; O2 Delivery Device BiPAP; PEEP 8; PO2 77 mmHG (75-100); RR 12; SITE R Radial; SO2 92 % (95-99); Total Carbon Dioxide 31 mmol/L; pCO2 66.4 mmHg (35-45); pH 7.24 (7.35-7.45)
--- NOTE | 2024-02-02 04:10 | RAD_ITS ---
INDICATION: Dyspnea EXAMINATION: Frontal view of the chest COMPARISON: Chest x-ray January 29, 2024. FINDINGS: Frontal view of the chest was obtained. The endotracheal tube has been removed. The cardiac silhouette is not enlarged. Opacity in the right lower lung is stable to mildly increased since the prior exam. Left lower lung opacity is grossly stable. A left upper lung opacity is new. No pneumothorax. Hardware in the thoracic spine. RAD/Chest 1 View (Portable) IMPRESSION: Bilateral pulmonary opacities concerning for infection, overall mildly increased since the prior exam. Electronically Signed: Avel Dolan MD at 4:32 EST ,
--- NOTE | 2024-02-02 05:00 | NURSING ---
report called to [facility] for transfer, pt is ordered precedex drip for agitation,restlessness. Called pt's daughter fish to inform of transfer. Pt moved to icu bed 3 with respiratory at bedside for transport on bipap. Belongings including dentures sent with patient.
[2024-02-02 05:47] LABS: Absolute Neutrophil Count 9.9 X10^3/uL (2.0-7.7); Basophil# 0.03 X10^3/uL; Basophil% 0.3 % (0-1); Hematocrit 35.9 % (40-54); Hemoglobin 10.8 g/dL (13.0-16.5); Lymphocyte % 1.8 % (19-41); Mean Corp Hgb Conc 30.1 g/dL (32-36); Mean Corpuscular Hgb 29.2 pg (27.0-32.0); Mean Platelet Vol. 10.9 fl (6.2-12.0); Monocyte# 0.57 X10^3/uL; Monocyte% 5.2 % (0-10); NRBC Flagged by Analyzer 0.3 % (0-5); Neutrophil # 9.92 X10^3/uL (2.7-7.7); POSITIVE DIFFERENTIAL YES; Platelet Count 352 K/mm3 (150-450); RBC Distribution Width CV 16.4 % (11.6-14.6); RBC Distribution Width SD 58.3 fl (35.1-43.9)
[2024-02-02] MEDS: Piperacil/Tazobactam 3.375 GM in 0.9% Normal Saline (50mL MB+) 50 ML IV ×3 (05:50→21:26)
[2024-02-02] MEDS: dexMEDEtomidine 400 MCG in 0.9% Normal Saline (100mL Bag) 96 ML 8.69999999999999929 MCG CONT INF (05:50)
[2024-02-02] MEDS: Sodium Bicarbonate 8.4% 50 ML Syringe 50 MEQ IV (05:51)
[2024-02-02 06:08] LABS: Differential Indicated SCAN CRITERIA MET
[2024-02-02 06:13] LABS: AST(SGOT) 21 U/L (15-37); Alanine Aminotransfer ALT/SGPT 39 U/L (16-61); Albumin, Serum 2.8 g/dL (3.2-5.0); Alkaline Phosphatase 59 U/L (45-117); Anion Gap 5 (5-15); BUN 48 mg/dL (7-18); BUN/Creat Ratio 56.5 RATIO (10-20); Calcium,Total 8.8 mg/dL (8.5-10.1); Chloride 111 mmol/L (98-107); Creatinine, Serum 0.85 mg/dL (0.70-1.30); EST Glomerular Filtration Rate 94 mL/min (>60); Est Glom Filt Rate - Afr Amer 114 mL/min (>60); Estimated Creatinine Clearance 69.34 ml/min; Globulin 2.9 g/dL (2.2-4.2); Glucose 161 mg/dL (74-106); Potassium 4.3 mmol/L (3.5-5.1); Protein, Total 5.7 g/dL (6.4-8.2); Sodium Level 146 mmol/L (136-145)
--- NOTE | 2024-02-02 06:59 | PCM.PN.INT ---
Assessment & Plan Assessment/Plan (1) COPD with acute exacerbation: (2) Acute and chronic respiratory failure with hypoxia: PLAN: Plan RECOMMENDATIONS: 1. Continue BiPAP therapy with naps and nightly. 2. Discontinue Precedex. 3. If the patient becomes agitated once again, start scheduled Seroquel. 4. Continue antibiotics to complete 7 days of therapy. 5. Continue scheduled bronchodilators and steroids. 6. Encourage incentive spirometer use and mobilize patient as tolerated. 7. Continue appropriate DVT prophylaxis IMPRESSIONS: 1. Acute on chronic combined respiratory failure The patient has an apparent history of COPD with a baseline 2-4 L/min oxygen requirement. The patient has a history of frequent COPD exacerbations leading to hospitalization. I suspect that his current exacerbation is likely secondary to possible underlying pneumonia coupled with noncompliance with out patient therapy and ongoing tobacco dependency. The patient responded appropriately to invasive mechanical ventilatory support was able to be extubated on the morning of January 29. He was transitioned to BiPAP therapy following extubation and has done well from a respiratory perspective. At this time, the patients supplemental oxygen will be weaned to maintain saturations at or above 90%. Recommend continuing antibiotics to complete 7 days of therapy. Continue scheduled bronchodilators and steroids. Ultimately, the patient needs to establish care in the pulmonary medicine clinic after discharge. If the patient again becomes agitated, start scheduled Seroquel. Precedex has been discontinued. 2. Valvular heart disease Continue current supportive care. Recommend outpatient cardiology follow-up. 3. History of congestive heart failure/diabetes mellitus/hypertension/CVA/tobacco dependency/recent hospitalization for COPD Complicates care, management, recovery and prognosis. Continue supportive care as noted above. This note was generated with [employer] dictation software. It may contain incorrect words, spelling, and punctuation that were not noted in checking the note before signing. Subjective Subjective The patient was seen and examined at the bedside this morning. Events from the last 24 hours have been reviewed. The patient was doing well from a respiratory perspective yesterday. He was subsequently transferred to the progressive care unit. Overnight, according to nursing report, the patient became agitated. An attempt was made to medicate the patient with Ativan. No additional interventions were undertaken. Rather, the patient was transferred back to the intensive care unit to be placed on a Precedex infusion. This morning, the patient is quite somnolent on BiPAP and Precedex. Consequently, orders were given to discontinue Precedex. Objective Data Objective Data The patient's most recent lab work, culture data and imaging studies have all been personally reviewed. Surface echocardiogram completed on January 01, 2024 demonstrated mild concentric LVH with an ejection fraction of 60%. Moderate to severe mitral regurgitation was noted. Right ventricular systolic pressure was estimated to be 42 mmHg. Sputum culture dated January 27 was positive for group B streptococcus. Blood cultures are pending. COVID, influenza and RSV PCR's were negative. Vital Signs: Vital Signs Temp Pulse Resp BP Pulse Ox O2 Del Method O2 Flow Rate 97.0 F L 64 24 H 96/58 L 94 Bi-pap 3 02/02/24 04:00 02/02/24 06:00 02/02/24 06:00 02/02/24 06:00 02/02/24 06:00 02/02/24 06:00 02/01/24 14:32 FiO2 35 02/02/24 06:00 Oxygen Flow Rate (L/min) 3 Oxygen Delivery Method Bi-pap Weight: 153 lb 10.595 oz Body Mass Index (BMI) 25.5 Intake & Output: Intake and Output for Last 24 Hours 01/31/24 02/01/24 02/02/24 23:59 23:59 23:59 Intake Total 260 / 260 260 / 360 157.99 / 157.99 Output Total 1950 / 2150 800 / 1050 250 / 250 Balance -1690 / -1890 -540 / -690 -92.01 / -92.01 Lab / Micro Data Attestation: I reviewed the patient's lab results. 02/02/24 05:35 02/02/24 05:35 Labs: Laboratory Results - last 24 hr 02/01/24 05:20: POC Glucose 124 H 02/01/24 11:48: POC Glucose 174 H 02/01/24 17:08: POC Glucose 243 H 02/01/24 21:34: POC Glucose 207 H 02/02/24 05:35: WBC 11.0, RBC 3.70 L, Hgb 10.8 L, Hct 35.9 L, MCV 97.0 H, MCH 29.2, MCHC 30.1 L, RDW Std Deviation 58.3 H, RDW Coeff of Lauri 16.4 H, Plt Count 352, MPV 10.9, Immature Gran % (Auto) 2.700 H, Neut % (Auto) 90.0 H, Lymph % (Auto) 1.8 L, [place] % (Auto) 5.2, Eos % (Auto) 0.0, Baso % (Auto) 0.3, Absolute Neuts (auto) 9.9 H, Absolute Lymphs (auto) 0.20 L, Nucleated RBC % 0.3, Sodium 146 H, Potassium 4.3, Chloride 111 H, Carbon Dioxide 30.0, Anion Gap 5, BUN 48 H, Creatinine 0.85, Estim Creat Clear Calc 69.34, Est GFR (MDRD) Af Amer 114, Est GFR (MDRD) Non-Af 94, BUN/Creatinine Ratio 56.5 H, Glucose 161 H, Calcium 8.8, Total Bilirubin 0.50, AST 21, ALT 39, Alkaline Phosphatase 59, Total Protein 5.7 L, Albumin 2.8 L, Globulin 2.9, Albumin/Globulin Ratio 1.0 Micro: Microbiology 01/28/24 20:20 Blood Culture (Wb) - Anticubital Right Blood Culture - Preliminary No growth in 48 hours. 01/28/24 18:45 Blood Culture (Wb) - Right Wrist Blood Culture - Preliminary No growth in 48 hours. 01/28/24 18:02 Sputum, Induced/Lukens Gram Stain - Final 01/28/24 18:02 Sputum, Induced/Lukens Respiratory Culture - Final Streptococcus agalactiae (B) 01/28/24 18:05 Mucosa - Nose SARS-CoV-2, Influenza & RSV (PCR) - Final ABG Data ABG results: ABG 02/02/24 03:48 Specimen Type ART Sample Site R Radial pH 7.24 L Bicarbonate Actual 28.5 H Total CO2 31 Base Excess 1 O2 Saturation 92 L O2 % 35.0 ABG pCO2 66.4 H ABG pO2 77 Tito Test Positive Respiration Rate 12 O2 Delivery Device BiPAP Vent Mode Not entered POC PEEP 8 Radiography Diagnostic Testing: Radiology Impression Chest X-Ray 01/28/24 17:50 IMPRESSION: There is a feeding tube/ nasogastric tube noted. The tip is off the field of view. Diffuse bilateral infiltrates. Electronically Signed: Killian Louis MD at 18:09 EST , Chest X-Ray 01/29/24 05:55 IMPRESSION: Bibasilar airspace disease. Findings may indicate pneumonia. Electronically Signed: Killian Magallanes MD at 5:53 EST , Chest X-Ray 02/02/24 04:10 IMPRESSION: Bilateral pulmonary opacities concerning for infection, overall mildly increased since the prior exam. Electronically Signed: Avel Dolan MD at 4:32 EST , Physical Exam Const Constitutional Narrative: Somnolent on BiPAP therapy. HEENT normocephalic, head/scalp atraumatic and moist oral mucous membranes Eyes PERRL, EOMs intact bilaterally and conjunctivae normal Neck supple General: trachea midline Chest inspection of chest normal Resp Auscultation: diminished lung sounds; Negative for rales, rhonchi or wheezes Cardio S1 normal heart sound and S2 normal heart sound Rate: bradycardia Heart Sounds: murmur GI normal to inspection, nondistended, normoactive bowel sounds Extremity General Extremity: edema bilateral lower extremity; Negative for clubbing Skin no rashes or lesions noted Neuro CN's II-XII intact bilaterally and no focal motor deficits Psych Mood & Affect: flat affect Charges/Coding Visit Charges Inpatient E&M: 80066 Subs Hosp L2
[2024-02-02 07:18] LABS: Base Excess 7 mmol/L (-2 to +2); Bicarbonate 31.9 mmol/L (22-26); Blood Gas Specimen Type ART; Mode Not entered; O2 Delivery Device BiPAP; PEEP 8; PO2 80 mmHG (75-100); SITE L Brach; SO2 95 % (95-99); Total Carbon Dioxide 34 mmol/L; pCO2 55.9 mmHg (35-45); pH 7.36 (7.35-7.45)
[2024-02-02] MEDS: Insulin Lispro 100 UNIT/ML INSULN.PEN SC (07:45)
[2024-02-02] MEDS: predniSONE 20 MG Tablet 40 MG PO (08:23)
[2024-02-02] MEDS: QUEtiapine 25 MG Tablet PO ×2 (08:23→21:24)
[2024-02-02] MEDS: Metoprolol Tartrate 25 MG Tablet PO ×2 (08:23→21:23)
[2024-02-02] MEDS: Enoxaparin 40 MG/0.4 ML Syringe SC (08:24)
[2024-02-02] MEDS: Pantoprazole Sodium 40 MG Tablet PO (08:24)
[2024-02-02 08:47] LABS: M R Staph aureus DNA By PCR Negative (Negative); Probe Check PASS; Specimen Processing Control PASS
[2024-02-02 11:26] LABS: Bedside Glucose 116 mg/dL (74-106)
--- NOTE | 2024-02-02 12:13 | CASEMGMT ---
Discharge Planning Updates sent via [facility] to [facility]. Erin Gonzales, Discharge Planning Asst.
--- NOTE | 2024-02-02 12:22 | PN.HOSP_ITS ---
Reason for Visit Reason for Visit: Diagnoses Pneumonia, unspecified organism (01/28/24) Chronic obstructive pulmonary disease with (acute) exacerbation (01/28/24) Acute respiratory failure with hypoxia (01/28/24) Chronic respiratory failure with hypercapnia (01/28/24) Acute and chronic respiratory failure with hypoxia (01/28/24) Objective Data Objective Data Vital Signs: Vital Signs Temp Pulse Resp BP Pulse Ox O2 Del Method O2 Flow Rate 98.0 F 63 18 108/66 97 Bi-pap 30 02/02/24 12:00 02/02/24 12:00 02/02/24 12:00 02/02/24 12:00 02/02/24 12:00 02/02/24 12:00 02/02/24 12:00 FiO2 30 02/02/24 11:13 Oxygen Flow Rate (L/min) 30 Oxygen Delivery Method Bi-pap Weight: 153 lb 10.595 oz Body Mass Index (BMI) 25.5 Intake & Output: Intake and Output for Last 24 Hours 01/31/24 02/01/24 02/02/24 23:59 23:59 23:59 Intake Total 260 / 260 260 / 360 207.99 / 207.99 Output Total 1950 / 2150 800 / 1050 800 / 800 Balance -1690 / -1890 -540 / -690 -592.01 / -592.01 Lab / Micro Data 02/02/24 05:35 02/02/24 05:35 Labs: Laboratory Results - last 24 hr 02/01/24 17:08: POC Glucose 243 H 02/01/24 21:34: POC Glucose 207 H 02/02/24 05:35: WBC 11.0, RBC 3.70 L, Hgb 10.8 L, Hct 35.9 L, MCV 97.0 H, MCH 29.2, MCHC 30.1 L, RDW Std Deviation 58.3 H, RDW Coeff of Lauri 16.4 H, Plt Count 352, MPV 10.9, Immature Gran % (Auto) 2.700 H, Neut % (Auto) 90.0 H, Lymph % (Auto) 1.8 L, [place] % (Auto) 5.2, Eos % (Auto) 0.0, Baso % (Auto) 0.3, Absolute Neuts (auto) 9.9 H, Absolute Lymphs (auto) 0.20 L, Nucleated RBC % 0.3, Sodium 146 H, Potassium 4.3, Chloride 111 H, Carbon Dioxide 30.0, Anion Gap 5, BUN 48 H , Creatinine 0.85, Estim Creat Clear Calc 69.34, Est GFR (MDRD) Af Amer 114, Est GFR (MDRD) Non-Af 94, BUN/Creatinine Ratio 56.5 H, Glucose 161 H, Calcium 8.8, Total Bilirubin 0.50, AST 21, ALT 39, Alkaline Phosphatase 59, Total Protein 5.7 L, Albumin 2.8 L, Globulin 2.9, Albumin/Globulin Ratio 1.0 02/02/24 06:15: MRSA (PCR) Negative 02/02/24 11:05: POC Glucose 116 H Micro: Microbiology 01/28/24 20:20 Blood Culture (Wb) - Anticubital Right Blood Culture - Preliminary No growth in 48 hours. 01/28/24 18:45 Blood Culture (Wb) - Right Wrist Blood Culture - Preliminary No growth in 48 hours. 01/28/24 18:02 Sputum, Induced/Lukens Gram Stain - Final 01/28/24 18:02 Sputum, Induced/Lukens Respiratory Culture - Final Streptococcus agalactiae (B) 01/28/24 18:05 Mucosa - Nose SARS-CoV-2, Influenza & RSV (PCR) - Final ABG Data ABG results: ABG 02/02/24 02/02/24 03:48 07:15 Specimen Type ART ART Sample Site R Radial L Brach pH 7.24 L 7.36 Bicarbonate Actual 28.5 H 31.9 H Total CO2 31 34 Base Excess 1 7 H O2 Saturation 92 L 95 O2 % 35.0 30.0 ABG pCO2 66.4 H 55.9 H ABG pO2 77 80 Tito Test Positive Respiration Rate 12 O2 Delivery Device BiPAP BiPAP Vent Mode Not entered Not entered POC PEEP 8 8 Radiography Diagnostic Testing: Radiology Impression Chest X-Ray 02/02/24 04:10 IMPRESSION: Bilateral pulmonary opacities concerning for infection, overall mildly increased since the prior exam. Electronically Signed: Avel Dolan MD at 4:32 EST , Physical Exam Narrative Seen and examined. Overnight events noticed. Patient was transferred to PCU yesterday but got a gitated unable to keep BiPAP and was given Ativan but still tachypneic therefore transferred to ICU with Precedex.In the morning financial services agent discontinued Precedex. Was extubated on 01/30/2024. Patient on BiPAP. Physical exam General: Awake, alert oriented x 3. HEENT: Atraumatic, PERRLA, EOMI, Normocephalic Oral: No Gingival or Mucosal Lesions/ Ulcerations Neck: Supple, No JVD, Negative Carotid Bruits Chest wall/Lungs: Air entry diminished in bilateral lung bases. No crepitation/rhonchi Cardiovascular: Sinus tachycardia with PACs, irregular rhythm, Normal S1, Normal S2, No M/G/R Abdomen: Bowel Sounds Present, Soft, Non Tender, Non-Distended : No dysuria. No renal angle tenderness. No suprapubic tenderness. Extremities: Mild d edema, Capillary Refill Less than 3 Seconds Skin: No rashes, No breakdown Musculoskeletal: No Tenderness to Palpation of Joints or Extremities. Decreased muscle bulk. Neurological: Cranial nerves II-XII grossly intact, DTR 2+/4. No acute focal neurological deficit. Psych/Mental Status: Flat affect. Assessment & Plan Assessment/Plan (1) COPD with acute exacerbation: (2) Acute hypoxic on chronic hypercapnic respiratory failure: (3) Multifocal pneumonia: PLAN: Plan 73-year-old gentleman being admitted for concern of respiratory arrest. Aspiration risk, called for COPD exacerbation emergency patient lost consciousness blood pressure during pulse therefore no CPR was given. The patient was intubated in the field. Chest x-ray was positive for diffuse bilateral infiltrates consistent with multifocal pneumonia 1. Multifocal Pneumonia with Leukocytosis of 16.6 present on admission along with tachycardia of 143 bpm and hypotension of 85/73 mm Hg present on admission concerning for possible Sepsis - Admit to ICU for treatment under the Sepsis protocol. Continue IV Vancomycin and IV Zosyn begun in the ER and await culture and sensitivity data. On IV fentanyl. Give Tylenol prn pain or fever. Polls Or Surveys Interviewer is consulted. On light sedation. IV fluid discontinued. 01/29: Patient extubated in the morning. Currently on BiPAP. Continue IV antibiotics. Patient having sinus tachycardia with PACs. 01/30: Patient on BiPAP. Still has significant shortness of breath and respiratory distress but comfortable on BiPAP. Anticipate long recovery time before discharge. 01/31: Patient on high flow oxygen. Continue empiric antibiotic. 02/01: ABG on 02/01 shows 7.36/56/80 on 30% FiO2 BiPAP. Patient on BiPAP. Precedex was discontinued. Seroquel 25 mg twice daily started. Rest medications to continue. Sinus tachycardia exact etiology unclear possible due to bronchodilator/respiratory drive: On DuoNeb changed to ipratropium. Metoprolol ordered. 2. Acute exacerbation of COPD: Continue IV Solumedrol, nebulizers and ventilator. Start IV Protonix for GI prophylaxis while on high-dose steroids. 3. Acute Hypoxic and hypercarbic combined respiratory Failure requiring intubation in the field: Patient first ABG shows 7.2/60/378 head 100% FiO2/450/14/5 which improved to 7.25/51/92 at 40% FiO2/450/14/5. There is no previous ABG or bicarb of previous admissions at our system therefore unclear of his baseline. Bicarb and ABG was 23 and 24 normal. As mentioned above. 4. Recent admission here to this hospital ~2 weeks ago with AE COPD requiring intubation - Noted. Patient may benefit from referral to palliative care if and when he is able to extubated to prevent further serial readmission. 5. DVT prophylaxis - Lovenox 40 mg sq daily plus SCD's. Charges/Coding Visit Charges Inpatient E&M: 58188 Subs Hosp L2
--- NOTE | 2024-02-02 13:48 | CASEMGMT ---
Discharge Planning [facility] declined referral. SW updated. Erin Gonzales, Dicharge Planning Asst.
--- NOTE | 2024-02-02 14:03 | CASEMGMT ---
Social Work SW called daughter, updated her that [facility] both declined pt. SW offered to leave the [facility] list in the room for her to make additional choices. She states she is fine w/anything that is close to home, they live in [place]. She states prefers toward [facility] rather than toward [facility]. SW started reviewing the list, daughter agreeable to referral to [facility]. NIDHI let d/c director of gift planning Erin know,s he will send referral via [facility]. KENNEDI Olea
--- NOTE | 2024-02-02 15:20 | CASEMGMT ---
Discharge Planning Referral sent via [facility] to [facility]. Erin Gonzales, Discharge Planning Asst.
[2024-02-02 16:47] LABS: Bedside Glucose 135 mg/dL (74-106)
--- NOTE | 2024-02-02 19:02 | CPS ---
Patient ripped mask straps in half trying to take mask off. Old mask replaced with new one. Patient taking a short break from bipap.
[2024-02-02] MEDS: Insulin Glargine-YFGN 100 UNIT/ML Pen 10 UNIT SC (21:30)
[2024-02-02 21:50] LABS: Bedside Glucose 119 mg/dL (74-106)
[2024-02-03] VITALS (8 sets, daily range): BP systolic 109–185; BP diastolic 77–93; PULSE 55–103; RESP 12–27; TEMP 36.2–36.7; O2SAT 95–99; BMI 25.0
[2024-02-03] MEDS: Ipratropium 0.5 MG/2.5 ML SOLUTION INHALATION ×3 (03:38→11:58)
[2024-02-03] MEDS: Piperacil/Tazobactam 3.375 GM in 0.9% Normal Saline (50mL MB+) 50 ML IV (05:27)
--- NOTE | 2024-02-03 07:56 | PN.HOSP_ITS ---
Reason for Visit Reason for Visit: Diagnoses Pneumonia, unspecified organism (01/28/24) Chronic obstructive pulmonary disease with (acute) exacerbation (01/28/24) Acute respiratory failure with hypoxia (01/28/24) Chronic respiratory failure with hypercapnia (01/28/24) Acute and chronic respiratory failure with hypoxia (01/28/24) Objective Data Objective Data Vital Signs: Vital Signs Temp Pulse Resp BP Pulse Ox O2 Del Method O2 Flow Rate 97.2 F L 76 22 H 109/77 99 Bi-pap 30 02/03/24 01:59 02/03/24 07:01 02/03/24 07:01 02/03/24 01:59 02/03/24 07:01 02/03/24 01:59 02/03/24 01:59 FiO2 30 02/03/24 07:01 Oxygen Flow Rate (L/min) 30 Oxygen Delivery Method Bi-pap Weight: 150 lb 2.157 oz Body Mass Index (BMI) 25.0 Intake & Output: Intake and Output for Last 24 Hours 02/01/24 02/02/24 02/03/24 23:59 23:59 23:59 Intake Total 260 / 360 257.99 / 257.99 50 / 50 Output Total 800 / 1050 1300 / 1300 300 / 300 Balance -540 / -690 -1042.01 / -1042.01 -250 / -250 Lab / Micro Data 02/02/24 05:35 02/02/24 05:35 Labs: Laboratory Results - last 24 hr 02/02/24 06:15: MRSA (PCR) Negative 02/02/24 11:05: POC Glucose 116 H 02/02/24 16:29: POC Glucose 135 H 02/02/24 21:27: POC Glucose 119 H Micro: Microbiology 01/28/24 18:45 Blood Culture (Wb) - Right Wrist Blood Culture - Final No growth in 5 days. 01/28/24 20:20 Blood Culture (Wb) - Anticubital Right Blood Culture - Final No growth in 5 days. 01/28/24 18:02 Sputum, Induced/Lukens Gram Stain - Final 01/28/24 18:02 Sputum, Induced/Lukens Respiratory Culture - Final Streptococcus agalactiae (B) 01/28/24 18:05 Mucosa - Nose SARS-CoV-2, Influenza & RSV (PCR) - Final Physical Exam Narrative Seen and examined. Overnight events noticed. Patient is on BiPAP could not get out of it especially at night seems BiPAP dependent. Patient does not want intubation CPR shocked therefore DNR CC arrest. He is good with the BiPAP. He does not want tracheostomy if he becomes dependent on ventilator in future. Detailed discussion regarding palliative/hospice care was done with the family members. Patient was transferred to PCU yesterday but got agitated unable to keep BiPAP and was given Ativan but still tachypneic therefore transferred to ICU with Precedex.In the morning learning analyst discontinued Precedex. Was extubated on 01/30/2024. Patient on BiPAP. Physical exam General: Awake, alert oriented x 3. HEENT: Atraumatic, PERRLA, EOMI, Normocephalic Oral: No Gingival or Mucosal Lesions/ Ulcerations Neck: Supple, No JVD, Negative Carotid Bruits Chest wall/Lungs: Air entry diminished in bilateral lung bases. No crepitation/rhonchi Cardiovascular: Sinus tachycardia with PACs, irregular rhythm, Normal S1, Normal S2, No M/G/R Abdomen: Bowel Sounds Present, Soft, Non Tender, Non-Distended : No dysuria. No renal angle tenderness. No suprapubic tenderness. Extremities: Mild d edema, Capillary Refill Less than 3 Seconds Skin: No rashes, No breakdown Musculoskeletal: No Tenderness to Palpation of Joints or Extremities. Decreased muscle bulk. Neurological: Cranial nerves II-XII grossly intact, DTR 2+/4. No acute focal neurological deficit. Psych/Mental Status: Flat affect. Assessment & Plan Assessment/Plan (1) COPD with acute exacerbation: (2) Acute hypoxic on chronic hypercapnic respiratory failure: (3) Multifocal pneumonia: PLAN: Plan 73-year-old gentleman being admitted for concern of respiratory arrest. Aspiration risk, called for COPD exacerbation emergency patient lost consciousness blood pressure during pulse therefore no CPR was given. The patient was intubated in the field. Chest x-ray was positive for diffuse bilateral infiltrates consistent with multifocal pneumonia 1. Multifocal Pneumonia with Leukocytosis of 16.6 present on admission along with tachycardia of 143 bpm and hypotension of 85/73 mm Hg present on admission concerning for possible Sepsis - Admit to ICU for treatment under the Sepsis protocol. Continue IV Vancomycin and IV Zosyn begun in the ER and await culture and sensitivity data. On IV fentanyl. Give Tylenol prn pain or fever. Steam [employer] Records Clerk is consulted. On light sedation. IV fluid discontinued. 01/29: Patient extubated in the morning. Currently on BiPAP. Continue IV antibiotics. Patient having sinus tachycardia with PACs. 01/30: Patient on BiPAP. Still has significant shortness of breath and respiratory distress but comfortable on BiPAP. Anticipate long recovery time before discharge. 01/31: Patient on high flow oxygen. Continue empiric antibiotic. 02/01: ABG on 02/01 shows 7.36/56/80 on 30% FiO2 BiPAP. Patient on BiPAP. Precedex was discontinued. Seroquel 25 mg twice daily started. Rest medications to continue. 02/02: Patient respiratory status remains same, respiratory rate 20 to 26/min on BiPAP 30% FiO2. He gets short of breath if he is out of BiPAP for a long time seems needs BiPAP intermittently and at night. Detailed family discussion was done and agreeable for DNR CC arrest with no DC shock or tube feeding. No vasopressors. Further palliative/hospice care consulted. Sinus tachycardia exact etiology unclear possible due to bronchodilator/respiratory drive: On DuoNeb changed to ipratropium. Metoprolol ordered. 2. Acute exacerbation of COPD: Continue IV Solumedrol, nebulizers and ventilator. Start IV Protonix for GI prophylaxis while on high-dose steroids. 3. Acute Hypoxic and hypercarbic combined respiratory Failure requiring intubation in the field: Patient first ABG shows 7.2/60/378 head 100% FiO2/450/14/5 which improved to 7.25/51/92 at 40% FiO2/450/14/5. There is no previous ABG or bicarb of previous admissions at our system therefore unclear of his baseline. Bicarb and ABG was 23 and 24 normal. As mentioned above. 4. Recent admission here to this hospital ~2 weeks ago with AE COPD requiring intubation - Noted. Patient may benefit from referral to palliative care if and when he is able to extubated to prevent further serial readmission. 5. DVT prophylaxis - Lovenox 40 mg sq daily plus SCD's. Living will/advanced directive/end of life care: Patient does not have living will or advanced directive. He does not have designated power of corporate associate attorney for health but her daughter Mrs. Nicky Velasquez is next to kin and his son Bay Velasquez was present near the bedside. Also talked to patient's granddaughter present in the room in the presence of patient's RN. After discussion of benefits/risks procedures involved with full code, DNR CC arrest and DNR CC, the patient opted for DNR CC arrest. Rest as mentioned above Patient doesn't want artificial life support including intubation, tube feed, ventilator and/chest compression, central venous catheter, vasopressor and DC shock if needed Total time spent in [id number] encounter in discussion of advanced directive 17 minutes. Charges/Coding Visit Charges Inpatient E&M: 54057 Subs Hosp L3 Procedures Hospitalists Procedures: 81138 Advncd Care Plan 30 Min
[2024-02-03] MEDS: QUEtiapine 25 MG Tablet PO (16:18)
--- NOTE | 2024-02-03 17:27 | PN.CC_ITS ---
Objective Data Objective Data Vital Signs: Vital Signs Last response Temperature 36.6 C 02/03/24 13:36 Temperature Source Temporal 02/03/24 13:36 Pulse Rate 94 02/03/24 13:36 Pulse Strength Normal (2+) 02/03/24 10:00 Respiratory Rate 27 H 02/03/24 13:36 Respiratory Effort Short of Breath, Labored, Retracting 02/03/24 13:40 Respiratory Depth Shallow 02/03/24 13:40 Respiratory Pattern Tachypnea 02/03/24 13:40 Blood Pressure 185/85 H 02/03/24 13:36 Blood Pressure Mean 118 02/03/24 13:36 Blood Pressure Source Monitor 02/03/24 13:36 Blood Pressure Position Semi-Fowlers 02/03/24 13:36 Blood Pressure Location Right Arm 02/03/24 13:36 Pulse Ox 97 02/03/24 13:36 Oxygen Delivery Method Nasal Cannula 02/03/24 13:40 Oxygen Flow Rate (L/min) 4 02/03/24 13:40 Fraction of Inspired Oxygen (FIO2) 30 02/03/24 08:40 I&O: I&O Last 24 Hours 02/02/24 02/03/24 02/03/24 23:59 11:59 23:59 Intake Total 50 / 257.99 50 / 100 50 / 100 Output Total 500 / 1300 300 / 300 Balance -450 / -1042.01 -250 / -200 50 / -200 I&O: Total Stay 01/28/24 17:41 thru 02/03/24 16:19 Intake Total 9063.11 Output Total 6142 Balance 2921.11 Current Meds Ordered / Administered: Current meds ordered / Administered Generic Name Dose Route Start Last Admin Trade Name Freq PRN Reason Stop Dose Admin Acetaminophen 650 mg 01/28/24 20:27 02/02/24 00:02 Acetaminophen 325 Mg Tablet PO 650 mg Q6H PRN PRN Administration Pain 1-10 Or Fever>100.7 Albuterol Sulfate 2.5 mg 01/28/24 20:27 02/01/24 05:05 Albuterol 2.5 Mg/3 Ml Vial.Neb. INHALATION 2.5 mg Q2H PRN PRN Administration SOB/Wheezing Chlorhexidine Gluconate 1 each 01/29/24 10:00 02/02/24 07:46 Chlorhexidine Gluc 2% Cloth 1 Each [place] TOPICAL Not Given DAILY MISHA Enoxaparin Sodium 40 mg 01/29/24 10:00 02/02/24 08:24 Enoxaparin 40 Mg/0.4 Ml Syringe SC 40 mg DAILY MISHA Administration Hydralazine HCl 10 mg 01/30/24 20:50 Hydralazine 20 Mg/Ml Vial IV Q4H PRN PRN SBP > 160 Protocol Piperacillin Sod/Tazobactam 50 mls @ 12.5 mls/hr 01/29/24 06:00 02/03/24 1 6:19 Sod 3.375 gm/ Sodium Chloride IV Infused Q8 MISHA Infusion Sodium Chloride 250 mls @ 15 mls/hr 01/28/24 20:35 IV .[id number] PRN Additional IVPB Infusion Insulin Glargine 10 unit 01/28/24 22:00 02/02/24 21:30 Insulin Glargine-Yfgn 100 Unit/Ml Pen SC 10 unit QHS MISHA Administration Insulin Human Lispro 0 unit 02/01/24 22:00 02/02/24 21:28 Insulin Lispro 100 Unit/Ml Insuln.Pen SC Not Given ACHS IMSHA Protocol Ipratropium [place] 0.5 mg 02/01/24 14:45 02/03/24 11:58 Ipratropium 0.5 Mg/2.5 Ml Solution INHALATION 0.5 mg Q4H.RT MISHA Administration Metoprolol Tartrate 25 mg 02/01/24 14:40 02/02/24 21:23 Metoprolol Tartrate 25 Mg Tablet PO 25 mg BID MISHA Administration Protocol Metoprolol Tartrate 5 mg 02/01/24 14:40 Metoprolol Tartrate 5 Mg/5 Ml Vial IV Q6 PRN HR >130/m Protocol Ondansetron HCl 4 mg 01/28/24 20:27 Ondansetron 4 Mg/2 Ml Vial IV Q8H PRN PRN NAUSEA/VOMITING Pantoprazole Sodium 40 mg 02/02/24 10:00 02/02/24 08:24 Pantoprazole Sodium 40 Mg Tablet PO 40 mg DAILY MISHA Administration Prednisone 40 mg 02/02/24 08:00 02/02/24 08:23 Prednisone 20 Mg Tablet PO 40 mg BREAKFAST MISHA Administration Quetiapine Fumarate 25 mg 02/02/24 10:00 02/03/24 16:18 Quetiapine 25 Mg Tablet PO 25 mg BID MISHA Administration Protocol Sodium Chloride 10 - 40 ml 01/28/24 20:35 02/02/24 05:50 0.9% Saline Lock 10 Ml Syringe IV 40 ml UD PRN Administration SALINE FLUSH Lab / Micro Data 02/02/24 05:35 02/02/24 05:35 Labs: Laboratory Results - last 24 hr 02/02/24 21:27: POC Glucose 119 H Micro: Microbiology 01/28/24 18:45 Blood Culture (Wb) - Right Wrist Blood Culture - Final No growth in 5 days. 01/28/24 20:20 Blood Culture (Wb) - Anticubital Right Blood Culture - Final No growth in 5 days. Assessment and Plan . Assessment and plan: Chart and data reviewed Male smoker w/ advanced COPD admitted w/ AECOPD and respiratory failure requiring MV support. He was extubated 01/30/24 He has required significant NIPPV support since extubation and continues to struggle I am told by staff that he will transition to hospice care today. We will be available as needed. Critical Care Time: The entirety of this encounter was done via Telemedicine
--- NOTE | 2024-02-03 18:32 | PCM.DC ---
Discharge Instructions Diet Discharge Diet: No restrictions and - Dressing / Incision Call your doctor if you observe: - (inpatient hospice care) Follow Up Care Test Results: Test results from this visit will be discussed in further detail at your follow-up appointment, if applicable. 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 Discharge Orders/Prescriptions Prescriptions: Continued Trelegy Ellipta 100-62.5-25 mcg blister with device 1 inh INHALATION DAILY atorvastatin 40 mg Tablet 40 mg PO QHS Qty: 30 0RF Patient Comments: not taking; noncompliance aspirin 81 mg Tablet,Delayed Release (Dr/Ec) 81 mg PO BREAKFAST Qty: 0 0RF Patient Comments: not taking lisinopril 10 mg Tablet 10 mg PO DAILY Qty: 30 0RF nicotine 21 mg/24 hr Patch 24 Hour 21 mg transdermal DAILY Qty: 30 0RF metoprolol succinate 50 mg capsule,sprinkle,ER 24hr 50 mg PO DAILY Qty: 30 0RF pantoprazole 40 mg tablet,delayed release (DR/EC) 40 mg PO DAILY Patient Comments: TAKE 1 TABLET BY MOUTH TWICE DAILY guaifenesin 600 mg tablet extended release 12hr 600 mg PO BID Qty: 10 0RF quetiapine 25 mg Tablet 12.5 mg PO BID Qty: 0 0RF clopidogrel 75 mg Tablet 75 mg PO DAILY Qty: 1 0RF metformin 500 mg tablet 500 mg PO BID Qty: 1 0RF albuterol sulfate 2.5 mg /3 mL (0.083 %) solution for nebulization 2.5 mg inhalation Q4H PRN (Reason: shortness of breath or wheezing) Qty: 75 0RF prednisone 10 mg tablet 10 mg PO UD Qty: 33 0RF Rx Instructions: Take 4 tablets daily for 3 days, then 3 daily for 3 days, then 2 daily for 3 days, then 1 a day for 3 days then 1 QOD for 3 doses. albuterol sulfate [Ventolin HFA] 90 mcg/actuation HFA aerosol inhaler 1 - 2 puff inhalation Q4H PRN PRN (Reason: Wheezing) Qty: 1 0RF Referrals / Follow Up: Rd Rivers DO [Primary Care Provider] - Disposition Disposition (needs filled in before D/C Order can be placed): Hospice in Medical Facility
--- NOTE | 2024-02-03 18:38 | DS.PCM_ITS ---
Providers Date of Admission: 01/28/24 Date of Discharge: 02/03/24 Primary Care Physician: Dr. Rd Rivers, Consultations 01/29/24 01:53 Consult: Turntable Worker / Pulmonary Medicine Routine Consulting Provider: Intensivists/Pulmonary Med Reason for Consult: intubation/ respitory failure EMERGENT Consult: No Notified: Yes Date Notified: 01/29/24 Time Notified: 01:53 Method of Notification: Text 02/02/24 05:02 Consult: Turntable Worker / Pulmonary Medicine Routine Consulting Provider: Marty Kim Reason for Consult: Resp failure EMERGENT Consult: No Notified: Yes Date Notified: 02/02/24 Time Notified: 03:44 Method of Notification: Text 02/03/24 11:52 Consult: Hospice / Palliative Care Routine Consulting Provider: [facility] Reason for Consult: End stage COPD, Bipap dependant, DNRCC ARREST EMERGENT Consult: No Notified: Yes Date Notified: 02/03/24 Time Notified: 12:15 Method of Notification: Answering Service Reason For Visit: AE COPD WITH INTUBATION IN FIELD Diagnosis Discharge Diagnosis (1) COPD with acute exacerbation: Status: Chronic Code(s): J44.1 - Chronic obstructive pulmonary disease with (acute) exacerbation (2) Acute hypoxic on chronic hypercapnic respiratory failure: Status: Acute Code(s): J96.01 - Acute respiratory failure with hypoxia; J96.12 - Chronic respiratory failure with hypercapnia (3) Multifocal pneumonia: Status: Acute Code(s): J18.9 - Pneumonia, unspecified organism Plan 73-year-old gentleman being admitted for concern of respiratory arrest. Aspiration risk, called for COPD exacerbation emergency patient lost consciousness blood pressure during pulse therefore no CPR was given. The patient was intubated in the field. Chest x-ray was positive for diffuse bilateral infiltrates consistent with multifocal pneumonia 1. Multifocal Pneumonia with Leukocytosis of 16.6 present on admission along with tachycardia of 143 bpm and hypotension of 85/73 mm Hg present on admission concerning for possible Sepsis - Admit to ICU for treatment under the Sepsis protocol. Continue IV Vancomycin and IV Zosyn begun in the ER and await culture and sensitivity data. On IV fentanyl. Give Tylenol prn pain or fever. Turntable Worker is consulted. On light sedation. IV fluid discontinued. 01/29: Patient extubated in the morning. Currently on BiPAP. Continue IV antibiotics. Patient having sinus tachycardia with PACs. 01/30: Patient on BiPAP. Still has significant shortness of breath and respiratory distress but comfortable on BiPAP. Anticipate long recovery time before discharge. 01/31: Patient on high flow oxygen. Continue empiric antibiotic. 02/01: ABG on 02/01 shows 7.36/56/80 on 30% FiO2 BiPAP. Patient on BiPAP. Precedex was discontinued. Seroquel 25 mg twice daily started. Rest medications to continue. 02/02: Patient respiratory status remains same, respiratory rate 20 to 26/min on BiPAP 30% FiO2. He gets short of breath if he is out of BiPAP for a long time seems needs BiPAP intermittently and at night. Detailed family discussion was done and agreeable for DNR CC arrest with no DC shock or tube feeding. No vasopressors. Palliative/hospice care consult was done. Patient family accepted hospice care and DNRCC papers signed with inpatient hospice care. Discharge emergency consultation done patient transferred to inpatient unit Sinus tachycardia exact etiology unclear possible due to [facility] hodilator/respiratory drive: On DuoNeb changed to ipratropium. Continue metoprolol 2. Acute exacerbation of COPD: Continue IV Solumedrol, nebulizers and ventilator. Start IV Protonix for GI prophylaxis while on high-dose steroids. 3. Acute Hypoxic and hypercarbic combined respiratory Failure requiring intubation in the field: Patient first ABG shows 7.2/60/378 head 100% FiO2/450/14/5 which improved to 7.25/51/92 at 40% FiO2/450/14/5. There is no previous ABG or bicarb of previous admissions at our system therefore unclear of his baseline. Bicarb and ABG was 23 and 24 normal. As mentioned above. 4. Recent admission here to this hospital ~2 weeks ago with AE COPD requiring intubation - Noted. Patient may benefit from referral to palliative care if and when he is able to extubated to prevent further serial readmission. 5. DVT prophylaxis - Lovenox 40 mg sq daily plus SCD's. Discharge medication reconciliation done. Discharge follow-up instructions completed. Discharge process discussed with the patient and all questions were answered to patient's satisfaction. Follow with PCP in 1 to 2 weeks Total time spent, exact 35 minutes on discharge meds reconciliation, exam ination, coordination of care with nurses and ancillary staff, review of imaging and blood test and discussion with the patient on follow-up instructions. Living will/advanced directive/end of life care: Patient does not have living will or advanced directive. He does not have designated power of workers compensation defense attorney for health but her daughter Mrs. Nicky Velasquez is next to kin and his son Bay Velasquez was present near the bedside. Also talked to patient's granddaughter present in the room in the presence of patient's RN. After discussion of benefits/risks procedures involved with full code, DNR CC arrest and DNR CC, the patient opted for DNR CC arrest. Rest as mentioned above Patient doesn't want artificial life support including intubation, tube feed, ventilator and/chest compression, central venous catheter, vasopressor and DC shock if needed Total time spent in [id number] encounter in discussion of advanced directive 17 minutes. Medications at Discharge Home Medications fluticasone fur. 100 mcg-umeclid 62.5 mcg-vilant 25 mcg inhalat.powder (Trelegy Ellipta) 1 inh inhalation DAILY SHORTNESS OF BREATH 09/04/23 aspirin 81 mg tablet,delayed release 81 mg PO BREAKFAST #0 tabs 09/05/23 atorvastatin 40 mg tablet 40 mg PO QHS #30 tabs 09/05/23 lisinopril 10 mg tablet 10 mg PO DAILY blood pressure #30 tabs 09/05/23 metoprolol succinate 50 mg capsule sprinkle, ext. release 24 hr 50 mg PO DAILY blood pressure #30 ea 09/05/23 nicotine 21 mg/24 hr daily transdermal patch 21 mg transdermal DAILY to stop sm oking #30 ea 09/05/23 pantoprazole 40 mg tablet,delayed release 40 mg PO DAILY reflux 12/30/23 guaifenesin 600 mg tablet, extended release 12 hr 600 mg PO BID cough #10 tabs 12/31/23 albuterol sulfate 2.5 mg/3 mL (0.083 %) solution for nebulization 2.5 mg (3 mL) inhalation Q4H PRN shortness of breath or wheezing #75 mL 01/10/24 clopidogrel 75 mg tablet 75 mg PO DAILY #1 TAB 01/10/24 metformin 500 mg tablet 500 mg PO BID #1 TAB 01/10/24 quetiapine 25 mg tablet 12.5 mg (1/2 x 25 mg) PO BID #0 tabs 01/10/24 albuterol sulfate 90 mcg/actuation aerosol inhaler (Ventolin HFA) 1 - 2 puff inhalation Q4H PRN PRN Wheezing ##1 01/24/24 prednisone 10 mg tablet 10 mg PO UD #33 tabs 01/24/24 Physical Exam Narrative Please see progress note for the exam finding on the same day Weight / BMI Weight Weight: 150 lb 2.157 oz Body Mass Index (BMI) 25.0 ABG / Lab / Microbiology Data 02/02/24 05:35 02/02/24 05:35 Laboratory: Laboratory Results - last 24 hr 02/02/24 21:27: POC Glucose 119 H Microbiology: Microbiology 01/28/24 18:45 Blood Culture (Wb) - Right Wrist Blood Culture - Final No growth in 5 days. 01/28/24 20:20 Blood Culture (Wb) - Anticubital Right Blood Culture - Final No growth in 5 days. 01/28/24 18:02 Sputum, Induced/Lukens Gram Stain - Final 01/28/24 18:02 Sputum, Induced/Lukens Respiratory Culture - Final Streptococcus agalactiae (B) 01/28/24 18:05 Mucosa - Nose SARS-CoV-2, Influenza & RSV (PCR) - Final D/C Instructions Discharge Diet: No restrictions and - Call your doctor if you observe: - (inpatient hospice care) Meaningful Use Info Meaningful Use Diagnoses (Choose all that apply): None applicable Discharge Plan Admission Admit Date/Time: 01/28/24 19:48 Attending Provider: Evan Payan Primary Care Provider: Rd Rivers Consulting Providers: Andre Smith; Simone Ferguson; Rudy Valiente; Jose Dean; Marty Kim; Modesto Enriquez; Manuela Portillo; Carlos Zepeda; Serena Hernandez; Krunal Hawthorne; Juni Yarbrough; Maykel Cameron; Hammad Saeed; Du Neri; Andre Winters; Annette Morris; Chelsea Nicolas; Poppy Garner 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 Discharge Orders/Prescriptions Prescriptions: Continued Trelegy Ellipta 100-62.5-25 mcg blister with device 1 inh INHALATION DAILY atorvastatin 40 mg Tablet 40 mg PO QHS Qty: 30 0RF Patient Comments: not taking; noncompliance aspirin 81 mg Tablet,Delayed Release (Dr/Ec) 81 mg PO BREAKFAST Qty: 0 0RF Patient Comments: not taking lisinopril 10 mg Tablet 10 mg PO DAILY Qty: 30 0RF nicotine 21 mg/24 hr Patch 24 Hour 21 mg transdermal DAILY Qty: 30 0RF metoprolol succinate 50 mg capsule,sprinkle,ER 24hr 50 mg PO DAILY Qty: 30 0RF pantoprazole 40 mg tablet,delayed release (DR/EC) 40 mg PO DAILY Patient Comments: TAKE 1 TABLET BY MOUTH TWICE DAILY guaifenesin 600 mg tablet extended release 12hr 600 mg PO BID Qty: 10 0RF quetiapine 25 mg Tablet 12.5 mg PO BID Qty: 0 0RF clopidogrel 75 mg Tablet 75 mg PO DAILY Qty: 1 0RF metformin 500 mg tablet 500 mg PO BID Qty: 1 0RF albuterol sulfate 2.5 mg /3 mL (0.083 %) solution for nebulization 2.5 mg inhalation Q4H PRN (Reason: shortness of breath or wheezing) Qty: 75 0RF prednisone 10 mg tablet 10 mg PO UD Qty: 33 0RF Rx Instructions: Take 4 tablets daily for 3 days, then 3 daily for 3 days, then 2 daily for 3 days, then 1 a day for 3 days then 1 QOD for 3 doses. albuterol sulfate [Ventolin HFA] 90 mcg/actuation HFA aerosol inhaler 1 - 2 puff inhalation Q4H PRN PRN (Reason: Wheezing) Qty: 1 0RF Referrals / Follow Up: Rd Rivers DO [Primary Care Provider] - Disposition Disposition (needs filled in before D/C Order can be placed): Hospice in Medical Facility Charges/Coding Visit Charges Inpatient E&M: 10411 Disch Hosp >30min
== END 2024-02-03 20:16 | disposition hospice, inpatient (51) | DRG 871 ==
LOC: ED 18:26 → ICU 20:10 → PCU 02-01 18:33 → ICU 02-02 04:56
PROVIDERS: Family Medicine; Internal Medicine Critical Care Medicine; Admitting Provider Internal Medicine; Emergency Provider Emergency Medicine; PCP Family Medicine; Visit Provider Internal Medicine
DX: A41.9 Sepsis, unspecified organism (principal); J96.21 Acute and chronic respiratory failure with hypoxia; J18.9 Pneumonia, unspecified organism; J96.22 Acute and chronic respiratory failure with hypercapnia; J44.0 Chronic obstructive pulmonary disease with (acute) lower respiratory infection; J44.1 Chronic obstructive pulmonary disease with (acute) exacerbation; I11.0 Hypertensive heart disease with heart failure; I50.9 Heart failure, unspecified; Z99.81 Dependence on supplemental oxygen; E11.65 Type 2 diabetes mellitus with hyperglycemia; I34.0 Nonrheumatic mitral (valve) insufficiency; F17.210 Nicotine dependence, cigarettes, uncomplicated; Z66 Do not resuscitate; Z86.73 Personal history of transient ischemic attack (TIA), and cerebral infarction without residual deficits; Z91.199 Patient's noncompliance with other medical treatment and regimen due to unspecified reason; Z79.82 Long term (current) use of aspirin; Z79.02 Long term (current) use of antithrombotics/antiplatelets; Z79.84 Long term (current) use of oral hypoglycemic drugs; Z79.899 Other long term (current) drug therapy
CPT/HCPCS: 31500; 31720; 36600; 51702; 71045; 74230; 80048; 80053; 80202; 81001; 82009; 82803; 82962; 83605; 83735; 83880; 84100; 84443; 84484; 85025; 87040; 87070; 87077; 87186; 87205; 87631; 87641; 92526; 92610; 92611; 93005; 94002; 94003; 94640; 94762; 97162; 97166; 97802; 97803; 99252; 99285; 99406; J7030; J7040; J7050; A4216; G0463